=== PATIENT | female | born 1935 | race Caucasian/White ===

== ENCOUNTER 2019-12-10 10:55 | Inpatient (IN) ==
--- NOTE | 2019-12-10 11:06 | Emergency Department Note ---
Impression & Plan GI bleed, Atrial fibrillation, Anemia ED Provider Note NAME: JESSI BONILLA AGE: 84 SEX: F : 1935 ARRIVES VIA: Walk-In INFORMANT: Patient, ED PROVIDER(S): Kit Rojas MD Chief Complaint: HPI: Does present with seizure and bloody bowel movement. 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 No additional history reported at this time. None noticed with not the patient was conscious or not alert. Unsure as to whether or not this was focal or grand mal type. The patient believes that this is more just a quivering that she states sometimes this will happen in her lips if she is deficient in certain electrolytes. The patient currently denies any headache, vision changes, chest pain, abdominal pain, nausea or vomiting. Did show a photo of a bloody bowel movement that occurred yesterday. No prior history of inflammatory bowel disease but did have a colonoscopy with a possible polypectomy within the last year but no other acute issues at that time. Patient does take Eliquis for history of atrial fibrillation. Prior history of seizures or migraines. Patient denies any sensory deficits ROS: See HPI for pertinent positives and negatives. A total of 10 systems were reviewed and otherwise negative. Past medical history: See below Surgical history: See below Social history: See below Physical Exam: GENERAL: Wearing a mask. NAD, non-toxic. EYE EXAM: Normal conjunctiva. PERRL, no anisocoria and EOM's grossly intact w/o pain. OROPHARYNX: Moist mucus membranes. Grossly normal dentition. NECK: Supple, no nuchal rigidity, no adenopathy, non-tender. No signs of meningismus. LUNGS: Clear to auscultation. Normal chest wall mechanics. HEART: Irregularly irregular, no MRG. ABDOMEN: Abdomen soft, non-tender, normo-active bowel sounds, no masses, no rebound or guarding. BACK: No CVA TTP. SKIN: No rashes and no bruising. UPPER EXTREMITIES: Upper extremities are grossly normal. LOWER EXTREMITIES: Grossly normal, no edema. NEURO EXAM: A&O x3, cranial nerves II-XII grossly intact, normal speech, moves all 4 extremities on command w/o issue. Good finger to nose, no drift, no sensory deficits. Differential diagnoses: Epilepsy, infection, hypoglycemia, electrolyte abnormalities, cardiac sources, intracerebral event, trauma, toxicologic, neurologic, syncope, as well as other pathologies. Diverticulosis, AVM, coag ulopathy, colitis, inflammatory bowel disease, malignancy, Maria C-Perry tear, esophagitis, peptic ulcer disease, variceal bleed, gastritis, epistaxis, fissure, hemorrhoids, as well as other pathologies. Course: Patient was seen and evaluated the bedside. Full history physical exam was performed. EKG: Indication: Seizure work-up A. fib, rate 88, normal QRS duration, normal axis, T wave inversion in lead III, slight depressions in the lateral leads. No prior EKGs for comparison. Imaging Studies: Radiology results as stated below per my review in the radiologist's interpretation: Cardiac monitoring: An order was placed for continuous cardiac monitoring. The monitor shows a rate of 88 with irregularly irregular rhythm. MDM: Patient was seen due to concern for seizure and possible GI bleed. Blood work was obtained along with type and screen Protonix bolus and drip ordered. Of no te the patient states that she would consider CPR but would not want to be intubated or have a breathing tube. Patient is a more wild white count of 16. The patient has stated that she does have a chronic cough but this is unchanged from prior and the patient does not have any abdominal pain sore throat denies any urinary symptoms. Abdomen is soft. Hemoglobin 9.4. No priors for comparison although the patient in further discussion states that she did have a transfusion sometime within the last year but her hemoglobin was around 8 at that time. Patient has normal coags and the patient's kidney function is unremarkable albeit mild prerenal azotemia. This could be related to the bleeding versus dehydration. Patient did receive a small amount of fluid given her CHF. She did have some slight depressions on her EKG with the patient denies any chest pains or shortness of breath. The p atient is currently not symptomatic and denies any chest pain lightheadedness, dizziness, or shortness of breath currently. No prior history of alcohol or tobacco use. Patient was consented for blood in the event that she required it. Patient was subsequently admitted to the medicine service under Dr. Moise MD, [facility] medicine service. Past Med/Surg History Medical History Atrial fibrillation CHF (congestive heart failure) Social History Smoking Status: Never smoker Feels Safe at Home: Yes Allergies Allergies Allergy/AdvReac Type Severity Reaction Status Date / Time No Known Allergies Allergy Unverified 12/10/19 12:44 Home Meds Home Medications Medication Instructions Recorded Confirmed albuterol sulfate 2 puff INHALATION Q4 PRN 10/17/19 12/10/19 apixaban [Eliquis] 5 mg PO BID 10/17/19 12/10/19 citalopram 20 mg PO DAILY 10/17/19 12/10/19 fluticasone propionate [Flonase] 1 spray INTRANASAL DAILY 10/17/19 12/10/19 levothyroxine 25 mcg PO DAILY 10/17/19 12/10/19 magnesium oxide 400 mg PO DAILY 10/17/19 12/10/19 mesalamine 800 mg PO TID 10/17/19 12/10/19 methotrexate sodium 2.5 mg PO WK 10/17/19 12/10/19 metoprolol succinate 12.5 mg PO DAILY 10/17/19 12/10/19 nystatin [Nystop] 1 applic TOPICAL TID 10/17/19 12/10/19 omeprazole [Prilosec] 20 mg PO DAILY 10/17/19 12/10/19 potassium chloride [Klor-Con M20] 20 meq PO BID 10/17/19 12/10/19 rosuvastatin [Crestor] 5 mg PO DAILY 10/17/19 12/10/19 tolterodine [Detrol LA] 4 mg PO DAILY 10/17/19 12/10/19 acetaminophen 325 mg PO QID PRN 12/10/19 12/10/19 amino acids-protein hydrolys 1 ea PO DAILY 12/10/19 12/10/19 [Pro-Stat Sugar Free] bisacodyl [Dulcolax (bisacodyl)] 10 mg MI DAILY 12/10/19 12/10/19 icosapent ethyl [Vascepa] 2 g PO DAILY 12/10/19 12/10/19 magnesium hydroxide [Milk of 1,200 mg PO BID 12/10/19 12/10/19 Magnesia] prednisone 20 mg PO DAILY 12/10/19 12/10/19 promethazine-DM 5 ml PO Q6H PRN 12/10/19 12/10/19 sodium phosphates [Fleet Enema] 118 ml MI DAILY PRN 12/10/19 12/10/19 Results & Data (ED) Vital Signs Vital Signs - 24 hr 12/10/19 10:57 12/10/19 11:18 12/10/19 11:21 Temperature 36.6 C Temperature Source Oral Pulse Rate 95 H 93 H 95 H Pulse Rate from SpO2 Sensor 92 H Pulse Rhythm Regular Respiratory Rate 20 21 20 Respiratory Effort / Characteristics Non-Labored Spontaneous Respiratory Depth Normal Blood Pressure 151/62 H Blood Pressure Mean 85 Pulse Oximetry 93 96 93 Oxygen Delivery Method Room Air Room Air Sepsis Recent Fever Within 48 Hours No Sepsis New/Unexplained Change in Mental Status N/A Sepsis Action Taken by Nursing No Action Required 12/10/19 12:02 12/10/19 12:31 12/10/19 12:35 Temperature Temperature Source Pulse Rate 93 H 75 79 Pulse Rate from SpO2 Sensor 89 81 83 Pulse Rhythm Respiratory Rate 21 22 29 H Respiratory Effort / Characteristics Respiratory Depth Blood Pressure 89/50 L 74/47 L 84/46 L Blood Pressure Mean 63 51 65 Pulse Oximetry 94 92 92 Oxygen Delivery Method Sepsis Recent Fever Within 48 Hours Sepsis New/Unexplained Change in Mental Status Sepsis Action Taken by Nursing 12/10/19 13:01 12/10/19 13:31 12/10/19 14:00 Temperature Temperature Source Pulse Rate 88 84 70 Pulse Rate from SpO2 Sensor 89 87 72 Pulse Rhythm Respiratory Rate 24 22 24 Respiratory Effort / Characteristics Respiratory Depth Blood Pressure 110/47 L 90/54 L 85/41 L Blood Pressure Mean 66 59 64 Pulse Oximetry 96 95 93 Oxygen Delivery Method Sepsis Recent Fever Within 48 Hours Sepsis New/Unexplained Change in Mental Status Sepsis Action Taken by Nursing 12/10/19 14:15 Temperature Temperature Source Pulse Rate 70 Pulse Rate from SpO2 Sensor Pulse Rhythm Respiratory Rate 24 Respiratory Effort / Characteristics Respiratory Depth Blood Pressure 85/41 L Blood Pressure Mean Pulse Oximetry 93 Oxygen Delivery Method Room Air Sepsis Recent Fever Within 48 Hours Sepsis New/Unexplained Change in Mental Status Sepsis Action Taken by Prison Medications Current Medication List: was personally reviewed by me Laboratory Data Attestation: I reviewed the patient's lab results. Result diagrams: 12/10/19 11:20 12/10/19 11:20 Lab Results 12/10/19 12/10/19 12/10/19 Range/Units 11:20 11:20 11:20 WBC 16.30 H (4.8-10.8) K/uL RBC 3.12 L (4.2-5.4) M/uL Hgb 9.4 L (12.0-16.0) g/dL Hct 29.4 L (37-47) % MCV 94.2 (80-100) fL MCH 30.1 (25-34) pg MCHC 32.0 (32-36) g/dL RDW Std Deviation 62.5 H (36.4-46.3) fL RDW Coeff of Jesse 18.4 H (11.5-14.5) % Plt Count 282 (130-400) K/uL MPV 9.1 (7.4-10.4) fL Immature Gran % (Auto) 1.0 % Neut % (Auto) 74.0 % Lymph % (Auto) 17.0 % Hendricks % (Auto) 6.9 % Eos % (Auto) 1.0 % Baso % (Auto) 0.1 % Neut # (Auto) 12.06 H (1.4-6.5) K/uL Lymph # (Auto) 2.77 (1.2-3.4) K/uL Hendricks # (Auto) 1.12 H (0.11-0.59) K/uL Eos # (Auto) 0.17 (0-0.5) K/uL Baso # (Auto) 0.02 (0-0.2) K/uL Immature Gran # (Auto) 0.16 H (0.00-0.02) K/uL PT 10.9 (9.0-12.0) Seconds INR 1.0 (0.9-1.1) APTT 22.2 (21.0-31.0) Seconds PTT Ratio 0.8 Sodium (136-145) mmol/L Potassium (3.5-5.1) mmol/L Chloride (98-107) mmol/L Carbon Dioxide (21-32) mmol/L Anion Gap (3-11) BUN (7-18) mg/dl Creatinine (0.6-1.2) mg/dl Est Cr Clr Drug Dosing Est GFR ( Amer) Est GFR (Non-Af Amer) BUN/Creatinine Ratio (-20) Glucose (70-99) mg/dl Calcium (8.5-10.1) mg/dl Total Bilirubin (0.2-1) mg/dl AST (15-37) U/L ALT (12-78) U/L Alkaline Phosphatase (45-117) U/L Total Protein (6.4-8.2) gm/dl Albumin (3.4-5.0) gm/dl Globulin (2.5-4.0) gm/dl Albumin/Globulin Ratio (0.9-2) Lipase (73-393) U/L Blood Type O Positive Blood Type Recheck Antibody Screen NEGATIVE Crossmatch See Detail 12/10/19 12/10/19 Range/Units 11:20 13:30 WBC (4.8-10.8) K/uL RBC (4.2-5.4) M/uL Hgb (12.0-16.0) g/dL Hct (37-47) % MCV (80-100) fL MCH (25-34) pg MCHC (32-36) g/dL RDW Std Deviation (36.4-46.3) fL RDW Coeff of Jesse (11.5-14.5) % Plt Count (130-400) K/uL MPV (7.4-10.4) fL Immature Gran % (Auto) % Neut % (Auto) % Lymph % (Auto) % Hendricks % (Auto) % Eos % (Auto) % Baso % (Auto) % Neut # (Auto) (1.4-6.5) K/uL Lymph # (Auto) (1.2-3.4) K/uL Hendricks # (Auto) (0.11-0.59) K/uL Eos # (Auto) (0-0.5) K/uL Baso # (Auto) (0-0.2) K/uL Immature Gran # (Auto) (0.00-0.02) K/uL PT (9.0-12.0) Seconds INR (0.9-1.1) APTT (21.0-31.0) Seconds PTT Ratio Sodium 136 (136-145) mmol/L Potassium 4.3 (3.5-5.1) mmol/L Chloride 104 (98-107) mmol/L Carbon Dioxide 28 (21-32) mmol/L Anion Gap 4.0 (3-11) BUN 29 H (7-18) mg/dl Creatinine 0.87 (0.6-1.2) mg/dl Est Cr Clr Drug Dosing Not Reportable Est GFR ( Amer) 70.9 Est GFR (Non-Af Amer) 61.2 BUN/Creatinine Ratio 33.6 H (10-20) Glucose 128 H (70-99) mg/dl Calcium 8.8 (8.5-10.1) mg/dl Total Bilirubin 0.4 (0.2-1) mg/dl AST 14 L (15-37) U/L ALT 29 (12-78) U/L Alkaline Phosphatase 79 (45-117) U/L Total Protein 5.9 L (6.4-8.2) gm/dl Albumin 2.4 L (3.4-5.0) gm/dl Globulin 3.5 (2.5-4.0) gm/dl Albumin/Globulin Ratio 0.7 L (0.9-2) Lipase 57 L (73-393) U/L Blood Type Blood Type Recheck O Positive Antibody Screen Crossmatch Administered Medications Pantoprazole Sodium 40 mg/ (Dextrose) 100 mls @ 20 mls/hr IV Q5H CRISTINA Stop: 01/09/20 11:33 Last Admin: 12/10/19 12:37 Dose: 8 mg/hr, 20 mls/hr Documented by: [id number] Discontinued Medications Sodium Chloride (Nss) 250 mls @ 999 mls/hr IV .Q16M CRISTINA Stop: 12/10/19 12:00 Last Admin: 12/10/19 13:03 Dose: Not Given Documented by: [id number] Infusion: 12/10/19 12:37 Dose: 0 mls/hr Documented by: [id number] Admin: 12/10/19 12:09 Dose: 999 mls/hr Documented by: [id number] Pantoprazole Sodium (Protonix Bolus/Drip) 0 mls @ 1 mls/hr IV ONE STA Stop: 12/10/19 11:19 Last Admin: 12/10/19 13:03 Dose: Not Given Documented by: [id number] Pantoprazole Sodium 80 mg/ (Dextrose) 120 mls @ 400 mls/hr IV NOW ONE Stop: 12/10/19 11:35 Last Infusion: 12/10/19 12:37 Dose: 0 mls/hr Documented by: [id number] Admin: 12/10/19 12:11 Dose: 400 mls/hr Documented by: [id number] Sodium Chloride (Nss 1000ml) 250 mls @ 999 mls/hr IV .Q16M ONE Stop: 12/10/19 12:53 Last Infusion: 12/10/19 12:58 Dose: 0 mls/hr Documented by: [id number] Admin: 12/10/19 12:41 Dose: 999 mls/hr Documented by: [id number] Discharge Plan Visit Data Chief Complaint: Seizure Stated Complaint: SEIZURE ED Provider: Kit Rojas Discharge Problem: GI bleed, Atrial fibrillation, Anemia Discharge Instructions Interventions: ED Discharge Assessment Last Done: 12/10/19 14:15 Discharge Problem: GI bleed Qualifiers: GI bleed type/associated pathology: unspecified gastrointestinal hemorrhage type Qualified Code(s): K92.2 - Gastrointestinal hemorrhage, unspecified Atrial fibrillation Qualifiers: Atrial fibrillation type: unspecified chronic Qualified Code(s): I48.20 - Chronic atrial fibrillation, unspecified Anemia Qualifiers: Anemia type: unspecified type Qualified Code(s): D64.9 - Anemia, unspecified
[2019-12-10] MEDS ORDERED: PANTOPRAZOLE BOLUS/DRIP 1 EA IV STA (11:18)
[2019-12-10] MEDS ORDERED: PANTOprazole 80 MG in DEXTROSE 5% 100 ML IV ONE (11:18)
[2019-12-10 11:31] LABS: Basophils # (auto) 0.02 K/uL (0-0.2); Basophils % (auto) 0.1 %; Eosinophils # (auto) 0.17 K/uL (0-0.5); Hematocrit (blood only) 29.4 % (37-47); Hemoglobin 9.4 g/dL (12.0-16.0); Immature Granulocytes # (auto) 0.16 K/uL (0.00-0.02); Lymphocytes # (auto) 2.77 K/uL (1.2-3.4); Mean Corpuscular Hemoglobin 30.1 pg (25-34); Mean Corpuscular Volume 94.2 fL (80-100); Mean Platelet Volume 9.1 fL (7.4-10.4); Monocytes # (auto) 1.12 K/uL (0.11-0.59); Monocytes % (auto) 6.9 %; Neutrophils # (auto) 12.06 K/uL (1.4-6.5); Platelet Count 282 K/uL (130-400); RDW Coefficient of Variation 18.4 % (11.5-14.5); RDW Standard Deviation 62.5 fL (36.4-46.3); Red Blood Count 3.12 M/uL (4.2-5.4)
[2019-12-10 11:40] LABS: Partial Thromboplastin Ratio 0.8; Partial Thromboplastin Time 22.2 Seconds (21.0-31.0); Prothrombin Time 10.9 Seconds (9.0-12.0)
--- NOTE | 2019-12-10 11:43 | CT Scan Report ---
CT head/brain wo con CLINICAL HISTORY: Seizure COMPARISON STUDY: 10/17/2019 TECHNIQUE: Axial CT of the brain is performed from the vertex to the skull base. IV contrast was not administered for this examination. A dose lowering technique was utilized adhering to the principles of ALARA. CT DOSE: 537.48 mGy.cm FINDINGS: There is a stable 8 mm dural based right frontal calcification. There is no CT evidence of acute maribell ical infarction. There is no evidence of midline shift. There is no acute hemorrhage. No calvarial f ractures are visualized. There are patchy white matter hypodensities likely on a small vessel basis. There is no evidence of pathologic ventricular dilatation. There is no evidence of acute sinusitis IMPRESSION: No acute intracranial findings ACT 112: Negative or not required by law. Electronically signed by: Christophe Rodas M.D. 12/10/2019 11:42 AM
[2019-12-10 11:47] LABS: Alanine Aminotransferase 29 U/L (12-78); Albumin Level 2.4 gm/dl (3.4-5.0); Aspartate Aminotransferase 14 U/L (15-37); BUN Creatinine Ratio 33.6 (10-20); Blood Urea Nitrogen 29 mg/dl (7-18); Calcium 8.8 mg/dl (8.5-10.1); Carbon Dioxide 28 mmol/L (21-32); Chloride 104 mmol/L (98-107); Est GFR (African American) 70.9; Est GFR (Non-African American) 61.2; Glucose 128 mg/dl (70-99); Lipase 57 U/L (73-393); Potassium 4.3 mmol/L (3.5-5.1); Sodium 136 mmol/L (136-145)
[2019-12-10 11:49] LABS: Albumin Globulin Ratio 0.7 (0.9-2); Alkaline Phosphatase 79 U/L (45-117); Bilirubin,Total 0.4 mg/dl (0.2-1); Globulin 3.5 gm/dl (2.5-4.0); Total Protein 5.9 gm/dl (6.4-8.2)
[2019-12-10] MEDS: SODIUM CHLORIDE 0.9% 250 ML IV SCH ×2 (12:09→13:03)
[2019-12-10] MEDS: PANTOprazole 40 MG in DEXTROSE 5% 100 ML IV SCH ×3 (12:37→22:29)
[2019-12-10] MEDS ORDERED: SODIUM CHLORIDE 0.9% 1000ML 250 ML IV ONE (12:38)
[2019-12-10] MEDS ORDERED: SODIUM CHLORIDE 0.9% 250 ML IV PRN ×2 (12:43→23:09)
--- NOTE | 2019-12-10 13:36 | History & Physical Report ---
Date of Service December 10, 2019 Assessment & Plan (1) Bright red blood per rectum: (2) Anemia due to GI blood loss: (3) Atrial fibrillation: (4) CHF (congestive heart failure): (5) Rheumatoid arthritis: (6) GERD (gastroesophageal reflux disease): (7) Hypothyroid: (8) Valvular heart disease: (9) Hyperlipidemia: (10) Depression: We will hold her Eliquis, GI evaluation, monitor hemoglobin and hematocrit, gentle IV fluids, she is consented for blood, PCU, continue outpatient meds were appropriate, clear diet. Consider consulting neurology if we witnessed another seizure. Patient may have passed out last night secondary to the blood loss and had tonic jerks when she regained consciousness. CODE STATUS:DNI ROS-No Headache, No Visual Changes, No Nausea, No Vomiting, No Fever, No Chills, No Neck Pain or Stiffness, No Chest Pain, No Palpitations, No SOB, No CHENG, No Cough, No Sputum, No Wheezing, No Abdominal Pain, No Diarrhea, No Hematemesis, No Hemoptysis, No Unexpected Weight Loss, No Flank pain, No Melena, No Hematochezia, No Frequency, No Urgency, No Burning, No Hematuria, No Rashes, No Diaphoresis. Appetite is Normal, positive bright red blood per rectum, weakness Physical Exam Gen-AAO x 3, NAD, Afebrile, obese Head-NCAT, EOMI, PERRLA, Anicteric Sclera, No Posterior Pharyngeal Erythema Neck-Supple, No JVD, No Thyromegaly, No Masses, No LAD, No Bruits Lungs-Clear to Auscultation Bilaterally, No Rales, No Rhonchi, No Wheezing, No Crepitus Chest-No S4, +S1, +S2, No S3, No Murmurs, No Rubs, No Gallops, No Ectopy Abdomen-Soft, Bowel Sounds Present, Non Tender, Non Distended, No Hepatomegaly, No Splenomegaly, No Palpable Masses, No Rebound, No Rigidity, No Guarding Musculoskeletal-Full Range of Motion Bilaterally, No CVAT Extremities-No Cyanosis, No Clubbing, 3+ pitting edema Nuero-Cranial Nerves II-XII grossly intact, Motor WNL, DTRs WNL, Strength WNL, Non Focal Psych-Normal Mood History of Present Illness Past medical historyatrial fibrillation, congestive heart failure, valvular heart disease, hypothyroidism, hypertension, GERD, rheumatoid arthritis, hyperlipidemia, depression Past surgical historyappendectomy, cholecystectomy, hysterectomy, cataract Family historymother of heart disease, father of a perforated ulcer Social history-never , lives with a cousin, no tobacco drugs or alcohol history. Chief Complaint: BRBPR Primary Care Provider: Rayne Driscoll DO 84-year-old white female with a past medical history of atrial fibrillation, CHF, valvular heart disease, hypothyroidism, hypertension, GERD, rheumatoid arthritis, hyperlipidemia, and depression who comes in secondary to bright red blood per rectum last evening. According to her niece at the bedside she also had 4 minutes of a seizure last night as well. She said the bleeding occurred right after her bowel movement last night. She felt okay this morning after drinking some Gatorade. Because of that she lives with told the niece to take her to the hospital because of what happened last night. Her blood pressure was in the 90s in the emergency room and she was given fluids. She was also consented for blood and her CODE STATUS is DO NOT INTUBATE. Allergies Allergy/AdvReac Type Severity Reaction Status Date / Time No Known Allergies Allergy Unverified 12/10/19 12:44 Home Medications Home Medications Medication Instructions Recorded Confirmed Type albuterol sulfate 2 puff INHALATION Q4 PRN 10/17/19 12/10/19 History apixaban [Eliquis] 5 mg PO BID 10/17/19 12/10/19 History citalopram 20 mg PO DAILY 10/17/19 12/10/19 History fluticasone propionate [Flonase] 1 spray INTRANASAL DAILY 10/17/19 12/10/19 History levothyroxine 25 mcg PO DAILY 10/17/19 12/10/19 History magnesium oxide 400 mg PO DAILY 10/17/19 12/10/19 History mesalamine 800 mg PO TID 10/17/19 12/10/19 History methotrexate sodium 2.5 mg PO WK 10/17/19 12/10/19 History metoprolol succinate 12.5 mg PO DAILY 10/17/19 12/10/19 History nystatin [Nystop] 1 applic TOPICAL TID 10/17/19 12/10/19 History omeprazole [Prilosec] 20 mg PO DAILY 10/17/19 12/10/19 History potassium chloride [Klor-Con M20] 20 meq PO BID 10/17/19 12/10/19 History rosuvastatin [Crestor] 5 mg PO DAILY 10/17/19 12/10/19 History tolterodine [Detrol LA] 4 mg PO DAILY 10/17/19 12/10/19 History acetaminophen 325 mg PO QID PRN 12/10/19 12/10/19 History amino acids-protein hydrolys 1 ea PO DAILY 12/10/19 12/10/19 History [Pro-Stat Sugar Free] bisacodyl [Dulcolax (bisacodyl)] 10 mg HI DAILY 12/10/19 12/10/19 History icosapent ethyl [Vascepa] 2 g PO DAILY 12/10/19 12/10/19 History magnesium hydroxide [Milk of 1,200 mg PO BID 12/10/19 12/10/19 History Magnesia] prednisone 20 mg PO DAILY 12/10/19 12/10/19 History promethazine-DM 5 ml PO Q6H PRN 12/10/19 12/10/19 History sodium phosphates [Fleet Enema] 118 ml HI DAILY PRN 12/10/19 12/10/19 History Past Med/Surg History Medical History (Updated 12/10/19 @ 13:30 by Jamie Phipps DO) Atrial fibrillation CHF (congestive heart failure) Social History Smoking Status: Never smoker Feels Safe at Home: Yes Results & Data Results & Data ([facility]) Vital Signs (Past 12 Hours) Vital Signs Temp Pulse Resp BP Pulse Ox 12/10/19 13:01 88 24 110/47 L 96 12/10/19 12:35 79 29 H 84/46 L 92 12/10/19 12:31 75 22 74/47 L 92 12/10/19 12:02 93 H 21 89/50 L 94 12/10/19 11:21 95 H 20 93 12/10/19 11:18 93 H 21 151/62 H 96 12/10/19 10:57 36.6 C 95 H 20 93 Allergies No Known Allergies Allergy (Unverified 12/10/19 12:44) Height/Weight/Isolation Height 5 ft 5 in Weight 92.8 kg Chemistry 12/10/19 11:20 Sodium 136 Potassium 4.3 Chloride 104 Carbon Dioxide 28 Anion Gap 4.0 BUN 29 H Creatinine 0.87 Glucose 128 H
[2019-12-10] MEDS ORDERED: ONDANSETRON INJ 2 MG/ML 2 ML VIAL IV PRN (14:44)
[2019-12-10] MEDS ORDERED: PROMETHAZINE DM PO PRN (14:44)
[2019-12-10] MEDS ORDERED: ACETAMINOPHEN 325 MG TAB PO PRN (14:44)
[2019-12-10] MEDS ORDERED: SOD PHOSPHATE/SOD BIPHOSPHATE ENEMA 132 ML BTL PR PRN (14:44)
[2019-12-10 15:14] LABS: Hematocrit (blood only) 28.5 % (37-47); Hemoglobin 9.1 g/dL (12.0-16.0)
[2019-12-10] MEDS: NYSTATIN POWDER 15GM BTL EXT SCH ×2 (16:48→21:11)
[2019-12-10] MEDS: MESALAMINE 800 MG TABCR PO SCH ×2 (16:50→21:11)
[2019-12-10] MEDS ORDERED: MAGNESIUM HYDROXIDE SUSP 30 ML UDC PO PRN (21:00)
[2019-12-10] MEDS: POTASSIUM CHLORIDE CRTAB 20 MEQ TABCR PO SCH (21:11)
[2019-12-10 23:00] LABS: Hematocrit (blood only) 25.1 % (37-47); Hemoglobin 7.9 g/dL (12.0-16.0)
[2019-12-10] MEDS ORDERED: ACETAMINOPHEN 500 MG TAB PO STA (23:09)
[2019-12-11] MEDS: PANTOprazole 40 MG in DEXTROSE 5% 100 ML IV SCH ×4 (03:00→23:48)
[2019-12-11 03:08] LABS: Appearance Urine Turbid (Clear); Bacteria Urine Automated 1+ (Negative); Bilirubin Urine Negative (Negative); Blood Urine 3+ (Negative); Color Urine Dark Yellow; Epithelial Cell Urine Auto >30 /lpf (0-5); Glucose Urine UA Negative (Negative); Ketones Urine Trace (Negative); Leukocyte Esterase Urine 2+ (Negative); Nitrite Urine Negative (Negative); Protein Urine Trace (Negative); Specific Gravity Urine 1.023 (1.000-1.030); Urobilinogen Urine Negative (Negative)
[2019-12-11 03:20] LABS: RBC Urine Automated 0-4 /hpf (0-4)
[2019-12-11] MEDS: LEVOTHYROXINE SODIUM 25 MCG TABLET PO SCH (06:29)
[2019-12-11 06:43] LABS: Hematocrit (blood only) 26.6 % (37-47); Hemoglobin 8.6 g/dL (12.0-16.0); Mean Corpuscular Hemoglobin 29.8 pg (25-34); Mean Corpuscular Hgb Conc 32.3 g/dL (32-36); Mean Platelet Volume 9.4 fL (7.4-10.4); Platelet Count 268 K/uL (130-400); RDW Coefficient of Variation 19.5 % (11.5-14.5); RDW Standard Deviation 65.3 fL (36.4-46.3); Red Blood Count 2.89 M/uL (4.2-5.4); White Blood Count 11.48 K/uL (4.8-10.8)
[2019-12-11 06:57] LABS: Prothrombin Time 10.9 Seconds (9.0-12.0)
[2019-12-11 07:19] LABS: Albumin Globulin Ratio 0.6 (0.9-2); BUN Creatinine Ratio 30.5 (10-20); Bilirubin,Total 0.7 mg/dl (0.2-1); Calcium 8.1 mg/dl (8.5-10.1); Creatinine Clr Calc Pharmacy 51.2 ml/min; Est GFR (African American) 66.3; Est GFR (Non-African American) 57.2; Globulin 3.1 gm/dl (2.5-4.0); Potassium 5.2 mmol/L (3.5-5.1); Total Protein 5.1 gm/dl (6.4-8.2)
[2019-12-11] MEDS ORDERED: AMINO ACIDS PROTEIN HYDROLYS PO SCH (09:00)
[2019-12-11] MEDS ORDERED: bisacodyL 10 MG SUPP PR PRN (09:00)
[2019-12-11] MEDS ORDERED: PANTOprazole 40 MG TAB PO SCH (09:00)
[2019-12-11] MEDS: MESALAMINE 800 MG TABCR PO SCH ×3 (09:01→21:24)
[2019-12-11] MEDS: ROSUVASTATIN CALCIUM 5 MG TAB PO SCH (09:01)
[2019-12-11] MEDS: TOLTERODINE TARTRATE LA 4 MG CAPCR PO SCH (09:01)
[2019-12-11] MEDS: CITALOPRAM 20 MG TAB PO SCH (09:01)
[2019-12-11] MEDS: METOPROLOL SUCC 25MG EXT REL TAB PO SCH (09:02)
[2019-12-11] MEDS: predniSONE 20 MG TAB PO SCH (09:03)
[2019-12-11] MEDS: MAGNESIUM OXIDE 400 MG TAB PO SCH (09:04)
[2019-12-11] MEDS: POTASSIUM CHLORIDE CRTAB 20 MEQ TABCR PO SCH ×2 (09:04→21:24)
[2019-12-11] MEDS: FLUTICASONE PROPIONATE NA SPR 16 GM BTL SCH (09:11)
[2019-12-11] MEDS: NYSTATIN POWDER 15GM BTL EXT SCH ×3 (09:12→21:23)
--- NOTE | 2019-12-11 09:26 | Gastrointestinal Consultation ---
Date of Consultation December 11, 2019 Assessment & Plan (1) GI bleed: (2) Anemia due to GI blood loss: Continue Protonix though it can be switched to IV BID as she has no overt GI blood loss and is HD stable Add Carafate 1 g PO QID AC and HS Obtain records from Prior endoscopic workup Patient states she would like to hold off on EGD/Colonoscopy Will follow clinical course and make further recommendations as needed. History of Present Illness Reason for Consultation: GI bleed Attending Physician: Jamie Stevenson MD History of Present Illness Kate Dior is an 84 yo CF with a significant PMHx of Afib on anticoagulation presented to the ER last evening following reported seizure activity, as well as bright red blood per rectum following a Bowel movement. Upon arrival to the ER, she was noted to be anemic. A CT scan of the head was normal. She was subsequently admitted and placed on a Protonix gtt. At the time I saw the patient, she stated that she is feeling better than on arrival. She denies any abdominal pain, fevers, chills, nausea, vomiting, diarrhea, hematemesis, melena, or further Bright red blood per rectum. She states that she has had 1 BM since her arrival, but did not see blood. She states that she, "just had a colonoscopy last year in [place]." She states that she has had a stomach ulcer in the past, but cannot elaborate on the details of how this diagnosis was made. I also inquired about her taking Mesalamine, which is used in the treatment of Ulcerative colitis, however, she does not know why she takes it. She denies any further complaints at present. Allergies Allergy/AdvReac Type Severity Reaction Status Date / Time No Known Allergies Allergy Unverified 12/10/19 12:44 Home Medications Home Medications Medication Instructions Recorded Confirmed Type albuterol sulfate 2 puff INHALATION Q4 PRN 10/17/19 12/10/19 History apixaban [Eliquis] 5 mg PO BID 10/17/19 12/10/19 History citalopram 20 mg PO DAILY 10/17/19 12/10/19 History fluticasone propionate [Flonase] 1 spray INTRANASAL DAILY 10/17/19 12/10/19 History levothyroxine 25 mcg PO DAILY 10/17/19 12/10/19 History magnesium oxide 400 mg PO DAILY 10/17/19 12/10/19 History mesalamine 800 mg PO TID 10/17/19 12/10/19 History methotrexate sodium 2.5 mg PO WK 10/17/19 12/10/19 History metoprolol succinate 12.5 mg PO DAILY 10/17/19 12/10/19 History nystatin [Nystop] 1 applic TOPICAL TID 10/17/19 12/10/19 History omeprazole [Prilosec] 20 mg PO DAILY 10/17/19 12/10/19 History potassium chloride [Klor-Con M20] 20 meq PO BID 10/17/19 12/10/19 History rosuvastatin [Crestor] 5 mg PO DAILY 10/17/19 12/10/19 History tolterodine [Detrol LA] 4 mg PO DAILY 10/17/19 12/10/19 History acetaminophen 325 mg PO QID PRN 12/10/19 12/10/19 History amino acids-protein hydrolys 1 ea PO DAILY 12/10/19 12/10/19 History [Pro-Stat Sugar Free] bisacodyl [Dulcolax (bisacodyl)] 10 mg OK DAILY 12/10/19 12/10/19 History icosapent ethyl [Vascepa] 2 g PO DAILY 12/10/19 12/10/19 History magnesium hydroxide [Milk of 1,200 mg PO BID 12/10/19 12/10/19 History Magnesia] prednisone 20 mg PO DAILY 12/10/19 12/10/19 History promethazine-DM 5 ml PO Q6H PRN 12/10/19 12/10/19 History sodium phosphates [Fleet Enema] 118 ml OK DAILY PRN 12/10/19 12/10/19 History Patient History Medical History Atrial fibrillation CHF (congestive heart failure) Social History Smoking Status: Never smoker Second Hand Exposure: No; Do You Dip or Chew Tobacco: No; Tobacco Cessation Education Requested by Patient: No Hx Alcohol Use: No Hx Substance Use: No Current Living Situation: Family Current Living Situation Comment: lives with sebastian, her neice Feels Safe at Home: Yes Safety Concerns: Feels Safe At This Time Assistive Devices: Walker Review of Systems Review of Systems: All systems reviewed & are unremarkable except as noted in HPI & below Physical Exam Constitutional: + ill appearing; no acute distress Eyes: + anicteric sclerae ENMT: external ear and nose normal, oropharynx normal Neck: trachea midline Respiratory: normal respiratory effort; no respiratory distress and no labored breathing Cardiovascular: Rate/Rhythm: + irregularly irregular Gastrointestinal (Abdomen): Inspection/Auscultation: abdomen normal to inspection and normal bowel sounds; abdomen not distended Percussion/Palpation: abdomen soft; abdomen nontender, no guarding and abdomen not rigid Skin: no rashes, warm and dry Psychiatric: Orientation: alert Results & Data ([facility]) Vital Signs (Past 12 Hours) Vital Signs Temp Pulse Pulse Resp BP BP Pulse Ox 12/11/19 07:26 36.8 C 89 18 99/67 L 96 12/11/19 03:09 36.6 C 88 20 94/59 L 97 12/11/19 02:00 36.8 C 82 20 84/50 L 97 12/11/19 01:00 36.5 C 87 22 79/46 L 95 12/11/19 00:55 90/52 L 12/11/19 00:41 90 102/63 12/11/19 00:36 82/48 L 12/11/19 00:30 36.5 C 85 22 43/38 L 98 12/11/19 00:15 36.4 C L 84 20 97 12/10/19 23:54 36.6 C 78 20 91 12/10/19 23:09 36.6 C 78 16 91 PG Care Time/CCT Total # of Minutes Spent Total Time Spent with Patient: Total time spent is greater than 50% in coordination of care (as documented) at patient's floor/unit and/or counseling patient: Coding Level of Care Code 19872 Initial Inpt Care Lvl 3 Diagnoses GI bleed K92.2 GI bleed type/associated pathology: unspecified gastrointestinal hemorrhage type Anemia due to GI blood loss D50.0 (1) GI bleed GI bleed type/associated pathology: unspecified gastrointestinal hemorrhage type Qualified Code(s): K92.2 - Gastrointestinal hemorrhage, unspecified
--- NOTE | 2019-12-11 10:03 | Electrocardiogram Report ---
Test Reason : Blood Pressure : / mmHG Vent. Rate : 088 BPM Atrial Rate : 097 BPM P-R Int : 000 ms QRS Dur : 082 ms QT Int : 368 ms P-R-T Axes : 000 004 002 degrees QTc Int : 445 ms Atrial fibrillation Nonspecific ST abnormality Abnormal ECG No previous ECGs available Confirmed by Azeem Lim ([id number]) on 12/11/2019 10:03:22 AM Referred By: REFERRED SELF Confirmed By:Azeem Lim
--- NOTE | 2019-12-11 12:27 | Cardiology Consultation ---
Date of Consultation December 11, 2019 Assessment & Plan (1) GI bleed: (2) Anemia due to GI blood loss: (3) Atrial fibrillation: (4) Chronic diastolic heart failure: (5) Tricuspid regurgitation: Hold Eliquis in the setting of acute lower GI bleeding and symptomatic anemia. Patient appears compensated, mildly hypovolemic at this time. No indication for diuretic therapy. Edema well controlled on exam. Agree with cautious/gentle hydration as tolerated. Ventricular rates controlled on telemetry. Continue low-dose beta-allan as previously ordered. Patient is considered moderate, acceptable risk for endoscopic procedures if necessary. No further cardiac testing or intervention would lower her risk at this time. History of Present Illness Reason for Consultation: GI bleed, CHF, atrial fibrillation Requesting Physician: Dr. Phipps Attending Physician: Jamie Stevenson MD History of Present Illness 84-year-old female presented to the emergency department with rectal bleeding. Patient reports several bloody bowel movements. Chronically anticoagulated due to history of chronic, rate controlled atrial fibrillation. History of diastolic heart failure and severe tricuspid regurgitation with mild pulmonary hypertension. Patient reports lower extremity edema with fair control on outpatient diuretic regimen. Dyspnea on exertion noted prior to admission. Symptoms improved thus far with transfusion of packed red blood cells and diuretic therapy. Telemetry demonstrates rate controlled atrial fibrillation. No recurrent episodes of hematochezia, melena, hematemesis, or coffee-ground emesis since admission. Eliquis remains on hold. Allergies Allergy/AdvReac Type Severity Reaction Status Date / Time No Known Allergies Allergy Unverified 12/10/19 12:44 Home Medications Home Medications Medication Instructions Recorded Confirmed Type albuterol sulfate 2 puff INHALATION Q4 PRN 10/17/19 12/10/19 History apixaban [Eliquis] 5 mg PO BID 10/17/19 12/10/19 History citalopram 20 mg PO DAILY 10/17/19 12/10/19 History fluticasone propionate [Flonase] 1 spray INTRANASAL DAILY 10/17/19 12/10/19 History levothyroxine 25 mcg PO DAILY 10/17/19 12/10/19 History magnesium oxide 400 mg PO DAILY 10/17/19 12/10/19 History mesalamine 800 mg PO TID 10/17/19 12/10/19 History methotrexate sodium 2.5 mg PO WK 10/17/19 12/10/19 History metoprolol succinate 12.5 mg PO DAILY 10/17/19 12/10/19 History nystatin [Nystop] 1 applic TOPICAL TID 10/17/19 12/10/19 History omeprazole [Prilosec] 20 mg PO DAILY 10/17/19 12/10/19 History potassium chloride [Klor-Con M20] 20 meq PO BID 10/17/19 12/10/19 History rosuvastatin [Crestor] 5 mg PO DAILY 10/17/19 12/10/19 History tolterodine [Detrol LA] 4 mg PO DAILY 10/17/19 12/10/19 History acetaminophen 325 mg PO QID PRN 12/10/19 12/10/19 History amino acids-protein hydrolys 1 ea PO DAILY 12/10/19 12/10/19 History [Pro-Stat Sugar Free] bisacodyl [Dulcolax (bisacodyl)] 10 mg SC DAILY 12/10/19 12/10/19 History icosapent ethyl [Vascepa] 2 g PO DAILY 12/10/19 12/10/19 History magnesium hydroxide [Milk of 1,200 mg PO BID 12/10/19 12/10/19 History Magnesia] prednisone 20 mg PO DAILY 12/10/19 12/10/19 History promethazine-DM 5 ml PO Q6H PRN 12/10/19 12/10/19 History sodium phosphates [Fleet Enema] 118 ml SC DAILY PRN 12/10/19 12/10/19 History Patient History Medical History Atrial fibrillation CHF (congestive heart failure) Social History Smoking Status: Never smoker Second Hand Exposure: No; Do You Dip or Chew Tobacco: No; Tobacco Cessation Education Requested by Patient: No Hx Alcohol Use: No Hx Substance Use: No Current Living Situation: Family Current Living Situation Comment: lives with sebastian, her neice Feels Safe at Home: Yes Safety Concerns: Feels Safe At This Time Assistive Devices: Oxygen - Continuous Review of Systems Review of Systems: All systems reviewed & are unremarkable except as noted in HPI & below Physical Exam Constitutional: well developed, well nourished and + obese Respiratory: normal respiratory effort; no respiratory distress Auscultation: no diminished lung sounds, no crackles, no rales, no rhonchi and no wheezes Cardiovascular: Rate/Rhythm: + irregularly irregular Heart Sounds: normal S1, normal S2 and + murmur (2/6 midsystolic murmur heard best left sternal border.) Vessels: no JVD Extremities: no edema Gastrointestinal (Abdomen): Inspection/Auscultation: abdomen normal to inspection and normal bowel sounds; abdomen not distended Percussion/Palpat ion: abdomen soft; abdomen nontender, no guarding and abdomen not rigid Skin: no rashes, warm and dry Neurologic: moves all extremities; no focal motor deficits Speech / Cognition: normal speech Motor/Sensory: no tremor Psychiatric: Orientation: alert and oriented x 3 Results & Data ([facility]) Vital Signs (Past 12 Hours) Vital Signs Temp Pulse Pulse Resp BP BP Pulse Ox 12/11/19 11:55 36.8 C 96 H 20 90/56 L 96 12/11/19 07:26 36.8 C 89 18 99/67 L 96 12/11/19 03:09 36.6 C 88 20 94/59 L 97 12/11/19 02:00 36.8 C 82 20 84/50 L 97 12/11/19 01:00 36.5 C 87 22 79/46 L 95 12/11/19 00:55 90/52 L 12/11/19 00:41 90 102/63 12/11/19 00:36 82/48 L 12/11/19 00:30 36.5 C 85 22 43/38 L 98 Diagnostic Findings 2D echo report 08/31/2019: The qualitative LV ejection fraction is 55-59% (normal). The left ventricular wall motion is normal. Mild mitral regurgitation is present. Severe tricuspid regurgitation is present. Pulmonary hypertension is present. The PA systolic pressure is > 39 mmHG. Moderate pulmonary hypertension is present. (1) GI bleed GI bleed type/associated pathology: unspecified gastrointestinal hemorrhage type Qualified Code(s): K92.2 - Gastrointestinal hemorrhage, unspecified (2) Tricuspid regurgitation Cardiac valve disease etiology: nonrheumatic Qualified Code(s): I36.1 - Nonrheumatic tricuspid (valve) insufficiency (3) Atrial fibrillation Atrial fibrillation type: unspecified chronic Qualified Code(s): I48.20 - Chronic atrial fibrillation, unspecified
--- NOTE | 2019-12-11 12:40 | Hospitalist Progress Note ---
Date of Service December 11, 2019 Assessment & Plan (1) Bright red blood per rectum: associated with Seizure-Like Activity -as per history and physical on 12/11/2019: "84-year-old white female with a past medical history of atrial fibrillation, CHF, valvular heart disease, hypothyroidism, hypertension, GERD, rheumatoid arthritis, hyperlipidemia, and depression who comes in secondary to bright red blood per rectum last evening. According to her niece at the bedside she also had 4 minutes of a seizure last night as well. She said the bleeding occurred right after her bowel movement last night. She felt okay this morning after drinking some Gatorade. Because of that she lives with told the niece to take her to the hospital because of what happened last night. Her blood pressure was in the 90s in the emergency room and she was given fluids." -admission CT head negative -daytime hospitalist Dr. 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 patient's family denies that patient every had any seizures before -currently while in the hospital, patient does not exhibit any seizure like activity, may have been an isolated event associated with GI bleed, will consult neurology service (2) Anemia due to GI blood loss: -outpatient Hgb on 10/04/2019 as 11.6 -on presentation to the ED the Hgb 9.4 which dropped as low 7.9 -patient received 1 unit of PRBC, Hgb 8.6 on 12/11/2019 -patient evaluated by audio visual coordinator Dr. Grossman on 12/11/19 who advised switching IV drip Protonix to IV BID as she has no overt GI blood loss and is hemodynamically stable, add carafate, and holding off endoscopy for now as per his discussion with patient (3) GERD (gastroesophageal reflux disease): -management as above (4) Atrial fibrillation: -holding off Eliquis in the context of anemia -as per cardiology 12/11/2019: " No indication for diuretic therapy. Edema well controlled on exam. Agree with cautious/gentle hydration as tolerated. Ventricular rates controlled on telemetry. 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 appears to be at mental baseline. pleasant and cooperative and speaking in full sentences. she denies dizziness or headache or chest pain or abdominal pain. Review of Systems Review of Systems: All systems reviewed & are unremarkable except as noted in Subjective Physical Exam Constitutional: comfortable Eyes: PERRL, conjunctivae normal, anicteric sclerae EOM intact bilaterally Neck: normal visual inspection Respiratory: normal respiratory effort, lungs clear to auscultation Cardiovascular: Rate/Rhythm: + irregularly irregular Gastrointestinal (Abdomen): normal bowel sounds, soft, nontender, no hepatosplenomegaly Musculoskeletal: Head/Neck/Chest: normocephalic and head atraumatic Neurologic: PERRL, EOMI, accommodation nl, no face palsy, no dysarthria Psychiatric: Orientation: alert and cooperative Results & Data Results & Data ([facility]) Vital Signs (Past 12 Hours) Vital Signs Temp Pulse Pulse Resp BP BP Pulse Ox 12/11/19 11:55 36.8 C 96 H 20 90/56 L 96 12/11/19 07:26 36.8 C 89 18 99/67 L 96 12/11/19 03:09 36.6 C 88 20 94/59 L 97 12/11/19 02:00 36.8 C 82 20 84/50 L 97 12/11/19 01:00 36.5 C 87 22 79/46 L 95 12/11/19 00:55 90/52 L 12/11/19 00:41 90 102/63 (1) Tricuspid regurgitation Cardiac valve disease etiology: nonrheumatic Qualified Code(s): I36.1 - Nonrheumatic tricuspid (valve) insufficiency
[2019-12-11 14:14] LABS: Basophils # (auto) 0.02 K/uL (0-0.2); Basophils % (auto) 0.2 %; Eosinophils # (auto) 0.08 K/uL (0-0.5); Eosinophils % (auto) 0.7 %; Hemoglobin 8.6 g/dL (12.0-16.0); Immature Granulocytes # (auto) 0.12 K/uL (0.00-0.02); Immature Granulocytes % (auto) 1.1 %; Lymphocytes # (auto) 0.75 K/uL (1.2-3.4); Lymphocytes % (auto) 6.6 %; Mean Corpuscular Hemoglobin 29.8 pg (25-34); Mean Corpuscular Hgb Conc 31.9 g/dL (32-36); Mean Corpuscular Volume 93.4 fL (80-100); Mean Platelet Volume 8.8 fL (7.4-10.4); Monocytes # (auto) 0.23 K/uL (0.11-0.59); Neutrophils # (auto) 10.09 K/uL (1.4-6.5); Neutrophils % (auto) 89.4 %; Platelet Count 250 K/uL (130-400); RDW Coefficient of Variation 19.5 % (11.5-14.5); RDW Standard Deviation 66.2 fL (36.4-46.3); Red Blood Count 2.89 M/uL (4.2-5.4); White Blood Count 11.29 K/uL (4.8-10.8)
[2019-12-11] MEDS: SUCRALFATE 1 GM/10 ML UDC PO SCH ×3 (14:18→21:23)
[2019-12-11 14:32] LABS: BUN Creatinine Ratio 22.1 (10-20); Calcium 8.3 mg/dl (8.5-10.1); Creatinine Clr Calc Pharmacy 40.3 ml/min; Est GFR (African American) 49.6; Est GFR (Non-African American) 42.8; Potassium 4.7 mmol/L (3.5-5.1)
[2019-12-11 14:44] LABS: T4 Free Thyroxine 1.03 ng/dl (0.8-1.6); Thyroid Stimulating Hormone 0.744 uIu/ml (0.300-4.500)
[2019-12-11] MEDS ORDERED: PANTOprazole 40 MG in SYRINGE 0 ML IV SCH (21:00)
[2019-12-11 23:19] LABS: Hematocrit (blood only) 24.3 % (37-47); Hemoglobin 7.9 g/dL (12.0-16.0)
[2019-12-12] MEDS ORDERED: ACETAMINOPHEN 500 MG TAB PO STA (00:02)
[2019-12-12] MEDS ORDERED: SODIUM CHLORIDE 0.9% 250 ML IV PRN (00:02)
[2019-12-12] MEDS: PANTOprazole 40 MG in DEXTROSE 5% 100 ML IV SCH ×3 (04:11→08:24)
[2019-12-12] MEDS ORDERED: FUROSEMIDE 20 MG in SYRINGE 0 ML IV ONE ×2 (05:55→13:30)
[2019-12-12 06:51] LABS: Basophils # (auto) 0.01 K/uL (0-0.2); Basophils % (auto) 0.1 %; Eosinophils # (auto) 0.13 K/uL (0-0.5); Eosinophils % (auto) 1.2 %; Hematocrit (blood only) 30.5 % (37-47); Hemoglobin 9.9 g/dL (12.0-16.0); Immature Granulocytes # (auto) 0.11 K/uL (0.00-0.02); Lymphocytes # (auto) 1.75 K/uL (1.2-3.4); Lymphocytes % (auto) 16.3 %; Mean Corpuscular Hemoglobin 29.7 pg (25-34); Mean Corpuscular Hgb Conc 32.5 g/dL (32-36); Mean Corpuscular Volume 91.6 fL (80-100); Monocytes # (auto) 1.03 K/uL (0.11-0.59); Monocytes % (auto) 9.6 %; Neutrophils # (auto) 7.72 K/uL (1.4-6.5); Neutrophils % (auto) 71.8 %; Platelet Count 255 K/uL (130-400); RDW Coefficient of Variation 18.6 % (11.5-14.5); RDW Standard Deviation 60.6 fL (36.4-46.3); Red Blood Count 3.33 M/uL (4.2-5.4); White Blood Count 10.75 K/uL (4.8-10.8)
[2019-12-12 07:25] LABS: Albumin Level 2.3 gm/dl (3.4-5.0); BUN Creatinine Ratio 20.7 (10-20); Calcium 8.4 mg/dl (8.5-10.1); Creatinine Clr Calc Pharmacy 59.4 ml/min; Est GFR (African American) 76.2; Est GFR (Non-African American) 65.7; Potassium 4.1 mmol/L (3.5-5.1)
[2019-12-12 07:26] LABS: Albumin Globulin Ratio 0.7 (0.9-2); Bilirubin,Total 0.9 mg/dl (0.2-1); Globulin 3.3 gm/dl (2.5-4.0); Total Protein 5.6 gm/dl (6.4-8.2)
--- NOTE | 2019-12-12 08:00 | XRay Report ---
XR chest 1V portable CLINICAL HISTORY: Cough. Congestion. COMPARISON STUDY: No previous studies for comparison. FINDINGS: The patient is rotated. There is no pneumothorax or pleural effusion. Interstitial thickeni ng is noted. Moderate cardiomegaly is noted. IMPRESSION: 1. Interstitial thickening suggestive of pulmonary edema. An infectious process could appear similar although is considered less likely. Radiographic follow-up is recommended. 2. Moderate cardiomegaly. ACT 112: Negative or not required by law. Electronically signed by: Fredy Vera M.D. 12/12/2019 7:59 AM
--- NOTE | 2019-12-12 08:09 | Hospitalist Progress Note ---
Date of Service December 12, 2019 Assessment & Plan (1) Bright red blood per rectum: associated with Seizure-Like Activity -as per history and physical on 12/11/2019: "84-year-old white female with a past medical history of atrial fibrillation, CHF, valvular heart disease, hypothyroidism, hypertension, GERD, rheumatoid arthritis, hyperlipidemia, and depression who comes in secondary to bright red blood per rectum last evening. According to her niece at the bedside she also had 4 minutes of a seizure last night as well. She said the bleeding occurred right after her bowel movement last night. She felt okay this morning after drinking some Gatorade. Because of that she lives with told the niece to take her to the hospital because of what happened last night. Her blood pressure was in the 90s in the emergency room and she was given fluids." -admission CT head negative -daytime hospitalist Dr. 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 patient's family denies that patient every had any seizures before -currently while in the hospital, patient does not exhibit any seizure like activity, may have been an isolated event associated with GI bleed, consult neurology service -EEG performed on 12/12/2019 AM (2) Anemia due to GI blood loss: -outpatient Hgb on 10/04/2019 as 11.6 -on presentation to the ED the Hgb 9.4 which dropped as low 7.9 -patient received 1 unit of PRBC, Hgb 8.6 on 12/11/2019 -patient evaluated by business programmer Dr. Grossman on 12/11/19 who advised switching IV drip Protonix to IV BID as she has no overt GI blood loss and is hemodynamically stable, add carafate, -however, patient again had blood with bowel movement overnight and nocturnalist resumed IV drip Protonix and also transfused a second unit of PRBC with Lasix. As per nursing and patient there were no seizure like activities on this episode of bleed and around 6AM the EEG was being performed. 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 As per nursing and patient there were no seizure like activities on this episode of bleed and around 6AM the EEG was being performed. have updated patient's niece Hilda about the overnight events. Patient has been NPO since midnight. awaiting further GI evaluation. patient breathing comfortably with some crackles. she has had received IV Lasix. Patient denies chest pain. no abdomen pain. Patient moves all extremities and no focal motor deficits. Patient denies other complaints although it is her belief that probiotics prevent GI bleed. Review of Systems Review of Systems: All systems reviewed & are unremarkable except as noted in Subjective Physical Exam Constitutional: comfortable Eyes: PERRL, conjunctivae normal, anicteric sclerae EOM intact bilaterally ENMT: external ear and nose normal, oropharynx normal Neck: normal visual inspection Respiratory: normal respiratory effort Auscultation: + crackles Cardiovascular: Rate/Rhythm: + irregularly irregular Gastrointestinal (Abdomen): normal bowel sounds, soft, nontender, no hepatosplenomegaly Musculoskeletal: Head/Neck/Chest: normocephalic and head atraumatic Neurologic: PERRL, EOMI, accommodation nl, no face palsy, no dysarthria Psychiatric: Orientation: alert and cooperative Results & Data Results & Data ([facility]) Vital Signs (Past 12 Hours) Vital Signs Temp Pulse Pulse Resp BP BP Pulse Ox 12/12/19 07:45 36.6 C 20 112/72 97 12/12/19 03:46 36.6 C 82 22 125/71 98 12/12/19 02:56 63 20 100/47 L 99 12/12/19 01:56 36.6 C 80 19 109/69 99 12/12/19 01:35 98/56 L 12/12/19 01:26 36.5 C 72 19 78/51 L 98 12/12/19 01:11 36.6 C 84 19 91/63 L 98 12/12/19 00:53 36.7 C 87 16 103/63 97 12/11/19 23:38 37.1 C 92 H 19 89/58 L 98 (1) Tricuspid regurgitation Cardiac valve disease etiology: nonrheumatic Qualified Code(s): I36.1 - Nonrheumatic tricuspid (valve) insufficiency
[2019-12-12] MEDS: TOLTERODINE TARTRATE LA 4 MG CAPCR PO SCH (08:14)
[2019-12-12] MEDS: MESALAMINE 800 MG TABCR PO SCH ×3 (08:14→22:33)
[2019-12-12] MEDS: POTASSIUM CHLORIDE CRTAB 20 MEQ TABCR PO SCH (08:14)
[2019-12-12] MEDS: predniSONE 20 MG TAB PO SCH (08:14)
[2019-12-12] MEDS: METOPROLOL SUCC 25MG EXT REL TAB PO SCH (08:14)
[2019-12-12] MEDS: CITALOPRAM 20 MG TAB PO SCH (08:14)
[2019-12-12] MEDS: MAGNESIUM OXIDE 400 MG TAB PO SCH (08:14)
[2019-12-12] MEDS: SUCRALFATE 1 GM/10 ML UDC PO SCH (08:15)
[2019-12-12] MEDS: ROSUVASTATIN CALCIUM 5 MG TAB PO SCH (08:15)
[2019-12-12] MEDS: NYSTATIN POWDER 15GM BTL EXT SCH ×3 (08:25→22:33)
[2019-12-12] MEDS: FLUTICASONE PROPIONATE NA SPR 16 GM BTL SCH (08:25)
--- NOTE | 2019-12-12 08:43 | Gastroenterology Progress Note ---
Date of Service December 12, 2019 Assessment & Plan (1) GI bleed: 84 year old female atrial fibrillation, CHF, valvular heart disease, hypothyroidism, hypertension, GERD, rheumatoid arthritis, hyperlipidemia, and depression anticoagulated on eliquis who comes in secondary to bright red blood per rectum last evening, drop in HGB reported form outside labs 11 --> 7 without BUN elevation. No abd pain, melena, report of prior black/bloody emesis. Records were requested from prior endoscopy from OSH Will keep NPO until discussed with attending Pt currently not agreeable to endoscopic evaluation this AM Will reconsider pending review of colonoscopy Please restart her probiotic Check a KUB for stool burden Stool culture and stool for c.diff Consider a bleeding scan today Trend HGB Monitor and document for s/s of GI bleed Transfuse PRN Ok for BID PPI Thank you for allowing us to participate in the care of this patient. Please call with any acute changes, questions or concerns. Please see addendum below with additional recommendation from my supervising physician. Admission and Anticipated Discharge Date Admission Date: December 10, 2019 Supervising Physician Co-Signing Physician Notes I saw and evaluated the patient. Gastroenterology is consulted for evaluation of hematochezia with a significant drop in her hemoglobin and hematocrit. The patient does recall having a colonoscopy approximately 1 year ago at an outside hospital but does not recall the results. He denies having nausea abdominal pain fevers chills or difficulty with swallowing. Physical examination Elderly female in no obvious distress No abdominal tenderness Impression: Patient with hematochezia likely related to diverticular etiology. Perhaps this has been unfounded by her use of anticoagulation as well. Did discuss the role of colonoscopy however the patient does not want to drink a bowel prep and is adamantly against the sort of intervention at the present time. After long discussion with the patient she has agreed to proceeding with an upper endoscopy. We will make arrangements for this to be done, the patient did have liquids this morning we will therefore make arrangements to have her endoscopy done tomorrow morning Recommendations Consider discontinuation of anticoagulation Upper endoscopy to be scheduled Recommended a colonoscopy to the patient however she is not interested Please call with any questions or concerns Subjective Pt was seen and evaluated, chart reviewed. Notes a history of chronic constipation Had colonoscopy done in 2019 for history of polyps per pt at OSH, in [place] Suggests her OP probiotic was stopped. This caused worsening constipation. Admitted w/ rectal bleeding. Since admission, has had one episides of rectal bleeding last evening which was large volume. BRB. No melena. No clots Outpatient Hgb on 10/04/2019 as 11.6, on presentation to the ED the Hgb 9.4 which dropped as low 7.9, s/p 2 units of PRBC, hgb this AM 9.9. No BUN elevation Colonoscopy 2019: OSH pt is unsure of report Review of Systems Constitutional: no fever, no chills and no fatigue Respiratory: no cough and no dyspnea Cardiovascular: no chest pain Gastrointestinal: + diarrhea/loose stools and + blood in stools; no abdominal pain, no nausea and no melena Physical Exam Constitutional: well developed; no acute distress and not ill appearing Neck: trachea midline Respiratory: normal respiratory effort Cardiovascular: Rate/Rhythm: regular rate and regular rhythm Gastrointestinal (Abdomen): Percussion/Palpation: abdomen soft; abdomen nontender, no guarding and abdomen not rigid Skin: no rashes, warm and dry Results & Data ([facility]) Vital Signs (Past 12 Hours) Vital Signs Temp Pulse Pulse Resp BP BP Pulse Ox 12/12/19 07:45 36.6 C 20 112/72 97 12/12/19 03:46 36.6 C 82 22 125/71 98 12/12/19 02:56 63 20 100/47 L 99 12/12/19 01:56 36.6 C 80 19 109/69 99 12/12/19 01:35 98/56 L 12/12/19 01:26 36.5 C 72 19 78/51 L 98 12/12/19 01:11 36.6 C 84 19 91/63 L 98 12/12/19 00:53 36.7 C 87 16 103/63 97 12/11/19 23:38 37.1 C 92 H 19 89/58 L 98 Laboratory Results 12/12/19 12/12/19 12/11/19 Range/Units 06:32 06:32 23:04 WBC 10.75 (4.8-10.8) K/uL RBC 3.33 L (4.2-5.4) M/uL Hgb 9.9 L 7.9 L (12.0-16.0) g/dL Hct 30.5 L 24.3 L (37-47) % MCV 91.6 (80-100) fL MCH 29.7 (25-34) pg MCHC 32.5 (32-36) g/dL RDW Std Deviation 60.6 H (36.4-46.3) fL RDW Coeff of Jesse 18.6 H (11.5-14.5) % Plt Count 255 (130-400) K/uL MPV 9.0 (7.4-10.4) fL Immature Gran % (Auto) 1.0 % Neut % (Auto) 71.8 % Lymph % (Auto) 16.3 % Chilton % (Auto) 9.6 % Eos % (Auto) 1.2 % Baso % (Auto) 0.1 % Neut # (Auto) 7.72 H (1.4-6.5) K/uL Lymph # (Auto) 1.75 (1.2-3.4) K/uL [place]ilton # (Auto) 1.03 H (0.11-0.59) K/uL Eos # (Auto) 0.13 (0-0.5) K/uL Baso # (Auto) 0.01 (0-0.2) K/uL Immature Gran # (Auto) 0.11 H (0.00-0.02) K/uL Sodium 139 (136-145) mmol/L Potassium 4.1 (3.5-5.1) mmol/L Chloride 106 (98-107) mmol/L Carbon Dioxide 27 (21-32) mmol/L Anion Gap 6.0 (3-11) BUN 17 (7-18) mg/dl Creatinine 0.82 D (0.6-1.2) mg/dl Est Cr Clr Drug Dosing 59.4 ml/min Est GFR ( Amer) 76.2 Est GFR (Non-Af Amer) 65.7 BUN/Creatinine Ratio 20.7 H (10-20) Glucose 113 H (70-99) mg/dl POC Glucose (70-99) mg/dl Calcium 8.4 L (8.5-10.1) mg/dl Total Bilirubin 0.9 (0.2-1) mg/dl AST 17 (15-37) U/L ALT 23 (12-78) U/L Alkaline Phosphatase 82 (45-117) U/L Total Creatine Kinase (26-192) U/L Total Protein 5.6 L (6.4-8.2) gm/dl Albumin 2.3 L (3.4-5.0) gm/dl Globulin 3.3 (2.5-4.0) gm/dl Albumin/Globulin Ratio 0.7 L (0.9-2) TSH (0.300-4.500) uIu/ml Free T4 (0.8-1.6) ng/dl Prolactin ng/ml Blood Type Antibody Screen Crossmatch 12/11/19 12/11/19 12/11/19 Range/Units 20:19 14:01 14:01 WBC (4.8-10.8) K/uL RBC (4.2-5.4) M/uL Hgb (12.0-16.0) g/dL Hct (37-47) % MCV (80-100) fL MCH (25-34) pg MCHC (32-36) g/dL RDW Std Deviation (36.4-46.3) fL RDW Coeff of Jesse (11.5-14.5) % Plt Count (130-400) K/uL MPV (7.4-10.4) fL Immature Gran % (Auto) % Neut % (Auto) % Lymph % (Auto) % Chilton % (Auto) % Eos % (Auto) % Baso % (Auto) % Neut # (Auto) (1.4-6.5) K/uL Lymph # (Auto) (1.2-3.4) K/uL Chilton # (Auto) (0.11-0.59) K/uL Eos # (Auto) (0-0.5) K/uL Baso # (Auto) (0-0.2) K/uL Immature Gran # (Auto) (0.00-0.02) K/uL Sodium 135 L (136-145) mmol/L Potassium 4.7 (3.5-5.1) mmol/L Chloride 103 (98-107) mmol/L Carbon Dioxide 27 (21-32) mmol/L Anion Gap 5.0 (3-11) BUN 26 H (7-18) mg/dl Creatinine 1.17 (0.6-1.2) mg/dl Est Cr Clr Drug Dosing 40.3 ml/min Est GFR ( Amer) 49.6 Est GFR (Non-Af Amer) 42.8 BUN/Creatinine Ratio 22.1 H (10-20) Glucose 257 H (70-99) mg/dl POC Glucose 191 H (70-99) mg/dl Calcium 8.3 L (8.5-10.1) mg/dl Total Bilirubin (0.2-1) mg/dl AST (15-37) U/L ALT (12-78) U/L Alkaline Phosphatase (45-117) U/L Total Creatine Kinase 21 L (26-192) U/L Total Protein (6.4-8.2) gm/dl Albumin (3.4-5.0) gm/dl Globulin (2.5-4.0) gm/dl Albumin/Globulin Ratio (0.9-2) TSH 0.744 (0.300-4.500) uIu/ml Free T4 1.03 (0.8-1.6) ng/dl Prolactin 19.14 ng/ml Blood Type Antibody Screen Crossmatch 12/11/19 12/10/19 Range/Units 14:01 11:20 WBC 11.29 H (4.8-10.8) K/uL RBC 2.89 L (4.2-5.4) M/uL Hgb 8.6 L (12.0-16.0) g/dL Hct 27.0 L (37-47) % MCV 93.4 (80-100) fL MCH 29.8 (25-34) pg MCHC 31.9 L (32-36) g/dL RDW Std Deviation 66.2 H (36.4-46.3) fL RDW Coeff of Jesse 19.5 H (11.5-14.5) % Plt Count 250 (130-400) K/uL MPV 8.8 (7.4-10.4) fL Immature Gran % (Auto) 1.1 % Neut % (Auto) 89.4 % Lymph % (Auto) 6.6 % Chilton % (Auto) 2.0 % Eos % (Auto) 0.7 % Baso % (Auto) 0.2 % Neut # (Auto) 10.09 H (1.4-6.5) K/uL Lymph # (Auto) 0.75 L (1.2-3.4) K/uL [place] # (Auto) 0.23 (0.11-0.59) K/uL Eos # (Auto) 0.08 (0-0.5) K/uL Baso # (Auto) 0.02 (0-0.2) K/uL Immature Gran # (Auto) 0.12 H (0.00-0.02) K/uL Sodium (136-145) mmol/L Potassium (3.5-5.1) mmol/L Chloride (98-107) mmol/L Carbon Dioxide (21-32) mmol/L Anion Gap (3-11) BUN (7-18) mg/dl Creatinine (0.6-1.2) mg/dl Est Cr Clr Drug Dosing ml/min Est GFR ( Amer) Est GFR (Non-Af Amer) BUN/Creatinine Ratio (10-20) Glucose (70-99) mg/dl POC Glucose (70-99) mg/dl Calcium (8.5-10.1) mg/dl Total Bilirubin (0.2-1) mg/dl AST (15-37) U/L ALT (12-78) U/L Alkaline Phosphatase (45-117) U/L Total Creatine Kinase (26-192) U/L Total Protein (6.4-8.2) gm/dl Albumin (3.4-5.0) gm/dl Globulin (2.5-4.0) gm/dl Albumin/Globulin Ratio (0.9-2) TSH (0.300-4.500) uIu/ml Free T4 (0.8-1.6) ng/dl Prolactin ng/ml Blood Type O Positive Antibody Screen NEGATIVE Crossmatch See Detail (1) GI bleed GI bleed type/associated pathology: unspecified gastrointestinal hemorrhage type Qualified Code(s): K92.2 - Gastrointestinal hemorrhage, unspecified
--- NOTE | 2019-12-12 09:51 | Cardiology Progress Note ---
Date of Service December 12, 2019 Assessment & Plan (1) GI bleed: (2) Anemia due to GI blood loss: (3) Atrial fibrillation: (4) Chronic diastolic heart failure: (5) Tricuspid regurgitation: Patient received 1 unit of packed red blood cells overnight. Mild volume overload this a.m. Agree with dose of IV Lasix. Respiratory status remains stable without recurrent edema. Hold Eliquis in the setting of acute lower GI bleeding and symptomatic anemia. Discussed indication for colonoscopy, however, patient declines at this time. Ventricular rates controlled on telemetry. Continue low-dose beta-allan as previously ordered. Admission and Anticipated Discharge Date Admission Date: December 10, 2019 Subjective Patient seen and examined at the bedside. Requesting Gatorade. Currently refusing colonoscopy. She is also requesting an order for probiotics. Denies chest pain or palpitations. Received 1 unit of packed red blood cells overnight. No chest discomfort or unusual shortness of breath. No recurrent lower extremity edema. Review of Systems Review of Systems: All systems reviewed & are unremarkable except as noted in HPI & below Physical Exam Constitutional: well developed, well nourished and + obese Respiratory: normal respiratory effort; no respiratory distress Auscultation: + crackles (Bases bilaterally); no diminished lung sounds, no rales, no rhonchi and no wheezes Cardiovascular: Rate/Rhythm: + irregularly irregular Heart Sounds: normal S1, normal S2 and + murmur (2/6 midsystolic murmur heard best left sternal border.) Vessels: no JVD Extremities: no edema Gastrointestinal (Abdomen): Inspection/Auscultation: abdomen normal to inspection and normal bowel sounds; abdomen not distended Perc ussion/Palpation: abdomen soft; abdomen nontender, no guarding and abdomen not rigid Skin: no rashes, warm and dry Neurologic: moves all extremities; no focal motor deficits Speech / Cognition: normal speech Motor/Sensory: no tremor Psychiatric: Orientation: alert and oriented x 3 Results & Data ([facility]) Vital Signs (Past 12 Hours) Vital Signs Temp Pulse Pulse Resp BP BP Pulse Ox 12/12/19 07:45 36.6 C 20 112/72 97 12/12/19 03:46 36.6 C 82 22 125/71 98 12/12/19 02:56 63 20 100/47 L 99 12/12/19 01:56 36.6 C 80 19 109/69 99 12/12/19 01:35 98/56 L 12/12/19 01:26 36.5 C 72 19 78/51 L 98 12/12/19 01:11 36.6 C 84 19 91/63 L 98 12/12/19 00:53 36.7 C 87 16 103/63 97 12/11/19 23:38 37.1 C 92 H 19 89/58 L 98 (1) GI bleed GI bleed type/associated pathology: unspecified gastrointestinal hemorrhage type Qualified Code(s): K92.2 - Gastrointestinal hemorrhage, unspecified (2) Tricuspid regurgitation Cardiac valve disease etiology: nonrheumatic Qualified Code(s): I36.1 - Nonrheumatic tricuspid (valve) insufficiency (3) Atrial fibrillation Atrial fibrillation type: unspecified chronic Qualified Code(s): I48.20 - Chronic atrial fibrillation, unspecified
--- NOTE | 2019-12-12 10:54 | XRay Report ---
KUB CLINICAL HISTORY: hx constipation now w/ blood diarrhea COMPARISON STUDY: None. FINDINGS: Incidental note is made of cholecystectomy clips. The bowel gas pattern is normal. Although sensitivity is diminished on this supine exam, there is no evidence for free air. Minimal stool is n oted. IMPRESSION: No evidence for a bowel obstruction. ACT 112: Negative or not required by law. Electronically signed by: Fredy Vera M.D. 12/12/2019 10:52 AM
--- NOTE | 2019-12-12 11:02 | Electroencephalogram ---
EEG Procedure Note Date of Service December 12, 2019 Start / End Times Start Time: 0 840 End Time: 0900 Referring Physician Jamie Stevenson MD History Possible seizure versus hypotensive event Home Medication List Home Medications Medication Instructions Recorded Confirmed Type albuterol sulfate 2 puff INHALATION Q4 PRN 10/17/19 12/10/19 History apixaban [Eliquis] 5 mg PO BID 10/17/19 12/10/19 History citalopram 20 mg PO DAILY 10/17/19 12/10/19 History fluticasone propionate [Flonase] 1 spray INTRANASAL DAILY 10/17/19 12/10/19 History levothyroxine 25 mcg PO DAILY 10/17/19 12/10/19 History magnesium oxide 400 mg PO DAILY 10/17/19 12/10/19 History mesalamine 800 mg PO TID 10/17/19 12/10/19 History methotrexate sodium 2.5 mg PO WK 10/17/19 12/10/19 History metoprolol succinate 12.5 mg PO DAILY 10/17/19 12/10/19 History nystatin [Nystop] 1 applic TOPICAL TID 10/17/19 12/10/19 History omeprazole [Prilosec] 20 mg PO DAILY 10/17/19 12/10/19 History potassium chloride [Klor-Con M20] 20 meq PO BID 10/17/19 12/10/19 History rosuvastatin [Crestor] 5 mg PO DAILY 10/17/19 12/10/19 History tolterodine [Detrol LA] 4 mg PO DAILY 10/17/19 12/10/19 History acetaminophen 325 mg PO QID PRN 12/10/19 12/10/19 History amino acids-protein hydrolys 1 ea PO DAILY 12/10/19 12/10/19 History [Pro-Stat Sugar Free] bisacodyl [Dulcolax (bisacodyl)] 10 mg FL DAILY 12/10/19 12/10/19 History icosapent ethyl [Vascepa] 2 g PO DAILY 12/10/19 12/10/19 History magnesium hydroxide [Milk of 1,200 mg PO BID 12/10/19 12/10/19 History Magnesia] prednisone 20 mg PO DAILY 12/10/19 12/10/19 History promethazine-DM 5 ml PO Q6H PRN 12/10/19 12/10/19 History sodium phosphates [Fleet Enema] 118 ml FL DAILY PRN 12/10/19 12/10/19 History Inpatient Medication List Citalopram Hydrobromide (Citalopram 20 Mg Tab) 20 mg PO DAILY CRISTINA Stop: 01/10/20 08:59 Last Admin: 12/12/19 08:14 Dose: 20 mg Documented by: [id number] Admin: 12/11/19 09:01 Dose: 20 mg Documented by: [id number] Fluticasone Propionate (Fluticasone Propionate Na Spr 16 Gm Btl) 1 sprays NA DAILY CRISTINA Stop: 01/10/20 08:59 Last Admin: 12/12/19 08:25 Dose: 1 sprays Documented by: [id number] Admin: 12/11/19 09:11 Dose: 1 sprays Documented by: [id number] Pantoprazole Sodium 40 mg/ (Dextrose) 100 mls @ 20 mls/hr IV Q5H CRISTINA Stop: 01/10/20 22:59 Last Admin: 12/12/19 08:24 Dose: 8 mg/hr, 20 mls/hr Documented by: [id number] Infusion: 12/12/19 08:24 Dose: 8 mg/hr, 20 mls/hr Documented by: [id number] Admin: 12/12/19 04:11 Dose: 8 mg/hr, 20 mls/hr Documented by: [id number] Infusion: 12/12/19 04:11 Dose: 8 mg/hr, 20 mls/hr Documented by: [id number] Admin: 12/11/19 23:48 Dose: 8 mg/hr, 20 mls/hr Documented by: [id number] Levothyroxine Sodium (Levothyroxine Sodium 25 Mcg Tablet) 25 mcg PO DAILYBB CRISTINA Stop: 01/10/20 06:29 Last Admin: 12/11/19 06:29 Dose: 25 mcg Documented by: [id number] Magnesium Oxide (Magnesium Oxide 400 Mg Tab) 400 mg PO DAILY CRISTINA Stop: 01/10/20 08:59 Last Admin: 12/12/19 08:14 Dose: 400 mg Documented by: [id number] Admin: 12/11/19 09:04 Dose: 400 mg Documented by: [id number] Mesalamine (Mesalamine 800 Mg Tabcr) 800 mg PO TID CRISTINA Stop: 01/09/20 14:43 Last Admin: 12/12/19 08:14 Dose: 800 mg Documented by: [id number] Admin: 12/11/19 21:24 Dose: 800 mg Documented by: [id number] Admin: 12/11/19 17:23 Dose: 800 mg Documented by: [id number] Admin: 12/11/19 09:01 Dose: 800 mg Documented by: [id number] Admin: 12/10/19 21:11 Dose: 800 mg Documented by: [id number] Admin: 12/10/19 16:50 Dose: 800 mg Documented by: [id number] Metoprolol Succinate (Metoprolol Succ 25mg Ext Rel Tab) 12.5 mg PO DAILY CRISTINA Stop: 01/10/20 08:59 Last Admin: 12/12/19 08:14 Dose: 12.5 mg Documented by: [id number] Admin: 12/11/19 09:02 Dose: Not Given Documented by: [id number] Nystatin (Nystatin Powder 15gm Btl) 1 appln EXT TID CRISTINA Stop: 01/09/20 14:43 Last Admin: 12/12/19 08:25 Dose: 1 appln Documented by: [id number] Admin: 12/11/19 21:23 Dose: 1 appln Documented by: [id number] Admin: 12/11/19 17:23 Dose: 1 appln Documented by: [id number] Admin: 12/11/19 09:12 Dose: 1 appln Documented by: [id number] Admin: 12/10/19 21:11 Dose: 1 appln Documented by: [id number] Admin: 12/10/19 16:48 Dose: 1 appln Documented by: [id number] Potassium Chloride (Potassium Chloride 20 Meq Tabcr) 20 meq PO BID CRISTINA Stop: 01/09/20 20:59 Last Admin: 12/12/19 08:14 Dose: 20 meq Documented by: [id number] Admin: 12/11/19 21:24 Dose: 20 meq Documented by: [id number] Admin: 12/11/19 09:04 Dose: 20 meq Documented by: [id number] Admin: 12/10/19 21:11 Dose: 20 meq Documented by: [id number] Prednisone (Prednisone 20 Mg Tab) 20 mg PO DAILY CRISTINA Stop: 01/10/20 08:59 Last Admin: 12/12/19 08:14 Dose: 20 mg Documented by: [id number] Admin: 12/11/19 09:03 Dose: 20 mg Documented by: [id number] Rosuvastatin Calcium (Rosuvastatin Calcium 5 Mg Tab) 5 mg PO DAILY CRISTINA Stop: 01/10/20 08:59 Last Admin: 12/12/19 08:15 Dose: 5 mg Documented by: [id number] Admin: 12/11/19 09:01 Dose: 5 mg Documented by: [id number] Sucralfate (Sucralfate 1 Gm/10 Ml Udc) 1 gm PO ACHS CRISTINA Stop: 01/10/20 11:29 Last Admin: 12/12/19 08:15 Dose: Not Given Documented by: [id number] Admin: 12/11/19 21:23 Dose: 1 gm Documented by: [id number] Admin: 12/11/19 17:25 Dose: 1 gm Documented by: [id number] Admin: 12/11/19 14:18 Dose: 1 gm Documented by: [id number] Tolterodine Tartrate (Tolterodine Tartrate La 4 Mg Capcr) 4 mg PO DAILY CRISTINA Stop: 01/10/20 08:59 Last Admin: 12/12/19 08:14 Dose: 4 mg Documented by: [id number] Admin: 12/11/19 09:01 Dose: 4 mg Documented by: [id number] Discontinued Medications Acetaminophen (Acetaminophen 500 Mg Tab) 500 mg PO NOW STA Stop: 12/10/19 23:10 Last Admin: 12/10/19 23:23 Dose: 500 mg Documented by: [id number] Acetaminophen (Acetaminophen 500 Mg Tab) 500 mg PO NOW STA Stop: 12/12/19 00:03 Last Admin: 12/12/19 00:50 Dose: 500 mg Documented by: [id number] Sodium Chloride (Nss) 250 mls @ 999 mls/hr IV .Q16M CRISTINA Stop: 12/10/19 12:00 Last Admin: 12/10/19 13:03 Dose: Not Given Documented by: [id number] Infusion: 12/10/19 12:37 Dose: 0 mls/hr Documented by: [id number] Admin: 12/10/19 12:09 Dose: 999 mls/hr Documented by: [id number] Pantoprazole Sodium (Protonix Bolus/Drip) 0 mls @ 1 mls/hr IV ONE STA Stop: 12/10/19 11:19 Last Admin: 12/10/19 13:03 Dose: Not Given Documented by: [id number] Pantoprazole Sodium 40 mg/ (Dextrose) 100 mls @ 20 mls/hr IV Q5H CRISTINA Stop: 01/09/20 11:33 Last Admin: 12/12/19 06:55 Dose: Not Given Documented by: [id number] Infusion: 12/11/19 21:17 Dose: 0 mg/hr, 0 mls/hr Documented by: [id number] Admin: 12/11/19 14:17 Dose: 8 mg/hr, 20 mls/hr Documented by: [id number] Infusion: 12/11/19 14:15 Dose: 0 mg/hr, 0 mls/hr Documented by: [id number] Admin: 12/11/19 09:00 Dose: 8 mg/hr, 20 mls/hr Documented by: [id number] Infusion: 12/11/19 08:00 Dose: 8 mg/hr, 20 mls/hr Documented by: [id number] Admin: 12/11/19 03:00 Dose: 8 mg/hr, 20 mls/hr Documented by: [id number] Infusion: 12/11/19 03:00 Dose: 8 mg/hr, 20 mls/hr Documented by: [id number] Admin: 12/10/19 22:29 Dose: 8 mg/hr, 20 mls/hr Documented by: [id number] Infusion: 12/10/19 21:51 Dose: 8 mg/hr, 20 mls/hr Documented by: [id number] Admin: 12/10/19 16:51 Dose: 8 mg/hr, 20 mls/hr Documented by: [id number] Infusion: 12/10/19 16:51 Dose: 8 mg/hr, 20 mls/hr Documented by: [id number] Admin: 12/10/19 12:37 Dose: 8 mg/hr, 20 mls/hr Documented by: [id number] Pantoprazole Sodium 80 mg/ (Dextrose) 120 mls @ 400 mls/hr IV NOW ONE Stop: 12/10/19 11:35 Last Infusion: 12/10/19 12:37 Dose: 0 mls/hr Documented by: [id number] Admin: 12/10/19 12:11 Dose: 400 mls/hr Documented by: [id number] Sodium Chloride (Nss 1000ml) 250 mls @ 999 mls/hr IV .Q16M ONE Stop: 12/10/19 12:53 Last Infusion: 12/10/19 12:58 Dose: 0 mls/hr Documented by: [id number] Admin: 12/10/19 12:41 Dose: 999 mls/hr Documented by: [id number] Pantoprazole Sodium 40 mg/ (Syringe) 10 mls @ 5 mls/min IV BID CRISTINA Stop: 01/10/20 20:59 Last Admin: 12/11/19 21:24 Dose: 5 mls/min Documented by: [id number] Furosemide 20 mg/ Syringe 2 mls @ 4 mls/min IV ONE ONE Stop: 12/12/19 05:56 Last Admin: 12/12/19 06:08 Dose: 4 mls/min Documented by: [id number] Pantoprazole Sodium (Pantoprazole 40 Mg Tab) 40 mg PO DAILY CRISTINA Stop: 01/10/20 08:59 Last Admin: 12/11/19 09:04 Dose: 40 mg Documented by: [id number] Description This is a 21 electrode EEG with a single channel dedicated to limited EKG. The electrodes were placed in accordance with the International 10-20 system. This EEG is recorded at the bedside and is a technical quality but unfortunately there are quite a number of head movement and body movement artifacts occurring primarily during the initial part of the recording but also recurring during it at a lesser frequency. None of this however interferes with interpretation of the study between the movement events. Full extension was performed. Drowsiness and light sleep are not recorded Entities conditions resume this for background alpha rhythm at about 10 to 11 Hz and up to 20 V in active amplitude which is symmetrical in maximum and posterior head regions. Polymorphic mid frequency modest amplitude theta activity seen over the central regions in symmetrical fashion. Beta activity seen bifrontally. At no time is there evidence for clear potentially epileptic activity in the form polyspike spike wave bursts no focal sharp waves or focal spikes Photic simulation provokes a very minor driving response in posterior head regions Drowsiness is not clearly seen Interpretation Normal EEG during wakefulness Clinical Correlation This is a normal EEG without evidence for focal generalized encephalopathy and without any evidence for potentially epileptogenic activity
[2019-12-12] MEDS: SACCHAROMYCES BOULARDII 250 MG CAP PO SCH (12:13)
[2019-12-12] MEDS ORDERED: LAVAGE SOLUTION 4000ML PO SCH (15:30)
--- NOTE | 2019-12-12 16:13 | Communication Note ---
Date of Service: December 12, 2019 Kate is 84 years old suffers from tricuspid regurgitation chronic diastolic heart failure, GI bleeding, atrial fibrillation, anemia, depression, dysl ipidemia, hypothyroidism, gastroesophageal reflux, rheumatoid arthritis, chronic anemia due to GI blood loss, congestive heart failure and her home medications include Tylenol albuterol amino acids Eliquis bisacodyl Celexa fluticasone vasa Septra, levothyroxine, magnesium oxide, mesalamine methotrexate metoprolol nystatin omeprazole KCl prednisone promethazine as needed Crestor and Detrol She presented to the hospital with seizure-like activity witnessed by a nurse account management assistant who was her caregiver. Patient apparently had some bright rectal bleeding and was taken to the toilet was sitting there up having a bowel movement and then apparently became pale perhaps diaphoretic and lost consciousness with some frothing at her mouth and perhaps some jerking movements all lasting about 4 minutes and then clearing without any significant residual issues other than the fact that she had no recall of the event She was brought to the hospital because of the GI bleeding and the seizure-like activity is scheduled to have a colonoscopy tomorrow, her vital signs have stabilized she was hypotensive on presentation to the emergency room, imaging studies of the brain have shown only some age-appropriate atrophy and leukoencephalopathy and an EEG is normal. She has had no further events Family history and social history are all listed in emergency room notes and in the admission history and physical Review of systems reveals no recent fever sweats chills no particular headaches or neurologic complaints other than the seizure-like event no problems with cognition or memory, and no new cardiovascular pulmonary gastrointestinal genitourinary musculoskeletal dermatologic or hematologic issues other than the presumptive recent increase in her GI bleeding Exam was done in a superficial fashion. Blood pressure was 96/87 pulse was 85 respiration was 16 she was afebrile O2 saturation 95% she is bright alert cooperative oriented 3 spheres there is no gross cranial nerve defects tremor tics choreiform activity drift or pronation sign has good strength with sitting comfortably in her chair. I did not get her up to walk or do any further neurologic examinations I believe this was convulsive syncope due to hypotension perhaps related to GI blood loss perhaps related to increased vagal tone from another cause and would not recommend anticonvulsant therapy and would not recommend any follow-up with neurology at this time unless these events occur without any clear history for hypotension anemia etc. Neurology will be signing off the case at this point and a minimal consultation charge will be rendered Bobby Mckenna MD
[2019-12-12] MEDS ORDERED: ACETAMINOPHEN 325 MG TAB PO PRN (17:00)
[2019-12-12] MEDS: PANTOprazole 40 MG in SYRINGE 0 ML IV SCH (22:33)
[2019-12-12] MEDS ORDERED: SACCHAROMYCES BOULARDII 250 MG CAP PO STA (23:35)
[2019-12-13 00:57] LABS: Hematocrit (blood only) 28.9 % (37-47); Hemoglobin 9.5 g/dL (12.0-16.0)
[2019-12-13 07:38] LABS: Basophils # (auto) 0.02 K/uL (0-0.2); Basophils % (auto) 0.2 %; Eosinophils # (auto) 0.11 K/uL (0-0.5); Eosinophils % (auto) 1.4 %; Hematocrit (blood only) 26.9 % (37-47); Hemoglobin 8.7 g/dL (12.0-16.0); Immature Granulocytes # (auto) 0.03 K/uL (0.00-0.02); Immature Granulocytes % (auto) 0.4 %; Lymphocytes # (auto) 1.54 K/uL (1.2-3.4); Lymphocytes % (auto) 19.2 %; Mean Corpuscular Hemoglobin 29.6 pg (25-34); Mean Corpuscular Hgb Conc 32.3 g/dL (32-36); Mean Corpuscular Volume 91.5 fL (80-100); Mean Platelet Volume 9.3 fL (7.4-10.4); Monocytes # (auto) 1.11 K/uL (0.11-0.59); Monocytes % (auto) 13.8 %; Neutrophils # (auto) 5.23 K/uL (1.4-6.5); Platelet Count 273 K/uL (130-400); RDW Coefficient of Variation 18.7 % (11.5-14.5); RDW Standard Deviation 60.4 fL (36.4-46.3); Red Blood Count 2.94 M/uL (4.2-5.4); White Blood Count 8.04 K/uL (4.8-10.8)
[2019-12-13 08:09] LABS: Albumin Level 2.1 gm/dl (3.4-5.0); BUN Creatinine Ratio 18.1 (10-20); Calcium 8.1 mg/dl (8.5-10.1); Creatinine Clr Calc Pharmacy 58.9 ml/min; Est GFR (African American) 76.2; Est GFR (Non-African American) 65.7; Magnesium 1.7 mg/dl (1.8-2.4); Potassium 2.8 mmol/L (3.5-5.1)
[2019-12-13] MEDS ORDERED: LIDOCAINE HCL 2% 2 ML VIAL/AMP(20MG/ML) INFIL ONE (08:14)
[2019-12-13] MEDS ORDERED: PROPOFOL IV EMULSION 10 MG/ML 20 ML VIAL IV ONE (08:14)
[2019-12-13 08:16] LABS: Albumin Globulin Ratio 0.6 (0.9-2); Bilirubin,Total 0.5 mg/dl (0.2-1); Globulin 3.2 gm/dl (2.5-4.0); Phosphorus 3.1 mg/dl (2.5-4.9); Total Protein 5.3 gm/dl (6.4-8.2)
--- NOTE | 2019-12-13 08:22 | History & Physical Bridge Note ---
Date of Service December 13, 2019 History & Physical Bridge Note I have examined the patient, reviewed the History & Physical and in the interval since the performance of the History & Physical I have noted the following changes of clinical significance: no changes noted. The patient has consented for upper endoscopy and colonoscopy today due to her history of anemia and hematochezia. We have discussed the risks of the procedures to include bleeding, infection, perforation, pain and need for follow-up studies
[2019-12-13] MEDS ORDERED: SODIUM CHLORIDE 0.9% INJ 10 ML VIAL ONE (08:34)
[2019-12-13] MEDS ORDERED: KETAMINE HCL INJ 50 MG/ML 10 ML VIAL ONE (08:34)
--- NOTE | 2019-12-13 09:00 | Anesthesiology Consultation ---
Date of Service December 13, 2019 Assessment & Plan (1) Encounter for pre-operative examination: Chart Review Chart Review: Acceptable Risk for Surgery (pt cleared for surgery when potassium improved) and Patient NOT seen in Pre Admission Testing Consults Requested none ASA ASA4 Proposed Anesthesia Anesthesia Type: MAC Risk / Benefits Reviewed With: PT / POA / Parent / Guardian, Accepts Plan and Informed Consent Obtained Additional Notes Ordering STAT recheck on potassium now. If value still below 3 patient will require IV potassium prior to getting anesthesia with a goal potassium of 3.1 or greater prior to proceeding. History Surgery Operation Date: 12/13/19 08:30 Proposed Procedures p Colonoscopy EGD Dr Ben Contreras Height/Weight Height: 5 ft 5 in Weight: 97.2 kg Allergies Allergy/AdvReac Type Severity Reaction Status Date / Time No Known Allergies Allergy Unverified 12/10/19 12:44 Medications Home Medications Medication Instructions Recorded Confirmed Last Taken albuterol sulfate 2 puff INHALATION Q4 PRN 10/17/19 12/10/19 Unknown apixaban [Eliquis] 5 mg PO BID 10/17/19 12/10/19 Unknown citalopram 20 mg PO DAILY 10/17/19 12/10/19 Unknown fluticasone propionate [Flonase] 1 spray INTRANASAL DAILY 10/17/19 12/10/19 Unknown levothyroxine 25 mcg PO DAILY 10/17/19 12/10/19 Unknown magnesium oxide 400 mg PO DAILY 10/17/19 12/10/19 Unknown mesalamine 800 mg PO TID 10/17/19 12/10/19 Unknown methotrexate sodium 2.5 mg PO WK 10/17/19 12/10/19 Unknown metoprolol succinate 12.5 mg PO DAILY 10/17/19 12/10/19 Unknown nystatin [Nystop] 1 applic TOPICAL TID 10/17/19 12/10/19 Unknown omeprazole [Prilosec] 20 mg PO DAILY 10/17/19 12/10/19 Unknown potassium chloride [Klor-Con M20] 20 meq PO BID 10/17/19 12/10/19 Unknown rosuvastatin [Crestor] 5 mg PO DAILY 10/17/19 12/10/19 Unknown tolterodine [Detrol LA] 4 mg PO DAILY 10/17/19 12/10/19 Unknown acetaminophen 325 mg PO QID PRN 12/10/19 12/10/19 Unknown amino acids-protein hydrolys 1 ea PO DAILY 12/10/19 12/10/19 Unknown [Pro-Stat Sugar Free] bisacodyl [Dulcolax (bisacodyl)] 10 mg W[place] DAILY 12/10/19 12/10/19 Unknown icosapent ethyl [Vascepa] 2 g PO DAILY 12/10/19 12/10/19 Unknown magnesium hydroxide [Milk of 1,200 mg PO BID 12/10/19 12/10/19 Unknown Magnesia] prednisone 20 mg PO DAILY 12/10/19 12/10/19 Unknown promethazine-DM 5 ml PO Q6H PRN 12/10/19 12/10/19 Unknown sodium phosphates [Fleet Enema] 118 ml W[place] DAILY PRN 12/10/19 12/10/19 Unknown Active Medications Generic Name Dose Route Start Last Admin Trade Name Freq PRN Reason Stop Dose Admin Citalopram Hydrobromide 20 mg 12/11/19 09:00 12/12/19 08:14 Citalopram 20 Mg Tab PO 01/10/20 08:59 20 mg DAILY CRISTINA Administration Fluticasone Propionate 1 sprays 12/11/19 09:00 12/12/19 08:25 Fluticasone Propionate Na Spr 16 Gm Btl NA 01/10/20 08:59 1 sprays DAILY CRISTINA Administration Pantoprazole Sodium 40 mg/ 10 mls @ 5 mls/min 12/12/19 21:00 12/12/19 22:33 Syringe IV 01/11/20 20:59 5 mls/min BID CRISTINA Administration Levothyroxine Sodium 25 mcg 12/11/19 06:30 12/11/19 06:29 Levothyroxine Sodium 25 Mcg Tablet PO 01/10/20 06:29 25 mcg DAILYBB CRISTINA Administration Magnesium Oxide 400 mg 12/11/19 09:00 12/12/19 08:14 Magnesium Oxide 400 Mg Tab PO 01/10/20 08:59 400 mg DAILY CRISTINA Administration Mesalamine 800 mg 12/10/19 14:44 12/12/19 22:33 Mesalamine 800 Mg Tabcr PO 01/09/20 14:43 800 mg TID CRISTINA Administration Metoprolol Succinate 12.5 mg 12/11/19 09:00 12/12/19 08:14 Metoprolol Succ 25mg Ext Rel Tab PO 01/10/20 08:59 12.5 mg DAILY CRISTINA Administration Nystatin 1 appln 12/10/19 14:44 12/12/19 22:33 Nystatin Powder 15gm Btl EXT 01/09/20 14:43 1 appln TID CRISTINA Administration Prednisone 20 mg 12/11/19 09:00 12/12/19 08:14 Prednisone 20 Mg Tab PO 01/10/20 08:59 20 mg DAILY CRISTINA Administration Rosuvastatin Calcium 5 mg 12/11/19 09:00 12/12/19 08:15 Rosuvastatin Calcium 5 Mg Tab PO 01/10/20 08:59 5 mg DAILY CRISTINA Administration Saccharomyces Boulardii 250 mg 12/12/19 09:00 12/12/19 12:13 Saccharomyces Boulardii 250 Mg Cap PO 01/11/20 08:59 250 mg DAILY CRISTINA Administration Sucralfate 1 gm 12/11/19 11:30 12/12/19 08:15 Sucralfate 1 Gm/10 Ml Udc PO 01/10/20 11:29 Not Given ACHS CRISTINA Tolterodine Tartrate 4 mg 12/11/19 09:00 12/12/19 08:14 Tolterodine Tartrate La 4 Mg Capcr PO 01/10/20 08:59 4 mg DAILY CRISTINA Administration NPO Date Last Intake of Fluids: 12/12/19 Time Last Intake of Fluids: 23:59 Last Intake of Fluids Comment: chewing gum when arrived in preop Date Last Intake of Solids: 12/12/19 Time Last Intake of Solids: 23:59 Past Medical History Medical History Atrial fibrillation CHF (congestive heart failure) Exercise / Class Metabolic Activity III < 4 Walking/Shop/Light housework Past Surgical History Surgical History History of colonoscopy Past Anesthesia History No Hx of Anesthesia Complications History of PONV No Hx of PONV Social History Smoking Status: Never smoker Do You Dip or Chew Tobacco: No Hx Alcohol Use: No Hx Substance Use: No Review of Systems Positive for SOB - denies CP Physical Exam Vital Signs Last Vital Signs Temp 36.8 C 12/13/19 08:23 Pulse 94 H 12/13/19 08:23 Resp 18 12/13/19 08:23 BP 130/62 12/13/19 08:23 Pulse Ox 85 L 12/13/19 08:23 Constitutional + obese ENMT Mouth: + edentulous; no TMJ abnormality and oral opening not small Thyromental Distance: > or= 3.5 Finger Breadths Mallampati Class: III Neck normal visual inspection; neck extension not limited Respiratory normal respiratory effort Auscultation: + crackles Requiring 2 lpm of oxygen Cardiovascular Rate/Rhythm: regular rate; + abnormal rhythm Heart Sounds: no murmur Neurologic moves all extremities Psychiatric Orientation: alert and oriented x 3 Testing Laboratory Results 12/13/19 06:56 12/13/19 06:56 PT 10.9 Seconds (9.0-12.0) 12/11/19 05:59 INR 1.0 (0.9-1.1) 12/11/19 05:59 APTT 22.2 Seconds (21.0-31.0) 12/10/19 11:20 Urine Color Dark Yellow 12/11/19 02:45 Urine Appearance Turbid (Clear) A 12/11/19 02:45 Urine pH 5.0 (4.5-7.5) 12/11/19 02:45 Ur Specific Alliance 1.023 (1.000-1.030) 12/11/19 02:45 Urine Protein Trace (Negative) H 12/11/19 02:45 Urine Glucose (UA) Negative (Negative) 12/11/19 02:45 Urine Ketones Trace (Negative) H 12/11/19 02:45 Urine Nitrite Negative (Negative) 12/11/19 02:45 Ur Leukocyte Esterase 2+ (Negative) H 12/11/19 02:45 Urine WBC (Auto) 1-5 /hpf (0-5) 12/11/19 02:45 Urine RBC (Auto) 0-4 /hpf (0-4) 12/11/19 02:45 U Hyaline Cast (Auto) 1-5 /lpf (0-5) 12/11/19 02:45 U Epithel Cells (Auto) >30 /lpf (0-5) H 12/11/19 02:45 Urine Bacteria (Auto) 1+ (Negative) H 12/11/19 02:45 Blood Type O Positive 12/10/19 11:20 Antibody Screen NEGATIVE 12/10/19 11:20 12/11/19 02:45 Urine Culture - Preliminary Urine,Clean Catch Escherichia coli ESBL
[2019-12-13 09:48] LABS: BUN Creatinine Ratio 18.1 (10-20); Calcium 8.2 mg/dl (8.5-10.1); Creatinine Clr Calc Pharmacy 54.9 ml/min; Est GFR (African American) 69.9; Est GFR (Non-African American) 60.3; Magnesium 1.8 mg/dl (1.8-2.4); Potassium 2.9 mmol/L (3.5-5.1)
[2019-12-13] MEDS: ERTAPENEM SODIUM 1,000 MG in SODIUM CHLORIDE 0.9% 50 ML IV SCH (10:21)
[2019-12-13] MEDS: POTASSIUM CHLORIDE 20 MEQ/15 ML UDC PO SCH ×3 (10:30→21:25)
[2019-12-13] MEDS: PANTOprazole 40 MG in SYRINGE 0 ML IV SCH ×2 (10:30→22:22)
[2019-12-13] MEDS: MAGNESIUM SULFATE / D5W 1 GM/100 ML BAG IV SCH ×2 (10:53→12:28)
[2019-12-13] MEDS: NYSTATIN POWDER 15GM BTL EXT SCH ×3 (10:54→21:12)
[2019-12-13] MEDS: FLUTICASONE PROPIONATE NA SPR 16 GM BTL SCH (10:57)
[2019-12-13] MEDS: MAGNESIUM OXIDE 400 MG TAB PO SCH (10:58)
[2019-12-13] MEDS: ROSUVASTATIN CALCIUM 5 MG TAB PO SCH (10:58)
[2019-12-13] MEDS: METOPROLOL SUCC 25MG EXT REL TAB PO SCH (11:00)
[2019-12-13] MEDS: CITALOPRAM 20 MG TAB PO SCH (11:00)
[2019-12-13] MEDS: MESALAMINE 800 MG TABCR PO SCH ×3 (11:00→21:13)
[2019-12-13] MEDS: TOLTERODINE TARTRATE LA 4 MG CAPCR PO SCH (11:01)
[2019-12-13] MEDS: predniSONE 20 MG TAB PO SCH (11:03)
[2019-12-13] MEDS: SACCHAROMYCES BOULARDII 250 MG CAP PO SCH (12:30)
--- NOTE | 2019-12-13 12:52 | Cardiology Progress Note ---
Date of Service December 13, 2019 Assessment & Plan (1) GI bleed: (2) Anemia due to GI blood loss: (3) Atrial fibrillation: (4) Chronic diastolic heart failure: (5) Hypokalemia: (6) Tricuspid regurgitation: Supplement potassium as indicated. Hold diuretic therapy today. N.p.o. after midnight for EGD colonoscopy 12/14/2019. Hold Eliquis in the setting of acute lower GI bleeding and symptomatic anemia. Ventricular rates controlled on telemetry. Continue low-dose beta-allan as p reviously ordered. Admission and Anticipated Discharge Date Admission Date: December 10, 2019 Subjective Patient seen and examined at the bedside. Moved to an isolation room due to evidence of ESBL bacteria in urine. No dysuria, fever, chills, frequency, or hematuria reported. Colonoscopy canceled this a.m. due to hypokalemia and newly diagnosed urinary tract infection. Patient denies chest pain or palpitations. Blood counts remain relatively stable. She has not required additional transfusion since 12/11/2019. Offers no concerns/complaints from a cardiovascular perspective. Review of Systems Review of Systems: All systems reviewed & are unremarkable except as noted in HPI & below Physical Exam Constitutional: well developed, well nourished and + obese Respiratory: normal respiratory effort; no respiratory distress Auscultation: no diminished lung sounds, no crackles, no rales, no rhonchi and no wheezes Cardiovascular: Rate/Rhythm: + irregularly irregular Heart Sounds: normal S1, normal S2 and + murmur (2/6 midsystolic murmur heard best left sternal border.) Vessels: no JVD Extremities: no edema Gastrointestinal (Abdomen): Inspection/Auscultation: abdomen normal to inspection and normal bowel sounds; abdomen not distended Percussion/Palpation: abdomen soft; abdomen nontender, no guarding and abdomen not rigid Skin: no rashes, warm and dry Neurologic: moves all extremities; no focal motor deficits Speech / Cognition: normal speech Motor/Sensory: no tremor Psychiatric: Orientation: alert and oriented x 3 Results & Data ([facility]) Vital Signs (Past 12 Hours) Vital Signs Temp Pulse Resp BP Pulse Ox 12/13/19 11:31 36.6 C 75 18 106/56 L 92 12/13/19 08:23 36.8 C 94 H 18 130/62 85 L 12/13/19 07:04 36.8 C 95 H 20 103/66 96 12/13/19 03:31 36.7 C 86 19 112/64 97 (1) GI bleed GI bleed type/associated pathology: unspecified gastrointestinal hemorrhage type Qualified Code(s): K92.2 - Gastrointestinal hemorrhage, unspecified (2) Tricuspid regurgitation Cardiac valve disease etiology: nonrheumatic Qualified Code(s): I36.1 - Nonrheumatic tricuspid (valve) insufficiency (3) Atrial fibrillation Atrial fibrillation type: unspecified chronic Qualified Code(s): I48.20 - Chronic atrial fibrillation, unspecified
--- NOTE | 2019-12-13 15:47 | Hospitalist Progress Note ---
Date of Service December 13, 2019 Assessment & Plan (1) Hematochezia: GI consulted and is planning endoscopy. Thought possibly secondary to a diverticular bleed. She received two transfusions of blood overnight and is doing better today with some persistent oozing. She is taking a colon prep as she has agreed to the colonoscopy now. 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 Per ID physician, no treatment is necessary as she is likely a carrier. Cont contact precautions. (3) Convulsive syncope: Per Neurology, she did not likely have a witnessed seizure pre-admission as thought. Instead she likely had an episode of convulsive syncope 2/2 low blood pressure . This was not a seizure and antiepileptic drugs were not reocmmended. (4) Anemia due to GI blood loss: transfuse as needed. (5) Acute diastolic CHF (congestive heart failure): possibly related to iatrogenic fluid overload with intravenous fluids or blood products. Improving with diuretics. Cardiology following and assisting with diuretic administration. (6) Hypothyroid: cont levothyroxine per home regimen. (7) Rheumatoid arthritis: -hold home dose weekly methtrexate at this time (8) Depression: -on citalopram per home regimen. (9) Chronic atrial fibrillation: -holding off Eliquis in the context of anemia. Cont BB. (10) DVT prophylaxis: apixaban and other chemoprophylaxis held in setting of anemia. Conditional Code Dispo-uncertain at this time--pending scope results tomorrow. Bing Izaguirre DO [facility] Hospitalist Admission and Anticipated Discharge Date Admission Date: December 10, 2019 Subjective Patient presented with acute hematochezia and anemia secondary to GI blood loss. She received 2 units of blood overnight and hemoglobin stabilized. She was post to undergo a colonoscopy this morning but this was canceled secondary to abnormal lab work this morning. She will continue clear liquids and reprep overnight. She is otherwise feeling well denying abdominal pain or other issues. The exception is some stuffiness in her nose and she is requesting Mucinex. Review of Systems Review of Systems: All systems reviewed & are unremarkable except as noted in Subjective Physical Exam Physical Exam: CONSTITUTIONAL: obese, vitals as above, generally well- appearing, alopecia EYES: normal conjunctivae, no scleral icterus ENT: external ear and nose normal, MMM RESPIRATORY: coarse rhonchi throughout all lung low. No rales or wheezes, normal respiratory effort CARDIOVASCULAR: regular rate and rhythm, S1 and 2 heard without murmurs, gallops or rubs, no JVD, no peripheral edema GASTROINTESTINAL: normal bowel sounds, soft, nontender, nondistended, protuberant. MUSCULOSKELETAL: moves all extremities equally. SKIN: warm and dry NEUROLOGIC: no gross focal deficits. PSYCHIATRIC: alert and cooperative and answering all questions appropriately. Results & Data Results & Data ([facility]) Vital Signs (Past 12 Hours) Vital Signs Temp Pulse Resp BP Pulse Ox 12/13/19 11:31 36.6 C 75 18 106/56 L 92 12/13/19 08:23 36.8 C 94 H 18 130/62 85 L 12/13/19 07:04 36.8 C 95 H 20 103/66 96 Laboratory Results Short CBC 12/13/19 12/13/19 Range/Units 00:39 06:56 WBC 8.04 (4.8-10.8) K/uL Hgb 9.5 L 8.7 L (12.0-16.0) g/dL Hct 28.9 L 26.9 L (37-47) % Plt Count 273 (130-400) K/uL BMP 12/13/19 12/13/19 12/13/19 06:56 08:58 08:58 Sodium 141 140 Potassium 2.8 L D 2.9 L 2.9 L Chloride 102 102 Carbon Dioxide 33 H 33 H BUN 15 16 Creatinine 0.82 0.88 Glucose 99 115 H Calcium 8.1 L 8.2 L Liver Function 12/13/19 Range/Units 06:56 Total Bilirubin 0.5 (0.2-1) mg/dl AST 14 L (15-37) U/L ALT 21 (12-78) U/L Alkaline Phosphatase 69 (45-117) U/L Albumin 2.1 L (3.4-5.0) gm/dl Medications Administered Current Inpatient Medications Acetaminophen (Acetaminophen 325 Mg Tab) 325 mg PO Q6H PRN PRN Reason: Pain Stop: 01/09/20 16:59 Albuterol (Albuterol Hfa 8 Gm Inhaler) 2 puffs INH Q4 PRN PRN Reason: Cough Stop: 01/09/20 14:43 Bisacodyl (Bisacodyl 10 Mg Supp) 10 mg NV DAILY PRN PRN Reason: Constipation Stop: 01/10/20 08:59 Citalopram Hydrobromide (Citalopram 20 Mg Tab) 20 mg PO DAILY CRISTINA Stop: 01/10/20 08:59 Last Admin: 12/13/19 11:00 Dose: 20 mg Documented by: Fluticasone Propionate (Fluticasone Propionate Na Spr 16 Gm Btl) 1 sprays NA DAILY CRISTINA Stop: 01/10/20 08:59 Last Admin: 12/13/19 10:57 Dose: 1 sprays Documented by: Guaifenesin (Guaifenesin 600 Mg Tabcr) 600 mg PO Q12 CRISTINA Stop: 01/12/20 20:59 Last Admin: 12/13/19 21:12 Dose: 600 mg Documented by: Pantoprazole Sodium 40 mg/ (Syringe) 10 mls @ 5 mls/min IV BID CRISTINA Stop: 01/11/20 20:59 Last Admin: 12/13/19 10:30 Dose: 5 mls/min Documented by: Ertapenem 1,000 mg/ Sodium (Chloride) 60 mls @ 100 mls/hr IV DAILY@0900 CRISTINA Stop: 12/23/19 09:29 Last Infusion: 12/13/19 10:57 Dose: Infused Documented by: Levothyroxine Sodium (Levothyroxine Sodium 25 Mcg Tablet) 25 mcg PO DAILYBB CRISTINA Stop: 01/10/20 06:29 Last Admin: 12/11/19 06:29 Dose: 25 mcg Documented by: Magnesium Oxide (Magnesium Oxide 400 Mg Tab) 400 mg PO DAILY CRISTINA Stop: 01/10/20 08:59 Last Admin: 12/13/19 10:58 Dose: 400 mg Documented by: Mesalamine (Mesalamine 800 Mg Tabcr) 800 mg PO TID CRISTINA Stop: 01/09/20 14:43 Last Admin: 12/13/19 21:13 Dose: 800 mg Documented by: Metoprolol Succinate (Metoprolol Succ 25mg Ext Rel Tab) 12.5 mg PO DAILY CRISTINA Stop: 01/10/20 08:59 Last Admin: 12/13/19 11:00 Dose: 12.5 mg Documented by: Nystatin (Nystatin Powder 15gm Btl) 1 appln EXT TID CRISTINA Stop: 01/09/20 14:43 Last Admin: 12/13/19 21:12 Dose: 1 appln Documented by: Ondansetron HCl (Ondansetron Inj 2 Mg/Ml 2 Ml Vial) 4 mg IV Q6H PRN PRN Reason: Nausea Stop: 01/09/20 14:43 Potassium Chloride (Potassium Chloride 20 Meq/15 Ml Udc) 40 meq PO Q6H CRISTINA Stop: 12/13/19 22:31 Last Admin: 12/13/19 21:25 Dose: 40 meq Documented by: Prednisone (Prednisone 20 Mg Tab) 20 mg PO DAILY CRISTINA Stop: 01/10/20 08:59 Last Admin: 12/13/19 11:03 Dose: 20 mg Documented by: Rosuvastatin Calcium (Rosuvastatin Calcium 5 Mg Tab) 5 mg PO DAILY CRISTINA Stop: 01/10/20 08:59 Last Admin: 12/13/19 10:58 Dose: 5 mg Documented by: Saccharomyces Boulardii (Saccharomyces Boulardii 250 Mg Cap) 250 mg PO DAILY CRISTINA Stop: 01/11/20 08:59 Last Admin: 12/13/19 12:30 Dose: 250 mg Documented by: Sodium Biphosphate/Sodium Phosphate (Sod Phosphate/Sod Biphosphate Enema 132 Ml Btl) 118 ml NV DAILY PRN PRN Reason: Constipation Stop: 01/09/20 14:43 Sucralfate (Sucralfate 1 Gm/10 Ml Udc) 1 gm PO ACHS CRISTINA Stop: 01/10/20 11:29 Last Admin: 12/12/19 08:15 Dose: Not Given Documented by: Tolterodine Tartrate (Tolterodine Tartrate La 4 Mg Capcr) 4 mg PO DAILY CRISTINA Stop: 01/10/20 08:59 Last Admin: 12/13/19 11:01 Dose: 4 mg Documented by:
[2019-12-13] MEDS ORDERED: LAVAGE SOLUTION 4000ML PO SCH (20:00)
[2019-12-13] MEDS: guaiFENesin 600 MG TABCR PO SCH (21:12)
[2019-12-14 04:37] LABS: Hematocrit (blood only) 27.1 % (37-47); Hemoglobin 8.7 g/dL (12.0-16.0); Mean Corpuscular Hemoglobin 29.9 pg (25-34); Mean Corpuscular Hgb Conc 32.1 g/dL (32-36); Mean Corpuscular Volume 93.1 fL (80-100); Mean Platelet Volume 8.8 fL (7.4-10.4); Platelet Count 265 K/uL (130-400); RDW Coefficient of Variation 18.8 % (11.5-14.5); RDW Standard Deviation 62.4 fL (36.4-46.3); Red Blood Count 2.91 M/uL (4.2-5.4); White Blood Count 6.27 K/uL (4.8-10.8)
[2019-12-14 05:16] LABS: BUN Creatinine Ratio 19.8 (10-20); Calcium 8.3 mg/dl (8.5-10.1); Creatinine Clr Calc Pharmacy 63.2 ml/min; Est GFR (African American) 84.8; Est GFR (Non-African American) 73.2; Magnesium 2.2 mg/dl (1.8-2.4)
[2019-12-14] MEDS: PANTOprazole 40 MG in SYRINGE 0 ML IV SCH ×2 (08:42→20:40)
[2019-12-14] MEDS: ERTAPENEM SODIUM 1,000 MG in SODIUM CHLORIDE 0.9% 50 ML IV SCH (08:49)
[2019-12-14] MEDS: NYSTATIN POWDER 15GM BTL EXT SCH ×3 (08:49→20:41)
[2019-12-14] MEDS: METOPROLOL SUCC 25MG EXT REL TAB PO SCH (08:49)
[2019-12-14] MEDS: MAGNESIUM OXIDE 400 MG TAB PO SCH (08:50)
[2019-12-14] MEDS: SACCHAROMYCES BOULARDII 250 MG CAP PO SCH (08:50)
[2019-12-14] MEDS: ROSUVASTATIN CALCIUM 5 MG TAB PO SCH (08:50)
[2019-12-14] MEDS: FLUTICASONE PROPIONATE NA SPR 16 GM BTL SCH (08:50)
[2019-12-14] MEDS: guaiFENesin 600 MG TABCR PO SCH ×2 (08:50→20:40)
[2019-12-14] MEDS: TOLTERODINE TARTRATE LA 4 MG CAPCR PO SCH (08:50)
[2019-12-14] MEDS: MESALAMINE 800 MG TABCR PO SCH ×3 (08:50→20:41)
[2019-12-14] MEDS: predniSONE 20 MG TAB PO SCH (08:50)
[2019-12-14] MEDS: CITALOPRAM 20 MG TAB PO SCH (08:50)
--- NOTE | 2019-12-14 09:23 | Communication Note ---
Date of Service: December 14, 2019 It appears that the patient was given a diet this morning. Given this would recommend that she receive an additional liters of Colyte this evening and we will try and perform her upper endoscopy and colonoscopy tomorrow due to the potential potential risk of aspiration
--- NOTE | 2019-12-14 11:17 | Gastroenterology Progress Note ---
Date of Service December 14, 2019 Assessment & Plan (1) Rectal bleed: Rectal bleeding on anticoagulation (held), likely diverticular. Plan: 1. Will rearrange EGD/Colonoscopy for tomorrow due to pt having had a full liquid breakfast today. 2. Will give 1/2 bowel prep this evening. 3. Pt really likes Gatoraid, so will give that prep. 4. Please continue to monitor stool outputs. ? bloody 5. NPO after midnight. Present on Admission?: Yes Admission and Anticipated Discharge Date Admission Date: December 10, 2019 Supervising Physician Co-Signing Physician Notes I saw and evaluated the patient. We were planning to do upper endoscopy and colonoscopy today however she did get a liquid tray this morning which she consumed. As result I would recommend that her procedure be scheduled for tomorrow to ensure that she does not have problems with aspiration Recommendations Please give an additional 2 L of GoLYTELY this afternoon N.p.o. at midnight Please call with any questions or concerns Upper endoscopy and colonoscopy planned for tomorrow Subjective Ms. Kate Dior is an 84 yr old female who was admitted on 12/09 with rectal bleeding. Hb 9.4 on arrival , + 2 units of RBCs -> 8.7 today. Most recent BMs thin brown liquid w/o blood. Plan was for colonoscopy today, but pt took a full liquid breakfast tray, thus will delay until tomorrow. Review of Systems Review of Systems: ROS: Gen: Denies weakness, fevers, weight loss Eyes: No eye redness, or pain, no recent vision changes Resp: Mild cough, brings up liquid brown mucous at times. No SOB Cardio: No palpitations/irregular beats, no chest pain GI: + recent rectal bleeding but none today. No abdominal pain, no nausea/vomiting : Denies pain on urination Skin: No jaundice, itching or new rashes Physical Exam Constitutional: WD/WN, vitals as above Eyes: PERRL, conjunctivae normal, anicteric sclerae ENMT: external ear and nose normal, oropharynx normal Neck: trachea midline, no thyromegaly Respiratory: normal respiratory effort Auscultation: + wheezes (scattered, mild); no crackles and no rales Cardiovascular: Rate/Rhythm: regular rate and regular rhythm Extremities: + edema (trace bilat lower leg edema) Gastrointestinal (Abdomen): normal bowel sounds, soft, nontender, no hepatosplenomegaly obses Musculoskeletal: no cyanosis or clubbing, extremities motor strength 5/5 Skin: no rashes, warm and dry Neurologic: PERRL, EOMI, accommodation nl, no face palsy, no dysarthria Psychiatric: A+Ox3, euthymic affect Insight: + limited insight Lymphatic: no cervical or axillary lymphadenopathy Results & Data ([facility]) Vital Signs (Past 12 Hours) Vital Signs Temp Pulse Pulse Resp BP BP Pulse Ox 12/14/19 07:47 36.7 C 84 19 107/68 95 12/14/19 07:00 72 12/14/19 04:00 36.4 C L 82 20 101/66 98 12/14/19 00:00 36.7 C 71 20 135/79 99 Laboratory Results WBC 6, Hb 8.7, Hct 27.1, Platlets 265, Na 140, K 4.0, BUN 15, Cr 0.75, Platelets 101. Diagnostic Findings CXR 12/10/19: 1. Interstitial thickening suggestive of pulmonary edema. An infectious process could appear similar although is considered less likely. Radiographic follow-up is recommended. 2. Moderate cardiomegaly.
--- NOTE | 2019-12-14 12:05 | Cardiology Progress Note ---
Date of Service December 14, 2019 Assessment & Plan (1) GI bleed: Assessment as per GI with anticipated endoscopy tomorrow. Current status suggest mild volume overload We will give single dose of IV furosemide today Continue all current therapies while holding anticoagulants Heart rate controlled no other significant arrhythmias (2) Anemia due to GI blood loss: (3) Atrial fibrillation: (4) Chronic diastolic heart failure: (5) Hypokalemia: (6) Tricuspid regurgitation: Admission and Anticipated Discharge Date Admission Date: December 10, 2019 Subjective Patient was seen and examined, chart, medications, telemetry reviewed. Patient remains in atrial fibrillation as expected. Notes no overt bleeding possible small amount initially this morning No chest pains no dizziness no lightheadedness. Clearing some secretions with cough Physical Exam Constitutional: WD/WN, vitals as above no acute distress Eyes: PERRL, conjunctivae normal, anicteric sclerae ENMT: external ear and nose normal, oropharynx normal Neck: trachea midline, no thyromegaly Respiratory: Bibasilar crackles present Cardiovascular: Rate/Rhythm: + irregularly irregular Heart Sounds: normal S1 and normal S2 Extremities: + edema (1+ pedal) Gastrointestinal (Abdomen): normal bowel sounds, soft, nontender, no hepatosplenomegaly Musculoskeletal: no cyanosis or clubbing, extremities motor strength 5/5 Results & Data ([facility]) Vital Signs (Past 12 Hours) Vital Signs Temp Pulse Pulse Resp BP BP Pulse Ox 12/14/19 11:56 36.4 C L 79 18 118/82 91 12/14/19 07:47 36.7 C 84 19 107/68 95 12/14/19 07:00 72 12/14/19 04:00 36.4 C L 82 20 101/66 98 Laboratory Results Laboratory Results - last 24 hr 12/14/19 12/14/19 04:15 04:15 WBC 6.27 RBC 2.91 L Hgb 8.7 L Hct 27.1 L MCV 93.1 MCH 29.9 MCHC 32.1 RDW Std Deviation 62.4 H RDW Coeff of Jesse 18.8 H Plt Count 265 MPV 8.8 Sodium 140 Potassium 4.0 D Chloride 106 Carbon Dioxide 31 Anion Gap 3.0 BUN 15 Creatinine 0.75 Est Cr Clr Drug Dosing 63.2 Est GFR ( Amer) 84.8 Est GFR (Non-Af Amer) 73.2 BUN/Creatinine Ratio 19.8 Glucose 101 H Calcium 8.3 L Magnesium 2.2 (1) GI bleed GI bleed type/associated pathology: unspecified gastrointestinal hemorrhage type Qualified Code(s): K92.2 - Gastrointestinal hemorrhage, unspecified (2) Atrial fibrillation Atrial fibrillation type: unspecified chronic Qualified Code(s): I48.20 - Chronic atrial fibrillation, unspecified (3) Tricuspid regurgitation Cardiac valve disease etiology: nonrheumatic Qualified Code(s): I36.1 - Nonrheumatic tricuspid (valve) insufficiency
[2019-12-14] MEDS ORDERED: FUROSEMIDE 20 MG in SYRINGE 0 ML IV ONE (12:20)
--- NOTE | 2019-12-14 17:26 | Hospitalist Progress Note ---
Date of Service December 14, 2019 Assessment & Plan (1) Hematochezia: GI consulted and is planning endoscopy. Thought possibly secondary to a diverticular bleed. She received two transfusions of blood this admission and H/H is stable today. She has no further blood per rectum reported at this time. Contines with clear liquids and colon prep for CSP now planned for tomorrow. 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 Per ID physician, no treatment is necessary as she is likely a carrier. Cont contact precautions. She continues to deny symptoms of UTI at this time and is not clinically ill-appearing. (3) Convulsive syncope: Per Neurology, she did not likely have a witnessed seizure pre-admission as thought. Instead she likely had an episode of convulsive syncope 2/2 low blood pressure. This was not a seizure and antiepileptic drugs were not recommended. (4) Anemia due to GI blood loss: transfuse as needed. (5) Chronic atrial fibrillation: -holding off Eliquis in the context of anemia. Cont BB. (6) Acute diastolic CHF (congestive heart failure): possibly related to iatrogenic fluid overload with intravenous fluids or blood products. Improving with diuretics. Cardiology following and assisting with diuretic administration, which was again given today. She reports continued improvement and is improved on exam today. (7) Hypothyroid: cont levothyroxine per home regimen. (8) Rheumatoid arthritis: -hold home dose weekly methotrexate at this time (9) Depression: cont citalopram per home regimen. (10) DVT prophylaxis: apixaban and other chemoprophylaxis held in setting of anemia. SCDs Conditional Code Dispo-uncertain at this time--pending scope results tomorrow. Bing Izaguirre DO [facility] Hospitalist Admission and Anticipated Discharge Date Admission Date: December 10, 2019 Subjective feels well today denies any blood per rectum CSP scrubbed until tomorrow bc pt ate breakfast denies pain Review of Systems Review of Systems: All systems reviewed & are unremarkable except as noted in Subjective Physical Exam Physical Exam: CONSTITUTIONAL: obese, vitals as above, generally well- appearing, alopecia EYES: normal conjunctivae, no scleral icterus ENT: external ear and nose normal, MMM RESPIRATORY: rhonchi in right lung base, improved from yesterday. No rales or wheezes, normal respiratory effort CARDIOVASCULAR: regular rate and rhythm, S1 and 2 heard without murmurs, gallops or rubs, no JVD, trace peripheral edema BLE GASTROINTESTINAL: normal bowel sounds, soft, nontender, nondistended, protuberant. MUSCULOSKELETAL: moves all extremities equally. SKIN: warm and dry NEUROLOGIC: no gross focal deficits. PSYCHIATRIC: alert and cooperative and answering all questions appropriately. Results & Data Results & Data ([facility]) Vital Signs (Past 12 Hours) Vital Signs Temp Pulse Pulse Resp BP BP Pulse Ox 12/14/19 16:30 36.8 C 74 16 93/55 L 97 12/14/19 15:31 76 12/14/19 11:56 36.4 C L 79 18 118/82 91 12/14/19 07:47 36.7 C 84 19 107/68 95 12/14/19 07:00 72 Laboratory Results Short CBC 12/14/19 Range/Units 04:15 WBC 6.27 (4.8-10.8) K/uL Hgb 8.7 L (12.0-16.0) g/dL Hct 27.1 L (37-47) % Plt Count 265 (130-400) K/uL BMP 12/14/19 04:15 Sodium 140 Potassium 4.0 D Chloride 106 Carbon Dioxide 31 BUN 15 Creatinine 0.75 Glucose 101 H Calcium 8.3 L Medications Administered Current Inpatient Medications Acetaminophen (Acetaminophen 325 Mg Tab) 325 mg PO Q6H PRN PRN Reason: Pain Stop: 01/09/20 16:59 Albuterol (Albuterol Hfa 8 Gm Inhaler) 2 puffs INH Q4 PRN PRN Reason: Cough Stop: 01/09/20 14:43 Bisacodyl (Bisacodyl 10 Mg Supp) 10 mg [place] DAILY PRN PRN Reason: Constipation Stop: 01/10/20 08:59 Citalopram Hydrobromide (Citalopram 20 Mg Tab) 20 mg PO DAILY [facility] Stop: 01/10/20 08:59 Last Admin: 12/14/19 08:50 Dose: 20 mg Documented by: Fluticasone Propionate (Fluticasone Propionate Na Spr 16 Gm Btl) 1 sprays NA DAILY [facility] Stop: 01/10/20 08:59 Last Admin: 12/14/19 08:50 Dose: 1 sprays Documented by: Guaifenesin (Guaifenesin 600 Mg Tabcr) 600 mg PO Q12 [facility] Stop: 01/12/20 20:59 Last Admin: 12/14/19 08:50 Dose: 600 mg Documented by: Pantoprazole Sodium 40 mg/ (Syringe) 10 mls @ 5 mls/min IV BID [facility] Stop: 01/11/20 20:59 Last Admin: 12/14/19 08:42 Dose: 5 mls/min Documented by: Ertapenem 1,000 mg/ Sodium (Chloride) 60 mls @ 100 mls/hr IV DAILY@0900 [facility] Stop: 12/23/19 09:29 Last Infusion: 12/14/19 09:35 Dose: Infused Documented by: Levothyroxine Sodium (Levothyroxine Sodium 25 Mcg Tablet) 25 mcg PO DAILYBB [facility] Stop: 01/10/20 06:29 Last Admin: 12/11/19 06:29 Dose: 25 mcg Documented by: Magnesium Oxide (Magnesium Oxide 400 Mg Tab) 400 mg PO DAILY [facility] Stop: 01/10/20 08:59 Last Admin: 12/14/19 08:50 Dose: 400 mg Documented by: Mesalamine (Mesalamine 800 Mg Tabcr) 800 mg PO TID [facility] Stop: 01/09/20 14:43 Last Admin: 12/14/19 13:28 Dose: 800 mg Documented by: Metoprolol Succinate (Metoprolol Succ 25mg Ext Rel Tab) 12.5 mg PO DAILY [facility] Stop: 01/10/20 08:59 Last Admin: 12/14/19 08:49 Dose: 12.5 mg Documented by: Nystatin (Nystatin Powder 15gm Btl) 1 appln EXT TID [facility] Stop: 01/09/20 14:43 Last Admin: 12/14/19 13:28 Dose: 1 appln Documented by: Ondansetron HCl (Ondansetron Inj 2 Mg/Ml 2 Ml Vial) 4 mg IV Q6H PRN PRN Reason: Nausea Stop: 01/09/20 14:43 Polyethylene Glycol (Polyethylene (Miralax) 17 Gm Pack) 68 gm PO ONCE ONE Stop: 12/14/19 18:21 Prednisone (Prednisone 20 Mg Tab) 20 mg PO DAILY [facility] Stop: 01/10/20 08:59 Last Admin: 12/14/19 08:50 Dose: 20 mg Documented by: Rosuvastatin Calcium (Rosuvastatin Calcium 5 Mg Tab) 5 mg PO DAILY [facility] Stop: 01/10/20 08:59 Last Admin: 12/14/19 08:50 Dose: 5 mg Documented by: Saccharomyces Boulardii (Saccharomyces Boulardii 250 Mg Cap) 250 mg PO DAILY [facility] Stop: 01/11/20 08:59 Last Admin: 12/14/19 08:50 Dose: 250 mg Documented by: Sodium Biphosphate/Sodium Phosphate (Sod Phosphate/Sod Biphosphate Enema 132 Ml Btl) 118 ml [place] DAILY PRN PRN Reason: Constipation Stop: 01/09/20 14:43 Sucralfate (Sucralfate 1 Gm/10 Ml Udc) 1 gm PO ACHS [facility] Stop: 01/10/20 11:29 Last Admin: 12/12/19 08:15 Dose: Not Given Documented by: Tolterodine Tartrate (Tolterodine Tartrate La 4 Mg Capcr) 4 mg PO DAILY [facility] Stop: 01/10/20 08:59 Last Admin: 12/14/19 08:50 Dose: 4 mg Documented by:
[2019-12-14] MEDS ORDERED: POLYETHYLENE (MIRALAX) 17 GM PACK PO ONE (18:20)
[2019-12-15] MEDS ORDERED: SODIUM CHLORIDE 0.65% NA SOLN 45 ML (OCEAN) ONE (03:25)
[2019-12-15] MEDS: PANTOprazole 40 MG in SYRINGE 0 ML IV SCH ×2 (08:38→21:43)
[2019-12-15] MEDS: TOLTERODINE TARTRATE LA 4 MG CAPCR PO SCH (08:39)
[2019-12-15] MEDS: SACCHAROMYCES BOULARDII 250 MG CAP PO SCH (08:39)
[2019-12-15] MEDS: MAGNESIUM OXIDE 400 MG TAB PO SCH (08:39)
[2019-12-15] MEDS: MESALAMINE 800 MG TABCR PO SCH ×3 (08:39→20:04)
[2019-12-15] MEDS: guaiFENesin 600 MG TABCR PO SCH ×2 (08:39→20:03)
[2019-12-15] MEDS: predniSONE 20 MG TAB PO SCH (08:40)
[2019-12-15] MEDS: CITALOPRAM 20 MG TAB PO SCH (08:40)
[2019-12-15] MEDS: ROSUVASTATIN CALCIUM 5 MG TAB PO SCH (08:40)
[2019-12-15] MEDS: NYSTATIN POWDER 15GM BTL EXT SCH ×3 (08:40→20:06)
[2019-12-15] MEDS: FLUTICASONE PROPIONATE NA SPR 16 GM BTL SCH (08:48)
[2019-12-15] MEDS: METOPROLOL SUCC 25MG EXT REL TAB PO SCH (08:48)
--- NOTE | 2019-12-15 10:37 | Anesthesiology Consultation ---
Date of Service December 15, 2019 Assessment & Plan (1) ESBL E. coli carrier: (2) Acute diastolic CHF (congestive heart failure): (3) Hematochezia: (4) Chronic atrial fibrillation: (5) Hypokalemia: (6) Tricuspid regurgitation: (7) Chronic diastolic heart failure: (8) Anemia: (9) Depression: (10) Hyperlipidemia: (11) Hypothyroid: (12) GERD (gastroesophageal reflux disease): (13) Rheumatoid arthritis: Chart Review Chart Review: Acceptable Risk for Surgery Consults Requested none ASA ASA4 Proposed Anesthesia Anesthesia Type: MAC Risk / Benefits Reviewed With: PT / POA / Parent / Guardian, Accepts Plan and Informed Consent Obtained History Surgery Operation Date: 12/13/19 08:30 Proposed Procedures p Colonoscopy EGD Dr Ben Contreras, DO Operation Date: 12/14/19 10:00 Proposed Procedures p Colonoscopy EGD Dr Ben Contreras, DO Operation Date: 12/15/19 16:00 Proposed Procedures p Colonoscopy EGD Dr Ben Contreras, DO Height/Weight Height: 5 ft 4 in Weight: 95.2 kg Allergies Allergy/AdvReac Type Severity Reaction Status Date / Time No Known Allergies Allergy Unverified 12/10/19 12:44 Medications Home Medications Medication Instructions Recorded Confirmed Last Taken albuterol sulfate 2 puff INHALATION Q4 PRN 10/17/19 12/10/19 Unknown apixaban [Eliquis] 5 mg PO BID 10/17/19 12/10/19 Unknown citalopram 20 mg PO DAILY 10/17/19 12/10/19 Unknown fluticasone propionate [Flonase] 1 spray INTRANASAL DAILY 10/17/19 12/10/19 Unknown levothyroxine 25 mcg PO DAILY 10/17/19 12/10/19 Unknown magnesium oxide 400 mg PO DAILY 10/17/19 12/10/19 Unknown mesalamine 800 mg PO TID 10/17/19 12/10/19 Unknown methotrexate sodium 2.5 mg PO WK 10/17/19 12/10/19 Unknown metoprolol succinate 12.5 mg PO DAILY 10/17/19 12/10/19 Unknown nystatin [Nystop] 1 applic TOPICAL TID 10/17/19 12/10/19 Unknown omeprazole [Prilosec] 20 mg PO DAILY 10/17/19 12/10/19 Unknown potassium chloride [Klor-Con M20] 20 meq PO BID 10/17/19 12/10/19 Unknown rosuvastatin [Crestor] 5 mg PO DAILY 10/17/19 12/10/19 Unknown tolterodine [Detrol LA] 4 mg PO DAILY 10/17/19 12/10/19 Unknown acetaminophen 325 mg PO QID PRN 12/10/19 12/10/19 Unknown amino acids-protein hydrolys 1 ea PO DAILY 12/10/19 12/10/19 Unknown [Pro-Stat Sugar Free] bisacodyl [Dulcolax (bisacodyl)] 10 mg [place] DAILY 12/10/19 12/10/19 Unknown icosapent ethyl [Vascepa] 2 g PO DAILY 12/10/19 12/10/19 Unknown magnesium hydroxide [Milk of 1,200 mg PO BID 12/10/19 12/10/19 Unknown Magnesia] prednisone 20 mg PO DAILY 12/10/19 12/10/19 Unknown promethazine-DM 5 ml PO Q6H PRN 12/10/19 12/10/19 Unknown sodium phosphates [Fleet Enema] 118 ml [place] DAILY PRN 12/10/19 12/10/19 Unknown Active Medications Generic Name Dose Route Start Last Admin Trade Name Freq PRN Reason Stop Dose Admin Citalopram Hydrobromide 20 mg 12/11/19 09:00 12/15/19 08:40 Citalopram 20 Mg Tab PO 01/10/20 08:59 20 mg DAILY [facility] Administration Fluticasone Propionate 1 sprays 12/11/19 09:00 12/15/19 08:48 Fluticasone Propionate Na Spr 16 Gm Btl NA 01/10/20 08:59 1 sprays DAILY [facility] Administration Guaifenesin 600 mg 12/13/19 21:00 12/15/19 08:39 Guaifenesin 600 Mg Tabcr PO 01/12/20 20:59 600 mg Q12 [facility] Administration Pantoprazole Sodium 40 mg/ 10 mls @ 5 mls/min 12/12/19 21:00 12/15/19 08:38 Syringe IV 01/11/20 20:59 5 mls/min BID [facility] Administration Levothyroxine Sodium 25 mcg 12/11/19 06:30 12/11/19 06:29 Levothyroxine Sodium 25 Mcg Tablet PO 01/10/20 06:29 25 mcg DAILYBB [facility] Administration Magnesium Oxide 400 mg 12/11/19 09:00 12/15/19 08:39 Magnesium Oxide 400 Mg Tab PO 01/10/20 08:59 400 mg DAILY [facility] Administration Mesalamine 800 mg 12/10/19 14:44 12/15/19 08:39 Mesalamine 800 Mg Tabcr PO 01/09/20 14:43 800 mg TID [facility] Administration Metoprolol Succinate 12.5 mg 12/11/19 09:00 12/15/19 08:48 Metoprolol Succ 25mg Ext Rel Tab PO 01/10/20 08:59 12.5 mg DAILY [facility] Administration Nystatin 1 appln 12/10/19 14:44 12/15/19 08:40 Nystatin Powder 15gm Btl EXT 01/09/20 14:43 1 appln TID [facility] Administration Prednisone 20 mg 12/11/19 09:00 12/15/19 08:40 Prednisone 20 Mg Tab PO 01/10/20 08:59 20 mg DAILY [facility] Administration Rosuvastatin Calcium 5 mg 12/11/19 09:00 12/15/19 08:40 Rosuvastatin Calcium 5 Mg Tab PO 01/10/20 08:59 5 mg DAILY [facility] Administration Saccharomyces Boulardii 250 mg 12/12/19 09:00 12/15/19 08:39 Saccharomyces Boulardii 250 Mg Cap PO 01/11/20 08:59 250 mg DAILY [facility] Administration Sucralfate 1 gm 12/11/19 11:30 12/12/19 08:15 Sucralfate 1 Gm/10 Ml Udc PO 01/10/20 11:29 Not Given ACHS [facility] Tolterodine Tartrate 4 mg 12/11/19 09:00 12/15/19 08:39 Tolterodine Tartrate La 4 Mg Capcr PO 01/10/20 08:59 4 mg DAILY [facility] Administration NPO Date Last Intake of Fluids: 12/15/19 Time Last Intake of Fluids: 00:00 Last Intake of Fluids Comment: chewing gum when arrived in preop Date Last Intake of Solids: 12/13/19 Time Last Intake of Solids: 23:59 Past Medical History Medical History Atrial fibrillation CHF (congestive heart failure) additional PMH added to A/P Exercise / Class Metabolic Activity III < 4 Walking/Shop/Light housework Past Surgical History Surgical History History of colonoscopy Past Anesthesia History No Hx of Anesthesia Complications and No Family Hx of Anesthesia Complications History of PONV No Hx of PONV and No Hx of Motion Sickness Social History Smoking Status: Never smoker Do You Dip or Chew Tobacco: No Hx Alcohol Use: No Hx Substance Use: No Physical Exam Vital Signs Last Vital Signs Temp 36.6 C 12/15/19 07:55 Pulse 75 12/15/19 10:49 Resp 16 12/15/19 10:49 BP 117/83 12/15/19 10:49 Pulse Ox 100 12/15/19 10:49 ENMT Mouth: + edentulous; no TMJ abnormality Thyromental Distance: > or= 3.5 Finger Breadths Mallampati Class: II Neck normal visual inspection and trachea midline; neck extension not limited Respiratory normal respiratory effort Auscultation: + diminished lung sounds Cardiovascular Rate/Rhythm: regular rate and regular rhythm Heart Sounds: no murmur Musculoskeletal Spine: normal cervical ROM Extremities: full ROM of extremities Neurologic moves all extremities Psychiatric Orientation: alert and oriented x 3 Testing Laboratory Results 12/14/19 04:15 12/14/19 04:15 PT 10.9 Seconds (9.0-12.0) 12/11/19 05:59 INR 1.0 (0.9-1.1) 12/11/19 05:59 APTT 22.2 Seconds (21.0-31.0) 12/10/19 11:20 Urine Color Dark Yellow 12/11/19 02:45 Urine Appearance Turbid (Clear) A 12/11/19 02:45 Urine pH 5.0 (4.5-7.5) 12/11/19 02:45 Ur Specific [place] 1.023 (1.000-1.030) 12/11/19 02:45 Urine Protein Trace (Negative) H 12/11/19 02:45 Urine Glucose (UA) Negative (Negative) 12/11/19 02:45 Urine Ketones Trace (Negative) H 12/11/19 02:45 Urine Nitrite Negative (Negative) 12/11/19 02:45 Ur Leukocyte Esterase 2+ (Negative) H 12/11/19 02:45 Urine WBC (Auto) 1-5 /hpf (0-5) 12/11/19 02:45 Urine RBC (Auto) 0-4 /hpf (0-4) 12/11/19 02:45 U Hyaline Cast (Auto) 1-5 /lpf (0-5) 12/11/19 02:45 U Epithel Cells (Auto) >30 /lpf (0-5) H 12/11/19 02:45 Urine Bacteria (Auto) 1+ (Negative) H 12/11/19 02:45 Blood Type O Positive 12/10/19 11:20 Antibody Screen NEGATIVE 12/10/19 11:20 12/11/19 02:45 Urine Culture - Final Urine,Clean Catch Escherichia coli ESBL (1) Anemia Anemia type: unspecified type Qualified Code(s): D64.9 - Anemia, unspecified (2) Tricuspid regurgitation Cardiac valve disease etiology: nonrheumatic Qualified Code(s): I36.1 - Nonrheumatic tricuspid (valve) insufficiency
--- NOTE | 2019-12-15 10:45 | Gastroenterology Progress Note ---
Date of Service December 15, 2019 Assessment & Plan (1) Rectal bleed: EGD and colonoscopy today. Further recommendations to follow. Present on Admission?: Yes Admission and Anticipated Discharge Date Admission Date: December 10, 2019 Supervising Physician Co-Signing Physician Notes I saw and evaluated the patient. We are planning for upper endoscopy and colonoscopy due to her complaint of hematochezia and anemia. We have discussed the risks and benefits of the procedures to include bleeding, infection, perforation, aspiration and need for follow-up studies. Subjective Ms. Landy Dior is an 84 yr old female admitted with painless rectal bleeding, likley diverticular. Hb 9.4 on arrival ->7.9 lowest level on 12/09 and 12/10, then received 2 units of RBCs. Hb this morning 8.7. Took additional prep last night. Hemodynamically stable. Denies any CP or SOB on O2 2L by NC 97% sat. Review of Systems Review of Systems: ROS: Gen: Denies weakness, fevers, weight loss Eyes: No eye redness, or pain, no recent vision changes Resp: Mild cough, brings up liquid brown mucous at times. No SOB Cardio: No palpitations/irregular beats, no chest pain GI: + recent rectal bleeding but none today. No abdominal pain, no nausea/vomiting : Denies pain on urination Skin: No jaundice, itching or new rashes Gastrointestinal: + diarrhea/loose stools and + blood in stools; no abdominal pain, no nausea and no melena Physical Exam Constitutional: WD/WN, vitals as above Eyes: PERRL, conjunctivae normal, anicteric sclerae ENMT: external ear and nose normal, oropharynx normal Neck: trachea midline, no thyromegaly Respiratory: normal respiratory effort Auscultation: + wheezes (scattered, mild); no crackles and no rales Cardiovascular: Rate/Rhythm: regular rate and regular rhythm Extremities: + edema (trace bilat lower leg edema) Gastrointestinal (Abdomen): normal bowel sounds, soft, nontender, no hepatosplenomegaly Musculoskeletal: no cyanosis or clubbing, extremities motor strength 5/5 Skin: no rashes, warm and dry Neurologic: PERRL, EOMI, accommodation nl, no face palsy, no dysarthria Psychiatric: A+Ox3, euthymic affect Insight: + limited insight Lymphatic: no cervical or axillary lymphadenopathy Results & Data ([facility]) Vital Signs (Past 12 Hours) Vital Signs Temp Pulse Pulse Resp BP BP Pulse Ox 12/15/19 07:55 36.6 C 73 69 16 97/48 L 108/81 97 12/15/19 04:00 36.7 C 79 18 118/82 98 12/14/19 23:36 36.7 C 82 18 131/70 98
[2019-12-15] MEDS ORDERED: LIDOCAINE HCL 2% 2 ML VIAL/AMP(20MG/ML) INFIL ONE (12:03)
[2019-12-15] MEDS ORDERED: PROPOFOL IV EMULSION 10 MG/ML 20 ML VIAL IV ONE (12:03)
[2019-12-15] MEDS ORDERED: ePHEDrine sulfate 50 MG/ML SYR ONE (12:04)
[2019-12-15] MEDS ORDERED: PHENYLEPHRINE 100MCG/ML 5ML SYR ONE (12:04)
--- NOTE | 2019-12-15 12:11 | GI REPORT ---
Patient Name: Kate Dior Procedure Date: 12/15/2019 11:24 AM Date of : 1935 Admit Type: Inpatient Age: 84 Gender: Female Attending MD: Tony Contreras DO Procedure: Upper GI endoscopy Providers: Tony Contreras DO Referring MD: Bing Izaguirre Do, Carey Kimber Keiter Indications: Iron deficiency anemia secondary to chronic blood loss Medicines: Monitored Anesthesia Care Complications: No immediate complications. Estimated blood loss: Minimal. Estimated Blood Loss: Estimated blood loss was minimal. Procedure: Pre-Anesthesia Assessment: - Prior to the procedure, a History and Physical was performed, and patient medications, allergies and sensitivities were reviewed. The patient's tolerance of previous anesthesia was reviewed. - The risks and benefits of the procedure and the sedation options and risks were discussed with the patient. All questions were answered and informed consent was obtained. - Patient identification and proposed procedure were verified prior to the procedure by the physician, the nurse and the neonatal critical care nurse. The procedure was verified in the procedure room. - Pre-procedure physical examination revealed no contraindications to sedation. - ASA Grade Assessment: IV - A patient with severe systemic disease that is a constant threat to life. - After reviewing the risks and benefits, the patient was deemed in satisfactory condition to undergo the procedure. - The anesthesia plan was to use monitored anesthesia care (MAC). - Immediately prior to administration of medications, the patient was re-assessed for adequacy to receive sedatives. - Immediately prior to administration of medications, the patient was re-assessed for adequacy to receive sedatives. - The heart rate, respiratory rate, oxygen saturations, blood pressure, adequacy of pulmonary ventilation, and response to care were monitored throughout the procedure. - The physical status of the patient was re-assessed after the procedure. After obtaining informed consent, the endoscope was passed under direct vision. Throughout the procedure, the patient's blood pressure, pulse, and oxygen saturations were monitored continuously. The Endoscope was introduced through the mouth, and advanced to the third part of duodenum. The upper GI endoscopy was accomplished without difficulty. The patient tolerated the procedure well. Findings: The examined esophagus was normal. The Z-line was regular and was found 37 cm from the incisors. The entire examined stomach was normal. The examined duodenum was normal. Impression: - Normal esophagus. - Z-line regular, 37 cm from the incisors. - Normal stomach. - Normal examined duodenum. - No specimens collected. Recommendation: - Perform a colonoscopy today. Tony Contreras D.O. Tony Contreras, 12/15/2019 12:11:09 PM This report has been signed electronically. Note Initiated On: 12/15/2019 11:24 AM Number of Addenda: 0 I attest to the content of the Intraoperative Record and orders documented therein, exceptions below {[id number]}
--- NOTE | 2019-12-15 12:11 | Anesthesiology Progress Note ---
Date of Service December 15, 2019 Anesthesia Post Procedure Vital Signs Vital Signs: Temp Pulse Pulse Resp BP BP Pulse Ox 12/15/19 10:49 36.6 C 75 16 117/83 100 12/15/19 07:55 36.6 C 73 69 16 97/48 L 108/81 97 12/15/19 04:00 36.7 C 79 18 118/82 98 12/14/19 23:36 36.7 C 82 18 131/70 98 12/14/19 20:04 36.7 C 76 16 101/69 99 12/14/19 16:30 36.8 C 74 16 93/55 L 97 12/14/19 15:31 76 Transfer of Care Handoff Completed per policy Notes Mental Status: alert / awake / arousable Patient Amnestic to Procedure: Yes Nausea / Vomiting: adequately controlled Pain: adequately controlled Airway Patency, RR, SpO2: stable & adequate BP & HR: stable & adequate Hydration State: stable & adequate Anesthetic Complications: no major complications apparent and Pt Satisfied with anesthetic care
--- NOTE | 2019-12-15 12:32 | GI REPORT ---
Patient Name: Kate Dior Procedure Date: 12/15/2019 11:24 AM Date of : 1935 Admit Type: Inpatient Age: 84 Gender: Female Attending MD: Tony Contreras DO Procedure: Colonoscopy Providers: Tony Contreras DO Referring MD: Bing Izaguirre Do, Carey Kimber Keiter Indications: Hematochezia Medicines: Monitored Anesthesia Care Complications: No immediate complications. Estimated blood loss: Minimal. Estimated Blood Loss: Estimated blood loss was minimal. Procedure: Pre-Anesthesia Assessment: - Prior to the procedure, a History and Physical was performed, and patient medications, allergies and sensitivities were reviewed. The patient's tolerance of previous anesthesia was reviewed. - The risks and benefits of the procedure and the sedation options and risks were discussed with the patient. All questions were answered and informed consent was obtained. - Patient identification and proposed procedure were verified prior to the procedure by the physician, the nurse and the manufacturing engineering intern. The procedure was verified in the procedure room. - Pre-procedure physical examination revealed no contraindications to sedation. - ASA Grade Assessment: IV - A patient with severe systemic disease that is a constant threat to life. - After reviewing the risks and benefits, the patient was deemed in satisfactory condition to undergo the procedure. - The anesthesia plan was to use monitored anesthesia care (MAC). - Immediately prior to administration of medications, the patient was re-assessed for adequacy to receive sedatives. - The heart rate, respiratory rate, oxygen saturations, blood pressure, adequacy of pulmonary ventilation, and response to care were monitored throughout the procedure. - The physical status of the patient was re-assessed after the procedure. After I obtained informed consent, the scope was passed under direct vision. Throughout the procedure, the patient's blood pressure, pulse, and oxygen saturations were monitored continuously. The Colonoscope was introduced through the anus and advanced to the terminal ileum. The colonoscopy was performed without difficulty. The patient tolerated the procedure well. The quality of the bowel preparation was good. Findings: The perianal and digital rectal examinations were normal. Pertinent negatives include normal sphincter tone. The terminal ileum appeared normal. A frond-like/villous non-obstructing large sessile mass was found in the cecum. The mass was non-circumferential but did involve 70% of the cecum and seemed to be 5 cm in diameter. Oozing was present. Biopsies were taken with a cold forceps for histology. Estimated blood loss was minimal. The pathology specimen was placed into Bottle A. A 5 mm polyp was found in the transverse colon. The polyp was sessile. The polyp was removed with a cold snare. Resection was complete, but the polyp tissue was not retrieved. Estimated blood loss was minimal. A 5 mm polyp was found in the rectum. The polyp was sessile. The polyp was removed with a cold snare. Resection and retrieval were complete. The pathology specimen was placed into Bottle B. Internal hemorrhoids were found during retroflexion. The hemorrhoids were moderate. Impression: - The examined portion of the ileum was normal. - Rule out malignancy, tumor in the cecum. Biopsied. - One 5 mm polyp in the transverse colon, removed with a cold snare. Complete resection. Polyp tissue not retrieved. - One 5 mm polyp in the rectum, removed with a cold snare. Resected and retrieved. - Internal hemorrhoids. Recommendation: - [facility]. - Advance diet as tolerated today. - Await pathology results. - CT of abdomen and Pelvis - CEA to be ordered Tony Contreras D.O. Tony Contreras, 12/15/2019 12:18:47 PM Note Initiated On: 12/15/2019 11:24 AM Number of Addenda: 0 I attest to the content of the Intraoperative Record and orders documented therein, exceptions below {[id number]}
--- NOTE | 2019-12-15 14:23 | Cardiology Progress Note ---
Date of Service December 15, 2019 Assessment & Plan (1) GI bleed: (2) Anemia due to GI blood loss: (3) Atrial fibrillation: (4) Chronic diastolic heart failure: (5) Hypokalemia: (6) Tricuspid regurgitation: Patient appears mildly volume overloaded today. Recommend 20 mg IV Lasix then transition to oral Lasix 20 mg once daily. Repeat BMP in a.m. EGD scheduled today. Hold Eliquis in the setting of acute lower GI bleeding and symptomatic anemia. Ventricular rates controlled on telemetry since admission. Continue low-dose beta-allan as previously ordered. Telemetry may be discontinued. Admission and Anticipated Discharge Date Admission Date: December 10, 2019 Subjective Patient seen and examined the bedside. EGD scheduled today. Denies chest pain or shortness of breath. Lower extremity edema more pronounced. No orthopnea or paroxysmal nocturnal dyspnea. Patient is a poor historian. Denies signs/symptoms of recurrent GI blood loss today. Review of Systems Review of Systems: All systems reviewed & are unremarkable except as noted in HPI & below Physical Exam Constitutional: well developed, well nourished and + obese Respiratory: normal respiratory effort; no respiratory distress Auscultation: + crackles (Bilateral bases); no diminished lung sounds, no rales, no rhonchi and no wheezes Cardiovascular: Rate/Rhythm: + irregularly irregular Heart Sounds: normal S1, normal S2 and + murmur (2/6 midsystolic murmur heard best left sternal border.) Vessels: no JVD Extremities: + edema (1+ bilateral pedal and ankle edema) Gastrointestinal (Abdomen): Inspection/Auscultation: abdomen normal to inspection and normal bowel sounds; abdomen not distended Percussion/Palpation: abdomen soft; abdomen nontender, no guarding and abdomen not rigid Skin: no rashes, warm and dry Neurologic: moves all extremities; no focal motor deficits Speech / Cognition: normal speech Motor/Sensory: no tremor Psychiatric: Orientation: alert and oriented x 3 Results & Data ([facility]) Vital Signs (Past 12 Hours) Vital Signs Temp Pulse Pulse Resp BP BP Pulse Ox 12/15/19 12:37 90 18 113/86 96 12/15/19 12:15 92 H 18 105/65 98 12/15/19 12:07 85 18 87/52 L 100 12/15/19 10:49 36.6 C 75 16 117/83 100 12/15/19 07:55 36.6 C 73 69 16 97/48 L 108/81 97 12/15/19 04:00 36.7 C 79 18 118/82 98 (1) GI bleed GI bleed type/associated pathology: unspecified gastrointestinal hemorrhage type Qualified Code(s): K92.2 - Gastrointestinal hemorrhage, unspecified (2) Tricuspid regurgitation Cardiac valve disease etiology: nonrheumatic Qualified Code(s): I36.1 - Nonrheumatic tricuspid (valve) insufficiency (3) Atrial fibrillation Atrial fibrillation type: unspecified chronic Qualified Code(s): I48.20 - Chronic atrial fibrillation, unspecified
[2019-12-15] MEDS ORDERED: FUROSEMIDE 20 MG in SYRINGE 0 ML IV ONE (14:30)
[2019-12-15] MEDS ORDERED: POTASSIUM CHLORIDE CRTAB 20 MEQ TABCR PO ONE (14:30)
--- NOTE | 2019-12-15 17:46 | Hospitalist Progress Note ---
Date of Service December 15, 2019 Assessment & Plan (1) Hematochezia: EGD normal today. CSP with evidence of two sessile polyps. CEA ordered with CTa/p imaging. Path pending. Diet ordered. 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 Per ID physician, no treatment is necessary as she is likely a carrier. Cont contact precautions. She continues to deny symptoms of UTI at this time and is not clinically ill-appearing. (3) Convulsive syncope: Per Neurology, she did not likely have a witnessed seizure pre-admission as thought. Instead she likely had an episode of convulsive syncope 2/2 low bl ood pressure. This was not a seizure and antiepileptic drugs were not recommended. (4) Anemia due to GI blood loss: transfuse as needed. She has had no further bleeding-H/H stable. (5) Chronic atrial fibrillation: -holding off Eliquis in the immediate post op state. Will discuss with GI prior to restarting. Cont BB. (6) Acute diastolic CHF (congestive heart failure): Discussed the case with Cardiology. Gave additional IV lasix today and will plan transition to 20mg PO daily lasix moving forward. Appears compensated at this time. (7) Hypothyroid: cont levothyroxine per home regimen. (8) Rheumatoid arthritis: -hold home dose weekly methotrexate at this time (9) Depression: cont citalopram per home regimen. (10) DVT prophylaxis: apixaban and other chemoprophylaxis held in setting of anemia and now in post-procedure setting. SCDs Conditional Code Dispo-uncertain at this time-further workup with bloodwork and imaging after colonoscopy findings. Will await these results. Move patient to the floor. Bing Izaguirre DO [facility] Hospitalist Admission and Anticipated Discharge Date Admission Date: December 10, 2019 Subjective Recovering well in the room today Reports some mucous in her nose still present and wants to keep the mucinex for now Feels that her gatorade and probiotics helped her Pt denies shortness of breath and feels her breathing is better Has 2-3+pitting edema on bilat lower extremities which has been present in the past. Review of Systems Review of Systems: All systems reviewed & are unremarkable except as noted in Subjective Physical Exam Physical Exam: CONSTITUTIONAL: obese, vitals as above, generally well- appearing, alopecia EYES: normal conjunctivae, no scleral icterus ENT: external ear and nose normal, MMM RESPIRATORY: rhonchi in right lung base, again improved from yesterday. No rales or wheezes, normal respiratory effort CARDIOVASCULAR: regular rate and rhythm, S1 and 2 heard without murmurs, gallops or rubs, no JVD, trace peripheral edema BLE GASTROINTESTINAL: normal bowel sounds, soft, nontender, nondistended, protuberant. MUSCULOSKELETAL: moves all extremities equally. SKIN: warm and dry NEUROLOGIC: no gross focal deficits. PSYCHIATRIC: alert and cooperative and answering all questions appropriately. Results & Data Results & Data ([facility]) Vital Signs (Past 12 Hours) Vital Signs Temp Pulse Pulse Resp BP BP Pulse Ox 12/15/19 16:48 36.4 C L 92 H 19 110/65 92 12/15/19 15:17 36.6 C 91 H 16 122/75 91 12/15/19 12:37 90 18 113/86 96 12/15/19 12:15 92 H 18 105/65 98 12/15/19 12:07 85 18 87/52 L 100 12/15/19 10:49 36.6 C 75 16 117/83 100 12/15/19 07:55 36.6 C 73 69 16 97/48 L 108/81 97 Medications Administered Current Inpatient Medications Acetaminophen (Acetaminophen 325 Mg Tab) 325 mg PO Q6H PRN PRN Reason: Pain Stop: 01/09/20 16:59 Albuterol (Albuterol Hfa 8 Gm Inhaler) 2 puffs INH Q4 PRN PRN Reason: Cough Stop: 01/09/20 14:43 Bisacodyl (Bisacodyl 10 Mg Supp) 10 mg NV DAILY PRN PRN Reason: Constipation Stop: 01/10/20 08:59 Citalopram Hydrobromide (Citalopram 20 Mg Tab) 20 mg PO DAILY [facility] Stop: 01/10/20 08:59 Last Admin: 12/15/19 08:40 Dose: 20 mg Documented by: Fluticasone Propionate (Fluticasone Propionate Na Spr 16 Gm Btl) 1 sprays NA DAILY [facility] Stop: 01/10/20 08:59 Last Admin: 12/15/19 08:48 Dose: 1 sprays Documented by: Furosemide (Furosemide 20 Mg Tab) 20 mg PO QAM [facility] Stop: 01/15/20 08:59 Guaifenesin (Guaifenesin 600 Mg Tabcr) 600 mg PO Q12 [facility] Stop: 01/12/20 20:59 Last Admin: 12/15/19 08:39 Dose: 600 mg Documented by: Pantoprazole Sodium 40 mg/ (Syringe) 10 mls @ 5 mls/min IV BID [facility] Stop: 01/11/20 20:59 Last Admin: 12/15/19 08:38 Dose: 5 mls/min Documented by: Levothyroxine Sodium (Levothyroxine Sodium 25 Mcg Tablet) 25 mcg PO DAILYBB [facility] Stop: 01/10/20 06:29 Last Admin: 12/11/19 06:29 Dose: 25 mcg Documented by: Magnesium Oxide (Magnesium Oxide 400 Mg Tab) 400 mg PO DAILY [facility] Stop: 01/10/20 08:59 Last Admin: 12/15/19 08:39 Dose: 400 mg Documented by: Mesalamine (Mesalamine 800 Mg Tabcr) 800 mg PO TID [facility] Stop: 01/09/20 14:43 Last Admin: 12/15/19 14:25 Dose: 800 mg Documented by: Metoprolol Succinate (Metoprolol Succ 25mg Ext Rel Tab) 12.5 mg PO DAILY [facility] Stop: 01/10/20 08:59 Last Admin: 12/15/19 08:48 Dose: 12.5 mg Documented by: Nystatin (Nystatin Powder 15gm Btl) 1 appln EXT TID [facility] Stop: 01/09/20 14:43 Last Admin: 12/15/19 14:25 Dose: 1 appln Documented by: Ondansetron HCl (Ondansetron Inj 2 Mg/Ml 2 Ml Vial) 4 mg IV Q6H PRN PRN Reason: Nausea Stop: 01/09/20 14:43 Prednisone (Prednisone 20 Mg Tab) 20 mg PO DAILY [facility] Stop: 01/10/20 08:59 Last Admin: 12/15/19 08:40 Dose: 20 mg Documented by: Rosuvastatin Calcium (Rosuvastatin Calcium 5 Mg Tab) 5 mg PO DAILY [facility] Stop: 01/10/20 08:59 Last Admin: 12/15/19 08:40 Dose: 5 mg Documented by: Saccharomyces Boulardii (Saccharomyces Boulardii 250 Mg Cap) 250 mg PO DAILY [facility] Stop: 01/11/20 08:59 Last Admin: 12/15/19 08:39 Dose: 250 mg Documented by: Sodium Biphosphate/Sodium Phosphate (Sod Phosphate/Sod Biphosphate Enema 132 Ml Btl) 118 ml NV DAILY PRN PRN Reason: Constipation Stop: 01/09/20 14:43 Sucralfate (Sucralfate 1 Gm/10 Ml Udc) 1 gm PO ACHS [facility] Stop: 01/10/20 11:29 Last Admin: 12/12/19 08:15 Dose: Not Given Documented by: Tolterodine Tartrate (Tolterodine Tartrate La 4 Mg Capcr) 4 mg PO DAILY [facility] Stop: 01/10/20 08:59 Last Admin: 12/15/19 08:39 Dose: 4 mg Documented by:
[2019-12-15] MEDS ORDERED: COUGH DROP (SUGAR FREE) LOZ 24 LOZ/1 BOX BUCCAL PRN (23:56)
[2019-12-16] MEDS: LEVOTHYROXINE SODIUM 25 MCG TABLET PO SCH (05:51)
[2019-12-16 07:08] LABS: Hematocrit (blood only) 27.4 % (37-47); Hemoglobin 8.4 g/dL (12.0-16.0); Mean Corpuscular Hemoglobin 29.1 pg (25-34); Mean Corpuscular Hgb Conc 30.7 g/dL (32-36); Mean Corpuscular Volume 94.8 fL (80-100); Mean Platelet Volume 8.8 fL (7.4-10.4); Platelet Count 334 K/uL (130-400); RDW Coefficient of Variation 18.1 % (11.5-14.5); RDW Standard Deviation 61.6 fL (36.4-46.3); Red Blood Count 2.89 M/uL (4.2-5.4); White Blood Count 8.01 K/uL (4.8-10.8)
[2019-12-16 07:46] LABS: Calcium 8.1 mg/dl (8.5-10.1); Creatinine Clr Calc Pharmacy 50.3 ml/min; Est GFR (African American) 65.4; Est GFR (Non-African American) 56.4; Potassium 3.3 mmol/L (3.5-5.1)
[2019-12-16] MEDS: PANTOprazole 40 MG in SYRINGE 0 ML IV SCH (08:11)
[2019-12-16] MEDS: FLUTICASONE PROPIONATE NA SPR 16 GM BTL SCH (08:12)
[2019-12-16] MEDS: FUROSEMIDE 20 MG TAB PO SCH (08:13)
[2019-12-16] MEDS: predniSONE 20 MG TAB PO SCH (08:13)
[2019-12-16] MEDS: METOPROLOL SUCC 25MG EXT REL TAB PO SCH (08:14)
[2019-12-16] MEDS: MESALAMINE 800 MG TABCR PO SCH ×3 (08:14→20:59)
[2019-12-16] MEDS: CITALOPRAM 20 MG TAB PO SCH (08:15)
[2019-12-16] MEDS: SACCHAROMYCES BOULARDII 250 MG CAP PO SCH (08:16)
[2019-12-16] MEDS: ROSUVASTATIN CALCIUM 5 MG TAB PO SCH (08:16)
[2019-12-16] MEDS: NYSTATIN POWDER 15GM BTL EXT SCH ×3 (08:16→20:59)
[2019-12-16] MEDS: TOLTERODINE TARTRATE LA 4 MG CAPCR PO SCH (08:16)
[2019-12-16] MEDS: guaiFENesin 600 MG TABCR PO SCH ×2 (08:17→20:59)
[2019-12-16] MEDS: MAGNESIUM OXIDE 400 MG TAB PO SCH (08:17)
[2019-12-16] MEDS: POTASSIUM CHLORIDE CRTAB 20 MEQ TABCR PO SCH ×3 (10:16→18:35)
[2019-12-16] MEDS ORDERED: IOVERSOL 100ml IV ONE (10:50)
--- NOTE | 2019-12-16 10:56 | Cardiology Progress Note ---
Date of Service December 16, 2019 Assessment & Plan (1) GI bleed: (2) Anemia due to GI blood loss: (3) Atrial fibrillation: (4) Chronic diastolic heart failure: (5) Hypokalemia: (6) Tricuspid regurgitation: Risks currently outweigh benefits of anticoagulation. Eliquis will remain on hold due to lower GI bleeding in the setting of sessile colon polyps. Further recommendations regarding restarting of anticoagulation pending GI assessment and pathology results. Continue Lasix 20 mg daily. Ventricular rates controlled on telemetry since admission. Continue low-dose beta-allan as previously ordered. Cardiology will sign off for the weekend. Please call with questions. Admission and Anticipated Discharge Date Admission Date: December 10, 2019 Subjective Patient seen and examined at the bedside. Edema improved with diuretic therapy. No chest pain or palpitations. Denies signs/symptoms of GI blood loss. Colonoscopy demonstrates 2 sessile polyps. Pathology pending. Anticoagulation remains on hold. Telemetry discontinued. Review of Systems Review of Systems: All systems reviewed & are unremarkable except as noted in HPI & below Physical Exam Constitutional: well developed, well nourished and + obese Respiratory: normal respiratory effort; no respiratory distress Auscultation: + crackles (Bilateral bases); no diminished lung sounds, no rales, no rhonchi and no wheezes Cardiovascular: Rate/Rhythm: + irregularly irregular Heart Sounds: normal S 1, normal S2 and + murmur (2/6 midsystolic murmur heard best left sternal border.) Vessels: no JVD Extremities: + edema (1+ bilateral pedal and ankle edema) Gastrointestinal (Abdomen): Inspection/Auscultation: abdomen normal to inspection and normal bowel sounds; abdomen not distended Percussion/Palpation: abdomen soft; abdomen nontender, no guarding and abdomen not rigid Skin: no rashes, warm and dry Neurologic: moves all extremities; no focal motor deficits Speech / Cognition: normal speech Motor/Sensory: no tremor Psychiatric: Orientation: alert and oriented x 3 Results & Data ([facility]) Vital Signs (Past 12 Hours) Vital Signs Temp Pulse Resp BP Pulse Ox 12/16/19 07:28 36.9 C 94 H 16 111/52 L 97 12/15/19 23:11 36.7 C 83 19 112/65 90 (1) GI bleed GI bleed type/associated pathology: unspecified gastrointestinal hemorrhage type Qualified Code(s): K92.2 - Gastrointestinal hemorrhage, unspecified (2) Atrial fibrillation Atrial fibrillation type: unspecified chronic Qualified Code(s): I48.20 - Chronic atrial fibrillation, unspecified (3) Tricuspid regurgitation Cardiac valve disease etiology: nonrheumatic Qualified Code(s): I36.1 - Nonrheumatic tricuspid (valve) insufficiency
--- NOTE | 2019-12-16 11:47 | CT Scan Report ---
CT OF THE ABDOMEN AND PELVIS WITH CONTRAST CLINICAL HISTORY: Colon lesion. Evaluate for metastatic disease. COMPARISON STUDY: [facility] December 12, 2019. TECHNIQUE: Following IV administration of 94 mL of Optiray-320, axial images of the abdomen and pelvi s were obtained from the lung bases to the proximal femurs. Images were reviewed in the axial, sagitt al, and coronal planes. IV contrast was administered without complication. Automated exposure contro l was utilized for the study. A dose lowering technique was utilized adhering to the principles of A LOURDES. Oral contrast was administered. CT DOSE: 1181.53 mGycm FINDINGS: Heart is moderately enlarged. Groundglass opacities and subpleural reticulation within the lower lungs are noted. No pneumatosis, free air or portal venous gas is present. Multiple calcified p eritoneal bodies are noted. These are likely benign. There is no ascites. No hepatic lesions are pres ent. The spleen, adrenal glands and pancreas are unremarkable. There are bilateral parapelvic cysts. There is no hydronephrosis. There is moderate bilateral renal cortical thinning. There is no evidence for a bowel obstruction. The known cecal mass is not well depicted by CT. The appendix is not visual ized. There is no evidence for a bowel obstruction. No enlarged abdominal or pelvic lymph nodes are n oted. No suspicious osseous lesions are present. There is no ascites. IMPRESSION: 1. No evidence of metastatic disease within the abdomen or pelvis. 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 No bowel obstruction. 2. Numerous calcified peritoneal bodies. Although nonspecific, these are likely benign. No ascites. 3. Ground glass opacities within the lower lungs with subpleural reticulation. The findings favor int erstitial lung disease. ACT 112: Negative or not required by law. Electronically signed by: Fredy Vera M.D. 12/16/2019 11:45 AM
--- NOTE | 2019-12-16 12:33 | Gastroenterology Progress Note ---
Date of Service December 16, 2019 Assessment & Plan (1) Rectal bleed: Surgical consult placed. Will review path results when available. Further recommendations to follow review of path results. Admission and Anticipated Discharge Date Admission Date: December 10, 2019 Supervising Physician Co-Signing Physician Notes I saw and evaluated the patient. We reviewed the results of her colonoscopy yesterday in addition to the CT findings from today which did not show evidence of metastatic disease. They are awaiting recommendations from general surgery, I suspect they will offer the patient a right colon resection or perhaps referral to a tertiary center for colorectal support specialist please call with any questions or concerns, GI to sign off Subjective Admitted for rectal bleeding. Colonoscopy yesterday with lesion. Path pending. CT completed today - no mets, lesion not well visualized. Pt feels well, able to walk with some assistance. Denies abd pain. Review of Systems Review of Systems: ROS: Gen: Denies weakness, fevers, weight loss Eyes: No eye redness, or pain, no recent vision changes Resp: Mild cough, brings up liquid brown mucous at times. No SOB Cardio: No palpitations/irregular beats, no chest pain GI: + recent rectal bleeding but none today. No abdominal pain, no nausea/vomiting : Denies pain on urination Skin: No jaundice, itching or new rashes Gastrointestinal: + diarrhea/loose stools and + blood in stools; no abdominal pain, no nausea and no melena Physical Exam Constitutional: WD/WN, vitals as above Eyes: PERRL, conjunctivae normal, anicteric sclerae ENMT: external ear and nose normal, oropharynx normal Neck: trachea midline, no thyromegaly Respiratory: normal respiratory effort Auscultation: + crackles (few at each base) and + rales; no wheezes Cardiovascular: Rate/Rhythm: regular rate and regular rhythm Extremities: + edema (minimal, bilat lower legs) Gastrointestinal (Abdomen): normal bowel sounds, soft, nontender, no hepatosplenomegaly Musculoskeletal: no cyanosis or clubbing, extremities motor strength 5/5 Skin: no rashes, warm and dry Neurologic: PERRL, EOMI, accommodation nl, no face palsy, no dysarthria Psychiatric: A+Ox3, euthymic affect Lymphatic: no cervical or axillary lymphadenopathy Results & Data ([facility]) Vital Signs (Past 12 Hours) Vital Signs Temp Pulse Resp BP Pulse Ox 10/23/20 07:28 36.9 C 94 H 16 111/52 L 97 Laboratory Results WBC 2.8, Hb 8.4, Hct 27, Platelets 334, INR 1.0, Na 140, K 3.3, BUN 18, Cr 0.9, glucose 108. Diagnostic Findings CT abd/pelvis with IV and oral contrast 12/16/19 (today): 1. No evidence of metastatic disease within the abdomen or pelvis. Known cecal mass not well-visualized by CT. No bowel obstruction. 2. Numerous calcified peritoneal bodies. Although nonspecific, these are likely benign. No ascites. 3. Ground glass opacities within the lower lungs with subpleural reticulation. The findings favor interstitial lung disease. Colonoscopy 12/15/19: one 5cm, non obstucting frond like sessile mass in the cecum, two 5mm polyps.
--- NOTE | 2019-12-16 15:09 | Surgery Consultation ---
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 fib on eliqus who presented to the ED with bright red blood per rectum. She was noted to be anemic and admitted. A colonoscopy shows cecal mass and a subsequent CT scan shows no sign of mets but demonstrates the mass. Pathology pending. She denies any abdominal pain, fevers, chills, nausea, vomiting, diarrhea, hematemesis, melena, or further Bright red blood per rectum. She takes Mesalamine and has no current complaints. Allergies Allergy/AdvReac Type Severity Reaction Status Date / Time No Known Allergies Allergy Unverified 12/10/19 12:44 Home Medications Home Medications Medication Instructions Recorded Confirmed Type albuterol sulfate 2 puff INHALATION Q4 PRN 10/17/19 12/10/19 History apixaban [Eliquis] 5 mg PO BID 10/17/19 12/10/19 History citalopram 20 mg PO DAILY 10/17/19 12/10/19 History fluticasone propionate [Flonase] 1 spray INTRANASAL DAILY 10/17/19 12/10/19 History levothyroxine 25 mcg PO DAILY 10/17/19 12/10/19 History magnesium oxide 400 mg PO DAILY 10/17/19 12/10/19 History mesalamine 800 mg PO TID 10/17/19 12/10/19 History methotrexate sodium 2.5 mg PO WK 10/17/19 12/10/19 History metoprolol succinate 12.5 mg PO DAILY 10/17/19 12/10/19 History nystatin [Nystop] 1 applic TOPICAL TID 10/17/19 12/10/19 History omeprazole [Prilosec] 20 mg PO DAILY 10/17/19 12/10/19 History potassium chloride [Klor-Con M20] 20 meq PO BID 10/17/19 12/10/19 History rosuvastatin [Crestor] 5 mg PO DAILY 10/17/19 12/10/19 History tolterodine [Detrol LA] 4 mg PO DAILY 10/17/19 12/10/19 History acetaminophen 325 mg PO QID PRN 12/10/19 12/10/19 History amino acids-protein hydrolys 1 ea PO DAILY 12/10/19 12/10/19 History [Pro-Stat Sugar Free] bisacodyl [Dulcolax (bisacodyl)] 10 mg MA DAILY 12/10/19 12/10/19 History icosapent ethyl [Vascepa] 2 g PO DAILY 12/10/19 12/10/19 History magnesium hydroxide [Milk of 1,200 mg PO BID 12/10/19 12/10/19 History Magnesia] prednisone 20 mg PO DAILY 12/10/19 12/10/19 History promethazine-DM 5 ml PO Q6H PRN 12/10/19 12/10/19 History sodium phosphates [Fleet Enema] 118 ml MA DAILY PRN 12/10/19 12/10/19 History Patient History Medical History (Updated 12/16/19 @ 15:10 by Naresh Farris MD) Atrial fibrillation CHF (congestive heart failure) Mass of cecum Surgical History History of colonoscopy Social History Smoking Status: Never smoker Second Hand Exposure: No; Do You Dip or Chew Tobacco: No; Tobacco Cessation Education Requested by Patient: No Hx Alcohol Use: No Hx Substance Use: No Communication Ability: Effective Current Living Situation: Family Current Living Situation Comment: lives with sebastian, her neice Feels Safe at Home: Yes Safety Concerns: Feels Safe At This Time Assistive Devices: Oxygen - Continuous and Walker Review of Systems Constitutional: no fever and no chills Ear, Nose, Mouth, Throat: + nasal congestion Respiratory: no cough and no dyspnea Cardiovascular: no chest pain Gastrointestinal: + blood in stools; no abdominal pain, no nausea, no vomiting and no coffee ground emesis Genitourinary: no dysuria Musculoskeletal: no back pain Integumentary: no problem reported Neurologic: no localized weakness Psychiatric: no behavioral changes Endocrine: + fatigue; no polydipsia and no polyphagia Hematologic / Lymphatic: + easy bleeding, + easy bruising and + coagulopathy Physical Exam Constitutional: well developed and well nourished; no acute distress Eyes: PERRL ENMT: external ear and nose normal, oropharynx normal Neck: trachea midline Respiratory: no respiratory distress Auscultation: + diminished lung sounds Cardiovascular: Rate/Rhythm: + abnormal rhythm Gastrointestinal (Abdomen): Inspection/Auscultation: abdomen normal to inspection and normal bowel sounds; abdomen not distended Percussion/Palpation: abdomen nontender, no guarding and abdomen not rigid healed low midline incision Musculoskeletal: Head/Neck/Chest: + head abnormal to inspection and normocephalic Skin: no rashes, warm and dry Psychiatric: Orientation: alert and oriented x 3 Results & Data ([facility]) Vital Signs (Past 12 Hours) Vital Signs Temp Pulse Resp BP Pulse Ox 12/16/19 14:52 37.0 C 93 H 16 112/63 96 12/16/19 07:28 36.9 C 94 H 16 111/[address] OF THE ABDOMEN AND PELVIS WITH CONTRAST CLINICAL HISTORY: Colon lesion. Evaluate for metastatic disease. COMPARISON STUDY: [facility] December 12, 2019. TECHNIQUE: Following IV administration of 94 mL of Optiray-320, axial images of the abdomen and pelvis were obtained from the lung bases to the proximal femurs. Images were reviewed in the axial, sagittal, and coronal planes. IV contrast was administered without complication. Automated exposure control was utilized for the study. A dose lowering technique was utilized adhering to the principles of ALARA. Oral contrast was administered. CT DOSE: 1181.53 mGycm FINDINGS: Heart is moderately enlarged. Groundglass opacities and subpleural reticulation within the lower lungs are noted. No pneumatosis, free air or portal venous gas is present. Multiple calcified peritoneal bodies are noted. These are likely benign. There is no ascites. No hepatic lesions are present. The spleen, adrenal glands and pancreas are unremarkable. There are bilateral parapelvic cysts. There is no hydronephrosis. There is moderate bilateral renal cortical thinning. There is no evidence for a bowel obstruction. The known cecal mass is not well depicted by CT. The appendix is not visualized. There is no evidence for a bowel obstruction. No enlarged abdominal or pelvic lymph nodes are noted. No suspicious osseous lesions are present. There is no ascites. IMPRESSION: 1. No evidence of metastatic disease within the abdomen or pelvis. Known cecal mass not well-visualized by CT. No bowel obstruction. 2. Numerous calcified peritoneal bodies. Although nonspecific, these are likely benign. No ascites. 3. Ground glass opacities within the lower lungs with subpleural reticulation. The findings favor interstitial lung disease.
--- NOTE | 2019-12-16 16:05 | Discharge Summary ---
Date of Service December 16, 2019 Admission HPI Per Admitting Provider 84-year-old white female with a past medical history of atrial fibrillation, CHF, valvular heart disease, hypothyroidism, hypertension, GERD, rheumatoid arthritis, hyperlipidemia, and depression who comes in secondary to bright red blood per rectum last evening. According to her niece at the bedside she also had 4 minutes of a seizure last night as well. She said the bleeding occurred right after her bowel movement last night. She felt okay this morning after drinking some Gatorade. Because of that she lives with told the niece to take her to the hospital because of what happened last night. Her blood pressure was in the 90s in the emergency room and she was given fluids. She was also consented for blood and her CODE STATUS is DO NOT INTUBATE. Admission Exam Per Admitting Provider Physical Exam Gen-AAO x 3, NAD, Afebrile, obese Head-NCAT, EOMI, PERRLA, Anicteric Sclera, No Posterior Pharyngeal Erythema Neck-Supple, No JVD, No Thyromegaly, No Masses, No LAD, No Bruits Lungs-Clear to Auscultation Bilaterally, No Rales, No Rhonchi, No Wheezing, No Crepitus Chest-No S4, +S1, +S2, No S3, No Murmurs, No Rubs, No Gallops, No Ectopy Abdomen-Soft, Bowel Sounds Present, Non Tender, Non Distended, No Hepatomegaly, No Splenomegaly, No Palpable Masses, No Rebound, No Rigidity, No Guarding Musculoskeletal-Full Range of Motion Bilaterally, No CVAT Extremities-No Cyanosis, No Clubbing, 3+ pitting edema Nuero-Cranial Nerves II-XII grossly intact, Motor WNL, DTRs WNL, Strength WNL, Non Focal Psych-Normal Mood Principal Diagnosis Hematochezia 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 No rales or wheezes, no increased work of breathing. CARDIOVASCULAR: regular rate and rhythm, S1 and 2 heard without murmurs, gallops or rubs, no JVD, 2+ peripheral edema BLE GASTROINTESTINAL: normal bowel sounds, soft, nontender, nondistended, protuberant. MUSCULOSKELETAL: moves all extremities equally. SKIN: warm and dry NEUROLOGIC: no gross focal deficits. PSYCHIATRIC: alert and cooperative and answering all questions appropriately. Discharge Data Allergies Allergy/AdvReac Type Severity Reaction Status Date / Time No Known Allergies Allergy Unverified 12/10/19 12:44 Consultations 12/10/19 12:43 ED Decision to Admit Stat 12/10/19 14:44 Consult Cardiology Routine Consult Gastroenterology Routine 12/11/19 13:20 Consult Case Management - Discharge Planning Routine 12/11/19 13:23 Consult Neurology Routine 12/13/19 09:06 Consult Infectious Diseases Routine 12/16/19 09:19 Consult General Surgery Routine Procedures Performed Operation Date: 12/13/19 08:30 <No data on this case meets the specified criteria> Operation Date: 12/14/19 10:00 <No data on this case meets the specified criteria> Operation Date: 12/15/19 16:00 Actual Procedures p Esophagogastroduodenoscopy - Tony Contreras DO s Colonoscopy Polypectomy - Tony Contreras DO Ordered Studies 12/10/19 11:18 CT head/brain wo con Stat 12/16/19 08:25 CT abd pelvis oral and IV con Urgent Hospital Course (1) Mass of cecum: (2) Hematochezia: (3) Anemia due to GI blood loss: (4) ESBL E. coli carrier: (5) Convulsive syncope: (6) Chronic atrial fibrillation: (7) Current use of residential anticoagulation: (8) Acute diastolic CHF (congestive heart failure): (9) Rheumatoid arthritis: (10) Interstitial lung disease: (11) Chronic steroid use: The patient is an 84-year-old female who presented with hematochezia. She was admitted to the hospitalist service and Eliquis was held with gentle hydration pursued. She received approximately two units of packed red blood cells and gastroenterology was consulted. She initially declined EGD and colonoscopy, however, this was performed on 12/14. Upper endoscopy revealed a normal esophagus, normal stomach and normal examined duodenum with no specimens collected. Colonoscopy performed revealed tumor in the cecum that was biopsied, one 5 mm polyp in the transverse colon removed with a cold snare and complete resection obtained. This polyp tissue was not retrieved for pathology. There was another 5 mm polyp in the rectum that was removed with a cold snare resected and retrieved and sent to pathology. Internal hemorrhoids were noted. A CEA wa s ordered and elevated to 6.7. Staging imaging was ordered to include a CT of the abdomen pelvis revealing no evidence of metastatic disease and a known cecal mass not well visualized by CT with no bowel obstruction. Numerous calcified peritoneal bodies were seen although nonspecific were thought to be benign. No ascites was present. Ground glass opacities were seen within the lower lungs with subpleural reticulation favoring interstitial lung disease, which was not present in her current medical record. (The patient has recently switched providers from Dr. De Leon in [place] within the year and it appears not all diagnoses have populated in her current chart. There is also mesalamine for "colitis" with no specific diagnosis, and ? understanding of why she is on this high a dose of prednisone manager intermediate. The patient reportedly doesn't see a hide worker or bilingual speech therapist regularly.) Prior to arrival to the hospital she was also seen to have questionable seizure activity and neurology was consulted. Ultimately this was thought to be consistent with convulsive syncope consistent with rectal bleeding at that time. No further work-up or treatment for seizure was pursued after a head CT was negative for acute intracranial abnormality. She was set for discharge on 12/15, however, when her oxygen was removed she was significantly hypoxic at rest (87%) and required further diuresis. She was given additional IV Lasix over the weekend and her volume overload improved. At time of discharge physical exam revealed persistent crackles at the bases which was likely consistent with interstitial lung disease, and she did have 2-3+ pitting edema bilaterally which was chronic per patient. She and her family were advised to followup with pulmonology, rheumatology and her PCP closely to work to get her down off this prednisone safely. Her niece, Jagruti, verbalized understanding with intent to comply. We discussed negative effects of residential steroids including hypercortisolism leading to Cushings syndrome, obesity, aggression (demonstrated this hospitalization), diabetes and osteoporosis to name only a few. HbA1C was checked and elevated to 6.8 and Jagruti noted that the patient had recently been started on Metformin as outpatient which was not reflected on her admission medication list (later added). Pathology from the cecal mass was pending at time of discharge and will need to be followed closely as outpatient. At time of discharge he was mentating and ambulating at baseline and tolerating p.o. She underwent a two-step respiratory test and will need 3 L of oxygen with exertion, which was prescribed. She was hemodynamically stable and afebrile. Close primary care follow-up was recommended. 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 Anemia due to GI blood loss Chronic atrial fibrillation Acute diastolic CHF (congestive heart failure) Interstitial lung disease DMII Condition on Discharge: Good Activity: Resume your previous activity Non-emergency contact: Primary Care Provider Call non-emergency contact if: you have any medication questions and your symptoms worsen Follow-up/Referrals: Rayne Driscoll DO [Primary Care Provider] - (Date & Time 12/22/2019 11:20 AM Provider Rayne Driscoll DO Department [facility] ) Diet: Low Sodium (2gm) Addtl Attending Provider Instructions: Please take all medications as instructed on discharge list below. Please note a change in your Lasix dosing to 40mg twice daily. You were also started on spironolactone which will help your body hold onto potassium. Therefore, you will eventually not need as much potassium supplementation in the next 1-2 weeks, and you may be able to come off of this completely. You will need bloodwork in 1-2 weeks ordered by your PCP to guide this further. Please note that your anticoagulation has been held for now pending follow-up with General Surgery (Dr. Camilo Clay with [facility]) next week. Please follow-up with your primary care physician (PCP) within one week of hospital discharge. It will be important to address the need for the chronic prednisone as it is already causing many side effects from taking it long-term. You are now found to have diabetes, for example. This will need to be addressed in follow-up. From investigations into your history here, it appears you have interstitial lung disease, ulcerative colitis and rheumatoid arthritis. It would be prudent to touch base with specialists in these low who can work to guide your treatments and get you off the prednisone. I would exercise extreme caution in weaning yourself off of this as you can go into adrenal failure which may be life-threatening. Weaninf long-term steroids should be done under the watchful eye of a physician. You will need repeat nonfasting bloodwork in one week to check your kidney function and electrolytes given the changes to your medications. This may be ordered by your PCP office in one week. Your pathology results are still pending. You should receive a call from the gastroenterology office this week when the result comes through. If you don't hear from someone please contact them to find out. It was a pleasure taking care of you! Please call if you have any questions or problems. You can reach a [facility] hospitalist on duty at [facility] 24 hours a day by calling [phone]. Take care of yourself. Bing Izaguirre, DO [facility] Hospitalist Pending Studies at Discharge: Yes Studies:: GI biopsy with pathology pending at time of discharge. Stand-Alone Forms: My [facility] Medications and DC Order Prescriptions: New spironolactone 25 mg tablet 25 mg PO DAILY Qty: 30 RF: 0 furosemide 40 mg tablet 40 mg PO BID Qty: 60 RF: 0 Continued tolterodine [Detrol LA] 4 mg Capsule,Extended Release 24hr 4 mg PO DAILY RF: 0 levothyroxine 25 mcg Tablet 25 mcg PO DAILY RF: 0 citalopram 20 mg Tablet 20 mg PO DAILY RF: 0 potassium chloride [Klor-Con M20] 20 mEq Tablet,Er Particles/Crystals 20 meq PO BID RF: 0 omeprazole 20 mg Capsule,Delayed Release(Dr/Ec) 20 mg PO DAILY RF: 0 metoprolol succinate 25 mg Tablet Extended Release 24 Hr 12.5 mg PO DAILY RF: 0 nystatin [Nystop] 100,000 unit/gram Powder 1 applic TOPICAL TID RF: 0 albuterol sulfate 90 mcg/actuation Hfa Aerosol Inhaler 2 puff INHALATION Q4 PRN (Reason: Cough) RF: 0 fluticasone propionate 50 mcg/actuation [place],Suspension 1 spray INTRANASAL DAILY RF: 0 rosuvastatin [Crestor] 5 mg Tablet 5 mg PO DAILY RF: 0 mesalamine 800 mg Tablet,Delayed Release (Dr/Ec) 800 mg PO TID RF: 0 magnesium oxide 400 mg magnesium Tablet 400 mg PO DAILY RF: 0 promethazine-DM 6.25-15 mg/5 mL Syrup 5 ml PO Q6H PRN (Reason: Cough) RF: 0 acetaminophen 325 mg Tablet 325 mg PO QID PRN (Reason: Pain) RF: 0 prednisone 20 mg Tablet 20 mg PO DAILY RF: 0 bisacodyl [Dulcolax (bisacodyl)] 10 mg Suppository 10 mg AK DAILY RF: 0 Fleet Enema 19-7 gram/118 mL Enema 118 ml AK DAILY PRN (Reason: Constipation) RF: 0 magnesium hydroxide 800 mg/5 mL Suspension 1,200 mg PO BID RF: 0 Vascepa 1 gram Capsule 2 g PO DAILY RF: 0 Pro-Stat Sugar Free 15 gram- 100 kcal/30 mL Liquid In Packet 1 ea PO DAILY RF: 0 metformin 500 mg tablet extended release 24 hr 500 mg PO DAILY RF: 0 Discontinued methotrexate sodium 2.5 mg Tablet 2.5 mg PO WK RF: 0 Eliquis 5 mg Tablet 5 mg PO BID RF: 0 Discharge Orders: Discharge Order (Routine); Ordered 12/19/19 Ordered By: Bing Shen/Other Patient Handouts: Managing Type 2 Diabetes, Diabetes: Meal Planning, A1C Admission Data Admit Date/Time: 12/10/19 13:45 Attending Provider: Bing Izaguirre Admit Provider: Jamie Phipps Primary Care Provider: Rayne Driscoll Other Providers: Jamie Phipps ; Rasheed Edwards ; Roe Andrade ; Dario Jones ; Ovi Sanchez ; Naresh Walls ; Camilo Bui ; Samia Syed ; Lauren Pryor ; Hiren Moore ; Jin Dior ; Eda Cantu ; Yusuf Silver ; Nena David ; Semaj Small ; Tony Contreras ; Neli Ashton ; Tom Gonzalez ; Konstantin Yan ; Hodan Luu ; Mayela Lewis ; Miranda Stern ; Yara Christian ; Andrey Corral ; Bobby Mckenna ; Dillon Kyle ; Kelli Amato ; Pascual Garrido I. ; Wilmer Rain II ; Montse Juarez ; Camilo Parikh ; Camilo Clay Other Interventions: Discharge Summary Assessment (RN) Last Done: 12/19/19 17:54
--- NOTE | 2019-12-16 17:19 | XRay Report ---
XR chest 1V portable HISTORY: ?hypoxia COMPARISON: Chest 12/12/2019. FINDINGS: Interval progression of the diffuse interstitial thickening. The heart remains enlarged. Tr stefany left pleural effusion persists. No pneumothorax. IMPRESSION: Progressive diffuse interstitial thickening. This likely represents pulmonary edema on the background of chronic interstitial change. The heart remains enlarged. ACT 112: Negative or not required by law. Electronically signed by: Dar Park M.D. 12/16/2019 5:18 PM
--- NOTE | 2019-12-16 17:49 | Hospitalist Progress Note ---
Date of Service December 16, 2019 Assessment & Plan (1) Acute diastolic CHF (congestive heart failure): Doesn't appear compensated and has hypoxia today. Restarted LAsix 40mg IV BID with potassium supplementation. Pt refuses Tran or Purwick. Strict I/Os as able. Low salt diet. Daily standing weights. Fluid restriction. She is notably on higher dose prednisone consistently for her RA, and this may able be contributing to swelling and fluid retention. Cont to wean off oxygen as tole rated. (2) Hematochezia: EGD normal. CSP with evidence of two sessile polyps. CEA elevated. CT a/p without metastatic disease. Pathology pending. Consider outpatient surgery next week pending path result. 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 Per ID physician, no treatment is necessary as she is likely a carrier. Cont contact precautions. She continues to deny symptoms of UTI at this time and is not clinically ill-appearing. (4) Convulsive syncope: Per Neurology, she did not likely have a witnessed seizure pre-admission as thought. Instead she likely had an episode of convulsive syncope 2/2 low blood pressure. This was not a seizure and antiepileptic drugs were not recommended. (5) Anemia due to GI blood loss: transfuse as needed. She has had no further bleeding-H/H stable. (6) Chronic atrial fibrillation: -holding off Eliquis in the immediate post op state. Keep holding for at least a week post biopsy or until discussion with surgery as outpatient. Cont BB. (7) Hypothyroid: cont levothyroxine per home regimen. (8) Rheumatoid arthritis: -hold home dose weekly methotrexate at this time. Cont daily prednisone. (9) Depression: cont citalopram per home regimen. (10) DVT prophylaxis: SCDs Conditional Code Dispo-cont hospitalization for now. Bing Izaguirre DO [facility] Hospitalist Admission and Anticipated Discharge Date Admission Date: December 10, 2019 Subjective cecal mass seen by surgery and plan for surgery next week pending path tolerating PO holding Eliquis Pt noted to be on oxygen still and desaturated to 87% at rest when this was removed. SOB with exertion today with OT. Questionable ambulation status Rhonchi on lungs on exam-->persistent 2+ edema bilaterally CXR reveals worsening interstitial edema. Review of Systems Review of Systems: All systems reviewed & are unremarkable except as noted in Subjective Physical Exam Physical Exam: CONSTITUTIONAL: obese, vitals as above, generally well- appearing, alopecia EYES: normal conjunctivae, no scleral icterus ENT: external ear and nose normal, MMM RESPIRATORY: rhonchi in right lung base. No rales or wheezes, normal respiratory effort CARDIOVASCULAR: regular rate and rhythm, S1 and 2 heard without murmurs, gallops or rubs, no JVD, trace peripheral edema BLE GASTROINTESTINAL: normal bowel sounds, soft, nontender, nondistended, protuberant. MUSCULOSKELETAL: moves all extremities equally. SKIN: warm and dry NEUROLOGIC: no gross focal deficits. PSYCHIATRIC: alert and cooperative and answering all questions appropriately. Results & Data Results & Data ([facility]) Vital Signs (Past 12 Hours) Vital Signs Temp Pulse Resp BP Pulse Ox 12/16/19 14:52 37.0 C 93 H 16 112/63 96 12/16/19 07:28 36.9 C 94 H 16 111/52 L 97 Laboratory Results Short CBC 12/16/19 Range/Units 06:42 WBC 8.01 (4.8-10.8) K/uL Hgb 8.4 L (12.0-16.0) g/dL Hct 27.4 L (37-47) % Plt Count 334 (130-400) K/uL BMP 12/16/19 06:42 Sodium 140 Potassium 3.3 L Chloride 103 Carbon Dioxide 35 H BUN 18 Creatinine 0.93 Glucose 108 H Calcium 8.1 L Medications Administered Current Inpatient Medications Acetaminophen (Acetaminophen 325 Mg Tab) 325 mg PO Q6H PRN PRN Reason: Pain Stop: 01/09/20 16:59 Albuterol (Albuterol Hfa 8 Gm Inhaler) 2 puffs INH Q4 PRN PRN Reason: Cough Stop: 01/09/20 14:43 Bisacodyl (Bisacodyl 10 Mg Supp) 10 mg AK DAILY PRN PRN Reason: Constipation Stop: 01/10/20 08:59 Citalopram Hydrobromide (Citalopram 20 Mg Tab) 20 mg PO DAILY [facility] Stop: 01/10/20 08:59 Last Admin: 12/16/19 08:15 Dose: 20 mg Documented by: Fluticasone Propionate (Fluticasone Propionate Na Spr 16 Gm Btl) 1 sprays NA DAILY [facility] Stop: 01/10/20 08:59 Last Admin: 12/16/19 08:12 Dose: 1 sprays Documented by: Furosemide (Furosemide 20 Mg Tab) 20 mg PO QAM [facility] Stop: 01/15/20 08:59 Last Admin: 12/16/19 08:13 Dose: 20 mg Documented by: Furosemide (Furosemide 40 Mg Tab) 40 mg PO BID17 [facility] Stop: 01/15/20 17:59 Guaifenesin (Guaifenesin 600 Mg Tabcr) 600 mg PO Q12 [facility] Stop: 01/12/20 20:59 Last Admin: 12/16/19 08:17 Dose: 600 mg Documented by: Levothyroxine Sodium (Levothyroxine Sodium 25 Mcg Tablet) 25 mcg PO DAILYBB [facility] Stop: 01/10/20 06:29 Last Admin: 12/16/19 05:51 Dose: 25 mcg Documented by: Magnesium Oxide (Magnesium Oxide 400 Mg Tab) 400 mg PO DAILY [facility] Stop: 01/10/20 08:59 Last Admin: 12/16/19 08:17 Dose: 400 mg Documented by: Menthol (Cough Drop (Sugar Free) Franklin 24 Franklin/1 Box) 1 franklin BUCCAL PRN PRN PRN Reason: Cough Stop: 01/14/20 23:55 Last Admin: 12/16/19 05:37 Dose: 1 franklin Documented by: Mesalamine (Mesalamine 800 Mg Tabcr) 800 mg PO TID [facility] Stop: 01/09/20 14:43 Last Admin: 12/16/19 14:00 Dose: 800 mg Documented by: Metoprolol Succinate (Metoprolol Succ 25mg Ext Rel Tab) 12.5 mg PO DAILY [facility] Stop: 01/10/20 08:59 Last Admin: 12/16/19 08:14 Dose: 12.5 mg Documented by: Nystatin (Nystatin Powder 15gm Btl) 1 appln EXT TID [facility] Stop: 01/09/20 14:43 Last Admin: 12/16/19 14:00 Dose: Not Given Documented by: Ondansetron HCl (Ondansetron Inj 2 Mg/Ml 2 Ml Vial) 4 mg IV Q6H PRN PRN Reason: Nausea Stop: 01/09/20 14:43 Pantoprazole Sodium (Pantoprazole 40 Mg Tab) 40 mg PO QAM [facility] Stop: 01/16/20 08:59 Potassium Chloride (Potassium Chloride 20 Meq Tabcr) 20 meq PO BID17 [facility] Stop: 01/15/20 17:59 Prednisone (Prednisone 20 Mg Tab) 20 mg PO DAILY [facility] Stop: 01/10/20 08:59 Last Admin: 12/16/19 08:13 Dose: 20 mg Documented by: Rosuvastatin Calcium (Rosuvastatin Calcium 5 Mg Tab) 5 mg PO DAILY [facility] Stop: 01/10/20 08:59 Last Admin: 12/16/19 08:16 Dose: 5 mg Documented by: Saccharomyces Boulardii (Saccharomyces Boulardii 250 Mg Cap) 250 mg PO DAILY [facility] Stop: 01/11/20 08:59 Last Admin: 12/16/19 08:16 Dose: 250 mg Documented by: Sodium Biphosphate/Sodium Phosphate (Sod Phosphate/Sod Biphosphate Enema 132 Ml Btl) 118 ml AK DAILY PRN PRN Reason: Constipation Stop: 01/09/20 14:43 Sucralfate (Sucralfate 1 Gm/10 Ml Udc) 1 gm PO ACHS [facility] Stop: 01/10/20 11:29 Last Admin: 12/12/19 08:15 Dose: Not Given Documented by: Tolterodine Tartrate (Tolterodine Tartrate La 4 Mg Capcr) 4 mg PO DAILY [facility] Stop: 01/10/20 08:59 Last Admin: 12/16/19 08:16 Dose: 4 mg Documented by:
[2019-12-16] MEDS: FUROSEMIDE 40 MG TAB PO SCH (18:34)
[2019-12-17] MEDS: LEVOTHYROXINE SODIUM 25 MCG TABLET PO SCH (06:00)
[2019-12-17 06:53] LABS: BUN Creatinine Ratio 21.4 (10-20); Creatinine Clr Calc Pharmacy 58.4 ml/min; Est GFR (African American) 78.5; Est GFR (Non-African American) 67.7; Magnesium 1.7 mg/dl (1.8-2.4); Potassium 3.2 mmol/L (3.5-5.1)
--- NOTE | 2019-12-17 06:53 | Surgery Progress Note ---
Date of Service December 17, 2019 Assessment & Plan (1) Mass of cecum: will be seen as outpatient await pathology will sign off Admission and Anticipated Discharge Date Admission Date: December 10, 2019 Subjective feels well no complaints will be seen as outpatient await pathology Review of Systems Constitutional: no fever and no chills Respiratory: no cough and no dyspnea Cardiovascular: no chest pain Gastrointestinal: + change in bowel habits; no abdominal pain, no nausea and no vomiting Genitourinary: no dysuria Musculoskeletal: no back pain Integumentary: no problem reported Physical Exam Constitutional: well developed and well nourished Neck: trachea midline Respiratory: normal respiratory effort, lungs clear to auscultation Cardiovascular: RRR, no murmur, no edema Gastrointestinal (Abdomen): normal bowel sounds, soft, nontender, no hepatosplenomegaly Musculoskeletal: Head/Neck/Chest: normocephalic and head atraumatic Skin: no rashes, warm and dry Results & Data ([facility]) Vital Signs (Past 12 Hours) Vital Signs Temp Pulse Resp BP Pulse Ox 12/16/19 23:24 37 C 81 20 127/87 97
[2019-12-17] MEDS: predniSONE 20 MG TAB PO SCH (08:06)
[2019-12-17] MEDS: NYSTATIN POWDER 15GM BTL EXT SCH ×3 (08:06→20:11)
[2019-12-17] MEDS: PANTOprazole 40 MG TAB PO SCH (08:06)
[2019-12-17] MEDS: METOPROLOL SUCC 25MG EXT REL TAB PO SCH (08:06)
[2019-12-17] MEDS: FLUTICASONE PROPIONATE NA SPR 16 GM BTL SCH (08:06)
[2019-12-17] MEDS: POTASSIUM CHLORIDE CRTAB 20 MEQ TABCR PO SCH ×2 (08:07→17:07)
[2019-12-17] MEDS: SACCHAROMYCES BOULARDII 250 MG CAP PO SCH (08:07)
[2019-12-17] MEDS: MESALAMINE 800 MG TABCR PO SCH ×3 (08:07→20:11)
[2019-12-17] MEDS: MAGNESIUM OXIDE 400 MG TAB PO SCH (08:07)
[2019-12-17] MEDS: TOLTERODINE TARTRATE LA 4 MG CAPCR PO SCH (08:07)
[2019-12-17] MEDS: FUROSEMIDE 20 MG TAB PO SCH (08:07)
[2019-12-17] MEDS: FUROSEMIDE 40 MG TAB PO SCH (08:07)
[2019-12-17] MEDS: ROSUVASTATIN CALCIUM 5 MG TAB PO SCH (08:07)
[2019-12-17] MEDS: guaiFENesin 600 MG TABCR PO SCH ×2 (08:07→20:11)
[2019-12-17] MEDS: CITALOPRAM 20 MG TAB PO SCH (08:07)
--- NOTE | 2019-12-17 11:55 | Hospitalist Progress Note ---
Date of Service December 17, 2019 Assessment & Plan (1) Acute diastolic CHF (congestive heart failure): Improved with more aggressive diuresis. Cont daily standing weight, Strict I/Os as able--Pt refuses Tran or Purwick. Low salt diet. Fluid restriction. She is notably on higher dose prednisone consistently for her RA, and this may able be contributing to swelling and fluid retention. Cont to wean off oxygen as tolerated. (2) Hematochezia: EGD normal. CSP with evidence of two sessile polyps/cecal mass. CEA elevated. CT a/p without metastatic disease. Pathology pending. Consider outpatient surgery next week pending path result. General surgery aware. 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 Per ID physician, no treatment is necessary as she is likely a carrier. Cont contact precautions. She continues to deny symptoms of UTI at this time and is not clinically ill-appearing. (4) Convulsive syncope: Per Neurology, she did not likely have a witnessed seizure pre-admission as thought. Instead she likely had an episode of convulsive syncope 2/2 low blood pressure. This was not a seizure and antiepileptic drugs were not recommended. (5) Anemia due to GI blood loss: transfuse as needed. She has had no further bleeding-H/H stable. (6) Chronic atrial fibrillation: -holding off Eliquis in the immediate post op state. Keep holding for at least a week post biopsy or until discussion with surgery as outpatient. Cont BB. (7) Hypothyroid: cont levothyroxine per home regimen. (8) Rheumatoid arthritis: -hold home dose weekly methotrexate at this time. Cont daily prednisone. This patient received most of her care iwth nori De Leon in [place] and doesn't see a regular [employer] Ban[employer]. She is on a very high dose of prednisone. I discussed this with her POA-Ms. Giang, and instructed her to seek this out and try to wean off the prednisone under the care of a [employer]. Negative side effects explained include but are not limited to Cushings syndrome from hypercortisolism, osteoporosis, weight gain, problems with swelling, obesity, aggressiveness, etc. She is also at risk for life-threatening adrenal insufficiency if this is accidentally removed from her regimen. This was explained to her POA who verbalized understanding and will continue to look into this issue after discharge. 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 Recent csp and EGD did not show increased activity in this respect, so prednisone is likely related to the joint disease. (9) Depression: cont citalopram per home regimen. (10) DVT prophylaxis: SCDs-no chemoprophylaxis given in setting of recent biopsy and bleeding. Conditional Code Dispo-cont hospitalization for now. PT cleared for home when able. Possible DC tomorrow if patient can come off oxygen with ambulation and do well. Bing Izaguirre DO [facility] Hospitalist Admission and Anticipated Discharge Date Admission Date: December 10, 2019 Subjective denies SOB denies CP denies BPR feels Monica pushes "bad water" out of her body states she stopped her own body from bleeding with Gatorade became angry and physically aggressive when she found out she was to stay in the hospital discussed the care plan with her niece, Hilda by phone who understands and agrees. Pt states it is all about money on why we are keeping her. She feels oxygen is elective, even though I showed her how her saturation falls without it yesterdayl Review of Systems Review of Systems: All systems reviewed & are unremarkable except as noted in Subjective Physical Exam Physical Exam: CONSTITUTIONAL: obese, vitals as above, generally well- appearing, alopecia EYES: normal conjunctivae, no scleral icterus ENT: external ear and nose normal, MMM RESPIRATORY: coarse rhonchi throughout all lung low that are generally improved overall. No rales or wheezes, normal respiratory effort CARDIOVASCULAR: regular rate and rhythm, S1 and 2 heard without murmurs, gallops or rubs, no JVD, 2+ peripheral edema BLE GASTROINTESTINAL: normal bowel sounds, soft, nontender, nondistended, protuberant. MUSCULOSKELETAL: moves all extremities equally. SKIN: warm and dry NEUROLOGIC: no gross focal deficits. PSYCHIATRIC: alert and cooperative and answering all questions appropriately. Results & Data Results & Data ([facility]) Vital Signs (Past 12 Hours) Vital Signs Temp Pulse Resp BP Pulse Ox 12/17/19 07:54 36.5 C 71 20 134/79 98 Laboratory Results [facility] 12/17/19 05:39 Sodium 139 Potassium 3.2 L Chloride 103 Carbon Dioxide 32 BUN 17 Creatinine 0.80 Glucose 104 H Calcium 8.0 L Medications Administered Current Inpatient Medications Acetaminophen (Acetaminophen 325 Mg Tab) 325 mg PO Q6H PRN PRN Reason: Pain Stop: 01/09/20 16:59 Albuterol (Albuterol Hfa 8 Gm Inhaler) 2 puffs INH Q4 PRN PRN Reason: Cough Stop: 01/09/20 14:43 Bisacodyl (Bisacodyl 10 Mg Supp) 10 mg MS DAILY PRN PRN Reason: Constipation Stop: 01/10/20 08:59 Citalopram Hydrobromide (Citalopram 20 Mg Tab) 20 mg PO DAILY [facility] Stop: 01/10/20 08:59 Last Admin: 12/17/19 08:07 Dose: 20 mg Documented by: Fluticasone Propionate (Fluticasone Propionate Na Spr 16 Gm Btl) 1 sprays NA DAILY [facility] Stop: 01/10/20 08:59 Last Admin: 12/17/19 08:06 Dose: 1 sprays Documented by: Guaifenesin (Guaifenesin 600 Mg Tabcr) 600 mg PO Q12 [facility] Stop: 01/12/20 20:59 Last Admin: 12/17/19 08:07 Dose: 600 mg Documented by: Furosemide 40 mg/ Syringe 4 mls @ 4 mls/min IV BID17 [facility] Stop: 01/16/20 16:59 Magnesium Sulfate/Dextrose (Magnesium Sulfate / D5w) 1 gm in 100 mls @ 50 mls/hr IV Q2H [facility] Stop: 12/17/19 13:49 Levothyroxine Sodium (Levothyroxine Sodium 25 Mcg Tablet) 25 mcg PO DAILYBB [facility] Stop: 01/10/20 06:29 Last Admin: 12/17/19 06:00 Dose: 25 mcg Documented by: Magnesium Oxide (Magnesium Oxide 400 Mg Tab) 400 mg PO DAILY [facility] Stop: 01/10/20 08:59 Last Admin: 12/17/19 08:07 Dose: 400 mg Documented by: Menthol (Cough Drop (Sugar Free) Franklin 24 Franklin/1 Box) 1 franklin BUCCAL PRN PRN PRN Reason: Cough Stop: 01/14/20 23:55 Last Admin: 12/16/19 05:37 Dose: 1 franklin Documented by: Mesalamine (Mesalamine 800 Mg Tabcr) 800 mg PO TID [facility] Stop: 01/09/20 14:43 Last Admin: 12/17/19 08:07 Dose: 800 mg Documented by: Metoprolol Succinate (Metoprolol Succ 25mg Ext Rel Tab) 12.5 mg PO DAILY [facility] Stop: 01/10/20 08:59 Last Admin: 12/17/19 08:06 Dose: 12.5 mg Documented by: Nystatin (Nystatin Powder 15gm Btl) 1 appln EXT TID [facility] Stop: 01/09/20 14:43 Last Admin: 12/17/19 08:06 Dose: 1 appln Documented by: Ondansetron HCl (Ondansetron Inj 2 Mg/Ml 2 Ml Vial) 4 mg IV Q6H PRN PRN Reason: Nausea Stop: 01/09/20 14:43 Pantoprazole Sodium (Pantoprazole 40 Mg Tab) 40 mg PO QAM [facility] Stop: 01/16/20 08:59 Last Admin: 12/17/19 08:06 Dose: 40 mg Documented by: Potassium Chloride (Potassium Chloride 20 Meq Tabcr) 40 meq PO BID17 [facility] Stop: 01/16/20 16:59 Prednisone (Prednisone 20 Mg Tab) 20 mg PO DAILY [facility] Stop: 01/10/20 08:59 Last Admin: 12/17/19 08:06 Dose: 20 mg Documented by: Rosuvastatin Calcium (Rosuvastatin Calcium 5 Mg Tab) 5 mg PO DAILY [facility] Stop: 01/10/20 08:59 Last Admin: 12/17/19 08:07 Dose: 5 mg Documented by: Saccharomyces Boulardii (Saccharomyces Boulardii 250 Mg Cap) 250 mg PO DAILY [facility] Stop: 01/11/20 08:59 Last Admin: 12/17/19 08:07 Dose: 250 mg Documented by: Sodium Biphosphate/Sodium Phosphate (Sod Phosphate/Sod Biphosphate Enema 132 Ml Btl) 118 ml MS DAILY PRN PRN Reason: Constipation Stop: 01/09/20 14:43 Tolterodine Tartrate (Tolterodine Tartrate La 4 Mg Capcr) 4 mg PO DAILY [facility] Stop: 01/10/20 08:59 Last Admin: 12/17/19 08:07 Dose: 4 mg Documented by:
[2019-12-17] MEDS: MAGNESIUM SULFATE / D5W 1 GM/100 ML BAG IV SCH ×2 (12:37→14:47)
[2019-12-17] MEDS: FUROSEMIDE 40 MG in SYRINGE 0 ML IV SCH (17:07)
[2019-12-17] MEDS: ALBUTEROL HFA 8 GM INHALER INH PRN ×2 (17:47→22:09)
[2019-12-18] MEDS: LEVOTHYROXINE SODIUM 25 MCG TABLET PO SCH (05:48)
[2019-12-18 06:41] LABS: BUN Creatinine Ratio 27.1 (10-20); Calcium 8.4 mg/dl (8.5-10.1); Creatinine Clr Calc Pharmacy 51.1 ml/min; Est GFR (African American) 67.1; Est GFR (Non-African American) 57.9
[2019-12-18 07:49] LABS: Potassium 2.8 mmol/L (3.5-5.1)
[2019-12-18 07:50] LABS: Magnesium 1.9 mg/dl (1.8-2.4)
[2019-12-18] MEDS: NYSTATIN POWDER 15GM BTL EXT SCH ×3 (08:12→21:07)
[2019-12-18] MEDS: METOPROLOL SUCC 25MG EXT REL TAB PO SCH (08:13)
[2019-12-18] MEDS: FLUTICASONE PROPIONATE NA SPR 16 GM BTL SCH (08:13)
[2019-12-18] MEDS: MESALAMINE 800 MG TABCR PO SCH ×3 (08:13→21:07)
[2019-12-18] MEDS: predniSONE 20 MG TAB PO SCH (08:13)
[2019-12-18] MEDS: MAGNESIUM OXIDE 400 MG TAB PO SCH (08:13)
[2019-12-18] MEDS: FUROSEMIDE 40 MG in SYRINGE 0 ML IV SCH ×2 (08:13→18:04)
[2019-12-18] MEDS: PANTOprazole 40 MG TAB PO SCH (08:14)
[2019-12-18] MEDS: CITALOPRAM 20 MG TAB PO SCH (08:14)
[2019-12-18] MEDS: guaiFENesin 600 MG TABCR PO SCH ×2 (08:14→21:07)
[2019-12-18] MEDS: TOLTERODINE TARTRATE LA 4 MG CAPCR PO SCH (08:14)
[2019-12-18] MEDS: SACCHAROMYCES BOULARDII 250 MG CAP PO SCH (08:14)
[2019-12-18] MEDS: ROSUVASTATIN CALCIUM 5 MG TAB PO SCH (08:14)
[2019-12-18] MEDS: POTASSIUM CHLORIDE CRTAB 20 MEQ TABCR PO SCH ×2 (08:14→17:38)
[2019-12-18] MEDS ORDERED: POTASSIUM CHLORIDE CRTAB 20 MEQ TABCR PO SCH (08:30)
[2019-12-18] MEDS: POTASSIUM CHLORIDE / WTR 10 MEQ/100 ML PLCT IV SCH ×4 (08:52→12:03)
--- NOTE | 2019-12-18 09:12 | XRay Report ---
XR chest 1V portable CLINICAL HISTORY: heart failure, hypoxia COMPARISON STUDY: Chest radiograph December 16, 2019. FINDINGS: Moderate cardiomegaly is noted. There is no pneumothorax or pleural effusion. Interstitial thickening is similar to prior exam. No consolidation is identified. IMPRESSION: No significant change in interstitial thickening. This favors mild pulmonary edema super imposed upon interstitial lung disease. ACT 112: Negative or not required by law. Electronically signed by: Fredy Vera M.D. 12/18/2019 9:10 AM
[2019-12-18] MEDS ORDERED: POTASSIUM CHLORIDE CRTAB 20 MEQ TABCR PO ONE (12:00)
[2019-12-18 14:42] LABS: BUN Creatinine Ratio 25.1 (10-20); Calcium 8.3 mg/dl (8.5-10.1); Creatinine Clr Calc Pharmacy 45.2 ml/min; Est GFR (African American) 57.8; Est GFR (Non-African American) 49.9; Potassium 3.8 mmol/L (3.5-5.1)
[2019-12-18 14:56] LABS: Beta-Hydroxybutyrate 1.72 mg/dl (0.2-2.81)
--- NOTE | 2019-12-18 16:17 | Hospitalist Progress Note ---
Date of Service December 18, 2019 Assessment & Plan (1) Acute diastolic CHF (congestive heart failure): Improved with more aggressive diuresis. Cont daily standing weight, Strict I/Os as able--Pt refuses Tran or [place]. Low salt diet. Fluid restriction. She is notably on higher dose prednisone consistently for her RA, and this may able be contributing to swelling and fluid retention. Cont to wean off oxygen as tolerated. (2) Hematochezia: no further issues off Eliquis. EGD normal. CSP with evidence of two sessile polyps/cecal mass. CEA elevated. CT a/p without metastatic disease. Pathology pending. Consider outpatient surgery next week pending path result. General surgery aware. 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 Per ID physician, no treatment is necessary as she is likely a carrier. Cont contact precautions. She continues to deny symptoms of UTI at this time and is not clinically ill-appearing. (4) Convulsive syncope: Per Neurology, she did not likely have a witnessed seizure pre-admission as thought. Instead she likely had an episode of convulsive syncope 2/2 low blood pressure. This was not a seizure and antiepileptic drugs were not recommended. (5) Anemia due to GI blood loss: transfuse as needed. She has had no further bleeding-H/H stable. (6) Chronic atrial fibrillation: -holding off Eliquis in the immediate post op state. Keep holding for at least a week post biopsy or until discussion with surgery as outpatient. Cont BB. (7) Hypothyroid: cont levothyroxine per home regimen. (8) Rheumatoid arthritis: -hold home dose weekly methotrexate at this time. Cont daily prednisone. This patient received most of her care iwth nori De Leon in [place] and doesn't see a regular Sc[facility]man. She is on a very high dose of prednisone. I discussed this with her POA-Ms. Giang, and instructed her to seek this out and try to wean off the prednisone under the care of a [facility]. Negative side effects explained include but are not limited to Cushings syndrome from hypercortisolism, osteoporosis, weight gain, problems with swelling, obesity, aggressiveness, etc. She is also at risk for life-threatening adrenal in sufficiency if this is accidentally removed from her regimen. This was explained to her POA who verbalized understanding and will continue to look into this issue after discharge. She also has a h/o "colitis" assumed to be ulcerative colitis as she is on the mesalamine. Recent csp and EGD did not show increased activity in this respect, so prednisone is likely related to the joint disease. (9) Depression: cont citalopram per home regimen. (10) DVT prophylaxis: SCDs-no chemoprophylaxis given in setting of recent biopsy and bleeding. Conditional Code Dispo-cont hospitalization for now. PT cleared for home when able. Possible DC tomorrow if patient can come off oxygen with ambulation and do well. Bing Izaguirre DO [facility] Hospitalist Admission and Anticipated Discharge Date Admission Date: December 10, 2019 Subjective denies chest pain or shortness of breath, however, she is unable to ambulate very far without needing oxygen tolerating PO becoming very upset about not being able to go home. spoke with niece who is POA at bedside today about the entire clinical picture Review of Systems Review of Systems: All systems reviewed & are unremarkable except as noted in Subjective Physical Exam Physical Exam: CONSTITUTIONAL: obese, vitals as above, generally well- appearing, alopecia EYES: normal conjunctivae, no scleral icterus ENT: external ear and nose normal, MMM RESPIRATORY: coarse rhonchi now heard mostly at the bases bilaterally. No rales or wheezes, no increased work of breathing. CARDIOVASCULAR: regular rate and rhythm, S1 and 2 heard without murmurs, gallops or rubs, no JVD, 3+ peripheral edema BLE GASTROINTESTINAL: normal bowel sounds, soft, nontender, nondistended, protuberant. MUSCULOSKELETAL: moves all extremities equally. SKIN: warm and dry NEUROLOGIC: no gross focal deficits. PSYCHIATRIC: alert and cooperative and answering all questions appropriately. Results & Data Results & Data ([facility]) Vital Signs (Past 12 Hours) Vital Signs Temp Pulse Resp BP Pulse Ox 12/18/19 15:23 36.9 C 88 20 113/42 L 96 12/18/19 08:06 36.9 C 92 H 20 95/56 L 91 Laboratory Results BMP 12/18/19 12/18/19 12/18/19 05:31 13:57 Unknown Sodium 139 138 Potassium 3.8 D 2.8 L Chloride 103 100 Carbon Dioxide 31 28 BUN 25 H 26 H Creatinine 0.91 1.03 Glucose 147 H 306 H* Calcium 8.4 L 8.3 L Diagnostic Findings XR chest 1V portable CLINICAL HISTORY: heart failure, hypoxia COMPARISON STUDY: Chest radiograph December 16, 2019. FINDINGS: Moderate cardiomegaly is noted. There is no pneumothorax or pleural effusion. Interstitial thickening is similar to prior exam. No consolidation is identified. IMPRESSION: No significant change in interstitial thickening. This favors mild pulmonary edema superimposed upon interstitial lung disease. Medications Administered Current Inpatient Medications Acetaminophen (Acetaminophen 325 Mg Tab) 325 mg PO Q6H PRN PRN Reason: Pain Stop: 01/09/20 16:59 Albuterol (Albuterol Hfa 8 Gm Inhaler) 2 puffs INH Q4 PRN PRN Reason: Cough Stop: 01/09/20 14:43 Last Admin: 12/17/19 22:09 Dose: 2 puffs Documented by: Bisacodyl (Bisacodyl 10 Mg Supp) 10 mg [place] DAILY PRN PRN Reason: Constipation Stop: 01/10/20 08:59 Citalopram Hydrobromide (Citalopram 20 Mg Tab) 20 mg PO DAILY CRISTINA Stop: 01/10/20 08:59 Last Admin: 12/18/19 08:14 Dose: 20 mg Documented by: Fluticasone Propionate (Fluticasone Propionate Na Spr 16 Gm Btl) 1 sprays NA DAILY CRISTINA Stop: 01/10/20 08:59 Last Admin: 12/18/19 08:13 Dose: 1 sprays Documented by: Guaifenesin (Guaifenesin 600 Mg Tabcr) 600 mg PO Q12 CRISTINA Stop: 01/12/20 20:59 Last Admin: 12/18/19 08:14 Dose: 600 mg Documented by: Furosemide 40 mg/ Syringe 4 mls @ 4 mls/min IV BID17 CRISTINA Stop: 01/16/20 16:59 Last Admin: 12/18/19 08:13 Dose: 4 mls/min Documented by: Levothyroxine Sodium (Levothyroxine Sodium 25 Mcg Tablet) 25 mcg PO DAILYBB CRISTINA Stop: 01/10/20 06:29 Last Admin: 12/18/19 05:48 Dose: 25 mcg Documented by: Magnesium Oxide (Magnesium Oxide 400 Mg Tab) 400 mg PO DAILY CRISTINA Stop: 01/10/20 08:59 Last Admin: 12/18/19 08:13 Dose: 400 mg Documented by: Menthol (Cough Drop (Sugar Free) Franklin 24 Franklin/1 Box) 1 franklin BUCCAL PRN PRN PRN Reason: Cough Stop: 01/14/20 23:55 Last Admin: 12/16/19 05:37 Dose: 1 franklin Documented by: Mesalamine (Mesalamine 800 Mg Tabcr) 800 mg PO TID [facility] Stop: 01/09/20 14:43 Last Admin: 12/18/19 13:01 Dose: 800 mg Documented by: Metoprolol Succinate (Metoprolol Succ 25mg Ext Rel Tab) 12.5 mg PO DAILY [facility] Stop: 01/10/20 08:59 Last Admin: 12/18/19 08:13 Dose: 12.5 mg Documented by: Nystatin (Nystatin Powder 15gm Btl) 1 appln EXT TID [facility] Stop: 01/09/20 14:43 Last Admin: 12/18/19 13:02 Dose: 1 appln Documented by: Ondansetron HCl (Ondansetron Inj 2 Mg/Ml 2 Ml Vial) 4 mg IV Q6H PRN PRN Reason: Nausea Stop: 01/09/20 14:43 Pantoprazole Sodium (Pantoprazole 40 Mg Tab) 40 mg PO QAM [facility] Stop: 01/16/20 08:59 Last Admin: 12/18/19 08:14 Dose: 40 mg Documented by: Potassium Chloride (Potassium Chloride 20 Meq Tabcr) 40 meq PO BID17 [facility] Stop: 01/16/20 16:59 Last Admin: 12/18/19 08:14 Dose: 40 meq Documented by: Prednisone (Prednisone 20 Mg Tab) 20 mg PO DAILY [facility] Stop: 01/10/20 08:59 Last Admin: 12/18/19 08:13 Dose: 20 mg Documented by: Rosuvastatin Calcium (Rosuvastatin Calcium 5 Mg Tab) 5 mg PO DAILY [facility] Stop: 01/10/20 08:59 Last Admin: 12/18/19 08:14 Dose: 5 mg Documented by: Saccharomyces Boulardii (Saccharomyces Boulardii 250 Mg Cap) 250 mg PO DAILY [facility] Stop: 01/11/20 08:59 Last Admin: 12/18/19 08:14 Dose: 250 mg Documented by: Sodium Biphosphate/Sodium Phosphate (Sod Phosphate/Sod Biphosphate Enema 132 Ml Btl) 118 ml [place] DAILY PRN PRN Reason: Constipation Stop: 01/09/20 14:43 Tolterodine Tartrate (Tolterodine Tartrate La 4 Mg Capcr) 4 mg PO DAILY [facility] Stop: 01/10/20 08:59 Last Admin: 12/18/19 08:14 Dose: 4 mg Documented by:
[2019-12-18] MEDS ORDERED: GLUCOSE 40% GEL 15 GM TUBE PO PRN (16:21)
[2019-12-18] MEDS ORDERED: DEXTROSE 50% 50 ML SYRINGE IV PRN (16:21)
[2019-12-18] MEDS ORDERED: GLUCOSE 10 TABS/TUBE PO PRN (16:21)
[2019-12-18] MEDS ORDERED: CARBOHYDRATES FOR HYPOGLYCEMIA PO PRN (16:21)
[2019-12-18] MEDS ORDERED: GLUCAGON FOR INJ 1 MG VIAL SQ PRN (16:21)
[2019-12-18] MEDS: INSULIN ASPART 100 UNITS/ML 3 ML PEN SC SCH ×2 (17:37→20:50)
[2019-12-19] MEDS: LEVOTHYROXINE SODIUM 25 MCG TABLET PO SCH (06:06)
[2019-12-19 06:34] LABS: Estimated Average Glucose 148 mg/dl; Hemoglobin A1C 6.8 % (4.5-5.6)
[2019-12-19 06:49] LABS: BUN Creatinine Ratio 30.9 (10-20); Calcium 8.2 mg/dl (8.5-10.1); Creatinine Clr Calc Pharmacy 65.2 ml/min; Est GFR (African American) 90.7; Est GFR (Non-African American) 78.2; Magnesium 1.8 mg/dl (1.8-2.4); Potassium 3.4 mmol/L (3.5-5.1)
[2019-12-19] MEDS: INSULIN ASPART 100 UNITS/ML 3 ML PEN SC SCH ×3 (08:43→17:27)
[2019-12-19] MEDS: CITALOPRAM 20 MG TAB PO SCH (08:44)
[2019-12-19] MEDS: SACCHAROMYCES BOULARDII 250 MG CAP PO SCH (08:44)
[2019-12-19] MEDS: TOLTERODINE TARTRATE LA 4 MG CAPCR PO SCH (08:44)
[2019-12-19] MEDS: ROSUVASTATIN CALCIUM 5 MG TAB PO SCH (08:44)
[2019-12-19] MEDS: FUROSEMIDE 40 MG in SYRINGE 0 ML IV SCH ×2 (08:44→16:47)
[2019-12-19] MEDS: POTASSIUM CHLORIDE CRTAB 20 MEQ TABCR PO SCH ×2 (08:44→16:47)
[2019-12-19] MEDS: MAGNESIUM OXIDE 400 MG TAB PO SCH (08:44)
[2019-12-19] MEDS: FLUTICASONE PROPIONATE NA SPR 16 GM BTL SCH (08:44)
[2019-12-19] MEDS: MESALAMINE 800 MG TABCR PO SCH ×2 (08:44→13:16)
[2019-12-19] MEDS: guaiFENesin 600 MG TABCR PO SCH (08:45)
[2019-12-19] MEDS: METOPROLOL SUCC 25MG EXT REL TAB PO SCH (08:45)
[2019-12-19] MEDS: NYSTATIN POWDER 15GM BTL EXT SCH ×2 (08:45→13:16)
[2019-12-19] MEDS: predniSONE 20 MG TAB PO SCH (08:45)
[2019-12-19] MEDS: PANTOprazole 40 MG TAB PO SCH (08:45)
[2019-12-19] MEDS ORDERED: SPIRONOLACTONE 25 MG TAB PO ONE (12:29)
--- NOTE | 2019-12-19 12:50 | Cardiology Progress Note ---
Date of Service December 19, 2019 Assessment & Plan (1) Chronic diastolic heart failure: Patient is a very complex 84-year-old female admitted with GI blood loss and discovered cecal lesion. Possible anticipated surgery depending on pathology Patient required transfusion has had mild decompensated chronic diastolic heart failure. Patient as below carries a history of interstitial lung disease by prior CAT and current study this scan. Currently on fairly high-dose prednisone at 20 mg/day as well as methotrexate for both pulmonary and arthritic issues per records Patient reports having previously been on home oxygen LV systolic function preserved by echocardiogram August 2019 with evidence of moderate pulmonary hypertension Recommendations: Continue furosemide ordered at 40 mg twice per day (patient not usually taking full dosing at home). Sodium restriction and full CHF instruc tions with daily weight Add spironolactone 25 mg p.o. daily Home O2 if patient qualifies Will need close follow-up of renal function and electrolytes (2) Interstitial lung disease: (3) GI bleed: Continue to hold anticoagulants Patient anticipating possible bowel resection. No absolute contraindications to surgery from cardiology standpoint but at elevated risk given multiple underlying morbidities including chronic diastolic heart failure, interstitial lung disease with hypoxia, chronic steroid usage. (4) Anemia due to GI blood loss: (5) Atrial fibrillation: (6) Hypokalemia: (7) Tricuspid regurgitation: Risks currently outweigh benefits of anticoagulation. Eliquis will remain on hold due to lower GI bleeding in the setting of sessile colon polyps. Further recommendations regarding restarting of anticoagulation pending GI assessment and pathology results. (8) Rheumatoid arthritis: Admission and Anticipated Discharge Date Admission Date: December 10, 2019 Subjective Patient seen and examined, chart, medications, telemetry reviewed. Myriad of mild complaints, nasal congestion mild sputum production. No chest pains no tachypalpitations no dizziness. Mild peripheral edema still present. IV potassium created severe irritation of the arm Physical Exam Constitutional: WD/WN, vitals as above no acute distress Eyes: PERRL, conjunctivae normal, anicteric sclerae ENMT: external ear and nose normal, oropharynx normal Neck: trachea midline, no thyromegaly Respiratory: Fine crackles basilar Cardiovascular: Rate/Rhythm: + irregularly irregular Heart Sounds: normal S1 and normal S2 Extremities: + edema (12+ pedal and lower extremity) Gastrointestinal (Abdomen): normal bowel sounds, soft, nontender, no hepatosplenomegaly Musculoskeletal: no cyanosis or clubbing, extremities motor strength 5/5 Results & Data ([facility]) Vital Signs (Past 12 Hours) Vital Signs Temp Pulse Resp BP Pulse Ox 12/19/19 07:12 37.0 C 83 20 121/77 96 Laboratory Results Laboratory Results - last 24 hr 12/18/19 12/18/19 12/18/19 13:57 17:21 20:37 Sodium 138 Potassium 3.8 D Chloride 100 Carbon Dioxide 28 Anion Gap 10.0 BUN 26 H Creatinine 1.03 Est Cr Clr Drug Dosing 45.2 Est GFR ( Amer) 57.8 Est GFR (Non-Af Amer) 49.9 BUN/Creatinine Ratio 25.1 H Glucose 306 H* POC Glucose 254 H 128 H Estimat Average Glucose Hemoglobin A1c Calcium 8.3 L Magnesium Beta-Hydroxybutyric Acd 1.72 12/19/19 12/19/19 12/19/19 05:31 05:31 07:34 Sodium 141 Potassium 3.4 L Chloride 104 Carbon Dioxide 31 Anion Gap 6.0 BUN 22 H Creatinine 0.71 D Est Cr Clr Drug Dosing 65.2 Est GFR ( Amer) 90.7 Est GFR (Non-Af Amer) 78.2 BUN/Creatinine Ratio 30.9 H Glucose 103 H POC Glucose 109 H Estimat Average Glucose 148 Hemoglobin A1c 6.8 H Calcium 8.2 L Magnesium 1.8 Beta-Hydroxybutyric Acd 12/19/19 11:24 Sodium Potassium Chloride Carbon Dioxide Anion Gap BUN Creatinine Est Cr Clr Drug Dosing Est GFR ( Amer) Est GFR (Non-Af Amer) BUN/Creatinine Ratio Glucose POC Glucose 211 H Estimat Average Glucose Hemoglobin A1c Calcium Magnesium Beta-Hydroxybutyric Acd Diagnostic Findings Echocardiogram 08/31/2019 [facility] The qualitative LV ejection fraction is 55-59% (normal). The left ventricular wall motion is normal. Mild mitral regurgitation is present. Severe tricuspid regurgitation is present. Pulmonary hypertension is present. The PA systolic pressure is > 39 mmHG. Moderate pulmonary hypertension is present. (1) GI bleed GI bleed type/associated pathology: unspecified gastrointestinal hemorrhage type Qualified Code(s): K92.2 - Gastrointestinal hemorrhage, unspecified (2) Atrial fibrillation Atrial fibrillation type: unspecified chronic Qualified Code(s): I48.20 - Chronic atrial fibrillation, unspecified (3) Tricuspid regurgitation Cardiac valve disease etiology: nonrheumatic Qualified Code(s): I36.1 - Nonrheumatic tricuspid (valve) insufficiency
--- NOTE | 2019-12-20 10:33 | Communication Note ---
Date of Service: December 20, 2019 nurse informed me, Dr. Jamie Stevenson, on 12/20/2019 that patient's urine returned finalized as ESBL E.coli notes reviewed that patient's discharging physician Dr. Izaguirre and Infectious Disease doctor were aware as per Infectious Doctor notes of Dr. Amato which were forwarded to my work messages: "This is an 84 y/o female w/ hx of severe TR w/ chronic diastolic HF, A fib, pulm HTN, hypothyroidism, GERD, RA, chronic anemia, and depression. Patient presented w/ seizure-like activity witnessed by clinical nursing director. She was noted to have diaphoresis while sitting on toilet and lost consciousness w/ frothing in her mouth and jerky movements lasting about 4 minutes. Patient did not have any significant residual issues other than the fact that she had no recall of the event. She was also noted to have bright red blood per rectum. Patient was admitted for evaluation for r/o GIB and seizure-like activity. Stool occult blood was positive. No fever or leukocytosis. ID was called for presence of ESBL E coli in urine w/ questionable UA result. Patient had UTIs in the past w/ last episode more than a year ago: dysuria and itching were her symptom w/ last UTI. She denies dysuria/itching, urinary frequency/urgency/hesitancy prior to this admission. She has urinary frequency/urgency(?) after admission after receiving Lasix. +Loose BM on bowel prep. She has sob requiring O2 supplement. Patient denies persistent coughing, f/c, n/v, abd pain, or cp. ABX Ertapenem (12/12) BP 130/62, P 94, R 18, T 36.8C, O2 Sat 85% on RA WBC 16.3K ->-> 8.04K H 8.7 Plt 273K K 2.9 Cr 0.88 (CrCl 54.9) UA (12/10): LE 2+, WBC 1-5, bact 1+, epithelial cells >30 U c/s (12/10): ESBL E coli (S to amik, cefoxitin, ertap, gent, lópez, nitro, tobra, pip/tazo) CXR (12/11): 1. Interstitial thickening suggestive of pulmonary edema. An infectious process could appear similar although is considered less likely. Radiographic follow-up is recommended. 2. Moderate cardiomegaly. KUB (12/11): No evidence for a bowel obstruction. R/o UTI vs colonization w/ ESBL E coli GIB R/o seizure Hx of severe TR w/ chronic diastolic HF, A fib, pulm HTN, chronic anemia - Patient has no symptoms of UTI - UA result is questionable and low quality (epithelial cells >30) - E coli in urine may represents colonization - I am not sure why UA and urine culture were done in the first place. I recommend against giving abx for this patient who does not have any symptoms of UTI. Unnecessary use of abx leads to abx resistance." Dr. Izaguirre's notes reviewed and that patient was known likely to be ESBL carrier and there was no need to treat an asymptomatic colonization
--- NOTE | 2019-12-20 11:52 | Communication Note ---
Date of Service: December 20, 2019 nurse informed me, Dr. Jamie Mayfield, on 12/20/2019 that patient's urine returned finalized as ESBL E.coli notes reviewed that patient's discharging physician Dr. Izaguirre and Infectious Disease doctor were aware as per Infectious Doctor notes which were forwarded to my work messages: "This is an 84 y/o female w/ hx of severe TR w/ chronic diastolic HF, A fib, pulm HTN, hypothyroidism, GERD, RA, chronic anemia, and depression. Patient presented w/ seizure-like activity witnessed by practical nursing instructor. She was noted to have diaphoresis while sitting on toilet and lost consciousness w/ frothing in her mouth and jerky movements lasting about 4 minutes. Patient did not have any significant residual issues other than the fact that she had no recall of the event. She was also noted to have bright red blood per rectum. Patient was admitted for evaluation for r/o GIB and seizure-like activity. Stool occult blood was positive. No fever or leukocytosis. ID was called for presence of ESBL E coli in urine w/ questionable UA result. Patient had UTIs in the past w/ last episode more than a year ago: dysuria and itching were her symptom w/ last UTI. She denies dysuria/itching, urinary frequency/urgency/hesitancy prior to this admission. She has urinary frequency/urgency(?) after admission after receiving Lasix. +Loose BM on bowel prep. She has sob requiring O2 supplement. Patient denies persistent coughing, f/c, n/v, abd pain, or cp. ABX Ertapenem (12/12) BP 130/62, P 94, R 18, T 36.8C, O2 Sat 85% on RA WBC 16.3K ->-> 8.04K H 8.7 Plt 273K K 2.9 Cr 0.88 (CrCl 54.9) UA (12/10): LE 2+, WBC 1-5, bact 1+, epithelial cells >30 U c/s (12/10): ESBL E coli (S to amik, cefoxitin, ertap, gent, lópez, nitro, tobra, pip/tazo) CXR (12/11): 1. Interstitial thickening suggestive of pulmonary edema. An infectious process could appear similar although is considered less likely. Radiographic follow-up is recommended. 2. Moderate cardiomegaly. KUB (12/11): No evidence for a bowel obstruction. R/o UTI vs colonization w/ ESBL E coli GIB R/o seizure Hx of severe TR w/ chronic diastolic HF, A fib, pulm HTN, chronic anemia - Patient has no symptoms of UTI - UA result is questionable and low quality (epithelial cells >30) - E coli in urine may represents colonization - I am not sure why UA and urine culture were done in the first place. I recommend against giving abx for this patient who does not have any symptoms of UTI. Unnecessary use of abx leads to abx resistance." Dr. Izaguirre's notes reviewed and that patient was known likely to be ESBL carrier and there was no need to treat an asymptomatic colonization THIS ADDENDUM WAS TAKEN FROM THE END OF MY PROGRESS NOTE AND PLACED HERE IN A MORE APPROPRIATE SUPPLEMENTAL COMMS NOTE-12/20/2019 WAS [address] THIS COMMUNICATION TOOK PLACE. DR. MAYFIELD WAS NOT THE SUPERVISING PHYSICIAN ON MY 12/17 PROGRESS NOTE. CITLALI IZAGUIRRE, DO
== END 2019-12-19 19:21 | disposition home or self-care (01) | DRG 377 ==
LOC: ED 10:55 → SUATTDRO 13:45 → 2S 13:45 → 2W 12-15 16:49

== ENCOUNTER 2020-05-12 13:00 | Inpatient (IN) ==
--- NOTE | 2020-05-12 13:19 | Emergency Department Note ---
Impression & Plan Pneumonia due to 2019 novel coronavirus, Acute hyponatremia, Hypoxia ED Provider Note NAME: JESSI BONILLA AGE: 84 SEX: F : 1935 ARRIVES VIA: Ambulance INFORMANT: Patient, prehospital personnel ED PROVIDER(S): Tom Don DO CHIEF COMPLAINT: Shortness of breath HPI: The patient is an 84-year-old female who presented to the emergency department for an evaluation of difficulty breathing. The patient's been having symptoms worsening over the course of the last few days. She states the symptoms began significantly worse over the last 2 to 3 days. The patient was exposed to another person who developed COVID-19 last week. She is not been tested or treated for COVID-19. The patient states that she has been having worsening symptoms and schedule an appointment with her primary care physician. When she went to see her primary care physician she was noted to have very significant respiratory distress as well as hypoxia. The patient was sent via ambulance. The patient did not have a history of COPD but does have a history of atrial fibrillation and CHF. She denies any lower extremity swelling worse than usual or chest pain. She denies having any orthopnea. She states that she has had a cough which is productive for both yellow and brown sputum. She is unsure if she has a fever. ROS: See above HPI for pertinent positives & negatives. A total of 10 systems reviewed and were otherwise negative. PAST MEDICAL HISTORY: See Below PAST SURGICAL HISTORY: See Below FAMILY HISTORY: See Below SOCIAL HISTORY: See Below HOME MEDICATIONS: See Below ALLERGIES: See Below VITALS: See Below PHYSICAL EXAMINATION: GENERAL: The patient is awake and alert. She is somewhat anxious appearing. EYES: The conjunctivae are clear. The pupils are round and reactive. EARS, NOSE, MOUTH AND THROAT: The nose is without any evidence of any deformity. Mucous membranes are moist. Tongue is midline. NECK: The neck is nontender and supple. RESPIRATORY: Diminished breath sounds are noted throughout right greater than left. Scattered rales were noted throughout right greater than left. There was mild conversational dyspnea. CARDIOVASCULAR: Irregular rhythm was noted auscultation. There was no definite murmur. GASTROINTESTINAL: The abdomen is soft. Abdomen is nontender. MUSCULOSKELETAL/EXTREMITIES: There is no evidence of gross deformity full range of motion is noted in the hips and shoulders. SKIN: Skin was cool and dry. Trace pedal edema was noted bilaterally. NEUROLOGIC: Patient is awake alert and oriented x three. MEDICAL DECISION MAKING: The patient is an 84-year-old female who presented to the emergency department for an evaluation of difficulty breathing. The patient has a history of CHF. She was sent directly from her primary care physician's office to the emergency department because of the degree of hypoxia. The patient was placed on supplemental oxygen. She was also treated with Decadron in the emergency depar tment. I discussed the patient's laboratory and radiographic studies with her. I also discussed her case with the on-call [facility] hospitalist group. They have agreed to evaluate the patient in the emergency department for further management and disposition. Triage Nursing notes reviewed. Prior medical records reviewed Vital Signs: reviewed and remarkable for hypoxia Differential diagnosis: Reactive airway disease, pneumonia, pneumothorax, COPD, CHF, infections, cardiac ischemia, pulmonary embolism, musculoskeletal, gastrointestinal, as well as other pathologies. ER treatment provided: See below Diagnostics interpreted by me: ECG: EKG was obtained in the emergency department. My interpretation is atrial fibrillation at 83 bpm. There were no PVCs. Diffuse ST segment depressions were noted. Inferior T wave versions were also noted. This was compared to a tracing from December 092019. No significant change was noted. Cardiac Monitoring: An order was placed for continuous cardiac monitoring. The monitor shows a rate of 92 bpm with atrial fibrillation rhythm. Laboratory studies: As stated above and show below. Imaging studies: See below Consultation(s): 1500: I discussed this case with Sophie who is on-call for the [place] [facility]ist group. They will evaluate the patient in the emergency department. Past Med/Surg History Medical History Atrial fibrillation CHF (congestive heart failure) Mass of cecum Surgical History History of colonoscopy Social History Smoking Status: Never smoker Second Hand Exposure: No; Hx Alcohol Use: No Hx Substance Use: No Communication Ability: Effective Current Living Situation: Family Current Living Situation Comment: lives with sebastian, her neice Feels Safe at Home: Yes Assistive Devices: Oxygen - Continuous Allergies Allergies Allergy/AdvReac Type Severity Reaction Status Date / Time No Known Allergies Allergy Unverified 05/12/20 15:06 Home Meds Home Medications Medication Instructions Recorded Confirmed albuterol sulfate 2 puff INHALATION Q4 PRN 10/17/19 05/12/20 citalopram 20 mg PO DAILY 10/17/19 05/12/20 fluticasone propionate 1 spray INTRANASAL DAILY 10/17/19 05/12/20 levothyroxine 25 mcg PO DAILY 10/17/19 05/12/20 magnesium oxide 400 mg PO DAILY 10/17/19 05/12/20 mesalamine 800 mg PO TID 10/17/19 05/12/20 metoprolol succinate 12.5 mg PO DAILY 10/17/19 05/12/20 nystatin [Nystop] 1 applic TOPICAL TID 10/17/19 05/12/20 omeprazole 20 mg PO DAILY 10/17/19 05/12/20 potassium chloride [Klor-Con M20] 20 meq PO BID 10/17/19 05/12/20 rosuvastatin [Crestor] 5 mg PO DAILY 10/17/19 05/12/20 tolterodine [Detrol LA] 4 mg PO DAILY 10/17/19 05/12/20 Pro-Stat Sugar Free 1 ea PO DAILY 12/10/19 05/12/20 acetaminophen 325 mg PO QID PRN 12/10/19 05/12/20 prednisone 5 mg PO DAILY 12/10/19 05/12/20 metformin 500 mg PO DAILY 12/22/19 05/12/20 apixaban [Eliquis] 5 mg PO BID 05/12/20 05/12/20 betamethasone dipropionate 1 applic TOPICAL BID 05/12/20 05/12/20 cetirizine [Zyrtec] 10 mg PO DAILY 05/12/20 05/12/20 cholecalciferol (vitamin D3) 25 mcg PO DAILY 05/12/20 05/12/20 [Vitamin D3] coenzyme Q10 [CoQ-10] 100 mg PO DAILY 05/12/20 05/12/20 cranberry 12,600 mg PO BID 05/12/20 05/12/20 methotrexate sodium 2.5 mg PO WK 05/12/20 05/12/20 torsemide 20 mg PO DAILY 05/12/20 05/12/20 turmeric root extract 500 mg PO DAILY 05/12/20 05/12/20 Previous Rx's Medication Instructions Recorded spironolactone 25 mg PO DAILY #30 tab 12/19/19 Results & Data (ED) Vital Signs Vital Signs - 24 hr 05/12/20 13:12 05/12/20 13:17 05/12/20 13:18 Temperature 37.1 C Temperature Source Oral Pulse Rate 81 76 79 Pulse Rate from SpO2 Sensor 84 78 Respiratory Rate 21 24 Blood Pressure 131/74 131/74 Blood Pressure Mean 93 93 Blood Pressure Position Sitting Pulse Oximetry 92 98 97 Oxygen Delivery Method Nasal Cannula Oxygen Flow Rate 2 Sepsis Recent Fever Within 48 Hours No Sepsis New/Unexplained Change in Mental Status No Sepsis Action Taken by Nursing No Action Required 05/12/20 13:20 05/12/20 13:30 05/12/20 13:31 Temperature Temperature Source Pulse Rate 79 87 76 Pulse Rate from SpO2 Sensor 75 86 75 Respiratory Rate 23 21 24 Blood Pressure 124/99 Blood Pressure Mean 107 Blood Pressure Position Pulse Oximetry 98 94 98 Oxygen Delivery Method Oxygen Flow Rate Sepsis Recent Fever Within 48 Hours Sepsis New/Unexplained Change in Mental Status Sepsis Action Taken by Nursing 05/12/20 13:40 05/12/20 13:50 05/12/20 14:00 Temperature Temperature Source Pulse Rate 80 84 73 Pulse Rate from SpO2 Sensor 78 83 75 Respiratory Rate 22 Blood Pressure 103/78 Blood Pressure Mean 86 Blood Pressure Position Pulse Oximetry 97 98 97 Oxygen Delivery Method Oxygen Flow Rate Sepsis Recent Fever Within 48 Hours Sepsis New/Unexplained Change in Mental Status Sepsis Action Taken by Nursing 05/12/20 14:01 05/12/20 14:10 05/12/20 14:20 Temperature Temperature Source Pulse Rate 75 71 77 Pulse Rate from SpO2 Sensor 75 71 84 Respiratory Rate 20 Blood Pressure Blood Pressure Mean Blood Pressure Position Pulse Oximetry 97 99 97 Oxygen Delivery Method Oxygen Flow Rate Sepsis Recent Fever Within 48 Hours Sepsis New/Unexplained Change in Mental Status Sepsis Action Taken by Nursing 05/12/20 14:30 05/12/20 14:31 05/12/20 14:40 Temperature Temperature Source Pulse Rate 78 69 72 Pulse Rate from SpO2 Sensor 80 78 77 Respiratory Rate 24 Blood Pressure 132/56 L Blood Pressure Mean 81 Blood Pressure Position Pulse Oximetry 97 96 97 Oxygen Delivery Method Oxygen Flow Rate Sepsis Recent Fever Within 48 Hours Sepsis New/Unexplained Change in Mental Status Sepsis Action Taken by Nursing 05/12/20 14:50 05/12/20 15:00 05/12/20 15:10 Temperature Temperature Source Pulse Rate 72 83 90 Pulse Rate from SpO2 Sensor 79 80 Respiratory Rate 22 21 25 H Blood Pressure 127/65 Blood Pressure Mean 85 Blood Pressure Position Pulse Oximetry 96 95 Oxygen Delivery Method Oxygen Flow Rate Sepsis Recent Fever Within 48 Hours Sepsis New/Unexplained Change in Mental Status Sepsis Action Taken by [facility] Medications Current Medication List: was personally reviewed by me Laboratory Data Attestation: I reviewed the patient's lab results. Result diagrams: 05/12/20 12:45 05/12/20 12:45 Lab Results 05/12/20 05/12/20 05/12/20 Range/Units 12:45 12:45 12:45 WBC 6.93 (4.8-10.8) K/uL RBC 4.01 L (4.2-5.4) M/uL Hgb 10.1 L (12.0-16.0) g/dL Hct 31.7 L (37-47) % MCV 79.1 L (80-100) fL MCH 25.2 (25-34) pg MCHC 31.9 L (32-36) g/dL RDW Std Deviation 54.2 H (36.4-46.3) fL RDW Coeff of Jesse 18.7 H (11.5-14.5) % Plt Count 339 (130-400) K/uL MPV 9.4 (7.4-10.4) fL Immature Gran % (Auto) 0.3 % Neut % (Auto) 65.7 % Lymph % (Auto) 20.6 % [place] % (Auto) 13.0 % Eos % (Auto) 0.3 % Baso % (Auto) 0.1 % Neut # (Auto) 4.55 (1.4-6.5) K/uL Lymph # (Auto) 1.43 (1.2-3.4) K/uL [place] # (Auto) 0.90 H (0.11-0.59) K/uL Eos # (Auto) 0.02 (0-0.5) K/uL Baso # (Auto) 0.01 (0-0.2) K/uL Immature Gran # (Auto) 0.02 (0.00-0.02) K/uL ESR (0-21) mm/hr PT (9.0-12.0) Seconds INR (0.9-1.1) APTT (21.0-31.0) Seconds PTT Ratio VBG pH (7.36-7.41) VBG pCO2 (38-50) mmHg VBG pO2 mmHg VBG HCO3 mmol/L VBG O2 Saturation % VBG Base Excess mEq/L Barometric Pressure mm/Hg Sodium 130 L (136-145) mmol/L Potassium 3.8 (3.5-5.1) mmol/L Chloride 93 L (98-107) mmol/L Carbon Dioxide 30 (21-32) mmol/L Anion Gap 7.0 (3-11) BUN 19 H (7-18) mg/dl Creatinine 1.12 (0.6-1.2) mg/dl Est Cr Clr Drug Dosing 41.5 ml/min Est GFR ( Amer) 52.2 Est GFR (Non-Af Amer) 45.1 BUN/Creatinine Ratio 17.1 (10-20) Glucose 102 H (70-99) mg/dl Lactate (0.4-2.0) mmol/L Calcium 8.8 (8.5-10.1) mg/dl Magnesium 2.0 (1.8-2.4) mg/dl Total Bilirubin 0.6 (0.2-1) mg/dl AST 25 (15-37) U/L ALT 21 (12-78) U/L Alkaline Phosphatase 136 H (45-117) U/L Troponin I 0.043 (0-0.045) ng/ml C-Reactive Protein (0-0.29) mg/dl NT-Pro-B Natriuret Pep 1225 (0-1800) pg/ml Total Protein 8.4 H (6.4-8.2) gm/dl Albumin 2.7 L (3.4-5.0) gm/dl Globulin 5.7 H (2.5-4.0) gm/dl Albumin/Globulin Ratio 0.5 L (0.9-2) Procalcitonin < 0.05 (0-0.5) ng/ml COVID-19 Eval Order SARS-CoV-2 (PCR) (Negative) Influenza Type A (PCR) (Neg) Influenza Type B (PCR) (Neg) RSV (RT-PCR) (Neg) 05/12/20 05/12/20 05/12/20 Range/Units 12:45 12:45 12:45 WBC (4.8-10.8) K/uL RBC (4.2-5.4) M/uL Hgb (12.0-16.0) g/dL Hct (37-47) % MCV (80-100) fL MCH (25-34) pg MCHC (32-36) g/dL RDW Std Deviation (36.4-46.3) fL RDW Coeff of Jesse (11.5-14.5) % Plt Count (130-400) K/uL MPV (7.4-10.4) fL Immature Gran % (Auto) % Neut % (Auto) % Lymph % (Auto) % [place] % (Auto) % Eos % (Auto) % Baso % (Auto) % Neut # (Auto) (1.4-6.5) K/uL Lymph # (Auto) (1.2-3.4) K/uL [place] # (Auto) (0.11-0.59) K/uL Eos # (Auto) (0-0.5) K/uL Baso # (Auto) (0-0.2) K/uL Immature Gran # (Auto) (0.00-0.02) K/uL ESR > 90 H (0-21) mm/hr PT 11.1 (9.0-12.0) Seconds INR 1.1 (0.9-1.1) APTT 30.6 (21.0-31.0) Seconds PTT Ratio 1.2 VBG pH (7.36-7.41) VBG pCO2 (38-50) mmHg VBG pO2 mmHg VBG HCO3 mmol/L VBG O2 Saturation % VBG Base Excess mEq/L Barometric Pressure mm/Hg Sodium (136-145) mmol/L Potassium (3.5-5.1) mmol/L Chloride (98-107) mmol/L Carbon Dioxide (21-32) mmol/L Anion Gap (3-11) BUN (7-18) mg/dl Creatinine (0.6-1.2) mg/dl Est Cr Clr Drug Dosing ml/min Est GFR ( Amer) Est GFR (Non-Af Amer) BUN/Creatinine Ratio (10-20) Glucose (70-99) mg/dl Lactate (0.4-2.0) mmol/L Calcium (8.5-10.1) mg/dl Magnesium (1.8-2.4) mg/dl Total Bilirubin (0.2-1) mg/dl AST (15-37) U/L ALT (12-78) U/L Alkaline Phosphatase (45-117) U/L Troponin I (0-0.045) ng/ml C-Reactive Protein 13.70 H (0-0.29) mg/dl NT-Pro-B Natriuret Pep (0-1800) pg/ml Total Protein (6.4-8.2) gm/dl Albumin (3.4-5.0) gm/dl Globulin (2.5-4.0) gm/dl Albumin/Globulin Ratio (0.9-2) Procalcitonin (0-0.5) ng/ml COVID-19 Eval Order SARS-CoV-2 (PCR) (Negative) Influenza Type A (PCR) (Neg) Influenza Type B (PCR) (Neg) RSV (RT-PCR) (Neg) 05/12/20 05/12/20 05/12/20 Range/Units 13:25 13:25 13:25 WBC (4.8-10.8) K/uL RBC (4.2-5.4) M/uL Hgb (12.0-16.0) g/dL Hct (37-47) % MCV (80-100) fL MCH (25-34) pg MCHC (32-36) g/dL RDW Std Deviation (36.4-46.3) fL RDW Coeff of Jesse (11.5-14.5) % Plt Count (130-400) K/uL MPV (7.4-10.4) fL Immature Gran % (Auto) % Neut % (Auto) % Lymph % (Auto) % [place] % (Auto) % Eos % (Auto) % Baso % (Auto) % Neut # (Auto) (1.4-6.5) K/uL Lymph # (Auto) (1.2-3.4) K/uL [place] # (Auto) (0.11-0.59) K/uL Eos # (Auto) (0-0.5) K/uL Baso # (Auto) (0-0.2) K/uL Immature Gran # (Auto) (0.00-0.02) K/uL ESR (0-21) mm/hr PT (9.0-12.0) Seconds INR (0.9-1.1) APTT (21.0-31.0) Seconds PTT Ratio VBG pH (7.36-7.41) VBG pCO2 (38-50) mmHg VBG pO2 mmHg VBG HCO3 mmol/L VBG O2 Saturation % VBG Base Excess mEq/L Barometric Pressure mm/Hg Sodium (136-145) mmol/L Potassium (3.5-5.1) mmol/L Chloride (98-107) mmol/L Carbon Dioxide (21-32) mmol/L Anion Gap (3-11) BUN (7-18) mg/dl Creatinine (0.6-1.2) mg/dl Est Cr Clr Drug Dosing ml/min Est GFR ( Amer) Est GFR (Non-Af Amer) BUN/Creatinine Ratio (10-20) Glucose (70-99) mg/dl Lactate 1.5 (0.4-2.0) mmol/L Calcium (8.5-10.1) mg/dl Magnesium (1.8-2.4) mg/dl Total Bilirubin (0.2-1) mg/dl AST (15-37) U/L ALT (12-78) U/L Alkaline Phosphatase (45-117) U/L Troponin I (0-0.045) ng/ml C-Reactive Protein (0-0.29) mg/dl NT-Pro-B Natriuret Pep (0-1800) pg/ml Total Protein (6.4-8.2) gm/dl Albumin (3.4-5.0) gm/dl Globulin (2.5-4.0) gm/dl Albumin/Globulin Ratio (0.9-2) Procalcitonin (0-0.5) ng/ml COVID-19 Eval Order [facility]Rsv at [facility] SARS-CoV-2 (PCR) POSITIVE A* (Negative) Influenza Type A (PCR) Negative (Neg) Influenza Type B (PCR) Negative (Neg) RSV (RT-PCR) Negative (Neg) 05/12/20 Range/Units 14:21 WBC (4.8-10.8) K/uL RBC (4.2-5.4) M/uL Hgb (12.0-16.0) g/dL Hct (37-47) % MCV (80-100) fL MCH (25-34) pg MCHC (32-36) g/dL RDW Std Deviation (36.4-46.3) fL RDW Coeff of Jesse (11.5-14.5) % Plt Count (130-400) K/uL MPV (7.4-10.4) fL Immature Gran % (Auto) % Neut % (Auto) % Lymph % (Auto) % [place] % (Auto) % Eos % (Auto) % Baso % (Auto) % Neut # (Auto) (1.4-6.5) K/uL Lymph # (Auto) (1.2-3.4) K/uL [place] # (Auto) (0.11-0.59) K/uL Eos # (Auto) (0-0.5) K/uL Baso # (Auto) (0-0.2) K/uL Immature Gran # (Auto) (0.00-0.02) K/uL ESR (0-21) mm/hr PT (9.0-12.0) Seconds INR (0.9-1.1) APTT (21.0-31.0) Seconds PTT Ratio VBG pH 7.44 H (7.36-7.41) VBG pCO2 48 (38-50) mmHg VBG pO2 22 mmHg VBG HCO3 32 mmol/L VBG O2 Saturation < 60.0 % VBG Base Excess 6.7 mEq/L Barometric Pressure 745.1 mm/Hg Sodium (136-145) mmol/L Potassium (3.5-5.1) mmol/L Chloride (98-107) mmol/L Carbon Dioxide (21-32) mmol/L Anion Gap (3-11) BUN (7-18) mg/dl Creatinine (0.6-1.2) mg/dl Est Cr Clr Drug Dosing ml/min Est GFR ( Amer) Est GFR (Non-Af Amer) BUN/Creatinine Ratio (10-20) Glucose (70-99) mg/dl Lactate (0.4-2.0) mmol/L Calcium (8.5-10.1) mg/dl Magnesium (1.8-2.4) mg/dl Total Bilirubin (0.2-1) mg/dl AST (15-37) U/L ALT (12-78) U/L Alkaline Phosphatase (45-117) U/L Troponin I (0-0.045) ng/ml C-Reactive Protein (0-0.29) mg/dl NT-Pro-B Natriuret Pep (0-1800) pg/ml Total Protein (6.4-8.2) gm/dl Albumin (3.4-5.0) gm/dl Globulin (2.5-4.0) gm/dl Albumin/Globulin Ratio (0.9-2) Procalcitonin (0-0.5) ng/ml COVID-19 Eval Order SARS-CoV-2 (PCR) (Negative) Influenza Type A (PCR) (Neg) Influenza Type B (PCR) (Neg) RSV (RT-PCR) (Neg) Administered Medications Discontinued Medications Dexamethasone Sodium Phosphate (DexamethasonePf 10 Mg/Ml Vial) 10 mg IV NOW ONE Stop: 05/12/20 14:47 Last Admin: 05/12/20 15:02 Dose: 10 mg Documented by: [id number] Imaging Data Radiologist's Impression: Patient: JESSI BONILLA Admit Date: 05/12/20 MR#: [id number] Address1: [address] [place] [address] Acct ID:[id number] Address2: Date: 1935 [facility] Zip: [place] [address] Age: 84 Location: ED Sex: F Room/Bed: Att Phy: Diagnosis: SOB Leann Phy: Rayne Driscoll DO Service Date: 05/12/20 [facility] Phy: Interpreting Phy: Dar Park MD Admit Phy: Ordering Phy: Tom Don DO cc: ~ XR chest 1V portable HISTORY: SEPSIS COMPARISON: Chest 12/18/2019. FINDINGS: No pneumothorax. The cardiac silhouette remains enlarged. There is diffuse interstitial thickening which has progressed. There are also hazy bilateral airspace opacities. Suspect a trace left pleural effusion. IMPRESSION: Interval progression of the diffuse interstitial thickening and hazy bilateral airspace opacities. This could represent a viral pneumonia or pulmonary edema. ACT 112: Negative or not required by law. Electronically signed by: Dar Park M.D. 05/12/2020 2:19 PM Dictated: 05/12/20 141 Transcribed: 05/12/20 141 Discharge Plan Visit Data Chief Complaint: Shortness of Breath/Dyspnea ED Provider: Tom Don Discharge Problem: Pneumonia due to 2019 novel coronavirus, Acute hyponatremia, Hypoxia Patient Disposition: Being Evaluated by Hospitalist Condition: Good Forms Stand Alone Forms: My [facility] Prescriptions Prescriptions: No Action tolterodine [Detrol LA] 4 mg Capsule,Extended Release 24hr 4 mg PO DAILY RF: 0 levothyroxine 25 mcg Tablet 25 mcg PO DAILY RF: 0 citalopram 20 mg Tablet 20 mg PO DAILY RF: 0 potassium chloride [Klor-Con M20] 20 mEq Tablet,Er Particles/Crystals 20 meq PO BID RF: 0 omeprazole 20 mg Capsule,Delayed Release(Dr/Ec) 20 mg PO DAILY RF: 0 metoprolol succinate 25 mg Tablet Extended Release 24 Hr 12.5 mg PO DAILY RF: 0 nystatin [Nystop] 100,000 unit/gram Powder 1 applic TOPICAL TID RF: 0 albuterol sulfate 90 mcg/actuation Hfa Aerosol Inhaler 2 puff INHALATION Q4 PRN (Reason: Cough) RF: 0 fluticasone propionate 50 mcg/actuation [place],Suspension 1 spray INTRANASAL DAILY RF: 0 rosuvastatin [Crestor] 5 mg Tablet 5 mg PO DAILY RF: 0 mesalamine 800 mg Tablet,Delayed Release (Dr/Ec) 800 mg PO TID RF: 0 magnesium oxide 400 mg magnesium Tablet 400 mg PO DAILY RF: 0 acetaminophen 325 mg Tablet 325 mg PO QID PRN (Reason: Pain) RF: 0 prednisone 20 mg Tablet 5 mg PO DAILY RF: 0 Pro-Stat Sugar Free 15 gram- 100 kcal/30 mL Liquid In Packet 1 ea PO DAILY RF: 0 spironolactone 25 mg tablet 25 mg PO DAILY Qty: 30 RF: 0 metformin 500 mg tablet extended release 24 hr 500 mg PO DAILY RF: 0 torsemide 20 mg Tablet 20 mg PO DAILY RF: 0 methotrexate sodium 2.5 mg Tablet 2.5 mg PO WK RF: 0 Eliquis 5 mg Tablet 5 mg PO BID RF: 0 cetirizine [Zyrtec] 10 mg Tablet 10 mg PO DAILY RF: 0 betamethasone dipropionate 0.05 % Lotion 1 applic TOPICAL BID RF: 0 cranberry 1,000 mg Capsule 12,600 mg PO BID RF: 0 coenzyme Q10 [CoQ-10] 100 mg Capsule 100 mg PO DAILY RF: 0 cholecalciferol (vitamin D3) [Vitamin D3] 25 mcg (1,000 unit) Tablet,Chewable 25 mcg PO DAILY RF: 0 turmeric root extract 500 mg Capsule 500 mg PO DAILY RF: 0 Referrals Referrals: Rayne Driscoll DO [Primary Care Provider] -
[2020-05-12 13:43] LABS: Basophils # (auto) 0.01 K/uL (0-0.2); Basophils % (auto) 0.1 %; Eosinophils # (auto) 0.02 K/uL (0-0.5); Eosinophils % (auto) 0.3 %; Hematocrit (blood only) 31.7 % (37-47); Hemoglobin 10.1 g/dL (12.0-16.0); Immature Granulocytes # (auto) 0.02 K/uL (0.00-0.02); Immature Granulocytes % (auto) 0.3 %; Lymphocytes # (auto) 1.43 K/uL (1.2-3.4); Lymphocytes % (auto) 20.6 %; Mean Corpuscular Hemoglobin 25.2 pg (25-34); Mean Corpuscular Hgb Conc 31.9 g/dL (32-36); Mean Corpuscular Volume 79.1 fL (80-100); Mean Platelet Volume 9.4 fL (7.4-10.4); Neutrophils # (auto) 4.55 K/uL (1.4-6.5); Neutrophils % (auto) 65.7 %; Platelet Count 339 K/uL (130-400); RDW Coefficient of Variation 18.7 % (11.5-14.5); RDW Standard Deviation 54.2 fL (36.4-46.3); Red Blood Count 4.01 M/uL (4.2-5.4); White Blood Count 6.93 K/uL (4.8-10.8)
[2020-05-12 13:50] LABS: Albumin Level 2.7 gm/dl (3.4-5.0); BUN Creatinine Ratio 17.1 (10-20); Calcium 8.8 mg/dl (8.5-10.1); Creatinine Clr Calc Pharmacy 41.5 ml/min; Est GFR (African American) 52.2; Est GFR (Non-African American) 45.1; Potassium 3.8 mmol/L (3.5-5.1)
[2020-05-12 13:54] LABS: INR 1.1 (0.9-1.1); Partial Thromboplastin Ratio 1.2; Partial Thromboplastin Time 30.6 Seconds (21.0-31.0); Prothrombin Time 11.1 Seconds (9.0-12.0)
[2020-05-12 13:55] LABS: Albumin Globulin Ratio 0.5 (0.9-2); Bilirubin,Total 0.6 mg/dl (0.2-1); Globulin 5.7 gm/dl (2.5-4.0); Total Protein 8.4 gm/dl (6.4-8.2); Troponin I 0.043 ng/ml (0-0.045)
--- NOTE | 2020-05-12 14:21 | XRay Report ---
XR chest 1V portable HISTORY: SEPSIS COMPARISON: Chest 12/18/2019. FINDINGS: No pneumothorax. The cardiac silhouette remains enlarged. There is diffuse interstitial thi ckening which has progressed. There are also hazy bilateral airspace opacities. Suspect a trace left pleural effusion. IMPRESSION: Interval progression of the diffuse interstitial thickening and hazy bilateral airspace opacities. Th is could represent a viral pneumonia or pulmonary edema. ACT 112: Negative or not required by law. Electronically signed by: Dar Park M.D. 05/12/2020 2:19 PM
[2020-05-12 14:25] LABS: Influenza A virus by PCR Negative (Neg); Influenza B virus by PCR Negative (Neg); RSV by PCR Negative (Neg)
[2020-05-12 14:34] LABS: Base Excess VBG 6.7 mEq/L; HCO3 VBG 32 mmol/L; PCO2 VBG 48 mmHg (38-50); PO2 VBG 22 mmHg; pH VBG 7.44 (7.36-7.41)
[2020-05-12 14:42] LABS: SARS CoV2 RNA(COVID-19) InHosp POSITIVE (Negative)
[2020-05-12] MEDS ORDERED: dexAMETHasone**PF** 10 MG/ML VIAL IV ONE (14:46)
[2020-05-12 14:47] LABS: Oxygen Saturation VBG < 60.0 %
--- NOTE | 2020-05-12 15:56 | History & Physical Report ---
Date of Service May 12, 2020 Assessment & Plan (1) Pneumonia due to 2019 novel coronavirus: Patient started on remdesivir (for up to 5 days), and Decadron 6 mg (for up to 10 days) -Concern for superimposed bacterial infection, started on ceftriaxone and doxycycline -Obtain sputum culture -Obtain procalcitonin -Supplemental oxygen -Continue Eliquis for anticoagulation -Guaifenesin, DuoNeb's, incentive spirometry, flutter valve (2) Fluid overload: -Patient presents with rhonchi and crackles diffusely on physical exam -Concern for fluid overload, will give 40 IV Lasix -After that continue with her home regimen of torsemide and spironolactone -Closely monitor fluid status (3) Interstitial lung disease: -Reportedly is supposed to be on 2 L of supplemental oxygen during the day, and night however patient only uses it at night -Continue supplemental oxygen as needed -At home on prednisone 5 mg daily, now on Decadron for COVID-19 infection (4) Atrial fibrillation: -Continue home medications, including home Eliquis and metoprolol succinate (5) Anemia: - chronic, baseline Hgb: 9-10 - Hgb on admission 10.1 - Continue iron supplements - monitor H&H (6) Ulcerative colitis: -cont. home Mesalamine (7) CKD (chronic kidney disease), stage III: - baseline Cr: 1-1.2 -Creatinine on admission 1.12 -Continue to monitor, and try to avoid nephrotoxic agents (8) Diabetes mellitus, type II: -Will obtain A1c -hold home Metformin -Sliding scale insulin while inpatient (9) Hypothyroid: -Continue Synthroid -Check TSH (10) Chronic steroid use: - at home on prednisone 5 mg daily (for RA?), hold for now as patient is now on Decadron for COVID-19 infection DVT ppx : on Eliquis Code: Conditional, patient does not wish for intubation/mechanical ventilation History of Present Illness Chief Complaint: Shortness of breath Primary Care Provider: Rayne Driscoll, DO Patient is 84-year-old female with PMH atrial fibrillation on Eliquis, diastolic CHF, tricuspid regurgitation, ulcerative colitis, hypothyroidism, interstitial lung disease on 2 L oxygen at bedtime, DM II, CKD III (baseline Cr: 1-1.2), chronic anemia (baseline Hgb: 9-10), GERD, cecal mass s/p resection presented to ER for shortness of breath. History obtained from patient, patient's niece and outpatient records. Today patient was at PCP for increased shortness of breath and had noted oxygen sats of 84% on room air and was noted to be tachypneic and was transferred to ER via EMS. Patient's niece reports patient with chronic cough of clear sputum. She reports patient has been stating has had green productive cough however she has been looking at sputum production and it has been clear. Past 2 days she has noticed patient been more lethargic than baseline. She reports patient wears 2 L oxygen at bedtime and was previously encouraged to wear during daytime however patient refused. Patient's niece has not noticed other symptoms. Patient reports dry throat and shortness of breath. She also reports cough. Denies known fever or chills, nausea, vomiting, diarrhea, chest pain, lower extremity pain or edema. Patient has caregiver several hours of the day who tested positive for Covid. Patient's niece reports that caregiver has not been in house for approximately 12 days. No other known Covid exposures. Patient lives with niece however yesterday was transferred to [facility]. Patient received first COVID-19 vaccine on 04/21/2020. Pt on prednisone 5mg daily. Pt was initially on higher dose prednisone for suspected RA, however now following with rheumatology and has been tapered to 5mg daily and was to follow up for further discussion of possible discontinuation, however missed follow up appointment. Denies N/V/D/C, SANTO, dizziness, syncope, CP, palpitations, choking, otalgia, rhinorrhea, abdominal pain, extremity weakness, extremity edema or erythema, urinary symptoms. HPI, home med rec (confirmed with pt's niece) and chart review completed by Cirilo Herman PA-C. PE and Assessment and Plan per Dr Blum. Allergies Allergy/AdvReac Type Severity Reaction Status Date / Time No Known Allergies Allergy Unverified 05/12/20 15:06 Home Medications Medication Instructions Recorded Confirmed Type albuterol sulfate 2 puff INHALATION Q4 PRN 10/17/19 05/12/20 History citalopram 20 mg PO DAILY 10/17/19 05/12/20 History fluticasone propionate 1 spray INTRANASAL DAILY 10/17/19 05/12/20 History levothyroxine 25 mcg PO DAILY 10/17/19 05/12/20 History magnesium oxide 400 mg PO DAILY 10/17/19 05/12/20 History mesalamine 800 mg PO TID 10/17/19 05/12/20 History metoprolol succinate 12.5 mg PO DAILY 10/17/19 05/12/20 History nystatin [Nystop] 1 applic TOPICAL TID 10/17/19 05/12/20 History omeprazole 20 mg PO DAILY 10/17/19 05/12/20 History potassium chloride [Klor-Con M20] 20 meq PO BID 10/17/19 05/12/20 History rosuvastatin [Crestor] 5 mg PO DAILY 10/17/19 05/12/20 History tolterodine [Detrol LA] 4 mg PO PM 10/17/19 05/12/20 History Pro-Stat Sugar Free 1 ea PO DAILY 12/10/19 05/12/20 History acetaminophen 325 mg PO QID PRN 12/10/19 05/12/20 History spironolactone 25 mg PO DAILY #30 tab 12/19/19 05/12/20 Rx metformin 500 mg PO DAILY 12/22/19 05/12/20 History apixaban [Eliquis] 5 mg PO BID 05/12/20 05/12/20 History betamethasone dipropionate 1 applic TOPICAL BID 05/12/20 05/12/20 History cetirizine [Zyrtec] 10 mg PO DAILY 05/12/20 05/12/20 History cholecalciferol (vitamin D3) 25 mcg PO DAILY 05/12/20 05/12/20 History [Vitamin D3] coenzyme Q10 [CoQ-10] 100 mg PO DAILY 05/12/20 05/12/20 History cranberry 12,600 mg PO BID 05/12/20 05/12/20 History ferrous sulfate 325 mg PO DAILY 05/12/20 05/12/20 History prednisone 5 mg PO DAILY 05/12/20 05/12/20 History torsemide 20 mg PO BID 05/12/20 05/12/20 History turmeric root extract 500 mg PO DAILY 05/12/20 05/12/20 History Past Med/Surg History Medical History Anemia Atrial fibrillation CHF (congestive heart failure) CKD (chronic kidney disease), stage III Depression Diabetes mellitus, type II GERD (gastroesophageal reflux disease) Hyperlipidemia Hypothyroid Interstitial lung disease Mass of cecum Tricuspid regurgitation Ulcerative colitis Surgical History H/O colectomy 03/14/2020: [place]ar[place] Samia [place] [facility] [place] of [place] surgery History of colonoscopy Family History Other Cancer Diabetes Heart disease Social History Smoking Status: Never smoker Second Hand Exposure: No; Hx Alcohol Use: No Hx Substance Use: No Preferred Language: Turkish Communication Ability: Effective Caramel Candy Maker Required: No Beliefs That Will Affect Care: None Current Living Situation: Family Current Living Situation Comment: lives with her garret cortesice Feels Safe at Home: Yes Safety Concerns: Feels Safe At This Time Assistive Devices: Glasses and Oxygen - Continuous Review of Systems Review of Systems: All systems reviewed & are unremarkable except as noted in HPI & below Physical Exam Constitutional: WD/WN, vitals as above Eyes: PERRL, conjunctivae normal, anicteric sclerae ENMT: external ear and nose normal, oropharynx normal Neck: trachea midline, no thyromegaly Respiratory: no labored breathing Auscultation: + crackles and + rhonchi; no wheezes Cardiovascular: Rate/Rhythm: + irregularly irregular Chest (Breasts): Chest: normal inspection of chest Gastrointestinal (Abdomen): normal bowel sounds, soft, nontender, no hepatosplenomegaly Percussion/Palpation: abdomen soft; abdomen nontender, no guarding and abdomen not rigid Musculoskeletal: no cyanosis or clubbing, extremities motor strength 5/5 Head/Neck/Chest: normocephalic and head atraumatic Skin: no rashes, warm and dry Neurologic: PERRL, EOMI, accommodation nl, no face palsy, no dysarthria Psychiatric: A+Ox3, euthymic affect Genitourinary: no CVA tenderness Lymphatic: no lymphedema Results & Data Results & Data ([facility]) Vital Signs (Past 12 Hours) Vital Signs Temp Pulse Resp BP Pulse Ox 05/12/20 15:10 90 25 H 05/12/20 15:00 83 21 127/65 95 05/12/20 14:50 72 22 96 05/12/20 14:40 72 24 97 05/12/20 14:31 69 132/56 L 96 05/12/20 14:30 78 97 05/12/20 14:20 77 20 97 05/12/20 14:10 71 99 05/12/20 14:01 75 97 05/12/20 14:00 73 22 103/78 97 05/12/20 13:50 84 98 05/12/20 13:40 80 97 05/12/20 13:31 76 24 124/99 98 05/12/20 13:30 87 21 94 05/12/20 13:20 79 23 98 05/12/20 13:18 37.1 C 79 24 131/74 97 05/12/20 13:17 76 21 98 05/12/20 13:12 81 131/74 92 Laboratory Results Short CBC 05/12/20 Range/Units 12:45 WBC 6.93 (4.8-10.8) K/uL Hgb 10.1 L (12.0-16.0) g/dL Hct 31.7 L (37-47) % Plt Count 339 (130-400) K/uL BMP 05/12/20 12:45 Sodium 130 L Potassium 3.8 Chloride 93 L Carbon Dioxide 30 BUN 19 H Creatinine 1.12 Glucose 102 H Calcium 8.8 Cardiac Enzymes 05/12/20 Range/Units 12:45 Troponin I 0.043 (0-0.045) ng/ml Liver Function 05/12/20 Range/Units 12:45 Total Bilirubin 0.6 (0.2-1) mg/dl AST 25 (15-37) U/L ALT 21 (12-78) U/L Alkaline Phosphatase 136 H (45-117) U/L Albumin 2.7 L (3.4-5.0) gm/dl Diagnostic Findings CXR: IMPRESSION: Interval progression of the diffuse interstitial thickening and hazy bilateral airspace opacities. This could represent a viral pneumonia or pulmonary edema. Code Status & VTE Plan VTE Prophylaxis Plan VTE Prophylaxis will be ordered: Yes (1) Anemia Anemia type: unspecified type Qualified Code(s): D64.9 - Anemia, unspecified
[2020-05-12] MEDS ORDERED: POTASSIUM CHLORIDE CRTAB 20 MEQ TABCR PO STA (16:15)
[2020-05-12] MEDS ORDERED: FUROSEMIDE 40 MG/4 ML VIAL IV STA (16:15)
[2020-05-12] MEDS ORDERED: DEXTROSE 50% 50 ML SYRINGE IV PRN (17:48)
[2020-05-12] MEDS ORDERED: metHOTREXate sodium 2.5 MG TAB PO SCH (17:48)
[2020-05-12] MEDS ORDERED: GLUCAGON FOR INJ 1 MG VIAL SQ PRN (17:48)
[2020-05-12] MEDS ORDERED: CARBOHYDRATES FOR HYPOGLYCEMIA PO PRN (17:48)
[2020-05-12] MEDS ORDERED: ALBUTEROL HFA 8 GM INHALER INH PRN ×2 (17:48)
[2020-05-12] MEDS ORDERED: ACETAMINOPHEN 325 MG TAB PO PRN ×2 (17:48)
[2020-05-12] MEDS ORDERED: GLUCOSE 10 TABS/TUBE PO PRN (17:48)
[2020-05-12] MEDS ORDERED: GLUCOSE 40% GEL 15 GM TUBE PO PRN (17:48)
[2020-05-12] MEDS ORDERED: REMDESIVIR 200 MG in SODIUM CHLORIDE 0.9% 210 ML IV ONE (18:30)
[2020-05-12] MEDS: INSULIN ASPART 100 UNITS/ML 3 ML PEN SC SCH ×2 (19:28→22:36)
[2020-05-12 19:39] LABS: Appearance Urine Clear (Clear); Bacteria Urine Automated Negative (Negative); Bilirubin Urine Negative (Negative); Blood Urine Trace (Negative); Cast Urine Automated 0 /lpf (0-5); Color Urine Yellow; Epithelial Cell Urine Auto 0-5 /lpf (0-5); Glucose Urine UA Negative (Negative); Ketones Urine Negative (Negative); Leukocyte Esterase Urine Negative (Negative); Nitrite Urine Negative (Negative); Protein Urine Negative (Negative); RBC Urine Automated 0-4 /hpf (0-4); Specific Gravity Urine 1.007 (1.000-1.030); Urobilinogen Urine Negative (Negative); WBC Urine Automated 0 /hpf (0-5); pH Urine 7.5 (4.5-7.5)
[2020-05-12] MEDS: ALBUT/IPRATROP 3MG/0.5MG NEB 3 ML VIAL NEB SCH (20:25)
[2020-05-12] MEDS ORDERED: BETAMETHASONE DIPROPIONATE 0.05% TOP SCH (21:00)
[2020-05-12] MEDS ORDERED: CRANBERRY 1000 MG PO SCH (21:00)
[2020-05-12] MEDS: DOXYCYCLINE HYCLATE 100 MG in DEXTROSE 5% 100 ML IV SCH (21:42)
[2020-05-12] MEDS: cefTRIAXone SODIUM 2,000 MG in DEXTROSE 5% 50 ML IV SCH (21:42)
[2020-05-12] MEDS: SODIUM CHLORIDE 0.9% 10ML FLUSH IV SCH (21:45)
[2020-05-12] MEDS: TORSEMIDE 20 MG TAB PO SCH (21:55)
[2020-05-12] MEDS: APIXABAN 5 MG TABLET PO SCH (21:55)
[2020-05-12] MEDS: TOLTERODINE TARTRATE LA 4 MG CAPCR PO SCH (21:55)
[2020-05-12] MEDS: MESALAMINE 800 MG TABCR PO SCH (21:56)
[2020-05-12] MEDS: POTASSIUM CHLORIDE CRTAB 20 MEQ TABCR PO SCH (21:56)
[2020-05-12] MEDS: NYSTATIN POWDER 15GM BTL EXT SCH (21:57)
[2020-05-12] MEDS: guaiFENesin 600 MG TABCR PO SCH (21:57)
[2020-05-13] MEDS ORDERED: SODIUM CHLORIDE 0.9% 1000ML 500 ML IV ONE (04:04)
[2020-05-13] MEDS: LEVOTHYROXINE SODIUM 25 MCG TABLET PO SCH (05:54)
[2020-05-13] MEDS: DOXYCYCLINE HYCLATE 100 MG in DEXTROSE 5% 100 ML IV SCH ×2 (06:17→17:36)
[2020-05-13 06:54] LABS: Hematocrit (blood only) 29.9 % (37-47); Hemoglobin 9.3 g/dL (12.0-16.0); Mean Corpuscular Hemoglobin 24.7 pg (25-34); Mean Corpuscular Hgb Conc 31.1 g/dL (32-36); Mean Corpuscular Volume 79.5 fL (80-100); Mean Platelet Volume 8.5 fL (7.4-10.4); Platelet Count 283 K/uL (130-400); RDW Coefficient of Variation 18.4 % (11.5-14.5); RDW Standard Deviation 53.3 fL (36.4-46.3); Red Blood Count 3.76 M/uL (4.2-5.4)
[2020-05-13] MEDS: ALBUT/IPRATROP 3MG/0.5MG NEB 3 ML VIAL NEB SCH ×4 (07:28→20:09)
[2020-05-13 07:31] LABS: Albumin Level 2.5 gm/dl (3.4-5.0); Calcium 8.2 mg/dl (8.5-10.1); Creatinine Clr Calc Pharmacy 49.4 ml/min; Est GFR (African American) 64.6; Est GFR (Non-African American) 55.7; Potassium 4.1 mmol/L (3.5-5.1)
[2020-05-13 07:42] LABS: Albumin Globulin Ratio 0.5 (0.9-2); Bilirubin,Total 0.4 mg/dl (0.2-1); Globulin 5.4 gm/dl (2.5-4.0); Thyroid Stimulating Hormone 0.254 uIu/ml (0.300-4.500); Total Protein 7.9 gm/dl (6.4-8.2)
[2020-05-13] MEDS: FLUTICASONE PROPIONATE NA SPR 16 GM BTL NAE SCH (08:34)
[2020-05-13] MEDS: TORSEMIDE 20 MG TAB PO SCH ×2 (08:34→16:34)
[2020-05-13] MEDS: ROSUVASTATIN CALCIUM 5 MG TAB PO SCH (08:34)
[2020-05-13] MEDS: APIXABAN 5 MG TABLET PO SCH ×2 (08:35→21:19)
[2020-05-13] MEDS: CHOLECALCIFEROL 1,000 UNITS 25 MCG TAB PO SCH (08:35)
[2020-05-13] MEDS: MAGNESIUM OXIDE 400 MG TAB PO SCH (08:35)
[2020-05-13] MEDS: SPIRONOLACTONE 25 MG TAB PO SCH (08:35)
[2020-05-13] MEDS: CITALOPRAM 20 MG TAB PO SCH (08:35)
[2020-05-13] MEDS: FERROUS SULFATE 325 MG TAB PO SCH (08:35)
[2020-05-13] MEDS: METOPROLOL SUCC 25MG EXT REL TAB PO SCH (08:36)
[2020-05-13] MEDS: CETIRIZINE HCL 10 MG TABLET PO SCH (08:36)
[2020-05-13] MEDS: PANTOprazole 40 MG TAB PO SCH (08:36)
[2020-05-13] MEDS: MESALAMINE 800 MG TABCR PO SCH ×3 (08:36→21:18)
[2020-05-13] MEDS: POTASSIUM CHLORIDE CRTAB 20 MEQ TABCR PO SCH ×2 (08:36→21:19)
[2020-05-13] MEDS: guaiFENesin 600 MG TABCR PO SCH ×2 (08:36→21:18)
[2020-05-13] MEDS: NYSTATIN POWDER 15GM BTL EXT SCH ×3 (08:37→21:19)
[2020-05-13] MEDS: dexAMETHasone 6 MG in SYRINGE 0 ML IV SCH (08:37)
[2020-05-13] MEDS: INSULIN ASPART 100 UNITS/ML 3 ML PEN SC SCH ×4 (08:51→21:24)
[2020-05-13] MEDS ORDERED: NON-FORMULARY MEDICATION (Coenzyme Q10 [Coq-10] 100 mg Capsule) PO SCH (09:00)
--- NOTE | 2020-05-13 10:08 | Electrocardiogram Report ---
Test Reason : Blood Pressure : / mmHG Vent. Rate : 083 BPM Atrial Rate : 069 BPM P-R Int : 000 ms QRS Dur : 104 ms QT Int : 402 ms P-R-T Axes : 000 016 000 degrees QTc Int : 472 ms Atrial fibrillation Non-specific intra-ventricular conduction delay Nonspecific ST and T wave abnormality Abnormal ECG When compared with ECG of 10-DEC-2019 11:12, No significant change was found Confirmed by John Salmeron ([id number]) on 05/13/2020 10:08:33 AM Referred By: Confirmed By:John Salmeron
[2020-05-13] MEDS: ALBUMIN 25% 12.5 GM/50 ML VIAL IV SCH ×5 (11:57→14:45)
--- NOTE | 2020-05-13 12:17 | XRay Report ---
XR chest 1V portable CLINICAL HISTORY: Follow-up of pneumonia COMPARISON STUDY: 05/12/2020 FINDINGS: The heart is enlarged. There are bilateral interstitial pulmonary opacities likely represen ting a multifocal pneumonia, given the history. There are no large pleural effusions. There is no pne umothorax. IMPRESSION: Persistent bilateral interstitial opacities, likely representing a multifocal pneumonia a lthough pulmonary edema could potentially appear similar ACT 112: Negative or not required by law. Electronically signed by: Christophe Rodas M.D. 05/13/2020 12:16 PM
[2020-05-13] MEDS ORDERED: bisacodyL 10 MG SUPP PR STA (12:27)
[2020-05-13] MEDS ORDERED: bisacodyL 10 MG SUPP PR ONE (12:32)
--- NOTE | 2020-05-13 17:10 | Hospitalist Progress Note ---
Date of Service May 13, 2020 Assessment & Plan (1) Pneumonia due to 2019 novel coronavirus: CXR on admission - Interval progression of the diffuse interstitial thickening and hazy bilateral airspace opacities. This could represent a viral pneumonia or pulmonary edema. CRP 13.7, ESR >90 Lactate 1.5 WBC 6.9K on admission, now down to 2.7K - initial procal negative Received dexamethasone 10 mg IV in the ED Patient started on remdesivir (for up to 5 days), and Decadron 6 mg (for up to 10 days) -Concern for superimposed bacterial infection, started on ceftriaxone and doxycycline -Obtain sputum culture -Blood culture pending - repeat procalcitonin -Supplemental oxygen -Continue Eliquis for anticoagulation -Guaifenesin, DuoNeb's, incentive spirometry, flutter valve (2) Fluid overload: -Patient presented with rhonchi and crackles diffusely on physical exam -Concern for fluid overload, gave 40 IV Lasix on admission - now continue home regimen of torsemide and spironolactone -Closely monitor fluid status (3) Interstitial lung disease: -Reportedly is supposed to be on 2 L of supplemental oxygen during the day, and night however patient only uses it at night -Continue supplemental oxygen as needed -At home on prednisone 5 mg daily, now on Decadron for COVID-19 infection (4) Atrial fibrillation: -Continue home medications, including home Eliquis and metoprolol succinate (5) Anemia: - chronic, baseline Hgb: 9-10 - Hgb on admission 10.1 - Continue iron supplements - monitor H&H (6) Ulcerative colitis: -cont. home Mesalamine (7) CKD (chronic kidney disease), stage III: - baseline Cr: 1-1.2 -Creatinine on admission 1.12 -Continue to monitor, and try to avoid nephrotoxic agents (8) Diabetes mellitus, type II: -Will obtain A1c -hold home Metformin -Sliding scale insulin while inpatient (9) Hypothyroid: -Continue Synthroid -Check TSH (10) Chronic steroid use: - at home on prednisone 5 mg daily (for RA?), hold for now as patient is now on Decadron for COVID-19 infection DVT ppx : on Eliquis Code: Conditional, patient does not wish for intubation/mechanical ventilation Admission and Anticipated Discharge Date Admission Date: May 12, 2020 Subjective Patient seen in follow-up of COVID-19 pneumonia Currently she is sitting up in bed, in no acute distress, reports feeling better Says that her cough is better now and she is breathing better No chest pain Feels that she is constipated, however reports having bowel movement yesterday Continues to use supplemental oxygen Review of Systems Review of Systems: All systems reviewed & are unremarkable except as noted in HPI & below Constitutional: no fever and no chills Respiratory: no cough and no dyspnea Cardiovascular: no chest pain and no palpitations Gastrointestinal: no abdominal pain, no nausea and no vomiting Physical Exam Constitutional: WD/WN, vitals as above Eyes: PERRL, conjunctivae normal, anicteric sclerae ENMT: external ear and nose normal, oropharynx normal Neck: trachea midline, no thyromegaly Respiratory: no labored breathing Auscultation: + rhonchi; no crackles and no wheezes Cardiovascular: RRR, no murmur, no edema Rate/Rhythm: + irregularly irregular Chest (Breasts): Chest: normal inspection of chest Gastrointestinal (Abdomen): normal bowel sounds, soft, nontender, no hepatosplenomegaly Percussion/Palpation: abdomen soft; abdomen nontender, no guarding and abdomen not rigid Musculoskeletal: no cyanosis or clubbing, extremities motor strength 5/5 Head/Neck/Chest: normocephalic and head atraumatic Skin: no rashes, warm and dry Neurologic: PERRL, EOMI, accommodation nl, no face palsy, no dysarthria Psychiatric: A+Ox3, euthymic affect Genitourinary: no CVA tenderness Lymphatic: no lymphedema Results & Data Results & [facility] ([facility]) Vital Signs (Past 12 Hours) Vital Signs Temp Pulse Pulse Resp BP BP Pulse Ox 05/13/20 16:48 36.5 C 90 20 96/54 L 94 05/13/20 15:55 81 20 96 05/13/20 15:18 36.7 C 75 20 86/57 L 98/62 L 97 05/13/20 14:50 36.7 C 76 20 99/69 L 103/68 96 05/13/20 14:11 36.6 C 101 H 20 91/89 L 100/60 95 05/13/20 12:45 36.6 C 89 20 89/62 L 90/64 L 94 05/13/20 11:58 36.5 C 75 20 81/51 L 100/58 L 94 05/13/20 10:57 74 16 98 05/13/20 07:41 36.7 C 85 20 94/60 L 105/62 98 05/13/20 07:33 82 20 98 05/13/20 07:08 71 05/13/20 06:00 123/60 Laboratory Results 05/13/20 05/13/20 05/13/20 Range/Units 16:55 11:23 07:38 WBC (4.8-10.8) K/uL RBC (4.2-5.4) M/uL Hgb (12.0-16.0) g/dL Hct (37-47) % MCV (80-100) fL MCH (25-34) pg MCHC (32-36) g/dL RDW Std Deviation (36.4-46.3) fL RDW Coeff of Jesse (11.5-14.5) % Plt Count (130-400) K/uL MPV (7.4-10.4) fL Sodium (136-145) mmol/L Potassium (3.5-5.1) mmol/L Chloride (98-107) mmol/L Carbon Dioxide (21-32) mmol/L Anion Gap (3-11) BUN (7-18) mg/dl Creatinine (0.6-1.2) mg/dl Est Cr Clr Drug Dosing ml/min Est GFR ( Amer) Est GFR (Non-Af Amer) BUN/Creatinine Ratio (10-20) Glucose (70-99) mg/dl POC Glucose 181 H 253 H 160 H (70-99) mg/dl Estimat Average Glucose Hemoglobin A1c Calcium (8.5-10.1) mg/dl Total Bilirubin (0.2-1) mg/dl AST (15-37) U/L ALT (12-78) U/L Alkaline Phosphatase (45-117) U/L Total Protein (6.4-8.2) gm/dl Albumin (3.4-5.0) gm/dl Globulin (2.5-4.0) gm/dl Albumin/Globulin Ratio (0.9-2) TSH (0.300-4.500) uIu/ml Urine Color Urine Appearance (Clear) Urine pH (4.5-7.5) Ur Specific Hudson (1.000-1.030) Urine Protein (Negative) Urine Glucose (UA) (Negative) Urine Ketones (Negative) Urine Blood (Negative) Urine Nitrite (Negative) Urine Bilirubin (Negative) Urine Urobilinogen (Negative) Ur Leukocyte Esterase (Negative) Urine WBC (Auto) (0-5) /hpf Urine RBC (Auto) (0-4) /hpf U Hyaline Cast (Auto) (0-5) /lpf U Epithel Cells (Auto) (0-5) /lpf Urine Bacteria (Auto) (Negative) 05/13/20 05/13/20 05/13/20 Range/Units 06:39 06:39 06:39 WBC 2.70 L (4.8-10.8) K/uL RBC 3.76 L (4.2-5.4) M/uL Hgb 9.3 L (12.0-16.0) g/dL Hct 29.9 L (37-47) % MCV 79.5 L (80-100) fL MCH 24.7 L (25-34) pg MCHC 31.1 L (32-36) g/dL RDW Std Deviation 53.3 H (36.4-46.3) fL RDW Coeff of Jesse 18.4 H (11.5-14.5) % Plt Count 283 (130-400) K/uL MPV 8.5 (7.4-10.4) fL Sodium 135 L (136-145) mmol/L Potassium 4.1 (3.5-5.1) mmol/L Chloride 100 (98-107) mmol/L Carbon Dioxide 30 (21-32) mmol/L Anion Gap 5.0 (3-11) BUN 24 H (7-18) mg/dl Creatinine 0.94 (0.6-1.2) mg/dl Est Cr Clr Drug Dosing 49.4 ml/min Est GFR ( Amer) 64.6 Est GFR (Non-Af Amer) 55.7 BUN/Creatinine Ratio 25.0 H (10-20) Glucose 146 H (70-99) mg/dl POC Glucose (70-99) mg/dl Estimat Average Glucose Pending Hemoglobin A1c Pending Calcium 8.2 L (8.5-10.1) mg/dl Total Bilirubin 0.4 (0.2-1) mg/dl AST 21 (15-37) U/L ALT 19 (12-78) U/L Alkaline Phosphatase 123 H (45-117) U/L Total Protein 7.9 (6.4-8.2) gm/dl Albumin 2.5 L (3.4-5.0) gm/dl Globulin 5.4 H (2.5-4.0) gm/dl Albumin/Globulin Ratio 0.5 L (0.9-2) TSH 0.254 L (0.300-4.500) uIu/ml Urine Color Urine Appearance (Clear) Urine pH (4.5-7.5) Ur Specific Hudson (1.000-1.030) Urine Protein (Negative) Urine Glucose (UA) (Negative) Urine Ketones (Negative) Urine Blood (Negative) Urine Nitrite (Negative) Urine Bilirubin (Negative) Urine Urobilinogen (Negative) Ur Leukocyte Esterase (Negative) Urine WBC (Auto) (0-5) /hpf Urine RBC (Auto) (0-4) /hpf U Hyaline Cast (Auto) (0-5) /lpf U Epithel Cells (Auto) (0-5) /lpf Urine Bacteria (Auto) (Negative) 05/12/20 05/12/20 Range/Units Unknown 18:24 WBC (4.8-10.8) K/uL RBC (4.2-5.4) M/uL Hgb (12.0-16.0) g/dL Hct (37-47) % MCV (80-100) fL MCH (25-34) pg MCHC (32-36) g/dL RDW Std Deviation (36.4-46.3) fL RDW Coeff of Jesse (11.5-14.5) % Plt Count (130-400) K/uL MPV (7.4-10.4) fL Sodium (136-145) mmol/L Potassium (3.5-5.1) mmol/L Chloride (98-107) mmol/L Carbon Dioxide (21-32) mmol/L Anion Gap (3-11) BUN (7-18) mg/dl Creatinine (0.6-1.2) mg/dl Est Cr Clr Drug Dosing ml/min Est GFR ( Amer) Est GFR (Non-Af Amer) BUN/Creatinine Ratio (10-20) Glucose (70-99) mg/dl POC Glucose 156 H (70-99) mg/dl Estimat Average Glucose Hemoglobin A1c Calcium (8.5-10.1) mg/dl Total Bilirubin (0.2-1) mg/dl AST (15-37) U/L ALT (12-78) U/L Alkaline Phosphatase (45-117) U/L Total Protein (6.4-8.2) gm/dl Albumin (3.4-5.0) gm/dl Globulin (2.5-4.0) gm/dl Albumin/Globulin Ratio (0.9-2) TSH (0.300-4.500) uIu/ml Urine Color Yellow Urine Appearance Clear (Clear) Urine pH 7.5 (4.5-7.5) Ur Specific Hudson 1.007 (1.000-1.030) Urine Protein Negative (Negative) Urine Glucose (UA) Negative (Negative) Urine Ketones Negative (Negative) Urine Blood Trace H (Negative) Urine Nitrite Negative (Negative) Urine Bilirubin Negative (Negative) Urine Urobilinogen Negative (Negative) Ur Leukocyte Esterase Negative (Negative) Urine WBC (Auto) 0 (0-5) /hpf Urine RBC (Auto) 0-4 (0-4) /hpf U Hyaline Cast (Auto) 0 (0-5) /lpf U Epithel Cells (Auto) 0-5 (0-5) /lpf Urine Bacteria (Auto) Negative (Negative) Medications Administered Current Inpatient Medications Acetaminophen (Acetaminophen 325 Mg Tab) 650 mg PO Q4H PRN PRN Reason: Pain or Fever Stop: 06/11/20 17:47 Albuterol (Albuterol Hfa 8 Gm Inhaler) 2 puffs INH Q4 PRN PRN Reason: Cough Stop: 06/11/20 17:47 Albuterol (Albut/Ipratrop 3mg/0.5mg Neb 3 Ml Vial) 3 ml NEB QIDR CRISTINA Stop: 06/11/20 18:59 Last Admin: 05/13/20 15:55 Dose: 3 ml Documented by: Apixaban (Apixaban 5 Mg Tablet) 5 mg PO BID [facility] Stop: 06/11/20 20:59 Last Admin: 05/13/20 08:35 Dose: 5 mg Documented by: Cetirizine HCl (Cetirizine Hcl 10 Mg Tablet) 10 mg PO DAILY [facility] Stop: 06/12/20 08:59 Last Admin: 05/13/20 08:36 Dose: 10 mg Documented by: Citalopram Hydrobromide (Citalopram 20 Mg Tab) 20 mg PO DAILY C[facility]STINA Stop: 06/12/20 08:59 Last Admin: 05/13/20 08:35 Dose: 20 mg Documented by: Dextrose (Dextrose 50% 50 Ml Syringe) 25 - 50 ml IV UD PRN; Protocol PRN Reason: Hypoglycemia Protocol Stop: 06/11/20 17:47 Ferrous Sulfate (Ferrous Sulfate 325 Mg Tab) 325 mg PO DAILY CRISTINA Stop: 06/12/20 08:59 Last Admin: 05/13/20 08:35 Dose: 325 mg Documented by: Fluticasone Propionate (Fluticasone Propionate Na Spr 16 Gm Btl) 1 sprays RAKESH DAILY C[facility]STINA Stop: 06/12/20 08:59 Last Admin: 05/13/20 08:34 Dose: 1 sprays Documented by: Glucagon (Glucagon For Inj 1 Mg Vial) 1 mg SQ UD PRN; Protocol PRN Reason: Hypoglycemia Protocol Stop: 06/11/20 17:47 Glucose (Glucose 10 Tabs/Tube) 4 - 8 tabs PO UD PRN; Protocol PRN Reason: Hypoglycemia Protocol Stop: 06/11/20 17:47 Glucose (Glucose 40% Gel 15 Gm Tube) 15 - 30 gm PO UD PRN; Protocol PRN Reason: Hypoglycemia Protocol Stop: 06/11/20 17:47 Guaifenesin (Guaifenesin 600 Mg Tabcr) 600 mg PO Q12 C[facility]STINA Stop: 06/11/20 20:59 Last Admin: 05/13/20 08:36 Dose: 600 mg Documented by: Remdesivir 100 mg/ Sodium (Chloride) 250 mls @ 250 mls/hr IV Q24H CRISTINA; Protocol Stop: 05/16/20 20:59 Dexamethasone 6 mg/ Syringe 1.5 mls @ 1 mls/min IV DAILY [facility] Stop: 05/23/20 08:59 Last Admin: 05/13/20 08:37 Dose: 1 mls/min Documented by: Ceftriaxone Sodium 2,000 mg/ (Dextrose) 70 mls @ 140 mls/hr IV DAILY@1800 CRISTINA; Protocol Stop: 05/19/20 17:59 Last Infusion: 05/12/20 22:33 Dose: Infused Documented by: Doxycycline Hyclate 100 mg/ (Dextrose) 110 mls @ 50 mls/hr IV Q12H [facility]STINA Stop: 05/19/20 18:29 Last Infusion: 05/13/20 08:29 Dose: Infused Documented by: Insulin Aspart (Insulin Aspart 100 Units/Ml 3 Ml Pen) 0 units SC ACHS CRISTINA Stop: 06/11/20 17:47 Last Admin: 05/13/20 17:00 Dose: Not Given Documented by: Levothyroxine Sodium (Levothyroxine Sodium 25 Mcg Tablet) 25 mcg PO DAILYBB CRISTINA Stop: 06/12/20 06:29 Last Admin: 05/13/20 05:54 Dose: 25 mcg Documented by: Magnesium Oxide (Magnesium Oxide 400 Mg Tab) 400 mg PO DAILY [facility] Stop: 06/12/20 08:59 Last Admin: 05/13/20 08:35 Dose: 400 mg Documented by: Mesalamine (Mesalamine 800 Mg Tabcr) 800 mg PO TID [facility]STINA Stop: 06/11/20 20:59 Last Admin: 05/13/20 14:05 Dose: 800 mg Documented by: Metoprolol Succinate (Metoprolol Succ 25mg Ext Rel Tab) 12.5 mg PO DAILY [facility] Stop: 06/12/20 08:59 Last Admin: 05/13/20 08:36 Dose: 12.5 mg Documented by: Miscellaneous (Carbohydrates For Hypoglycemia ) 15 - 30 gm PO UD PRN PRN Reason: Hypoglycemia Protocol Stop: 06/11/20 17:47 Nystatin (Nystatin Powder 15gm Btl) 1 appln EXT TID [facility]STINA Stop: 06/11/20 20:59 Last Admin: 05/13/20 14:05 Dose: 1 appln Documented by: Pantoprazole Sodium (Pantoprazole 40 Mg Tab) 40 mg PO DAILY [facility] Stop: 06/12/20 08:59 Last Admin: 05/13/20 08:36 Dose: 40 mg Documented by: Potassium Chloride (Potassium Chloride Crtab 20 Meq Tabcr) 20 meq PO BID [facility] Stop: 06/11/20 20:59 Last Admin: 05/13/20 08:36 Dose: 20 meq Documented by: Rosuvastatin Calcium (Rosuvastatin Calcium 5 Mg Tab) 5 mg PO DAILY [facility] Stop: 06/12/20 08:59 Last Admin: 05/13/20 08:34 Dose: 5 mg Documented by: Sodium Chloride (Sodium Chloride 0.9% 10ml Flush) 30 ml IV Q24H CRISTINA Stop: 05/16/20 20:31 Last Admin: 05/12/20 21:45 Dose: 30 ml Documented by: Spironolactone (Spironolactone 25 Mg Tab) 25 mg PO DAILY [facility] Stop: 06/12/20 08:59 Last Admin: 05/13/20 08:35 Dose: 25 mg Documented by: Tolterodine Tartrate (Tolterodine Tartrate La 4 Mg Capcr) 4 mg PO PM [facility]STINA Stop: 06/11/20 20:59 Last Admin: 05/12/20 21:55 Dose: 4 mg Documented by: Torsemide (Torsemide 20 Mg Tab) 20 mg PO [id number] C[facility]STINA Stop: 06/11/20 18:29 Last Admin: 05/13/20 16:34 Dose: 20 mg Documented by: Vitamin D (Cholecalciferol 1,000 Units 25 Mcg Tab) 1,000 units PO DAILY C[facility]STINA Stop: 06/12/20 08:59 Last Admin: 05/13/20 08:35 Dose: 1,000 units Documented by: (1) Anemia Anemia type: unspecified type Qualified Code(s): D64.9 - Anemia, unspecified
[2020-05-13] MEDS: cefTRIAXone SODIUM 2,000 MG in DEXTROSE 5% 50 ML IV SCH (17:35)
[2020-05-13] MEDS ORDERED: diphenhydrAMINE Capsule 25 MG CAP PO ONE (17:54)
[2020-05-13] MEDS: REMDESIVIR 100 MG in SODIUM CHLORIDE 0.9% 230 ML IV SCH (19:55)
[2020-05-13] MEDS: SODIUM CHLORIDE 0.9% 10ML FLUSH IV SCH (21:12)
[2020-05-13] MEDS: TOLTERODINE TARTRATE LA 4 MG CAPCR PO SCH (21:19)
[2020-05-13] MEDS ORDERED: SODIUM CHLORIDE 0.9% 500 ML IV SCH (21:30)
[2020-05-14] MEDS: DOXYCYCLINE HYCLATE 100 MG in DEXTROSE 5% 100 ML IV SCH (06:14)
[2020-05-14] MEDS: LEVOTHYROXINE SODIUM 25 MCG TABLET PO SCH (06:21)
[2020-05-14 07:14] LABS: Estimated Average Glucose 157 mg/dl; Hemoglobin A1C 7.1 % (4.5-5.6)
[2020-05-14 07:34] LABS: Hematocrit (blood only) 32.3 % (37-47); Hemoglobin 10.1 g/dL (12.0-16.0); Mean Corpuscular Hgb Conc 31.3 g/dL (32-36); Mean Platelet Volume 8.7 fL (7.4-10.4); Platelet Count 323 K/uL (130-400); RDW Coefficient of Variation 18.5 % (11.5-14.5); Red Blood Count 4.04 M/uL (4.2-5.4); White Blood Count 10.05 K/uL (4.8-10.8)
[2020-05-14] MEDS: ALBUT/IPRATROP 3MG/0.5MG NEB 3 ML VIAL NEB SCH ×3 (07:45→15:09)
[2020-05-14 08:04] LABS: Albumin Level 2.9 gm/dl (3.4-5.0); BUN Creatinine Ratio 23.2 (10-20); Creatinine Clr Calc Pharmacy 40.3 ml/min; Est GFR (African American) 50.6; Est GFR (Non-African American) 43.7; Magnesium 1.9 mg/dl (1.8-2.4); Potassium 3.7 mmol/L (3.5-5.1)
[2020-05-14 08:07] LABS: Albumin Globulin Ratio 0.5 (0.9-2); Bilirubin,Total 0.4 mg/dl (0.2-1); Globulin 5.3 gm/dl (2.5-4.0); Phosphorus 3.6 mg/dl (2.5-4.9); Total Protein 8.2 gm/dl (6.4-8.2)
[2020-05-14] MEDS: ALBUMIN 25% 12.5 GM/50 ML VIAL IV SCH ×2 (08:36→09:05)
[2020-05-14] MEDS: dexAMETHasone 6 MG in SYRINGE 0 ML IV SCH (08:41)
[2020-05-14] MEDS: CETIRIZINE HCL 10 MG TABLET PO SCH (08:41)
[2020-05-14] MEDS: MESALAMINE 800 MG TABCR PO SCH ×3 (08:41→21:06)
[2020-05-14] MEDS: MAGNESIUM OXIDE 400 MG TAB PO SCH (08:42)
[2020-05-14] MEDS: PANTOprazole 40 MG TAB PO SCH (08:42)
[2020-05-14] MEDS: ROSUVASTATIN CALCIUM 5 MG TAB PO SCH (08:42)
[2020-05-14] MEDS: SPIRONOLACTONE 25 MG TAB PO SCH (08:42)
[2020-05-14] MEDS: CITALOPRAM 20 MG TAB PO SCH (08:43)
[2020-05-14] MEDS: guaiFENesin 600 MG TABCR PO SCH ×2 (08:43→21:06)
[2020-05-14] MEDS: APIXABAN 5 MG TABLET PO SCH ×2 (08:43→21:06)
[2020-05-14] MEDS: FERROUS SULFATE 325 MG TAB PO SCH (08:44)
[2020-05-14] MEDS: METOPROLOL SUCC 25MG EXT REL TAB PO SCH (08:44)
[2020-05-14] MEDS: CHOLECALCIFEROL 1,000 UNITS 25 MCG TAB PO SCH (08:44)
[2020-05-14] MEDS: FLUTICASONE PROPIONATE NA SPR 16 GM BTL NAE SCH (08:45)
[2020-05-14] MEDS: INSULIN ASPART 100 UNITS/ML 3 ML PEN SC SCH ×4 (08:45→22:26)
[2020-05-14] MEDS: NYSTATIN POWDER 15GM BTL EXT SCH ×3 (08:46→21:10)
[2020-05-14] MEDS: POTASSIUM CHLORIDE CRTAB 20 MEQ TABCR PO SCH ×2 (09:29→21:06)
[2020-05-14] MEDS: TORSEMIDE 20 MG TAB PO SCH (09:29)
--- NOTE | 2020-05-14 10:42 | Hospitalist Progress Note ---
Date of Service May 14, 2020 Assessment & Plan (1) Pneumonia due to 2019 novel coronavirus: CXR on admission - Interval progression of the diffuse interstitial thickening and hazy bilateral airspace opacities. This could represent a viral pneumonia or pulmonary edema. CRP 13.7, ESR >90 Lactate 1.5 WBC 6.9K on admission - initial procal negative Received dexamethasone 10 mg IV in the ED Patient started on remdesivir (for up to 5 days), and Decadron 6 mg (for up to 10 days) -Concern for superimposed bacterial infection, started on ceftriaxone and doxycycline -Obtain sputum culture -Blood culture pending - repeat procalcitonin -Supplemental oxygen -Continue Eliquis for anticoagulation -Guaifenesin, DuoNeb's, incentive spirometry, flutter valve (2) Fluid overload: -Patient presented with rhonchi and crackles diffusely on physical exam -Concern for fluid overload, gave 40 IV Lasix on admission - now continue home regimen of torsemide and spironolactone -Closely monitor fluid status Chronic diastolic CHF -Continue home medications including her torsemide and spironolactone -Received IV Lasix on admission due to concern for possible fluid overload/ mild acute on chronic CHF -Now euvolemic - cont. to closely monitor (3) Interstitial lung disease: -Reportedly is supposed to be on 2 L of supplemental oxygen during the day, and night however patient only uses it at night -Continue supplemental oxygen as needed -At home on prednisone 5 mg daily, now on Decadron for COVID-19 infection (4) Atrial fibrillation: -Continue home medications, including home Eliquis and metoprolol succinate (5) Anemia: - chronic, baseline Hgb: 9-10 - Hgb on admission 10.1 - Continue iron supplements - monitor H&H (6) Ulcerative colitis: -cont. home Mesalamine (7) CKD (chronic kidney disease), stage III: - baseline Cr: 1-1.2 -Creatinine on admission 1.12 -Continue to monitor, and try to avoid nephrotoxic agents (8) Diabetes mellitus, type II: -Will obtain A1c -hold home Metformin -Sliding scale insulin while inpatient (9) Hypothyroid: -Continue Synthroid -Check TSH (10) Chronic steroid use: - at home on prednisone 5 mg daily (for RA?), hold for now as patient is now on Decadron for COVID-19 infection DVT ppx : on Eliquis Code: Conditional, patient does not wish for intubation/mechanical ventilation Admission and Anticipated Discharge Date Admission Date: May 12, 2020 Subjective Patient seen in follow-up of COVID-19 pneumonia Currently she is sitting up in bed, in no acute distress, reports feeling better Says that her cough is better now and she is breathing better No chest pain Continues to use supplemental oxygen Review of Systems Review of Systems: All systems reviewed & are unremarkable except as noted in HPI & below Constitutional: no fever and no chills Respiratory: + cough (improved) and + dyspnea (improved) Cardiovascular: no chest pain and no palpitations Gastrointestinal: no abdominal pain, no nausea and no vomiting Physical Exam Constitutional: WD/WN, vitals as above Eyes: PERRL, conjunctivae normal, anicteric sclerae ENMT: external ear and nose normal, oropharynx normal Neck: trachea midline, no thyromegaly Respiratory: no labored breathing Auscultation: + rhonchi; no crackles and no wheezes Cardiovascular: RRR, no murmur, no edema Rate/Rhythm: + irregularly irregular Chest (Breasts): Chest: normal inspection of chest Gastrointestinal (Abdomen): normal bowel sounds, soft, nontender, no hepatosplenomegaly Percussion/Palpation: abdomen soft; abdomen nontender, no guarding and abdomen not rigid Musculoskeletal: no cyanosis or clubbing, extremities motor strength 5/5 Head/Neck/Chest: normocephalic and head atraumatic Skin: no rashes, warm and dry Neurologic: PERRL, EOMI, accommodation nl, no face palsy, no dysarthria Psychiatric: A+Ox3, euthymic affect Genitourinary: no CVA tenderness Lymphatic: no lymphedema Results & Data Results & Data ([facility]) Vital Signs (Past 12 Hours) Vital Signs Temp Pulse Pulse Resp BP Pulse Ox 05/14/20 07:59 36.8 C 76 20 97/72 L 96 05/14/20 07:45 79 20 96 05/14/20 02:49 36.9 C 73 18 93/50 L 96 05/14/20 00:10 73 Laboratory Results 05/14/20 05/14/20 05/14/20 Range/Units 07:45 07:15 07:15 WBC 10.05 (4.8-10.8) K/uL RBC 4.04 L (4.2-5.4) M/uL Hgb 10.1 L (12.0-16.0) g/dL Hct 32.3 L (37-47) % MCV 80.0 (80-100) fL MCH 25.0 (25-34) pg MCHC 31.3 L (32-36) g/dL RDW Std Deviation 54.0 H (36.4-46.3) fL RDW Coeff of Jesse 18.5 H (11.5-14.5) % Plt Count 323 (130-400) K/uL MPV 8.7 (7.4-10.4) fL Sodium 135 L (136-145) mmol/L Potassium 3.7 (3.5-5.1) mmol/L Chloride 99 (98-107) mmol/L Carbon Dioxide 31 (21-32) mmol/L Anion Gap 5.0 (3-11) BUN 27 H (7-18) mg/dl Creatinine 1.15 (0.6-1.2) mg/dl Est Cr Clr Drug Dosing 40.3 ml/min Est GFR ( Amer) 50.6 Est GFR (Non-Af Amer) 43.7 BUN/Creatinine Ratio 23.2 H (10-20) Glucose 148 H (70-99) mg/dl POC Glucose 172 H (70-99) mg/dl Estimat Average Glucose mg/dl Hemoglobin A1c (4.5-5.6) % Calcium 9.0 (8.5-10.1) mg/dl Phosphorus 3.6 (2.5-4.9) mg/dl Magnesium 1.9 (1.8-2.4) mg/dl Total Bilirubin 0.4 (0.2-1) mg/dl AST 20 (15-37) U/L ALT 21 (12-78) U/L Alkaline Phosphatase 120 H (45-117) U/L Total Protein 8.2 (6.4-8.2) gm/dl Albumin 2.9 L (3.4-5.0) gm/dl Globulin 5.3 H (2.5-4.0) gm/dl Albumin/Globulin Ratio 0.5 L (0.9-2) 05/13/20 05/13/20 05/13/20 Range/Units 20:27 16:55 11:23 WBC (4.8-10.8) K/uL RBC (4.2-5.4) M/uL Hgb (12.0-16.0) g/dL Hct (37-47) % MCV (80-100) fL MCH (25-34) pg MCHC (32-36) g/dL RDW Std Deviation (36.4-46.3) fL RDW Coeff of Jesse (11.5-14.5) % Plt Count (130-400) K/uL MPV (7.4-10.4) fL Sodium (136-145) mmol/L Potassium (3.5-5.1) mmol/L Chloride (98-107) mmol/L Carbon Dioxide (21-32) mmol/L Anion Gap (3-11) BUN (7-18) mg/dl Creatinine (0.6-1.2) mg/dl Est Cr Clr Drug Dosing ml/min Est GFR ( Amer) Est GFR (Non-Af Amer) BUN/Creatinine Ratio (10-20) Glucose (70-99) mg/dl POC Glucose 210 H 181 H 253 H (70-99) mg/dl Estimat Average Glucose mg/dl Hemoglobin A1c (4.5-5.6) % Calcium (8.5-10.1) mg/dl Phosphorus (2.5-4.9) mg/dl Magnesium (1.8-2.4) mg/dl Total Bilirubin (0.2-1) mg/dl AST (15-37) U/L ALT (12-78) U/L Alkaline Phosphatase (45-117) U/L Total Protein (6.4-8.2) gm/dl Albumin (3.4-5.0) gm/dl Globulin (2.5-4.0) gm/dl Albumin/Globulin Ratio (0.9-2) 05/13/20 Range/Units 06:39 WBC (4.8-10.8) K/uL RBC (4.2-5.4) M/uL Hgb (12.0-16.0) g/dL Hct (37-47) % MCV (80-100) fL MCH (25-34) pg MCHC (32-36) g/dL RDW Std Deviation (36.4-46.3) fL RDW Coeff of Jesse (11.5-14.5) % Plt Count (130-400) K/uL MPV (7.4-10.4) fL Sodium (136-145) mmol/L Potassium (3.5-5.1) mmol/L Chloride (98-107) mmol/L Carbon Dioxide (21-32) mmol/L Anion Gap (3-11) BUN (7-18) mg/dl Creatinine (0.6-1.2) mg/dl Est Cr Clr Drug Dosing ml/min Est GFR ( Amer) Est GFR (Non-Af Amer) BUN/Creatinine Ratio (10-20) Glucose (70-99) mg/dl POC Glucose (70-99) mg/dl Estimat Average Glucose 157 mg/dl Hemoglobin A1c 7.1 H (4.5-5.6) % Calcium (8.5-10.1) mg/dl Phosphorus (2.5-4.9) mg/dl Magnesium (1.8-2.4) mg/dl Total Bilirubin (0.2-1) mg/dl AST (15-37) U/L ALT (12-78) U/L Alkaline Phosphatase (45-117) U/L Total Protein (6.4-8.2) gm/dl Albumin (3.4-5.0) gm/dl Globulin (2.5-4.0) gm/dl Albumin/Globulin Ratio (0.9-2) Medications Administered Current Inpatient Medications Acetaminophen (Acetaminophen 325 Mg Tab) 650 mg PO Q4H PRN PRN Reason: Pain or Fever Stop: 06/11/20 17:47 Albuterol (Albuterol Hfa 8 Gm Inhaler) 2 puffs INH Q4 PRN PRN Reason: Cough Stop: 06/11/20 17:47 Albuterol (Albut/Ipratrop 3mg/0.5mg Neb 3 Ml Vial) 3 ml NEB QIDR [facility] Stop: 06/11/20 18:59 Last Admin: 05/14/20 07:45 Dose: 3 ml Documented by: Apixaban (Apixaban 5 Mg Tablet) 5 mg PO BID [facility] Stop: 06/11/20 20:59 Last Admin: 05/14/20 08:43 Dose: 5 mg Documented by: Cetirizine HCl (Cetirizine Hcl 10 Mg Tablet) 10 mg PO DAILY [facility] Stop: 06/12/20 08:59 Last Admin: 05/14/20 08:41 Dose: 10 mg Documented by: Citalopram Hydrobromide (Citalopram 20 Mg Tab) 20 mg PO DAILY [facility] Stop: 06/12/20 08:59 Last Admin: 05/14/20 08:43 Dose: 20 mg Documented by: Dextrose (Dextrose 50% 50 Ml Syringe) 25 - 50 ml IV UD PRN; Protocol PRN Reason: Hypoglycemia Protocol Stop: 06/11/20 17:47 Doxycycline Hyclate (Doxycycline Hyclate 100 Mg Cap) 100 mg PO BID [facility] Stop: 05/19/20 20:59 Ferrous Sulfate (Ferrous Sulfate 325 Mg Tab) 325 mg PO DAILY [facility] Stop: 06/12/20 08:59 Last Admin: 05/14/20 08:44 Dose: 325 mg Documented by: Fluticasone Propionate (Fluticasone Propionate Na Spr 16 Gm Btl) 1 sprays RAKESH DAILY [facility] Stop: 06/12/20 08:59 Last Admin: 05/14/20 08:45 Dose: 1 sprays Documented by: Glucagon (Glucagon For Inj 1 Mg Vial) 1 mg SQ UD PRN; Protocol PRN Reason: Hypoglycemia Protocol Stop: 06/11/20 17:47 Glucose (Glucose 10 Tabs/Tube) 4 - 8 tabs PO UD PRN; Protocol PRN Reason: Hypoglycemia Protocol Stop: 06/11/20 17:47 Glucose (Glucose 40% Gel 15 Gm Tube) 15 - 30 gm PO UD PRN; Protocol PRN Reason: Hypoglycemia Protocol Stop: 06/11/20 17:47 Guaifenesin (Guaifenesin 600 Mg Tabcr) 600 mg PO Q12 [facility] Stop: 06/11/20 20:59 Last Admin: 05/14/20 08:43 Dose: 600 mg Documented by: Remdesivir 100 mg/ Sodium (Chloride) 250 mls @ 250 mls/hr IV Q24H [facility]; Protocol Stop: 05/16/20 20:59 Last Infusion: 05/13/20 21:10 Dose: Infused Documented by: Dexamethasone 6 mg/ Syringe 1.5 mls @ 1 mls/min IV DAILY [facility] Stop: 05/23/20 08:59 Last Admin: 05/14/20 08:41 Dose: 1 mls/min Documented by: Ceftriaxone Sodium 2,000 mg/ (Dextrose) 70 mls @ 140 mls/hr IV DAILY@1800 [facility]; Protocol Stop: 05/19/20 17:59 Last Infusion: 05/13/20 18:05 Dose: Infused Documented by: Insulin Aspart (Insulin Aspart 100 Units/Ml 3 Ml Pen) 0 units SC ACHS [facility] Stop: 06/11/20 17:47 Last Admin: 05/14/20 08:45 Dose: Not Given Documented by: Levothyroxine Sodium (Levothyroxine Sodium 25 Mcg Tablet) 25 mcg PO DAILYBB [facility] Stop: 06/12/20 06:29 Last Admin: 05/14/20 06:21 Dose: 25 mcg Documented by: Magnesium Oxide (Magnesium Oxide 400 Mg Tab) 400 mg PO DAILY [facility] Stop: 06/12/20 08:59 Last Admin: 05/14/20 08:42 Dose: 400 mg Documented by: Mesalamine (Mesalamine 800 Mg Tabcr) 800 mg PO TID [facility] Stop: 06/11/20 20:59 Last Admin: 05/14/20 08:41 Dose: 800 mg Documented by: Metoprolol Succinate (Metoprolol Succ 25mg Ext Rel Tab) 12.5 mg PO DAILY [facility] Stop: 06/12/20 08:59 Last Admin: 05/14/20 08:44 Dose: 12.5 mg Documented by: Miscellaneous (Carbohydrates For Hypoglycemia ) 15 - 30 gm PO UD PRN PRN Reason: Hypoglycemia Protocol Stop: 06/11/20 17:47 Nystatin (Nystatin Powder 15gm Btl) 1 appln EXT TID [facility] Stop: 06/11/20 20:59 Last Admin: 05/14/20 08:46 Dose: 1 appln Documented by: Pantoprazole Sodium (Pantoprazole 40 Mg Tab) 40 mg PO DAILY [facility] Stop: 06/12/20 08:59 Last Admin: 05/14/20 08:42 Dose: 40 mg Documented by: Potassium Chloride (Potassium Chloride Crtab 20 Meq Tabcr) 20 meq PO BID [facility] Stop: 06/11/20 20:59 Last Admin: 05/14/20 09:29 Dose: 20 meq Documented by: Rosuvastatin Calcium (Rosuvastatin Calcium 5 Mg Tab) 5 mg PO DAILY [facility] Stop: 06/12/20 08:59 Last Admin: 05/14/20 08:42 Dose: 5 mg Documented by: Sodium Chloride (Sodium Chloride 0.9% 10ml Flush) 30 ml IV Q24H [facility] Stop: 05/16/20 20:31 Last Admin: 05/13/20 21:12 Dose: 30 ml Documented by: Spironolactone (Spironolactone 25 Mg Tab) 25 mg PO DAILY [facility] Stop: 06/12/20 08:59 Last Admin: 05/14/20 08:42 Dose: 25 mg Documented by: Tolterodine Tartrate (Tolterodine Tartrate La 4 Mg Capcr) 4 mg PO PM [facility] Stop: 06/11/20 20:59 Last Admin: 05/13/20 21:19 Dose: 4 mg Documented by: Torsemide (Torsemide 20 Mg Tab) 20 mg PO BID17 [facility] Stop: 06/11/20 18:29 Last Admin: 05/14/20 09:29 Dose: 20 mg Documented by: Vitamin D (Cholecalciferol 1,000 Units 25 Mcg Tab) 1,000 units PO DAILY [facility] Stop: 06/12/20 08:59 Last Admin: 05/14/20 08:44 Dose: 1,000 units Documented by: (1) Anemia Anemia type: unspecified type Qualified Code(s): D64.9 - Anemia, unspecified
[2020-05-14] MEDS ORDERED: SODIUM CHLORIDE 0.9% 1000ML 250 ML IV ONE (15:52)
[2020-05-14] MEDS ORDERED: ALBUMIN 25% 12.5 GM/50 ML VIAL IV SCH (16:00)
[2020-05-14] MEDS: cefTRIAXone SODIUM 2,000 MG in DEXTROSE 5% 50 ML IV SCH (17:18)
[2020-05-14] MEDS ORDERED: ALBUT/IPRATROP 3MG/0.5MG NEB 3 ML VIAL NEB PRN (17:33)
[2020-05-14] MEDS: REMDESIVIR 100 MG in SODIUM CHLORIDE 0.9% 230 ML IV SCH (21:02)
[2020-05-14] MEDS: TOLTERODINE TARTRATE LA 4 MG CAPCR PO SCH (21:06)
[2020-05-14] MEDS: DOXYCYCLINE HYCLATE 100 MG CAP PO SCH (21:06)
[2020-05-14] MEDS: SODIUM CHLORIDE 0.9% 10ML FLUSH IV SCH (22:32)
[2020-05-15] MEDS ORDERED: guaiFENesin SUGAR FREE 200 MG/10 ML UDC PO PRN (02:51)
[2020-05-15] MEDS: LEVOTHYROXINE SODIUM 25 MCG TABLET PO SCH (05:07)
[2020-05-15 06:16] LABS: Hematocrit (blood only) 31.8 % (37-47); Hemoglobin 9.8 g/dL (12.0-16.0); Mean Corpuscular Hemoglobin 24.6 pg (25-34); Mean Corpuscular Hgb Conc 30.8 g/dL (32-36); Mean Corpuscular Volume 79.9 fL (80-100); Mean Platelet Volume 8.6 fL (7.4-10.4); Platelet Count 324 K/uL (130-400); RDW Coefficient of Variation 18.6 % (11.5-14.5); RDW Standard Deviation 54.3 fL (36.4-46.3); Red Blood Count 3.98 M/uL (4.2-5.4); White Blood Count 9.32 K/uL (4.8-10.8)
[2020-05-15 06:41] LABS: Albumin Level 3.1 gm/dl (3.4-5.0); BUN Creatinine Ratio 33.1 (10-20); Calcium 8.8 mg/dl (8.5-10.1); Est GFR (African American) 54.6; Est GFR (Non-African American) 47.1; Magnesium 1.9 mg/dl (1.8-2.4); Potassium 3.5 mmol/L (3.5-5.1)
[2020-05-15 06:44] LABS: Albumin Globulin Ratio 0.6 (0.9-2); Bilirubin,Total 0.4 mg/dl (0.2-1); Globulin 5.1 gm/dl (2.5-4.0); Phosphorus 3.5 mg/dl (2.5-4.9); Total Protein 8.2 gm/dl (6.4-8.2)
[2020-05-15] MEDS: DOXYCYCLINE HYCLATE 100 MG CAP PO SCH ×2 (08:09→21:08)
[2020-05-15] MEDS: dexAMETHasone 6 MG in SYRINGE 0 ML IV SCH (08:09)
[2020-05-15] MEDS: CITALOPRAM 20 MG TAB PO SCH (08:09)
[2020-05-15] MEDS: POTASSIUM CHLORIDE CRTAB 20 MEQ TABCR PO SCH ×2 (08:10→21:08)
[2020-05-15] MEDS: BENZONATATE 100 MG CAPSULE PO SCH ×3 (08:10→21:07)
[2020-05-15] MEDS: guaiFENesin 600 MG TABCR PO SCH ×2 (08:10→21:07)
[2020-05-15] MEDS: APIXABAN 5 MG TABLET PO SCH ×2 (08:10→21:08)
[2020-05-15] MEDS: ROSUVASTATIN CALCIUM 5 MG TAB PO SCH (08:11)
[2020-05-15] MEDS: MAGNESIUM OXIDE 400 MG TAB PO SCH (08:11)
[2020-05-15] MEDS: MESALAMINE 800 MG TABCR PO SCH ×3 (08:11→21:07)
[2020-05-15] MEDS: CHOLECALCIFEROL 1,000 UNITS 25 MCG TAB PO SCH (08:11)
[2020-05-15] MEDS: SPIRONOLACTONE 25 MG TAB PO SCH (08:12)
[2020-05-15] MEDS: PANTOprazole 40 MG TAB PO SCH (08:12)
[2020-05-15] MEDS: CETIRIZINE HCL 10 MG TABLET PO SCH (08:12)
[2020-05-15] MEDS: FERROUS SULFATE 325 MG TAB PO SCH (08:13)
[2020-05-15] MEDS: METOPROLOL SUCC 25MG EXT REL TAB PO SCH (08:13)
[2020-05-15] MEDS: INSULIN ASPART 100 UNITS/ML 3 ML PEN SC SCH ×4 (08:14→21:45)
[2020-05-15] MEDS: NYSTATIN POWDER 15GM BTL EXT SCH ×3 (08:14→21:10)
[2020-05-15] MEDS: FLUTICASONE PROPIONATE NA SPR 16 GM BTL NAE SCH (08:14)
--- NOTE | 2020-05-15 08:53 | Hospitalist Progress Note ---
Date of Service May 15, 2020 Assessment & Plan (1) Pneumonia due to 2019 novel coronavirus: CXR on admission - Interval progression of the diffuse interstitial thickening and hazy bilateral airspace opacities. This could represent a viral pneumonia or pulmonary edema. CRP 13.7, ESR >90 Lactate 1.5 WBC 6.9K on admission - initial procal negative Received dexamethasone 10 mg IV in the ED Patient started on remdesivir (for up to 5 days), and Decadron 6 mg (for up to 10 days) -Concern for superimposed bacterial infection, started on ceftriaxone and doxycycline -Sputum culture -pending -Blood culture - pending - repeat procalcitonin -Supplemental oxygen -Continue Eliquis for anticoagulation -Guaifenesin, DuoNeb's, incentive spirometry, flutter valve (2) Fluid overload: -Patient presented with rhonchi and crackles diffusely on physical exam -Concern for fluid overload, gave 40 IV Lasix on admission - now continue home regimen of torsemide and spironolactone -Closely monitor fluid status Chronic diastolic CHF -Continue home medications including her torsemide and spironolactone -Received IV Lasix on admission due to concern for possible fluid overload/ mild acute on chronic CHF -Now euvolemic - cont. to closely monitor (3) Interstitial lung disease: -Reportedly is supposed to be on 2 L of supplemental oxygen during the day, and night however patient only uses it at night -Continue supplemental oxygen as needed -At home on prednisone 5 mg daily, now on Decadron for COVID-19 infection (4) Atrial fibrillation: -Continue home medications, including home Eliquis and metoprolol succinate (5) Anemia: - chronic, baseline Hgb: 9-10 - Hgb on admission 10.1 - Continue iron supplements - monitor H&H (6) Ulcerative colitis: -cont. home Mesalamine (7) CKD (chronic kidney disease), stage III: - baseline Cr: 1-1.2 -Creatinine on admission 1.12 -Continue to monitor, and try to avoid nephrotoxic agents (8) Diabetes mellitus, type II: -Will obtain A1c -hold home Metformin -Sliding scale insulin while inpatient (9) Hypothyroid: -Continue Synthroid -Check TSH (10) Chronic steroid use: - at home on prednisone 5 mg daily (for RA?), hold for now as patient is now on Decadron for COVID-19 infection DVT ppx : on Eliquis Code: Conditional, patient does not wish for intubation/mechanical ventilation Pt's niece Jagruti updated over the phone. Admission and Anticipated Discharge Date Admission Date: May 12, 2020 Subjective Patient seen in follow-up of COVID-19 pneumonia Currently she is sitting up in chair, in no acute distress, reports feeling better Says that her cough is better now and she is breathing better No chest pain Currently on RA Review of Systems Review of Systems: All systems reviewed & are unremarkable except as noted in HPI & below Constitutional: no fever and no chills Respiratory: + cough (improved) and + dyspnea (improved) Cardiovascular: no chest pain and no palpitations Gastrointestinal: no abdominal pain, no nausea and no vomiting Physical Exam Constitutional: WD/WN, vitals as above Eyes: PERRL, conjunctivae normal, anicteric sclerae ENMT: external ear and nose normal, oropharynx normal Neck: trachea midline, no thyromegaly Respiratory: no labored breathing Auscultation: + rhonchi; no crackles and no wheezes Cardiovascular: RRR, no murmur, no edema Rate/Rhythm: + irregularly irregular Chest (Breasts): Chest: normal inspection of chest Gastrointestinal (Abdomen): normal bowel sounds, soft, nontender, no hepatosplenomegaly Percussion/Palpation: abdomen soft; abdomen nontender, no guarding and abdomen not rigid Musculoskeletal: no cyanosis or clubbing, extremities motor strength 5/5 Head/Neck/Chest: normocephalic and head atraumatic Skin: no rashes, warm and dry Neurologic: PERRL, EOMI, accommodation nl, no face palsy, no dysarthria Psychiatric: A+Ox3, euthymic affect Genitourinary: no CVA tenderness Lymphatic: no lymphedema Results & Data Results & Data ([facility]) Vital Signs (Past 12 Hours) Vital Signs Temp Pulse Pulse Resp BP Pulse Ox 05/15/20 07:13 36.7 C 71 20 124/74 95 05/15/20 05:07 36.8 C 73 20 112/75 95 05/15/20 01:17 76 05/14/20 23:51 37.0 C 86 21 102/72 95 05/14/20 21:01 37.0 C 79 20 105/75 91 Laboratory Results 05/15/20 05/15/20 05/15/20 Range/Units 07:54 05:42 05:42 WBC 9.32 (4.8-10.8) K/uL RBC 3.98 L (4.2-5.4) M/uL Hgb 9.8 L (12.0-16.0) g/dL Hct 31.8 L (37-47) % MCV 79.9 L (80-100) fL MCH 24.6 L (25-34) pg MCHC 30.8 L (32-36) g/dL RDW Std Deviation 54.3 H (36.4-46.3) fL RDW Coeff of Jesse 18.6 H (11.5-14.5) % Plt Count 324 (130-400) K/uL MPV 8.6 (7.4-10.4) fL Sodium 138 (136-145) mmol/L Potassium 3.5 (3.5-5.1) mmol/L Chloride 101 (98-107) mmol/L Carbon Dioxide 29 (21-32) mmol/L Anion Gap 8.0 (3-11) BUN 36 H (7-18) mg/dl Creatinine 1.08 (0.6-1.2) mg/dl Est Cr Clr Drug Dosing 43.0 ml/min Est GFR ( Amer) 54.6 Est GFR (Non-Af Amer) 47.1 BUN/Creatinine Ratio 33.1 H (10-20) Glucose 132 H (70-99) mg/dl POC Glucose 127 H (70-99) mg/dl Calcium 8.8 (8.5-10.1) mg/dl Phosphorus 3.5 (2.5-4.9) mg/dl Magnesium 1.9 (1.8-2.4) mg/dl Total Bilirubin 0.4 (0.2-1) mg/dl AST 22 (15-37) U/L ALT 26 (12-78) U/L Alkaline Phosphatase 116 (45-117) U/L Total Protein 8.2 (6.4-8.2) gm/dl Albumin 3.1 L (3.4-5.0) gm/dl Globulin 5.1 H (2.5-4.0) gm/dl Albumin/Globulin Ratio 0.6 L (0.9-2) 03/22/21 03/22/21 03/22/21 Range/Units 20:56 16:21 11:53 WBC (4.8-10.8) K/uL RBC (4.2-5.4) M/uL Hgb (12.0-16.0) g/dL Hct (37-47) % MCV (80-100) fL MCH (25-34) pg MCHC (32-36) g/dL RDW Std Deviation (36.4-46.3) fL RDW Coeff of Jesse (11.5-14.5) % Plt Count (130-400) K/uL MPV (7.4-10.4) fL Sodium (136-145) mmol/L Potassium (3.5-5.1) mmol/L Chloride (98-107) mmol/L Carbon Dioxide (21-32) mmol/L Anion Gap (3-11) BUN (7-18) mg/dl Creatinine (0.6-1.2) mg/dl Est Cr Clr Drug Dosing ml/min Est GFR ( Amer) Est GFR (Non-Af Amer) BUN/Creatinine Ratio (10-20) Glucose (70-99) mg/dl POC Glucose 180 H 214 H 237 H (70-99) mg/dl Calcium (8.5-10.1) mg/dl Phosphorus (2.5-4.9) mg/dl Magnesium (1.8-2.4) mg/dl Total Bilirubin (0.2-1) mg/dl AST (15-37) U/L ALT (12-78) U/L Alkaline Phosphatase (45-117) U/L Total Protein (6.4-8.2) gm/dl Albumin (3.4-5.0) gm/dl Globulin (2.5-4.0) gm/dl Albumin/Globulin Ratio (0.9-2) Medications Administered Current Inpatient Medications Acetaminophen (Acetaminophen 325 Mg Tab) 650 mg PO Q4H PRN PRN Reason: Pain or Fever Stop: 06/11/20 17:47 Albuterol (Albuterol Hfa 8 Gm Inhaler) 2 puffs INH Q4 PRN PRN Reason: Cough Stop: 06/11/20 17:47 Albuterol (Albut/Ipratrop 3mg/0.5mg Neb 3 Ml Vial) 3 ml NEB Q4H PRN PRN Reason: Shortness Of Breath Or Wheezin Stop: 06/13/20 17:32 Apixaban (Apixaban 5 Mg Tablet) 5 mg PO BID [facility] Stop: 06/11/20 20:59 Last Admin: 05/15/20 08:10 Dose: 5 mg Documented by: Benzonatate (Benzonatate 100 Mg Capsule) 100 mg PO TID [facility] Stop: 06/14/20 08:59 Last Admin: 05/15/20 08:10 Dose: 100 mg Documented by: Cetirizine HCl (Cetirizine Hcl 10 Mg Tablet) 10 mg PO DAILY [facility] Stop: 06/12/20 08:59 Last Admin: 05/15/20 08:12 Dose: 10 mg Documented by: Citalopram Hydrobromide (Citalopram 20 Mg Tab) 20 mg PO DAILY [facility] Stop: 06/12/20 08:59 Last Admin: 05/15/20 08:09 Dose: 20 mg Documented by: Dextrose (Dextrose 50% 50 Ml Syringe) 25 - 50 ml IV UD PRN; Protocol PRN Reason: Hypoglycemia Protocol Stop: 06/11/20 17:47 Doxycycline Hyclate (Doxycycline Hyclate 100 Mg Cap) 100 mg PO BID [facility] Stop: 05/19/20 20:59 Last Admin: 05/15/20 08:09 Dose: 100 mg Documented by: Ferrous Sulfate (Ferrous Sulfate 325 Mg Tab) 325 mg PO DAILY [facility] Stop: 06/12/20 08:59 Last Admin: 05/15/20 08:13 Dose: 325 mg Documented by: Fluticasone Propionate (Fluticasone Propionate Na Spr 16 Gm Btl) 1 sprays RAKESH DAILY [facility] Stop: 06/12/20 08:59 Last Admin: 05/15/20 08:14 Dose: 1 sprays Documented by: Glucagon (Glucagon For Inj 1 Mg Vial) 1 mg SQ UD PRN; Protocol PRN Reason: Hypoglycemia Protocol Stop: 06/11/20 17:47 Glucose (Glucose 10 Tabs/Tube) 4 - 8 tabs PO UD PRN; Protocol PRN Reason: Hypoglycemia Protocol Stop: 06/11/20 17:47 Glucose (Glucose 40% Gel 15 Gm Tube) 15 - 30 gm PO UD PRN; Protocol PRN Reason: Hypoglycemia Protocol Stop: 06/11/20 17:47 Guaifenesin (Guaifenesin 600 Mg Tabcr) 600 mg PO Q12 [facility] Stop: 06/11/20 20:59 Last Admin: 05/15/20 08:10 Dose: 600 mg Documented by: Guaifenesin (Guaifenesin Sugar Free 200 Mg/10 Ml Udc) 200 mg PO Q6H PRN PRN Reason: Cough Stop: 06/14/20 02:50 Remdesivir 100 mg/ Sodium (Chloride) 250 mls @ 250 mls/hr IV Q24H [facility]; Protocol Stop: 05/16/20 20:59 Last Infusion: 05/14/20 22:35 Dose: Infused Documented by: Dexamethasone 6 mg/ Syringe 1.5 mls @ 1 mls/min IV DAILY [facility] Stop: 05/23/20 08:59 Last Admin: 05/15/20 08:09 Dose: 1 mls/min Documented by: Ceftriaxone Sodium 2,000 mg/ (Dextrose) 70 mls @ 140 mls/hr IV DAILY@1800 [facility]; Protocol Stop: 05/19/20 17:59 Last Infusion: 05/14/20 18:00 Dose: Infused Documented by: Insulin Aspart (Insulin Aspart 100 Units/Ml 3 Ml Pen) 0 units SC ACHS [facility] Stop: 06/11/20 17:47 Last Admin: 05/15/20 08:14 Dose: Not Given Documented by: Levothyroxine Sodium (Levothyroxine Sodium 25 Mcg Tablet) 25 mcg PO DAILYBB [facility] Stop: 06/12/20 06:29 Last Admin: 05/15/20 05:07 Dose: 25 mcg Documented by: Magnesium Oxide (Magnesium Oxide 400 Mg Tab) 400 mg PO DAILY [facility] Stop: 06/12/20 08:59 Last Admin: 05/15/20 08:11 Dose: 400 mg Documented by: Mesalamine (Mesalamine 800 Mg Tabcr) 800 mg PO TID [facility] Stop: 06/11/20 20:59 Last Admin: 05/15/20 08:11 Dose: 800 mg Documented by: Metoprolol Succinate (Metoprolol Succ 25mg Ext Rel Tab) 12.5 mg PO DAILY [facility] Stop: 06/12/20 08:59 Last Admin: 05/15/20 08:13 Dose: 12.5 mg Documented by: Miscellaneous (Carbohydrates For Hypoglycemia ) 15 - 30 gm PO UD PRN PRN Reason: Hypoglycemia Protocol Stop: 06/11/20 17:47 Nystatin (Nystatin Powder 15gm Btl) 1 appln EXT TID [facility] Stop: 06/11/20 20:59 Last Admin: 05/15/20 08:14 Dose: 1 appln Documented by: Pantoprazole Sodium (Pantoprazole 40 Mg Tab) 40 mg PO DAILY [facility] Stop: 06/12/20 08:59 Last Admin: 05/15/20 08:12 Dose: 40 mg Documented by: Potassium Chloride (Potassium Chloride Crtab 20 Meq Tabcr) 20 meq PO BID [facility] Stop: 06/11/20 20:59 Last Admin: 05/15/20 08:10 Dose: 20 meq Documented by: Potassium Chloride (Potassium Chloride Crtab 20 Meq Tabcr) 40 meq PO NOW STA Stop: 05/15/20 08:50 Rosuvastatin Calcium (Rosuvastatin Calcium 5 Mg Tab) 5 mg PO DAILY [facility] Stop: 06/12/20 08:59 Last Admin: 05/15/20 08:11 Dose: 5 mg Documented by: Sodium Chloride (Sodium Chloride 0.9% 10ml Flush) 30 ml IV Q24H [facility] Stop: 05/16/20 20:31 Last Admin: 05/14/20 22:32 Dose: 30 ml Documented by: Spironolactone (Spironolactone 25 Mg Tab) 25 mg PO DAILY [facility] Stop: 06/12/20 08:59 Last Admin: 05/15/20 08:12 Dose: 25 mg Documented by: Tolterodine Tartrate (Tolterodine Tartrate La 4 Mg Capcr) 4 mg PO PM [facility] Stop: 06/11/20 20:59 Last Admin: 05/14/20 21:06 Dose: 4 mg Documented by: Torsemide (Torsemide 20 Mg Tab) 20 mg PO BID17 [facility] Stop: 06/11/20 18:29 Last Admin: 05/14/20 09:29 Dose: 20 mg Documented by: Vitamin D (Cholecalciferol 1,000 Units 25 Mcg Tab) 1,000 units PO DAILY [facility] Stop: 06/12/20 08:59 Last Admin: 05/15/20 08:11 Dose: 1,000 units Documented by: (1) Anemia Anemia type: unspecified type Qualified Code(s): D64.9 - Anemia, unspecified
[2020-05-15] MEDS ORDERED: POTASSIUM CHLORIDE CRTAB 20 MEQ TABCR PO ONE (09:30)
[2020-05-15] MEDS: TORSEMIDE 20 MG TAB PO SCH (09:37)
--- NOTE | 2020-05-15 14:43 | XRay Report ---
XR chest 1V portable CLINICAL HISTORY: follow up COMPARISON STUDY: Chest radiograph May 13, 2020. FINDINGS: Lung volumes are at the lower limits of normal. There is no pneumothorax or pleural effusio n. Cardiomegaly is unchanged. Interstitial thickening and bilateral opacities have slightly improved since May 13, 2020. IMPRESSION: Slight improvement in interstitial thickening and bilateral opacities which favor an inf ectious process or less likely pulmonary edema superimposed upon interstitial lung disease. ACT 112: Negative or not required by law. Electronically signed by: Fredy Vera M.D. 05/15/2020 2:41 PM
[2020-05-15] MEDS: cefTRIAXone SODIUM 2,000 MG in DEXTROSE 5% 50 ML IV SCH (17:41)
[2020-05-15] MEDS: REMDESIVIR 100 MG in SODIUM CHLORIDE 0.9% 230 ML IV SCH (21:07)
[2020-05-15] MEDS: TOLTERODINE TARTRATE LA 4 MG CAPCR PO SCH (21:07)
[2020-05-15] MEDS: SODIUM CHLORIDE 0.9% 10ML FLUSH IV SCH (22:24)
[2020-05-16 06:41] LABS: Hematocrit (blood only) 33.7 % (37-47); Hemoglobin 10.9 g/dL (12.0-16.0); Mean Corpuscular Hemoglobin 25.4 pg (25-34); Mean Corpuscular Hgb Conc 32.3 g/dL (32-36); Mean Corpuscular Volume 78.6 fL (80-100); Mean Platelet Volume 8.9 fL (7.4-10.4); Platelet Count 375 K/uL (130-400); RDW Coefficient of Variation 18.5 % (11.5-14.5); RDW Standard Deviation 53.5 fL (36.4-46.3); Red Blood Count 4.29 M/uL (4.2-5.4); White Blood Count 9.84 K/uL (4.8-10.8)
[2020-05-16] MEDS: LEVOTHYROXINE SODIUM 25 MCG TABLET PO SCH (06:42)
[2020-05-16 07:09] LABS: Albumin Level 3.2 gm/dl (3.4-5.0); BUN Creatinine Ratio 46.8 (10-20); C Reactive Protein 2.81 mg/dl (0-0.29); Calcium 9.4 mg/dl (8.5-10.1); Creatinine Clr Calc Pharmacy 42.1 ml/min; Est GFR (African American) 53.4; Est GFR (Non-African American) 46.1; Potassium 3.6 mmol/L (3.5-5.1)
[2020-05-16 07:12] LABS: Albumin Globulin Ratio 0.6 (0.9-2); Bilirubin,Total 0.3 mg/dl (0.2-1); Globulin 5.2 gm/dl (2.5-4.0); Total Protein 8.4 gm/dl (6.4-8.2)
[2020-05-16] MEDS: METOPROLOL SUCC 25MG EXT REL TAB PO SCH (08:52)
[2020-05-16] MEDS: CITALOPRAM 20 MG TAB PO SCH (08:52)
[2020-05-16] MEDS: APIXABAN 5 MG TABLET PO SCH ×2 (08:52→20:50)
[2020-05-16] MEDS: MAGNESIUM OXIDE 400 MG TAB PO SCH (08:52)
[2020-05-16] MEDS: NYSTATIN POWDER 15GM BTL EXT SCH ×3 (08:52→20:51)
[2020-05-16] MEDS: dexAMETHasone 6 MG in SYRINGE 0 ML IV SCH (08:52)
[2020-05-16] MEDS: CETIRIZINE HCL 10 MG TABLET PO SCH (08:52)
[2020-05-16] MEDS: SPIRONOLACTONE 25 MG TAB PO SCH (08:52)
[2020-05-16] MEDS: ROSUVASTATIN CALCIUM 5 MG TAB PO SCH (08:52)
[2020-05-16] MEDS: DOXYCYCLINE HYCLATE 100 MG CAP PO SCH ×2 (08:52→20:50)
[2020-05-16] MEDS: MESALAMINE 800 MG TABCR PO SCH ×3 (08:52→20:50)
[2020-05-16] MEDS: guaiFENesin 600 MG TABCR PO SCH ×2 (08:52→20:50)
[2020-05-16] MEDS: CHOLECALCIFEROL 1,000 UNITS 25 MCG TAB PO SCH (08:52)
[2020-05-16] MEDS: POTASSIUM CHLORIDE CRTAB 20 MEQ TABCR PO SCH ×2 (08:52→20:50)
[2020-05-16] MEDS: FERROUS SULFATE 325 MG TAB PO SCH (08:52)
[2020-05-16] MEDS: FLUTICASONE PROPIONATE NA SPR 16 GM BTL NAE SCH (08:53)
[2020-05-16] MEDS: INSULIN ASPART 100 UNITS/ML 3 ML PEN SC SCH ×4 (09:52→21:00)
[2020-05-16] MEDS: BENZONATATE 100 MG CAPSULE PO SCH ×3 (11:58→20:50)
[2020-05-16] MEDS: PANTOprazole 40 MG TAB PO SCH (11:58)
--- NOTE | 2020-05-16 15:51 | Hospitalist Progress Note ---
Date of Service May 16, 2020 Assessment & Plan (1) Pneumonia due to 2019 novel coronavirus: Acute on chronic respiratory failure with hypoxia COVID 19 Pneumonia Chronic oxygen dependency--on 2 L of supplemental oxygen at bedtime at baseline CXR:Interval progression of the diffuse interstitial thickening and hazy bilateral airspace opacities. This could represent a viral pneumonia or pulmonary edema. Sputum culture: staph Blood cultures negative to date CRP:13.7>2.81 Lactate 1.5 Normal procalcitonin Continue IV remdesivir, dexamethasone as per protocol Continue empiric ceftriaxone and doxycycline Continue supplemental oxygen On Eliquis for anticoagulation Continue Pulmonary Hygiene (2) Fluid overload: Acute on Chronic diastolic CHF-POA Received IV Lasix Continue home diuretics Monitor I's and O's, daily weight Monitor volume status, renal function, electrolytes (3) Interstitial lung disease: H/O ILD On 2 L of supplemental oxygen at bedtime Continue supplemental oxygen On chronic Prednisone-5 mg daily (4) Atrial fibrillation: -Continue Eliquis, metoprolol succinate (5) Anemia: chronic Baseline Hgb: 9-10 Continue iron supplements monitor (6) Ulcerative colitis: continue Mesalamine (7) CKD (chronic kidney disease), stage III: Baseline Cr: 1-1.2 Avoid nephrotoxic agents Monitor renal function (8) Diabetes mellitus, type II: HbA1c 7.1 Hold p.o. Metformin Continue insulin therapy while hospitalized (9) Hypothyroid: Continue Synthroid (10) Chronic steroid use: DVT Px: Eliquis Code Status Conditional: Does not wish for intubation/mechanical ventilation Disposition SNF as able Admission and Anticipated Discharge Date Admission Date: May 12, 2020 Subjective Patient is seen and examined at bedside States feeling better today " I cannot get all mucous" Less cough today Denies shortness of breath, nausea, vomiting, abdominal pain, chest pain, diarrhea Eager to get discharged Updated patient's family over the phone Review of Systems Review of Systems: All systems reviewed & are unremarkable except as noted in HPI & below Physical Exam Physical Exam: Physical Exam: Vitals signs as noted above General Appearance:Moderately built and nourished, no apparent distress Head: normocephalic, Atraumatic Eyes: normal inspection, EOMI Neck: supple, Trachea midline Respiratory/Chest: Decreased breath sounds, B/L basal crackles Cardiovascular: Irregularly Irregular, No murmur Abdomen/GI:Soft, Non tender, Bowel sounds present Extremities/Musculoskelatal:normal inspection, no edema Neurologic/Psych:AAOX3, grossly no focal neurological deficits Skin: normal color, warm Results & Data Results & Data ([facility]) Vital Signs (Past 12 Hours) Vital Signs Temp Pulse Pulse Resp BP Pulse Ox 05/16/20 11:26 67 20 95/62 L 96 05/16/20 08:01 36.5 C 67 20 132/90 97 05/16/20 07:38 63 Laboratory Results Short CBC 05/16/20 Range/Units 06:27 WBC 9.84 (4.8-10.8) K/uL Hgb 10.9 L (12.0-16.0) g/dL Hct 33.7 L (37-47) % Plt Count 375 (130-400) K/uL BMP 05/16/20 06:27 Sodium 136 Potassium 3.6 Chloride 100 Carbon Dioxide 31 BUN 52 H Creatinine 1.10 Glucose 139 H Calcium 9.4 Liver Function 05/16/20 Range/Units 06:27 Total Bilirubin 0.3 (0.2-1) mg/dl AST 24 (15-37) U/L ALT 37 (12-78) U/L Alkaline Phosphatase 124 H (45-117) U/L Albumin 3.2 L (3.4-5.0) gm/dl (1) Anemia Anemia type: unspecified type Qualified Code(s): D64.9 - Anemia, unspecified
[2020-05-16] MEDS: TORSEMIDE 20 MG TAB PO SCH (17:20)
[2020-05-16] MEDS: cefTRIAXone SODIUM 2,000 MG in DEXTROSE 5% 50 ML IV SCH (17:20)
[2020-05-16] MEDS: TOLTERODINE TARTRATE LA 4 MG CAPCR PO SCH (20:50)
[2020-05-16] MEDS: REMDESIVIR 100 MG in SODIUM CHLORIDE 0.9% 230 ML IV SCH (20:51)
[2020-05-16] MEDS: SODIUM CHLORIDE 0.9% 10ML FLUSH IV SCH (22:05)
[2020-05-17] MEDS: LEVOTHYROXINE SODIUM 25 MCG TABLET PO SCH (06:00)
[2020-05-17] MEDS: DOXYCYCLINE HYCLATE 100 MG CAP PO SCH ×2 (08:25→19:37)
[2020-05-17] MEDS: TORSEMIDE 20 MG TAB PO SCH ×2 (08:25→17:42)
[2020-05-17] MEDS: MAGNESIUM OXIDE 400 MG TAB PO SCH (08:25)
[2020-05-17] MEDS: MESALAMINE 800 MG TABCR PO SCH ×3 (08:25→19:36)
[2020-05-17] MEDS: BENZONATATE 100 MG CAPSULE PO SCH ×3 (08:25→19:38)
[2020-05-17] MEDS: CETIRIZINE HCL 10 MG TABLET PO SCH (08:25)
[2020-05-17] MEDS: guaiFENesin 600 MG TABCR PO SCH ×2 (08:25→19:37)
[2020-05-17] MEDS: FLUTICASONE PROPIONATE NA SPR 16 GM BTL NAE SCH (08:25)
[2020-05-17] MEDS: CITALOPRAM 20 MG TAB PO SCH (08:25)
[2020-05-17] MEDS: FERROUS SULFATE 325 MG TAB PO SCH (08:25)
[2020-05-17] MEDS: METOPROLOL SUCC 25MG EXT REL TAB PO SCH (08:26)
[2020-05-17] MEDS: APIXABAN 5 MG TABLET PO SCH ×2 (08:26→19:36)
[2020-05-17] MEDS: PANTOprazole 40 MG TAB PO SCH (08:26)
[2020-05-17] MEDS: CHOLECALCIFEROL 1,000 UNITS 25 MCG TAB PO SCH (08:26)
[2020-05-17] MEDS: SPIRONOLACTONE 25 MG TAB PO SCH (08:26)
[2020-05-17] MEDS: ROSUVASTATIN CALCIUM 5 MG TAB PO SCH (08:26)
[2020-05-17] MEDS: POTASSIUM CHLORIDE CRTAB 20 MEQ TABCR PO SCH ×2 (08:26→19:38)
[2020-05-17] MEDS: dexAMETHasone 6 MG in SYRINGE 0 ML IV SCH (08:27)
[2020-05-17] MEDS: NYSTATIN POWDER 15GM BTL EXT SCH ×3 (08:27→19:38)
[2020-05-17] MEDS: INSULIN ASPART 100 UNITS/ML 3 ML PEN SC SCH ×4 (08:40→20:44)
[2020-05-17 09:53] LABS: Albumin Level 3.1 gm/dl (3.4-5.0); BUN Creatinine Ratio 48.2 (10-20); Calcium 9.4 mg/dl (8.5-10.1); Creatinine Clr Calc Pharmacy 48.1 ml/min; Est GFR (African American) 66.3; Est GFR (Non-African American) 57.2; Potassium 3.6 mmol/L (3.5-5.1)
[2020-05-17 09:56] LABS: Albumin Globulin Ratio 0.6 (0.9-2); Bilirubin,Total 0.4 mg/dl (0.2-1); Globulin 5.5 gm/dl (2.5-4.0); Total Protein 8.6 gm/dl (6.4-8.2)
--- NOTE | 2020-05-17 14:49 | Hospitalist Progress Note ---
Date of Service May 17, 2020 Assessment & Plan (1) Pneumonia due to 2019 novel coronavirus: Acute on chronic respiratory failure with hypoxia COVID 19 Pneumonia Chronic oxygen dependency--on 2 L of supplemental oxygen at bedtime at baseline CXR:Interval progression of the diffuse interstitial thickening and hazy bilateral airspace opacities. This could represent a viral pneumonia or pulmonary edema. Sputum culture: staph Blood cultures negative to date CRP:13.7>2.81 Lactate 1.5 Normal procalcitonin Completed 5 day course of IV remdesivir Continue dexamethasone as per protocol Continue empiric ceftriaxone and doxycycline On Eliquis for anticoagulation Continue Pulmonary Hygiene Saturating low 90s on room air Continue supplemental oxygen at bedtime and as needed (2) Fluid overload: Acute on Chronic diastolic CHF-POA Received IV Lasix Continue home diuretics Monitor I's and O's, daily weight Monitor volume status, renal function, electrolytes (3) Interstitial lung disease: H/O ILD On 2 L of supplemental oxygen at bedtime Continue supplemental oxygen On chronic Prednisone-5 mg daily (4) Atrial fibrillation: -Continue Eliquis, metoprolol succinate (5) Anemia: chronic Baseline Hgb: 9-10 Continue iron supplements monitor (6) Ulcerative colitis: continue Mesalamine (7) CKD (chronic kidney disease), stage III: Baseline Cr: 1-1.2 Avoid nephrotoxic agents Monitor renal function (8) Diabetes mellitus, type II: HbA1c 7.1 Hold p.o. Metformin Continue insulin therapy while hospitalized (9) Hypothyroid: Continue Synthroid (10) Chronic steroid use: DVT Px: Eliquis Code Status Conditional: Does not wish for intubation/mechanical ventilation Disposition [facility] as able Admission and Anticipated Discharge Date Admission Date: May 12, 2020 Subjective Patient is seen and examined at bedside Sitting in chair comfortably during my encounter Minimal cough intermittently Denies dyspnea, chest pain, dizziness, nausea, abdominal pain Currently saturating low 90s on room air Eager to get discharged Review of Systems Review of Systems: All systems reviewed & are unremarkable except as noted in HPI & below Physical Exam Physical Exam: Physical Exam: Vitals signs as noted above General Appearance:Moderately built and nourished, no apparent distress Head: normocephalic, Atraumatic Eyes: normal inspection, EOMI Neck: supple, Trachea midline Respiratory/Chest: Decreased breath sounds, B/L basal crackles Cardiovascular: Irregularly Irregular, No murmur Abdomen/GI:Soft, Non tender, Bowel sounds present Extremities/Musculoskelatal:normal inspection, no edema Neurologic/Psych:AAOX3, grossly no focal neurological deficits Skin: normal color, warm Results & Data Results & Data ([facility]) Vital Signs (Past 12 Hours) Vital Signs Temp Pulse Pulse Resp BP Pulse Ox 05/17/20 12:04 36.9 C 75 18 99/65 L 92 05/17/20 11:51 36.5 C 18 99/70 L 91 05/17/20 08:00 53 L 05/17/20 07:26 36.7 C 67 18 109/61 97 05/17/20 03:37 36.4 C L 68 16 103/67 96 Laboratory Results [facility] 05/17/20 08:02 Sodium 135 L Potassium 3.6 Chloride 99 Carbon Dioxide 29 BUN 45 H Creatinine 0.92 Glucose 137 H Calcium 9.4 Liver Function 05/17/20 Range/Units 08:02 Total Bilirubin 0.4 (0.2-1) mg/dl AST 16 (15-37) U/L ALT 36 (12-78) U/L Alkaline Phosphatase 131 H (45-117) U/L Albumin 3.1 L (3.4-5.0) gm/dl (1) Anemia Anemia type: unspecified type Qualified Code(s): D64.9 - Anemia, unspecified
[2020-05-17] MEDS: cefTRIAXone SODIUM 2,000 MG in DEXTROSE 5% 50 ML IV SCH (17:44)
[2020-05-17] MEDS: INSULIN GLARGINE SOLOSTAR 100 UNITS/ML 3 ML PEN SC SCH (18:26)
[2020-05-17] MEDS: TOLTERODINE TARTRATE LA 4 MG CAPCR PO SCH (19:37)
[2020-05-18] MEDS: LEVOTHYROXINE SODIUM 25 MCG TABLET PO SCH (06:38)
[2020-05-18 07:33] LABS: Hemoglobin 11.9 g/dL (12.0-16.0); Mean Corpuscular Hgb Conc 32.2 g/dL (32-36); Mean Corpuscular Volume 77.7 fL (80-100); Mean Platelet Volume 8.9 fL (7.4-10.4); Platelet Count 426 K/uL (130-400); RDW Coefficient of Variation 18.4 % (11.5-14.5); RDW Standard Deviation 52.7 fL (36.4-46.3); Red Blood Count 4.76 M/uL (4.2-5.4); White Blood Count 14.55 K/uL (4.8-10.8)
[2020-05-18 07:57] LABS: Albumin Level 3.2 gm/dl (3.4-5.0); BUN Creatinine Ratio 50.6 (10-20); Calcium 9.6 mg/dl (8.5-10.1); Creatinine Clr Calc Pharmacy 38.6 ml/min; Est GFR (African American) 51.1; Est GFR (Non-African American) 44.1; Potassium 3.6 mmol/L (3.5-5.1)
[2020-05-18 08:00] LABS: Albumin Globulin Ratio 0.6 (0.9-2); Bilirubin,Total 0.4 mg/dl (0.2-1); Globulin 5.1 gm/dl (2.5-4.0); Total Protein 8.4 gm/dl (6.4-8.2)
[2020-05-18] MEDS: dexAMETHasone 6 MG in SYRINGE 0 ML IV SCH (08:53)
[2020-05-18] MEDS: FERROUS SULFATE 325 MG TAB PO SCH (08:53)
[2020-05-18] MEDS: CETIRIZINE HCL 10 MG TABLET PO SCH (08:53)
[2020-05-18] MEDS: PANTOprazole 40 MG TAB PO SCH (08:53)
[2020-05-18] MEDS: ROSUVASTATIN CALCIUM 5 MG TAB PO SCH (08:53)
[2020-05-18] MEDS: BENZONATATE 100 MG CAPSULE PO SCH ×2 (08:53→16:01)
[2020-05-18] MEDS: CITALOPRAM 20 MG TAB PO SCH (08:53)
[2020-05-18] MEDS: CHOLECALCIFEROL 1,000 UNITS 25 MCG TAB PO SCH (08:54)
[2020-05-18] MEDS: TORSEMIDE 20 MG TAB PO SCH (08:54)
[2020-05-18] MEDS: guaiFENesin 600 MG TABCR PO SCH (08:54)
[2020-05-18] MEDS: METOPROLOL SUCC 25MG EXT REL TAB PO SCH (08:54)
[2020-05-18] MEDS: NYSTATIN POWDER 15GM BTL EXT SCH ×2 (08:55→16:01)
[2020-05-18] MEDS: SPIRONOLACTONE 25 MG TAB PO SCH (08:55)
[2020-05-18] MEDS: DOXYCYCLINE HYCLATE 100 MG CAP PO SCH (08:56)
[2020-05-18] MEDS: MESALAMINE 800 MG TABCR PO SCH ×2 (08:56→16:01)
[2020-05-18] MEDS: FLUTICASONE PROPIONATE NA SPR 16 GM BTL NAE SCH (08:56)
[2020-05-18] MEDS: MAGNESIUM OXIDE 400 MG TAB PO SCH (08:57)
[2020-05-18] MEDS: APIXABAN 5 MG TABLET PO SCH (08:57)
[2020-05-18] MEDS: INSULIN ASPART 100 UNITS/ML 3 ML PEN SC SCH ×2 (09:23→12:43)
[2020-05-18] MEDS: INSULIN GLARGINE SOLOSTAR 100 UNITS/ML 3 ML PEN SC SCH (09:24)
[2020-05-18] MEDS: POTASSIUM CHLORIDE CRTAB 20 MEQ TABCR PO SCH (10:55)
--- NOTE | 2020-05-18 14:37 | Hospitalist Progress Note ---
Date of Service May 18, 2020 Assessment & Plan (1) Pneumonia due to 2019 novel coronavirus: Acute on chronic respiratory failure with hypoxia COVID 19 Pneumonia Chronic oxygen dependency--on 2 L of supplemental oxygen at bedtime at baseline CXR:Interval progression of the diffuse interstitial thickening and hazy bilateral airspace opacities. This could represent a viral pneumonia or pulmonary edema. Sputum culture: staph Blood cultures negative to date CRP:13.7>2.81 Lactate 1.5 Normal procalcitonin Completed 5 day course of IV remdesivir Completed 7 day course of dexamethasone Received empiric abx ceftriaxone and doxycycline On Eliquis for anticoagulation Continue Pulmonary Hygiene Respiratory status seem to be back to baseline (2) Fluid overload: Acute on Chronic diastolic CHF-POA Received IV Lasix Continue home diuretics Monitor I's and O's, daily weight Monitor volume status, renal function, electrolytes Improved (3) Interstitial lung disease: H/O ILD On 2 L of supplemental oxygen at bedtime Continue supplemental oxygen On chronic Prednisone-5 mg daily (4) Atrial fibrillation: -Continue Eliquis, metoprolol succinate (5) Anemia: chronic Baseline Hgb: 9-10 Continue iron supplements monitor (6) Ulcerative colitis: continue Mesalamine (7) CKD (chronic kidney disease), stage III: Baseline Cr: 1-1.2 Avoid nephrotoxic agents Monitor renal function (8) Diabetes mellitus, type II: HbA1c 7.1 Hold p.o. Metformin Continue insulin therapy while hospitalized (9) Hypothyroid: Continue Synthroid (10) Chronic steroid use: DVT Px: Eliquis Code Status Conditional: Does not wish for intubation/mechanical ventilation Disposition [facility] today Admission and Anticipated Discharge Date Admission Date: May 12, 2020 Subjective Patient is seen and examined at bedside No new complaints Less cough Denies dyspnea, chest pain, dizziness, nausea, abdominal pain Saturating well on room air Plan to discharge to [facility] today Review of Systems Review of Systems: All systems reviewed & are unremarkable except as noted in HPI & below Physical Exam Physical Exam: Physical Exam: Vitals signs as noted above General Appearance:Moderately built and nourished, no apparent distress Head: normocephalic, Atraumatic Eyes: normal inspection, EOMI Neck: supple, Trachea midline Respiratory/Chest: Decreased breath sounds, Decreased crackles Cardiovascular: Irregularly Irregular, No murmur Abdomen/GI:Soft, Non tender, Bowel sounds present Extremities/Musculoskelatal:normal inspection, no edema Neurologic/Psych:AAOX3, grossly no focal neurological deficits Skin: normal color, warm Results & Data Results & Data ([facility]) Vital Signs (Past 12 Hours) Vital Signs Temp Pulse Resp BP Pulse Ox Pulse Ox 05/18/20 12:00 36.6 C 66 18 107/74 94 05/18/20 08:00 98 05/18/20 07:39 36.8 C 79 19 136/98 97 05/18/20 04:31 36.5 C 84 19 119/90 95 Laboratory Results Short CBC 05/18/20 Range/Units 07:08 WBC 14.55 H (4.8-10.8) K/uL Hgb 11.9 L (12.0-16.0) g/dL Hct 37.0 (37-47) % Plt Count 426 H (130-400) K/uL BMP 05/18/20 07:08 Sodium 135 L Potassium 3.6 Chloride 98 Carbon Dioxide 31 BUN 58 H Creatinine 1.14 Glucose 161 H Calcium 9.6 Liver Function 05/18/20 Range/Units 07:08 Total Bilirubin 0.4 (0.2-1) mg/dl AST 11 L (15-37) U/L ALT 30 (12-78) U/L Alkaline Phosphatase 121 H (45-117) U/L Albumin 3.2 L (3.4-5.0) gm/dl (1) Anemia Anemia type: unspecified type Qualified Code(s): D64.9 - Anemia, unspecified
--- NOTE | 2020-05-18 16:42 | Discharge Summary ---
Date of Service May 18, 2020 Admission HPI Per Admitting Provider Patient is 84-year-old female with PMH atrial fibrillation on Eliquis, diastolic CHF, tricuspid regurgitation, ulcerative colitis, hypothyroidism, interstitial lung disease on 2 L oxygen at bedtime, DM II, CKD III (baseline Cr: 1-1.2), chronic anemia (baseline Hgb: 9-10), GERD, cecal mass s/p resection presented to ER for shortness of breath. History obtained from patient, patient's niece and outpatient records. Today patient was at PCP for increased shortness of breath and had noted oxygen sats of 84% on room air and was noted to be tachypneic and was transferred to ER via EMS. Patient's niece reports patient with chronic cough of clear sputum. She reports patient has been stating has had green productive cough however she has been looking at sputum production and it has been clear. Past 2 days she has noticed patient been more lethargic than baseline. She reports patient wears 2 L oxygen at bedtime and was previously encouraged to wear during daytime however patient refused. Patient's niece has not noticed other symptoms. Patient reports dry throat and shortness of breath. She also reports cough. Denies known fever or chills, nausea, vomiting, diarrhea, chest pain, lower extremity pain or edema. Patient has caregiver several hours of the day who tested positive for Covid. Patient's niece reports that caregiver has not been in house for approximately 12 days. No other known Covid exposures. Patient lives with niece however yesterday was transferred to [facility]. Patient received first COVID-19 vaccine on 04/21/2020. Pt on prednisone 5mg daily. Pt was initially on higher dose prednisone for suspected RA, however now following with rheumatology and has been tapered to 5mg daily and was to follow up for further discussion of possible discontinuation, however missed follow up appointment. Denies N/V/D/C, SANTO, dizziness, syncope, CP, palpitations, choking, otalgia, rhinorrhea, abdominal pain, extremity weakness, extremity edema or erythema, urinary symptoms. HPI, home med rec (confirmed with pt's niece) and chart review completed by Jadyn Herman PA-C. PE and Assessment and Plan per Dr Blum. Admission Exam Per Admitting Provider Physical Exam Constitutional: WD/WN, vitals as above Eyes: PERRL, conjunctivae normal, anicteric sclerae ENMT: external ear and nose normal, oropharynx normal Neck: trachea midline, no thyromegaly Respiratory: no labored breathing Auscultation: + crackles and + rhonchi; no wheezes Cardiovascular: Rate/Rhythm: + irregularly irregular Chest (Breasts): Chest: normal inspection of chest Gastrointestinal (Abdomen): normal bowel sounds, soft, nontender, no hepatosplenomegaly Percussion/Palpation: abdomen soft; abdomen nontender, no guarding and abdomen not rigid Musculoskeletal: no cyanosis or clubbing, extremities motor strength 5/5 Head/Neck/Chest: normocephalic and head atraumatic Skin: no rashes, warm and dry Neurologic: PERRL, EOMI, accommodation nl, no face palsy, no dysarthria Psychiatric: A+Ox3, euthymic affect Genitourinary: no CVA tenderness Lymphatic: no lymphedema Principal Diagnosis Acute on chronic respiratory failure with hypoxia COVID 19 Pneumonia Acute on Chronic diastolic CHF Discharge Data Allergies Allergy/AdvReac Type Severity Reaction Status Date / Time No Known Allergies Allergy Unverified 05/12/20 15:06 Consultations 05/12/20 14:59 ED Decision to Admit Stat Procedures Performed CXR:Interval progression of the diffuse interstitial thickening and hazy bilateral airspace opacities. This could represent a viral pneumonia or pulmonary edema. Hospital Course (1) Pneumonia due to 2019 novel coronavirus: Acute on chronic respiratory failure with hypoxia COVID 19 Pneumonia Chronic oxygen dependency--on 2 L of supplemental oxygen at bedtime at baseline CXR:Interval progression of the diffuse interstitial thickening and hazy bilateral airspace opacities. This could represent a viral pneumonia or pulmonary edema. Sputum culture: staph Blood cultures negative to date CRP:13.7>2.81 Lactate 1.5 Normal procalcitonin Completed 5 day course of IV remdesivir Completed 7 day course of dexamethasone Received empiric abx ceftriaxone and doxycycline On Eliquis for anticoagulation Continue Pulmonary Hygiene Respiratory status seem to be back to baseline (2) Fluid overload: Acute on Chronic diastolic CHF-POA Received IV Lasix Continue home diuretics Monitor I's and O's, daily weight Monitor volume status, renal function, electrolytes Improved (3) Interstitial lung disease: H/O ILD On 2 L of supplemental oxygen at bedtime Continue supplemental oxygen On chronic Prednisone-5 mg daily (4) Atrial fibrillation: -Continue Eliquis, metoprolol succinate (5) Anemia: chronic Baseline Hgb: 9-10 Continue iron supplements monitor (6) Ulcerative colitis: continue Mesalamine (7) CKD (chronic kidney disease), stage III: Baseline Cr: 1-1.2 Avoid nephrotoxic agents Monitor renal function (8) Diabetes mellitus, type II: HbA1c 7.1 Hold p.o. Metformin Continue insulin therapy while hospitalized (9) Hypothyroid: Continue Synthroid (10) Chronic steroid use: DVT Px: Eliquis Code Status Conditional: Does not wish for intubation/mechanical ventilation Disposition [facility] today Total Time Total Time Spent Total Time Spent (In Minutes): 45 minutes Total Time Includes: Examination of the Patient, Discharge Planning, Medication Reconciliation, Communication With Other Providers and Other Discharge Plan Discharge Items Patient Disposition: Personal Skilled Nursing Reason For Visit: COVID PNA Discharge Diagnosis: Acute on chronic respiratory failure with hypoxia COVID 19 Pneumonia Acute on Chronic diastolic CHF Condition on Discharge: Good Activity: Per Instructions section Exercise/Sports: Gradually increase as tolerated Non-emergency contact: Primary Care Provider Call non-emergency contact if: you have any medication questions, your symptoms worsen, your pain is not controlled, your pain is worsening, your pain is concerning for you and you have a fever Follow-up/Referrals: Rayne Driscoll DO [Primary Care Provider] - (Date & Time 05/24/2020 11:00 AM Provider Rayne Driscoll DO [facility] PLEASE NOTE THAT THIS IS A TELEPHONE APPOINTMENT. YOUR PHYSICIAN WILL CALL YOU AT THE APPOINTMENT TIME. IF YOU HAVE ANY QUESTIONS REGARDING THIS APPOINTMENT, PLEASE CALL ) Diet: Carb Consistent or DM2 and Low Sodium (2gm) Addtl Attending Provider Instructions: Follow-up with your primary care physician in 1 week upon discharge Follow up with your Neuroscience Specialist in 4 weeks as advised Complete the prednisone course as prescribed. Start taking Prednisone 20mg daily for 3 days and stop. Can resume your home prednisone 5mg daily after completing the current course. Seek immediate medical attention if your symptoms reoccur or worsen Home Isolation COVID-19 Instructions The following information about Home Isolation is from the CDC Website: https://www.cdc.gov/coronavirus/2019-ncov/hcp/zbvuvxam-rikmurw-dotuff.html Stay home except to get medical care People who are mildly ill with COVID-19 are able to isolate at home during their illness. You should restrict activities outside your home, except for getting medical care. Do not go to work, school, or public areas. Avoid using public transportation, ride-sharing, or taxis. Separate yourself from other people and animals in your home People: As much as possible, you should stay in a specific room and away from other people in your home. Also, you should use a separate bathroom, if available. Animals: You should restrict contact with pets and other animals while you are sick with COVID-19, just like you would around other people. Although there have not been reports of pets or other animals becoming sick with COVID-19, it is still recommended that people sick with COVID-19 limit contact with animals until more information is known about the virus. When possible, have another member of your household care for your animals while you are sick. If you are sick with COVID-19, avoid contact with your pet, including petting, snuggling, being kissed or licked, and sharing food. If you must care for your pet or be around animals while you are sick, wash your hands before and after you interact with pets and wear a face mask. Call ahead before visiting your doctor If you have a medical appointment, call the healthcare provider and tell them that you have or may have COVID-19. This will help the healthcare providers office take steps to keep other people from getting infected or exposed. Wear a face mask You should wear a face mask when you are around other people (e.g., sharing a room or vehicle) or pets and before you enter a healthcare providers office. If you are not able to wear a face mask (for example, because it causes trouble breathing), then people who live with you should not stay in the same room with you, or they should wear a face mask if they enter your room. Cover your coughs and sneezes Cover your mouth and nose with a tissue when you cough or sneeze. Throw used tissues in a lined trash can. Immediately wash your hands with soap and water for at least 20 seconds or, if soap and water are not available, clean your hands with an alcohol-based hand security dispatcher that contains at least 60% alcohol. Clean your hands often Wash your hands often with soap and water for at least 20 seconds, especially after blowing your nose, coughing, or sneezing; going to the bathroom; and before eating or preparing food. If soap and water are not readily available, use an alcohol-based hand security dispatcher with at least 60% alcohol, covering all surfaces of your hands and rubbing them together until they feel dry. Soap and water are the best option if hands are visibly dirty. Avoid touching your eyes, nose, and mouth with unwashed hands. Avoid sharing personal household items You should not share dishes, drinking glasses, cups, eating utensils, towels, or bedding with other people or pets in your home. After using these items, they should be washed thoroughly with soap and water. Clean all high-touch surfaces everyday High touch surfaces include counters, tabletops, doorknobs, bathroom fixtures, toilets, phones, keyboards, tablets, and bedside tables. Also, clean any surfaces that may have blood, stool, or body fluids on them. Use a household cleaning spray or wipe, according to the label instructions. Labels contain instructions for safe and effective use of the cleaning product including precautions you should take when applying the product, such as wearing gloves and making sure you have good ventilation during use of the product. Monitor your symptoms Seek prompt medical attention if your illness is worsening (e.g., difficulty breathing).Beforeseeking care, call your healthcare provider and tell them that you have, or are being evaluated for, COVID-19. Put on a face mask before you enter the facility. These steps will help the healthcare providers office to keep other people in the office or waiting room from getting infected or exposed. Ask your healthcare provider to call the local or state health department. Persons who are placed under active monitoring or facilitated self- monitoring should follow instructions provided by their local health department or occupational health professionals, as appropriate. When working with your local health department check their available hours. If you have a medical emergency and need to call 911, notify the dispatch personnel that you have, or are being evaluated for COVID-19. If possible, put on a face mask before emergency medical services arrive. Discontinuing home isolation Patients with confirmed COVID-19 should remain under home isolation precautions until the risk of secondary transmission to others is thought to be low. The d ecision to discontinue home isolation precautions should be made on a [id number]-[id number]-[id number] basis, in consultation with healthcare providers and state and local health departments. Coronavirus disease 2019 (COVID-19) is a virus that causes a respiratory illness. It is caused by a coronavirus called 2019 novel coronavirus (2019- nCoV). There are many types of coronavirus. Coronaviruses are a very common cause of bronchitis. They may sometimes cause lung infection(pneumonia). Symptoms can range from mild to severe respiratory illness. These viruses are also foundin some animals. COVID-19 was first found in people in [facility], in late 2019. In 2020, several cases of COVID-19 have been confirmed in the [place] Public health officials are working to find the source. How the virus spreads is not yet fully known. It may be spread through droplets of fluid that a person coughs or sneezes into the air. It may be spread if you touch a surface with virus on it, such as a handle or object, and then touch your mouth. What are the symptoms of COVID-19? Some people have no symptoms or mild symptoms. Symptoms may appear 2 to 14 days after contact with the virus. Symptoms can include: Fever Coughing Trouble breathing What are possible complications from COVID-19? In many cases, this virus can cause infection (pneumonia) in both lungs. In some cases, this can cause . How is COVID-19 diagnosed? Your healthcare provider will ask about your symptoms. He or she will also ask about your recent travel and contact with sick people. Testing for the virus is only done through the CDC. If yourhealthcare provider thinks you may have COVID- 19, he or she will work with your local health department and the CDC on testing. Follow all instructions from your healthcare provider. COVID-19 is diagnosed by: Nasal and throat swab. A cotton-tipped swab is wiped inside your nose or throat. This is done to check for viruses in your nasal mucus. Sputum culture. A small sample of mucus coughed from your lungs (sputum) is collected if you have a cough. It is checked for the virus. How is COVID-19 treated? There is currently no medicine to treat the virus. Treatment is done to help your body while it fights the virus. This is known as supportive care. Supportive care may include: Pain medicine. These include acetaminophen and ibuprofen. They are used to help ease pain and reduce fever. Bed rest. This helps your body fight the illness. For severe illness, you may need to stay in the hospital. Care during severe illness may include: IV (intravenous) fluids.These are given through a vein to help keep your body hydrated. Oxygen. Supplemental oxygen or ventilation with a breathing machine (ventilator) may be given. This is done to keep enough oxygen in your body. Are you at risk for COVID-19? If youve been to a place where people have been sick with this virus, you are at risk for infection. You are at risk if you: Recently traveled to an affected area Had contact with a sick person who recently traveled to this area Had contact with a person who was diagnosed with COVID-19 How can COVID-19 be prevented? There is no vaccine yet. The best prevention is to not have contact with the virus. The CDC advises that people should not travel to areas where there are COVID-19 outbreaks right now for any reason that is not urgent. To help prevent spreading the infection, wash your hands often, or use an alcohol-basedhand security dispatcher. If you are in an area with COVID-19: Wash your hands often. Or use an alcohol-based hand security dispatcher often. Only touch your eyes, nose, or mouth with clean hands. Dont have contact with people who are sick. Follow local instructions about being in public. For example, you may be told to not use public transport for a period of time. Stay away from markets that have live or animals. Wash your hands after touching any animals. Don't touch animals that may be sick. Dont share eating or drinking tools with sick people. Dont kiss someone who is sick. Clean surfaces often with disinfectant. If you were in an area with COVID-19 in the last 14 days: Call your healthcare provider. He or she can talk with local health staff to see what action may be needed. Follow all instructions from your provider. Take your temperature every morning and evening for at least 14 days. This is to check for fever. Keep a record of the readings. Keep watch for symptoms of the virus. Tell your provider right away if you have symptoms. If you were in an area with COVID-19 and have a fever or other symptoms: Dont panic. Keep in mind that other illnesses can cause similar symptoms. Stay away from work, school, and public places. Limit physical contact with family members. Don't kiss anyone or share eating or drinking utensils. Clean surfaces you touch with disinfectant. This is to help prevent the virus from spreading. Call your healthcare provider. Explain that you have been exposed to COVID-19 and have symptoms. Do this before going to any hospital. Wait for instructions. Keep in mind that healthcare staff may wear protective equipment such as masks, gowns, gloves, and eye protection. You may be put in a separate room. This is to prevent the possible virus from spreading. Tell the healthcare staff about recent travel. This includes local travel on public transport. Staff may need to find other people you have been in contact with. Follow all instructions the healthcare staff give you. If you have been diagnosed with COVID-19 Follow all instructions from your healthcare provider. Dont leave your home, except to get medical care. Call your healthcare providers office before going. They can prepare and give you instructions. This will help prevent the virus from spreading. Dont go to work, school, or public areas. Dont use public transport or taxis. Stay away from other people in your home. Have them wear face masks around you. Dont share household items or food. Wear a face mask if you can. This includes at home or in a medical facility. Cover your face with a tissue when you cough or sneeze. Throw the tissue away. Wash your hands. Wash your hands often. Caregivers should: Follow all instructions from healthcare staff. Wear a face mask and protective clothing as advised. Wash hands often. Keep track of the sick persons symptoms. Clean surfaces, fabrics, and laundry thoroughly. Keep other people away from the sick person. When to call your healthcare provider Call your healthcare provider: If youve recently traveled and have symptoms If you have been diagnosed with COVID-19 and your symptoms are worse To learn more To find out more about COVID-19, visit the CDC website at www.cdc.gov/coronavirus/2019-ncov/index.html. [employer] [address] [place] [address], [place] [address]. All rights reserved. This information is not intended as a substitute for professional medical care. Always follow your healthcare professional's instructions. This information has been adapted from [employer] CHF INSTRUCTIONS: Call your Primary Care doctor if any of the following symptoms or problems start or get worse: * Shortness of breath or difficulty breathing * Wake up at night short of breath * Chest pain * Cough * Swelling of your hands, feet, or legs * More fatigued or tired with your normal activity * Palpitations - sudden fast heart beats WEIGHT * Weigh yourself every morning after using the bathroom. * Use the same scale. * Wear the same amount of clothing. * Write your weight down on a chart. * Call your Primary Care doctor if you gain more than 2-3 pounds in 1-2 days. MEDICATIONS * Use this discharge instruction sheet for medication instructions. * Take your medications at the time your doctor ordered. * Do not skip a dose of your medicines. * If you miss a dose of medicine, take it as soon as possible, but DO NOT DOUBLE A DOSE. * Read your medicine information when you get home. * Know all of the side effects of your medicine. If in doubt, ask your pharmacist * Call your Primary Care doctor's office if you have any side effects. * Be sure all of your doctors know what medicine and herbs you take (including cold, flu, and herbal medicine). Take the following with you to your follow-up doctor appointments: * Weight Chart * Medication List * List of questions Do not drink excessive alcohol, beer or wine. Pending Studies at Discharge: No Stand-Alone Forms: My [employer], Smoking Cessation Skilled Items Patient informed of condition?: Yes DNR: No Discharge Level of Care: Other Communicable Disease: Yes Discharge Prognosis: Stable Lines: None Urinary Catheter: No Medications and DC Order Prescriptions: New doxycycline hyclate 100 mg Capsule 100 mg PO BID Qty: 4 RF: 0 benzonatate [Tessalon Perles] 100 mg Capsule 100 mg PO TID PRN (Reason: Cough) Qty: 10 RF: 0 prednisone 20 mg tablet 20 mg PO DAILY Qty: 3 RF: 0 Continued tolterodine [Detrol LA] 4 mg Capsule,Extended Release 24hr 4 mg PO PM RF: 0 levothyroxine 25 mcg Tablet 25 mcg PO DAILY RF: 0 citalopram 20 mg Tablet 20 mg PO DAILY RF: 0 potassium chloride [Klor-Con M20] 20 mEq Tablet,Er Particles/Crystals 20 meq PO BID RF: 0 omeprazole 20 mg Capsule,Delayed Release(Dr/Ec) 20 mg PO DAILY RF: 0 metoprolol succinate 25 mg Tablet Extended Release 24 Hr 12.5 mg PO DAILY RF: 0 nystatin [Nystop] 100,000 unit/gram Powder 1 applic TOPICAL TID RF: 0 albuterol sulfate 90 mcg/actuation Hfa Aerosol Inhaler 2 puff INHALATION Q4 PRN (Reason: Cough) RF: 0 fluticasone propionate 50 mcg/actuation [place],Suspension 1 spray INTRANASAL DAILY RF: 0 rosuvastatin [Crestor] 5 mg Tablet 5 mg PO DAILY RF: 0 mesalamine 800 mg Tablet,Delayed Release (Dr/Ec) 800 mg PO TID RF: 0 magnesium oxide 400 mg magnesium Tablet 400 mg PO DAILY RF: 0 acetaminophen 325 mg Tablet 325 mg PO QID PRN (Reason: Pain) RF: 0 Pro-Stat Sugar Free 15 gram- 100 kcal/30 mL Liquid In Packet 1 ea PO DAILY RF: 0 spironolactone 25 mg tablet 25 mg PO DAILY Qty: 30 RF: 0 metformin 500 mg tablet extended release 24 hr 500 mg PO DAILY RF: 0 torsemide 20 mg Tablet 20 mg PO BID RF: 0 Eliquis 5 mg Tablet 5 mg PO BID RF: 0 cetirizine [Zyrtec] 10 mg Tablet 10 mg PO DAILY RF: 0 betamethasone dipropionate 0.05 % Lotion 1 applic TOPICAL BID RF: 0 cranberry 1,000 mg Capsule 12,600 mg PO BID RF: 0 coenzyme Q10 [CoQ-10] 100 mg Capsule 100 mg PO DAILY RF: 0 cholecalciferol (vitamin D3) [Vitamin D3] 25 mcg (1,000 unit) Tablet,Chewable 25 mcg PO DAILY RF: 0 turmeric root extract 500 mg Capsule 500 mg PO DAILY RF: 0 prednisone 5 mg tablet 5 mg PO DAILY RF: 0 ferrous sulfate 325 mg (65 mg iron) Tablet 325 mg PO DAILY RF: 0 Discharge Orders: Discharge Order (Routine); Ordered 05/18/20 Ordered By: Missael Shen/Other Patient Handouts: High Blood Sugar (Hyperglycemia), Hypoglycemia (Low Blood Sugar), Managing Type 2 Diabetes Admission Data Admit Date/Time: 05/12/20 15:26 Attending Provider: Missael Jacobo Admit Provider: Alexys Blum Primary Care Provider: Rayne Driscoll Other Providers: Alexys Blum Other Interventions: Discharge Summary Assessment (RN) Last Done: 05/18/20 15:52
== END 2020-05-18 17:19 | disposition home or self-care (01) | DRG 177 ==
LOC: ED 13:00 → SUATTDRO 15:26 → 2W 15:26 → 2E 05-17 00:07

== ENCOUNTER 2022-04-21 12:24 | Observation (INO) ==
--- NOTE | 2022-04-21 13:05 | Emergency Department Note ---
Impression & Plan AMS (altered mental status), [facility] ED Provider Note NAME: JESSI BONILLA AGE: 86 SEX: F : 1935 ARRIVES VIA: Ambulance INFORMANT: Patient ED PROVIDER(S): Damien Montanez DO CHIEF COMPLAINT: AMS HPI: Patient is an 86-year-old female DNR/DNI that presents to the ER with a past medical history of diabetes, CKD, interstitial lung disease, ulcerative colitis, pneumonia and CHF for altered mental status. Patient was brought in by EMS. Report was obtained by them. They note that she has been unresponsive and confused since this morning. History is limited secondary to the patient's mentation. Did discuss with him RN at her facility notes that per notes gwen rded in their system patient was confused last night and has become more unresponsive throughout the day. There was some report of family bring in medications that she has not prescribed but they are unsure of exactly what it is per EMS. PAST MEDICAL HISTORY:See Below PAST SURGICAL HISTORY:See Below FAMILY HISTORY:See Below SOCIAL HISTORY:See Below HOME MEDICATIONS:See Below ALLERGIES:See Below VITALS:See Below PHYSICAL EXAMINATION: GENERAL: Sitting up in bed, alert eyes closed intermittently rolling her head EYE EXAM: Eyes are closed with normal conjunctiva resist opening eyes OROPHARYNX: Dry mucous membranes NECK: supple, no nuchal rigidity, no adenopathy, non-tender LUNGS: Clear to auscultation. Normal chest wall mechanics HEART: no murmurs, S1 normal and S2 normal ABDOMEN: abdomen soft, non-tender, normo-active bowel sounds, no masses, no rebound or guarding. UPPER EXTREMITIES: upper extremities are grossly normal. LOWER EXTREMITIES: No pitting edema. NEURO EXAM: Resist opening eyes moving upper and lower extremities spontaneously but not following commands. Nonverbal. MEDICAL DECISION MAKING: Patient is an 86-year-old female brought in by EMS for altered mental status. Per team at rehab facility patient is normally awake alert oriented to person place or time. Patient has been confused and deteriorating since last night. IV was established blood work was obtained. Chronically on 3 L. External records were reviewed. Labs show no significant leukocytosis or anemia. INR unremarkable. VBG with a pH of 7.4 and a CO2 of 53. BMP with slightly elevated CO2. Glucose at 110. LFTs bilirubin was unremarkable. Lipase TSH was unremarkable. UA was clean. COVID flu and RSV was unremarkable. CT head was negative. Chest x-ray was clean. Patient was updated at bedside. Did discuss with the hospitalist for further evaluation management and treatment after d iscussion with retirement/rehab facility. Triage Nursing notes reviewed. Limited review of prior medical records performed Vital Signs: reviewed and remarkable for HTN Differential diagnosis: Differential diagnoses includes but is not limited to toxic, metabolic, infectious, traumatic, cardiac, neurologic, hematologic, psychiatric and inflammatory etiologies. ER treatment provided: See below Diagnostics interpreted by me include EKG and cardiac monitoring as listed below: -Cardiac Monitoring: An order was placed for continuous cardiac monitoring. The monitor shows a rate of 80 with sinus rhythm. -ECG: Sinus rhythm rate 81 Normal axis No PVCs QTc 471 Incomplete right bundle -Laboratory studies:Interpreted by me as stated above in MDM and shown below. Imaging studies: Xrays: As interpreted by me: Portable AP upright 1 view of the chest shows no focal infiltrate per my read CTs show: CT head was negative Consultation(s): Discussed with Dr. Jasbir Jerry for further evaluation treatment and management Procedures:none Critical Care: None Past Med/Surg History Medical History Anemia Atrial fibrillation CHF (congestive heart failure) CKD (chronic kidney disease), stage III Depression Diabetes mellitus, type II GERD (gastroesophageal reflux disease) Hyperlipidemia Hypothyroid Interstitial lung disease Mass of cecum Tricuspid regurgitation Ulcerative colitis Surgical History H/O colectomy 03/14/2020: Laparoscopic partial colectomy with anastomosis by Dr. Samia Sarah at [facility] History of cataract surgery History of colonoscopy Family History Other Cancer Diabetes Heart disease Social History Smoking Status: Unknown if ever smoked Second Hand Exposure: No; Hx Alcohol Use: No Hx Substance Use: No Preferred Language: Chinese Communication Ability: Effective Compliance Nurse Required: No Beliefs That Will Affect Care: None marital status: Single Current Living Situation: Family Current Living Situation Comment: lives with sebastian, her neice Feels Safe at Home: Yes Assistive Devices: Oxygen - at Night Allergies Allergies Allergy/AdvReac Type Severity Reaction Status Date / Time No Known Allergies Allergy Unverified 05/12/20 15:06 Home Meds Home Medications Medication Instructions Recorded Confirmed albuterol sulfate 90 mcg/actuation 2 puff inhalation Q12 10/17/19 04/21/22 aerosol inhaler levothyroxine 25 mcg tablet 25 mcg PO DAILY 10/17/19 04/21/22 magnesium oxide 400 mg PO DAILY 10/17/19 04/21/22 mesalamine 800 mg tablet,delayed 800 mg PO TID 10/17/19 04/21/22 release metoprolol succinate 25 mg 12.5 mg PO DAILY 10/17/19 04/21/22 tablet,extended release 24 hr omeprazole 20 mg capsule,delayed 20 mg PO BID 10/17/19 04/21/22 release acetaminophen 325 mg tablet 650 mg PO Q6 PRN temp>100 12/10/19 04/21/22 apixaban 5 mg tablet (Eliquis) 5 mg PO BID 05/12/20 04/21/22 cholecalciferol (vitamin D3) 25 25 mcg PO DAILY 05/12/20 04/21/22 mcg (1,000 unit) chewable tablet (Vitamin D3) coenzyme Q10 100 mg capsule 100 mg PO DAILY 05/12/20 04/21/22 (CoQ-10) ferrous sulfate 325 mg (65 mg 325 mg PO DAILY 05/12/20 04/21/22 iron) tablet prednisone 5 mg tablet 5 mg PO DAILY 05/12/20 04/21/22 L.acidoph-L.rhamn-B.bifidum-B.long 1 tab PO TID 04/21/22 04/21/22 12.9 mg (2 billion cell) tabletDR (Probiotic Acidophilus Biobeads) acetaminophen 325 mg tablet 650 mg PO Q6 PRN pain 1-10 04/21/22 04/21/22 (Tylenol) albuterol sulfate 90 mcg/actuation 1 puff inhalation Q4 PRN Shortness 04/21/22 04/21/22 aerosol inhaler (Ventolin HFA) Of Breath cetirizine 5 mg tablet 5 mg PO DAILY 04/21/22 04/21/22 citalopram 10 mg tablet 10 mg PO QPM 04/21/22 04/21/22 cranberry 400 mg capsule 12,600 mg PO BID 04/21/22 04/21/22 diclofenac sodium 1 % topical gel 2 g topical QID 04/21/22 04/21/22 ginkgo biloba 120 mg tablet 120 mg PO DAILY 04/21/22 04/21/22 ipratropium 0.5 mg-albuterol 3 mg 3 ml inhalation .EVERY 2 HOURS PRN 04/21/22 04/21/22 (2.5 mg base)/3 mL nebulization Shortness Of Breath Or Wheezing soln ipratropium 0.5 mg-albuterol 3 mg 3 ml inhalation QID 04/21/22 04/21/22 (2.5 mg base)/3 mL nebulization soln loperamide 2 mg tablet (Imodium 2 mg PO QID PRN Diarrhea 04/21/22 04/21/22 A-D) lutein 20 mg capsule 20 mg PO DAILY 04/21/22 04/21/22 metformin 500 mg tablet,extended 500 mg PO DAILY 04/21/22 04/21/22 release 24 hr oxybutynin chloride 10 mg 10 mg PO DAILY 04/21/22 04/21/22 tablet,extended release 24 hr dbkldfrhzwhwi-PJ-ieaszrewicsrq-guaif 20 ml PO Q6 PRN Cough 04/21/22 04/21/22 10 mg-20 mg-650 mg/20 mL oral liq (Mucinex Fast-Max Cold-Flu) prednisone 10 mg tablet 30 mg PO UD 04/21/22 04/21/22 prednisone 20 mg tablet See Rx Instructions .Route .COMPLEX 04/21/22 04/21/22 propylene glycol (PF) 0.6 % eye 1 drp ophthalmic (eye) Q12 04/21/22 04/21/22 drops torsemide 5 mg tablet 5 mg PO BID 04/21/22 04/21/22 turmeric root extract 500 mg 500 mg PO DAILY 04/21/22 04/21/22 capsule Results & Data (ED) Vital Signs Vital Signs - 24 hr 04/21/22 12:37 04/21/22 12:37 04/21/22 12:37 Temperature 37.1 C Temperature Source Oral Pulse Rate 79 Pulse Rate [Apical] 79 Pulse Rhythm Irregular Pulse Rhythm [Apical] Irregular Pulse Strength Normal Pulse Strength [Apical] Normal Respiratory Rate 24 24 Respiratory Effort / Characteristics Non-Labored Non-Labored Respiratory Depth Normal Normal Respiratory Pattern Regular Regular Blood Pressure 151/54 H Blood Pressure [Left Arm] 151/54 H Blood Pressure Mean 86 Blood Pressure Mean [Left Arm] 86 Pulse Oximetry 99 99 Oxygen Delivery Method Nasal Cannula Nasal Cannula Nasal Cannula Oxygen Flow Rate 3 3 3 Sepsis Recent Fever Within 48 Hours No Sepsis New/Unexplained Change in Mental Status N/A Sepsis Action Taken by Nursing No Action Required 04/21/22 12:44 04/21/22 12:52 Temperature Temperature Source Pulse Rate 77 Pulse Rate [Apical] Pulse Rhythm Pulse Rhythm [Apical] Pulse Strength Pulse Strength [Apical] Respiratory Rate Respiratory Effort / Characteristics Respiratory Depth Respiratory Pattern Blood Pressure Blood Pressure [Left Arm] Blood Pressure Mean Blood Pressure Mean [Left Arm] Pulse Oximetry 99 Oxygen Delivery Method Nasal Cannula Oxygen Flow Rate 3 Sepsis Recent Fever Within 48 Hours Sepsis New/Unexplained Change in Mental Status Sepsis Action Taken by Nursing Laboratory Data 04/21/22 12:39 04/21/22 12:39 Lab Results 04/21/22 04/21/22 04/21/22 Range/Units 12:36 12:39 12:39 WBC 8.10 (4.8-10.8) K/ul RBC 4.44 (4.20-5.40) M/uL Hgb 14.2 (12.0-16.0) g/dl Hct 42.7 (37.0-47.0) % MCV 96.2 (80.0-100.0) fL MCH 32.0 (25.0-34.0) pg MCHC 33.3 (32.0-36.0) g/dL RDW Std Deviation 48.7 H (36.4-46.3) fL RDW Coeff of Jesse 13.7 (11.5-14.5) % Plt Count 242 (130-400) K/uL MPV 9.7 (9.4-12.4) fL Immature Gran % (Auto) 0.5 % Neut % (Auto) 54.6 % Lymph % (Auto) 33.5 % Kershaw % (Auto) 10.6 % Eos % (Auto) 0.7 % Baso % (Auto) 0.1 % Neut # (Auto) 4.42 (1.40-6.50) K/uL Lymph # (Auto) 2.71 (1.2-3.4) K/uL Kershaw # (Auto) 0.86 H (0.11-0.59) K/uL Eos # (Auto) 0.06 (0-0.50) K/uL Baso # (Auto) 0.01 (0-0.2) K/uL Immature Gran # (Auto) 0.04 (0.01-0.20) K/uL PT 11.8 (9.0-12.0) Seconds INR 1.1 (0.9-1.1) VBG pH (7.36-7.41) VBG pCO2 (38-50) mmHg VBG pO2 mmHg VBG HCO3 mmol/L VBG O2 Saturation % VBG Base Excess mEq/L Sodium (136-145) mmol/L Potassium (3.5-5.1) mmol/L Chloride (98-107) mmol/L Carbon Dioxide (21-32) mmol/L Anion Gap (3-11) BUN (6-23) mg/dl Creatinine (0.6-1.2) mg/dl Est Cr Clr Drug Dosing ml/min Est GFR ( Amer) ml/min Est GFR (Non-Af Amer) ml/min BUN/Creatinine Ratio (10-20) Glucose (70-99(Fasting)) mg/dl POC Glucose 110 H (70-99) mg/dl Calcium (8.5-10.1) mg/dl Total Bilirubin (0.2-1.0) mg/dl AST (13-39) U/L ALT (7-52) U/L Alkaline Phosphatase (34-104) U/L Ammonia Total Protein (6.0-8.3) gm/dl Albumin (3.4-5.0) gm/dl Globulin (2.5-4.0) gm/dl Albumin/Globulin Ratio (0.9-2) Lipase (11-82) U/L Urine Color Urine Appearance (Clear) Urine pH (4.5-7.5) Ur Specific Berino (1.000-1.030) Urine Protein (Negative) Urine Glucose (UA) (Negative) Urine Ketones (Negative) Urine Blood (Negative) Urine Nitrite (Negative) Urine Bilirubin (Negative) Urine Urobilinogen (Negative) Ur Leukocyte Esterase (Negative) SARS-CoV-2 (PCR) (Negative) Influenza Type A (PCR) (Neg) Influenza Type B (PCR) (Neg) RSV (RT-PCR) (Neg) 04/21/22 04/21/22 04/21/22 Range/Units 12:39 12:39 13:11 WBC (4.8-10.8) K/ul RBC (4.20-5.40) M/uL Hgb (12.0-16.0) g/dl Hct (37.0-47.0) % MCV (80.0-100.0) fL MCH (25.0-34.0) pg MCHC (32.0-36.0) g/dL RDW Std Deviation (36.4-46.3) fL RDW Coeff of Jesse (11.5-14.5) % Plt Count (130-400) K/uL MPV (9.4-12.4) fL Immature Gran % (Auto) % Neut % (Auto) % Lymph % (Auto) % Kershaw % (Auto) % Eos % (Auto) % Baso % (Auto) % Neut # (Auto) (1.40-6.50) K/uL Lymph # (Auto) (1.2-3.4) K/uL Kershaw # (Auto) (0.11-0.59) K/uL Eos # (Auto) (0-0.50) K/uL Baso # (Auto) (0-0.2) K/uL Immature Gran # (Auto) (0.01-0.20) K/uL PT (9.0-12.0) Seconds INR (0.9-1.1) VBG pH (7.36-7.41) VBG pCO2 (38-50) mmHg VBG pO2 mmHg VBG HCO3 mmol/L VBG O2 Saturation % VBG Base Excess mEq/L Sodium 138 (136-145) mmol/L Potassium 3.6 (3.5-5.1) mmol/L Chloride 99 (98-107) mmol/L Carbon Dioxide 34 H (21-32) mmol/L Anion Gap 5 (3-11) BUN 27 H (6-23) mg/dl Creatinine 1.05 (0.6-1.2) mg/dl Est Cr Clr Drug Dosing 44.6 ml/min Est GFR ( Amer) 55.7 ml/min Est GFR (Non-Af Amer) 48.1 ml/min BUN/Creatinine Ratio 25.7 H (10-20) Glucose 110 H (70-99(Fasting)) mg/dl POC Glucose (70-99) mg/dl Calcium 9.5 (8.5-10.1) mg/dl Total Bilirubin 0.8 (0.2-1.0) mg/dl AST 17 (13-39) U/L ALT 17 (7-52) U/L Alkaline Phosphatase 76 (34-104) U/L Ammonia Total Protein 7.1 (6.0-8.3) gm/dl Albumin 3.5 (3.4-5.0) gm/dl Globulin 3.6 (2.5-4.0) gm/dl Albumin/Globulin Ratio 1.0 (0.9-2) Lipase 10 L (11-82) U/L Urine Color Yellow Urine Appearance Clear (Clear) Urine pH 6.0 (4.5-7.5) Ur Specific Berino 1.009 (1.000-1.030) Urine Protein Negative (Negative) Urine Glucose (UA) Negative (Negative) Urine Ketones Negative (Negative) Urine Blood Negative (Negative) Urine Nitrite Negative (Negative) Urine Bilirubin Negative (Negative) Urine Urobilinogen Negative (Negative) Ur Leukocyte Esterase Negative (Negative) SARS-CoV-2 (PCR) NEGATIVE (Negative) Influenza Type A (PCR) Negative (Neg) Influenza Type B (PCR) Negative (Neg) RSV (RT-PCR) Negative (Neg) 04/21/22 04/21/22 Range/Units 14:45 14:45 WBC (4.8-10.8) K/ul RBC (4.20-5.40) M/uL Hgb (12.0-16.0) g/dl Hct (37.0-47.0) % MCV (80.0-100.0) fL MCH (25.0-34.0) pg MCHC (32.0-36.0) g/dL RDW Std Deviation (36.4-46.3) fL RDW Coeff of Jesse (11.5-14.5) % Plt Count (130-400) K/uL MPV (9.4-12.4) fL Immature Gran % (Auto) % Neut % (Auto) % Lymph % (Auto) % Kershaw % (Auto) % Eos % (Auto) % Baso % (Auto) % Neut # (Auto) (1.40-6.50) K/uL Lymph # (Auto) (1.2-3.4) K/uL Kershaw # (Auto) (0.11-0.59) K/uL Eos # (Auto) (0-0.50) K/uL Baso # (Auto) (0-0.2) K/uL Immature Gran # (Auto) (0.01-0.20) K/uL PT (9.0-12.0) Seconds INR (0.9-1.1) VBG pH 7.42 H (7.36-7.41) VBG pCO2 53 H (38-50) mmHg VBG pO2 25 mmHg VBG HCO3 34 mmol/L VBG O2 Saturation < 60.0 % VBG Base Excess 8.2 mEq/L Sodium (136-145) mmol/L Potassium (3.5-5.1) mmol/L Chloride (98-107) mmol/L Carbon Dioxide (21-32) mmol/L Anion Gap (3-11) BUN (6-23) mg/dl Creatinine (0.6-1.2) mg/dl Est Cr Clr Drug Dosing ml/min Est GFR ( Amer) ml/min Est GFR (Non-Af Amer) ml/min BUN/Creatinine Ratio (10-20) Glucose (70-99(Fasting)) mg/dl POC Glucose (70-99) mg/dl Calcium (8.5-10.1) mg/dl Total Bilirubin (0.2-1.0) mg/dl AST (13-39) U/L ALT (7-52) U/L Alkaline Phosphatase (34-104) U/L Ammonia TNP Total Protein (6.0-8.3) gm/dl Albumin (3.4-5.0) gm/dl Globulin (2.5-4.0) gm/dl Albumin/Globulin Ratio (0.9-2) Lipase (11-82) U/L Urine Color Urine Appearance (Clear) Urine pH (4.5-7.5) Ur Specific Berino (1.000-1.030) Urine Protein (Negative) Urine Glucose (UA) (Negative) Urine Ketones (Negative) Urine Blood (Negative) Urine Nitrite (Negative) Urine Bilirubin (Negative) Urine Urobilinogen (Negative) Ur Leukocyte Esterase (Negative) SARS-CoV-2 (PCR) (Negative) Influenza Type A (PCR) (Neg) Influenza Type B (PCR) (Neg) RSV (RT-PCR) (Neg) Imaging Data Radiologist's Impression: Chest X-Ray 04/21/22 12:44 XR chest 1V portable CLINICAL HISTORY: Altered mental status. COMPARISON STUDY: Chest radiograph May 15, 2020. FINDINGS: Elevation of the humeral heads is incidentally noted. No pneumothorax or pleural effusion is present. Enlargement of the cardiac silhouette is unchanged. Diffuse interstitial thickening is noted. This is similar to prior exam. IMPRESSION: Diffuse interstitial thickening, likely chronic. This favors interstitial lung disease. No superimposed pneumonia identified. ACT 112: Negative or not required by law. Electronically signed by: Fredy Vera M.D. 04/21/2022 1:[address] 04/21/22 12:44 CT head/brain wo con CLINICAL HISTORY: ams Technique: Contiguous axial CT images of the head were acquired from the base of the skull to the vertex without intravenous contrast administration. Images were viewed in brain, subdural and bone windows. Automated dose lowering techniques and/or adjustment according to patient size were utilized for this exam. Comparison: Comparison is made to CT head 12/10/2019 Findings: Areas of decreased attenuation are present in the periventricular and subcortical white matter bilaterally consistent with small vessel ischemic disease. Generalized cerebral atrophy with commensurate enlargement of the ventricles, sulci, and cisterns is also present. There is no acute intracranial hemorrhage or evidence of acute territorial infarction. No shift of the midline structures, mass effect, or extra-axial abnormalities are shown. Atherosclerotic calcifications are present in the intracranial segments of the internal carotid arteries. Imaged portions of the paranasal sinuses and mastoid air cells are clear. The orbits appear normal. There are no acute fractures of the calvaria or scalp swelling. Impression: No acute intracranial hemorrhage, no evidence of acute territorial infarction or other acute intracranial disease process. ACT 112: Negative or not required by law. Electronically signed by: Braxton Salmeron M.D. 04/21/2022 2:11 PM Discharge Plan Visit Data Chief Complaint: Unresponsive Stated Complaint: UNRESPONSIVE ED Provider: Damien Montanez Discharge Problem: AMS (altered mental status), [facility] Forms Stand Alone Forms: My [facility] Prescriptions Prescriptions: No Action levothyroxine 25 mcg Tablet 25 mcg PO DAILY omeprazole 20 mg Capsule,Delayed Release(Dr/Ec) 20 mg PO BID metoprolol succinate 25 mg Tablet Extended Release 24 Hr 12.5 mg PO DAILY albuterol sulfate 90 mcg/actuation Hfa Aerosol Inhaler 2 puff INHALATION Q12 Rx Instructions: rinse mouth thoroughly and spit after each use mesalamine 800 mg Tablet,Delayed Release (Dr/Ec) 800 mg PO TID magnesium oxide 400 mg magnesium Tablet 400 mg PO DAILY acetaminophen 325 mg Tablet 650 mg PO Q6 MDD 3g PRN (Reason: temp>100) Eliquis 5 mg Tablet 5 mg PO BID coenzyme Q10 [CoQ-10] 100 mg Capsule 100 mg PO DAILY cholecalciferol (vitamin D3) [Vitamin D3] 25 mcg (1,000 unit) Tablet,Chewable 25 mcg PO DAILY prednisone 5 mg tablet 5 mg PO DAILY ferrous sulfate 325 mg (65 mg iron) Tablet 325 mg PO DAILY metformin [Glucophage XR] 500 mg Tablet Extended Release 24 Hr 500 mg PO DAILY ginkgo biloba 120 mg Tablet 120 mg PO DAILY Rx Instructions: give with meal/snack lutein 20 mg Capsule 20 mg PO DAILY Rx Instructions: give with meal/snack ipratropium-albuterol 0.5 mg-3 mg(2.5 mg base)/3 mL solution for nebulization 3 ml INHALATION QID Rx Instructions: start 04/14/22 for 2 weeks..continue prn order ipratropium-albuterol 0.5 mg-3 mg(2.5 mg base)/3 mL solution for nebulization 3 ml INHALATION .EVERY 2 HOURS PRN (Reason: Shortness Of Breath Or Wheezing) loperamide [Imodium A-D] 2 mg Tablet 2 mg PO QID PRN (Reason: Diarrhea) oxybutynin chloride 10 mg tablet extended release 24hr 10 mg PO DAILY prednisone 20 mg tablet See Rx Instructions .ROUTE .COMPLEX Rx Instructions: 20 mg orally daily for cough for 2 days continue 10mg routine daily dose. START 04/22/22 1300 Probiotic Acidophilus Biobeads 12.9 mg (2 billion cell) Tablet,Delayed Release (Dr/Ec) 1 tab PO TID torsemide 5 mg tablet 5 mg PO BID turmeric root extract 500 mg Capsule 500 mg PO DAILY Mucinex Fast-Max Cold-Flu 10-20-650 mg/20 mL Liquid 20 ml PO Q6 PRN (Reason: Cough) propylene glycol (PF) 0.6 % Drops 1 drp ophthalmic (eye) Q12 cetirizine 5 mg Tablet 5 mg PO DAILY citalopram 10 mg tablet 10 mg PO QPM cranberry 400 mg Capsule 12,600 mg PO BID Rx Instructions: administer with meals diclofenac sodium 1 % Gel 2 g TOPICAL QID Rx Instructions: apply to right shoulder acetaminophen [Tylenol] 325 mg Tablet 650 mg PO Q6 MDD 3g PRN (Reason: pain 1-10) albuterol sulfate [Ventolin HFA] 90 mcg/actuation Hfa Aerosol Inhaler 1 puff INHALATION Q4 PRN (Reason: Shortness Of Breath) Rx Instructions: rinse mouth thouroughly and spit after use prednisone 10 mg Tablet 30 mg PO UD Rx Instructions: take daily forj 2 days 04/20/22 & 04/21/22 and continue routine daily dose Referrals Referrals: [facility] [Primary Care Provider] -
[2022-04-21 13:07] LABS: Basophils # (auto) 0.01 K/uL (0-0.2); Basophils % (auto) 0.1 %; Eosinophils # (auto) 0.06 K/uL (0-0.50); Eosinophils % (auto) 0.7 %; Hematocrit (blood only) 42.7 % (37.0-47.0); Hemoglobin 14.2 g/dl (12.0-16.0); Immature Granulocytes # (auto) 0.04 K/uL (0.01-0.20); Immature Granulocytes % (auto) 0.5 %; Lymphocytes # (auto) 2.71 K/uL (1.2-3.4); Lymphocytes % (auto) 33.5 %; Mean Corpuscular Hgb Conc 33.3 g/dL (32.0-36.0); Mean Corpuscular Volume 96.2 fL (80.0-100.0); Mean Platelet Volume 9.7 fL (9.4-12.4); Monocytes # (auto) 0.86 K/uL (0.11-0.59); Monocytes % (auto) 10.6 %; Neutrophils # (auto) 4.42 K/uL (1.40-6.50); Neutrophils % (auto) 54.6 %; Platelet Count 242 K/uL (130-400); RDW Coefficient of Variation 13.7 % (11.5-14.5); RDW Standard Deviation 48.7 fL (36.4-46.3); Red Blood Count 4.44 M/uL (4.20-5.40)
[2022-04-21 13:25] LABS: Albumin Level 3.5 gm/dl (3.4-5.0); BUN Creatinine Ratio 25.7 (10-20); Bilirubin,Total 0.8 mg/dl (0.2-1.0); Calcium 9.5 mg/dl (8.5-10.1); Creatinine Clr Calc Pharmacy 44.6 ml/min; Est GFR (African American) 55.7 ml/min; Est GFR (Non-African American) 48.1 ml/min; Globulin 3.6 gm/dl (2.5-4.0); Potassium 3.6 mmol/L (3.5-5.1); Total Protein 7.1 gm/dl (6.0-8.3)
--- NOTE | 2022-04-21 13:29 | XRay Report ---
XR chest 1V portable CLINICAL HISTORY: Altered mental status. COMPARISON STUDY: Chest radiograph May 15, 2020. FINDINGS: Elevation of the humeral heads is incidentally noted. No pneumothorax or pleural effusion i s present. Enlargement of the cardiac silhouette is unchanged. Diffuse interstitial thickening is not ed. This is similar to prior exam. IMPRESSION: Diffuse interstitial thickening, likely chronic. This favors interstitial lung disease. No superimposed pneumonia identified. ACT 112: Negative or not required by law. Electronically signed by: Fredy Vrea M.D. 04/21/2022 1:27 PM
[2022-04-21 13:42] LABS: INR 1.1 (0.9-1.1); Prothrombin Time 11.8 Seconds (9.0-12.0)
[2022-04-21 13:51] LABS: Appearance Urine Clear (Clear); Bilirubin Urine Negative (Negative); Blood Urine Negative (Negative); Color Urine Yellow; Glucose Urine UA Negative (Negative); Ketones Urine Negative (Negative); Leukocyte Esterase Urine Negative (Negative); Nitrite Urine Negative (Negative); Protein Urine Negative (Negative); Specific Gravity Urine 1.009 (1.000-1.030); Urobilinogen Urine Negative (Negative)
--- NOTE | 2022-04-21 14:12 | CT Scan Report ---
CT head/brain wo con CLINICAL HISTORY: ams Technique: Contiguous axial CT images of the head were acquired from the base of the skull to the marisela isaias without intravenous contrast administration. Images were viewed in brain, subdural and bone [facility]. Automated dose lowering techniques and/or adjustment according to patient size were utilized for this exam. Comparison: Comparison is made to CT head 12/10/2019 Findings: Areas of decreased attenuation are present in the periventricular and subcortical white matter bilate rally consistent with small vessel ischemic disease. Generalized cerebral atrophy with commensurate e nlargement of the ventricles, sulci, and cisterns is also present. There is no acute intracranial hem orrhage or evidence of acute territorial infarction. No shift of the midline structures, mass effect, or extra-axial abnormalities are shown. Atherosclerotic calcifications are present in the intracran ial segments of the internal carotid arteries. Imaged portions of the paranasal sinuses and mastoid air cells are clear. The orbits appear normal. There are no acute fractures of the calvaria or scalp swelling. Impression: No acute intracranial hemorrhage, no evidence of acute territorial infarction or other acute intracra nial disease process. ACT 112: Negative or not required by law. Electronically signed by: Braxton Salmeron M.D. 04/21/2022 2:11 PM
[2022-04-21 14:56] LABS: Base Excess VBG 8.2 mEq/L; HCO3 VBG 34 mmol/L; Oxygen Saturation VBG < 60.0 %; PCO2 VBG 53 mmHg (38-50); PO2 VBG 25 mmHg; pH VBG 7.42 (7.36-7.41)
[2022-04-21 15:27] LABS: Influenza A virus by PCR Negative (Neg); Influenza B virus by PCR Negative (Neg); RSV by PCR Negative (Neg); SARS CoV2 RNA(COVID-19) Ceph NEGATIVE (Negative)
--- NOTE | 2022-04-21 15:55 | History & Physical Report ---
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 Spoke with patient's POA (Sebastian Padmaja via the phone) Patient is DNR/DNI SCDs NPO until alert and responsive History of Present Illness Chief Complaint: AMS Primary Care Provider: [facility] Andry Dior is a 86 year old with a past medical history A Fib on Eliquis, UC on mesalamine, Diabetes on Metformin, GERD, Hypothyroidism, interstitial lung disease, CHF, RA, known mass in cecum (Bx 11/2019 - inflammatory mass of ischemic colitis per bx results) who resides at [facility] and was brought into the ER today via EMS for AMS/ unresponsive since 5AM. Patient had been alert and responsive yesterday. I am unable to obtain any history from the patient, but I spoke with patient's POA who is her niece Hilda Giang. She tells me that patient has never had an unresponsive episode in the past. EMS gave report to the ER that family sometimes dispenses some "pills" to the patient. Per the POA, the only "pills" family has given the patient were cough drops and occasionally some Mucinex. But she states they have not given her any recently. Allergies Allergy/AdvReac Type Severity Reaction Status Date / Time No Known Allergies Allergy Unverified 05/12/20 15:06 Home Medications Medication Instructions Recorded Confirmed Type albuterol sulfate 90 mcg/actuation 2 puff inhalation Q12 10/17/19 04/21/22 History aerosol inhaler levothyroxine 25 mcg tablet 25 mcg PO DAILY 10/17/19 04/21/22 History magnesium oxide 400 mg PO DAILY 10/17/19 04/21/22 History mesalamine 800 mg tablet,delayed 800 mg PO TID 10/17/19 04/21/22 History release metoprolol succinate 25 mg 12.5 mg PO DAILY 10/17/19 04/21/22 History tablet,extended release 24 hr omeprazole 20 mg capsule,delayed 20 mg PO BID 10/17/19 04/21/22 History release acetaminophen 325 mg tablet 650 mg PO Q6 PRN temp>100 12/10/19 04/21/22 History apixaban 5 mg tablet (Eliquis) 5 mg PO BID 05/12/20 04/21/22 History cholecalciferol (vitamin D3) 25 25 mcg PO DAILY 05/12/20 04/21/22 History mcg (1,000 unit) chewable tablet (Vitamin D3) coenzyme Q10 100 mg capsule 100 mg PO DAILY 05/12/20 04/21/22 History (CoQ-10) ferrous sulfate 325 mg (65 mg 325 mg PO DAILY 05/12/20 04/21/22 History iron) tablet prednisone 5 mg tablet 5 mg PO DAILY 05/12/20 04/21/22 History L.acidoph-L.rhamn-B.bifidum-B.long 1 tab PO TID 04/21/22 04/21/22 History 12.9 mg (2 billion cell) tabletDR (Probiotic Acidophilus Biobefrem) acetaminophen 325 mg tablet 650 mg PO Q6 PRN pain 1-10 04/21/22 04/21/22 History (Tylenol) albuterol sulfate 90 mcg/actuation 1 puff inhalation Q4 PRN Shortness 04/21/22 04/21/22 History aerosol inhaler (Ventolin HFA) Of Breath cetirizine 5 mg tablet 5 mg PO DAILY 04/21/22 04/21/22 History citalopram 10 mg tablet 10 mg PO QPM 04/21/22 04/21/22 History cranberry 400 mg capsule 12,600 mg PO BID 04/21/22 04/21/22 History diclofenac sodium 1 % topical gel 2 g topical QID 04/21/22 04/21/22 History ginkgo biloba 120 mg tablet 120 mg PO DAILY 04/21/22 04/21/22 History ipratropium 0.5 mg-albuterol 3 mg 3 ml inhalation .EVERY 2 HOURS PRN 04/21/22 04/21/22 History (2.5 mg base)/3 mL nebulization Shortness Of Breath Or Wheezing soln ipratropium 0.5 mg-albuterol 3 mg 3 ml inhalation QID 04/21/22 04/21/22 History (2.5 mg base)/3 mL nebulization soln loperamide 2 mg tablet (Imodium 2 mg PO QID PRN Diarrhea 04/21/22 04/21/22 History A-D) lutein 20 mg capsule 20 mg PO DAILY 04/21/22 04/21/22 History metformin 500 mg tablet,extended 500 mg PO DAILY 04/21/22 04/21/22 History release 24 hr oxybutynin chloride 10 mg 10 mg PO DAILY 04/21/22 04/21/22 History tablet,extended release 24 hr kistlxquqyxnk-QM-jpsrtdlwmjufo-guaif 20 ml PO Q6 PRN Cough 04/21/22 04/21/22 History 10 mg-20 mg-650 mg/20 mL oral liq (Mucinex Fast-Max Cold-Flu) prednisone 10 mg tablet 30 mg PO UD 04/21/22 04/21/22 History prednisone 20 mg tablet See Rx Instructions .Route .COMPLEX 04/21/22 04/21/22 History propylene glycol (PF) 0.6 % eye 1 drp ophthalmic (eye) Q12 04/21/22 04/21/22 History drops torsemide 5 mg tablet 5 mg PO BID 04/21/22 04/21/22 History turmeric root extract 500 mg 500 mg PO DAILY 04/21/22 04/21/22 History capsule Past Med/Surg History Medical History Anemia Atrial fibrillation CHF (congestive heart failure) CKD (chronic kidney disease), stage III Depression Diabetes mellitus, type II GERD (gastroesophageal reflux disease) Hyperlipidemia Hypothyroid Interstitial lung disease Mass of cecum Tricuspid regurgitation Ulcerative colitis Surgical History H/O colectomy 03/14/2020: Laparoscopic partial colectomy with anastomosis by Dr. Samia Sarah at [facility] History of cataract surgery History of colonoscopy Family History Other Cancer Diabetes Heart disease Social History Smoking Status: Unknown if ever smoked Second Hand Exposure: No; Preferred Language: Martiniquais Communication Ability: Impaired Geriatric Personal Care Aide Required: No Beliefs That Will Affect Care: None marital status: Single Current Living Situation: Alf Current Living Situation Comment: lives with sebastian, her neice Feels Safe at Home: Yes Assistive Devices: Glasses and Walker Review of Systems Review of Systems: unable to obtain any ROS due to patient unresponsiveness Physical Exam Constitutional: Patient unresponsive, vital signs normal Eyes: closed, does seem to press closed tight against passive opening Neck: trachea midline, no thyromegaly Respiratory: normal respiratory effort, lungs clear to auscultation Cardiovascular: Rate/Rhythm: + irregularly irregular Extremities: normal capillary refill; no edema Gastrointestinal (Abdomen): normal bowel sounds, soft, nontender, no hepatosplenomegaly Skin: no rashes, warm and dry Neurologic: Comatose Patient: + hand drop from over head-strikes face unresponsive Results & Data Results & Data ([facility]) Vital Signs (Past 12 Hours) Vital Signs Temp Pulse Pulse Resp BP BP Pulse Ox 04/21/22 12:52 77 04/21/22 12:44 99 04/21/22 12:37 79 24 151/54 H 99 04/21/22 12:37 04/21/22 12:37 37.1 C 79 24 151/54 H 99 O2 Del Method O2 Flow Rate 04/21/22 12:52 04/21/22 12:44 Nasal Cannula 3 04/21/22 12:37 Nasal Cannula 3 04/21/22 12:37 Nasal Cannula 3 04/21/22 12:37 Nasal Cannula 3 Laboratory Results Abnormal lab results 04/21/22 04/21/22 04/21/22 Range/Units 12:36 12:39 12:39 RDW Std Deviation 48.7 H (36.4-46.3) fL [place] # (Auto) 0.86 H (0.11-0.59) K/uL VBG pH (7.36-7.41) VBG pCO2 (38-50) mmHg Carbon Dioxide 34 H (21-32) mmol/L BUN 27 H (6-23) mg/dl BUN/Creatinine Ratio 25.7 H (10-20) Glucose 110 H (70-99(Fasting)) mg/dl POC Glucose 110 H (70-99) mg/dl Lipase 10 L (11-82) U/L 04/21/22 Range/Units 14:45 RDW Std Deviation (36.4-46.3) fL [place] # (Auto) (0.11-0.59) K/uL VBG pH 7.42 H (7.36-7.41) VBG pCO2 53 H (38-50) mmHg Carbon Dioxide (21-32) mmol/L BUN (6-23) mg/dl BUN/Creatinine Ratio (10-20) Glucose (70-99(Fasting)) mg/dl POC Glucose (70-99) mg/dl Lipase (11-82) U/L Diagnostic Findings Chest X-Ray 04/21/22 12:44 XR chest 1V portable CLINICAL HISTORY: Altered mental status. COMPARISON STUDY: Chest radiograph May 15, 2020. FINDINGS: Elevation of the humeral heads is incidentally noted. No pneumothorax or pleural effusion is present. Enlargement of the cardiac silhouette is unchanged. Diffuse interstitial thickening is noted. This is similar to prior exam. IMPRESSION: Diffuse interstitial thickening, likely chronic. This favors interstitial lung disease. No superimposed pneumonia identified. ACT 112: Negative or not required by law. Electronically signed by: Fredy Vera M.D. 04/21/2022 1:[address] 04/21/22 12:44 CT head/brain wo con CLINICAL HISTORY: ams Technique: Contiguous axial CT images of the head were acquired from the base of the skull to the vertex without intravenous contrast administration. Images were viewed in brain, subdural and bone windows. Automated dose lowering techniques and/or adjustment according to patient size were utilized for this exam. Comparison: Comparison is made to CT head 12/10/2019 Findings: Areas of decreased attenuation are present in the periventricular and subcortical white matter bilaterally consistent with small vessel ischemic disease. Generalized cerebral atrophy with commensurate enlargement of the ventricles, sulci, and cisterns is also present. There is no acute intracranial hemorrhage or evidence of acute territorial infarction. No shift of the midline structures, mass effect, or extra-axial abnormalities are shown. Atherosclerotic calcifications are present in the intracranial segments of the internal carotid arteries. Imaged portions of the paranasal sinuses and mastoid air cells are clear. The orbits appear normal. There are no acute fractures of the calvaria or scalp swelling. Impression: No acute intracranial hemorrhage, no evidence of acute territorial infarction or other acute intracranial disease process. ACT 112: Negative or not required by law. Electronically signed by: Braxton Salmeron M.D. 04/21/2022 2:11 PM Code Status & VTE Plan Code Status DNR/DNI Discussed this with patient's POA and she advised this is already in place Supervising Physician Co-Signing Physician Notes I personally saw and examined the patient. I verified all peña points and agree with Mar Sanchez PA-C with the following exceptions and/or additions: 86 year old female from [facility]. Apparently usually conversational. Currently groaning to noxious stimuli only. No previous similar episodes. O/E Groins to sternal rub, patient actively resisting me opening her eyes, withdrawal from pain, GCS 7 ([id number]), gag reflex intact, no decorticate or decerebrate posturing, no rigidity, bilateral reflexes intact in knees and elbows, HS RRR, no murmurs, Chest CTAB, abdomen soft nontender A/P Altered mental status -appears to be protecting her airway at this time and resisting me examining her eyes. She currently does not appear alert enough to take any medications. Ammonia level normal. Urine drug screen normal. We will observe on gentle IV fluids overnight on telemetry but suspect she will slowly wake up with time. PG Care Time/CCT Total # of Minutes Spent Total Time Spent with Patient: Total time spent is greater than 50% in coordination of care (as documented) at patient's floor/unit and/or counseling patient: Coding Level of Care Code 57171 INT INP/OBS CARE MIN Diagnoses AMS (altered mental status) R41.82 Diabetes mellitus, type II E11.9 Ulcerative colitis K51.90 Hypothyroid E03.9 GERD (gastroesophageal reflux disease) K21.9 Atrial fibrillation I48.20 Atrial fibrillation type: unspecified chronic Chronic steroid use (6) Atrial fibrillation Atrial fibrillation type: unspecified chronic Qualified Code(s): I48.20 - Chronic atrial fibrillation, unspecified
[2022-04-21 16:34] LABS: Amphetamines+Metham, Urine Neg (Neg); Barbiturates, Urine Neg (Neg); Benzodiazepine, Urine Neg (Neg); Cocaine, Urine Neg (Neg); MDMA (Ecstacy), Urine Neg (Neg); Methadone, Urine Neg (Neg); Opiate, Urine Neg (Neg); Phencyclidine, Urine Neg (Neg)
[2022-04-21] MEDS: LACTATED RINGER'S 1,000 ML IV SCH (22:50)
[2022-04-21] MEDS ORDERED: Nursing to Pharmacy Communication SCH (23:00)
--- NOTE | 2022-04-22 06:00 | Electrocardiogram Report ---
Test Reason : Blood Pressure : / mmHG Vent. Rate : 081 BPM Atrial Rate : 081 BPM P-R Int : 000 ms QRS Dur : 104 ms QT Int : 406 ms P-R-T Axes : 000 000 -20 degrees QTc Int : 471 ms Poor data quality, interpretation may be adversely affected Atrial fibrillation Incomplete right bundle branch block Nonspecific ST and T wave abnormality Abnormal ECG When compared with ECG of 12-MAY-2020 13:18, Incomplete right bundle branch block is now Present Nonspecific T wave abnormality now evident in Lateral leads Confirmed by Tom Redmond ([id number]) on 04/21/2022 4:19:53 PM Referred By: [facility] Confirmed By:Tom Redmond
[2022-04-22 07:31] LABS: Hemoglobin 13.2 g/dl (12.0-16.0); Mean Corpuscular Hemoglobin 32.4 pg (25.0-34.0); Mean Corpuscular Volume 98.3 fL (80.0-100.0); Mean Platelet Volume 9.7 fL (9.4-12.4); Platelet Count 245 K/uL (130-400); RDW Coefficient of Variation 13.6 % (11.5-14.5); Red Blood Count 4.07 M/uL (4.20-5.40); White Blood Count 8.61 K/ul (4.8-10.8)
[2022-04-22 07:46] LABS: Albumin Level 3.1 gm/dl (3.4-5.0); BUN Creatinine Ratio 26.4 (10-20); Creatinine Clr Calc Pharmacy 45.5 ml/min; Est GFR (African American) 66.2 ml/min; Est GFR (Non-African American) 57.1 ml/min; Globulin 3.2 gm/dl (2.5-4.0); Potassium 3.6 mmol/L (3.5-5.1); Total Protein 6.3 gm/dl (6.0-8.3)
--- NOTE | 2022-04-22 09:02 | Hospitalist Progress Note ---
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) (4) Hypothyroid: Plan: - Will resume Levothyroxine 25mcg when able to take po medications -TSH 1.76 (5) GERD (gastroesophageal reflux disease): Plan: - Will resume Protonix when able to take po medications (6) Atrial fibrillation: Plan: Admitted to tele Will resume Eliquis when able to take po medications SCDs applied (7) Chronic steroid use: Plan: - will resume when able to take po medications Plan Reviewed the labs, CXR, CT head and EKG Reviewed and discussed patient with Dr Jerry 04/21/[address] oLwery Spoke with patient's POA (Jagruti Giang via the phone) Also spoke with patient's friend and previous caregiver who was at bedside Patient is DNR/DNI SCDs NPO until alert and responsive Admission and Anticipated Discharge Date Admission Date: April 21, 2022 Subjective Patient still remains unresponsive today. Overnight nurse was able to wake patient and she stated her name and and thought she was at [facility]. She is not awakening for me this AM. There is a friend and previous caregiver at bedside. She stated that at times patient thinks she can adjust her medications and "plays doctor" She states that [facility] gives them the meds and leaves the room, they do not make sure patient takes the medications and the friend at bedside states she may have kept them and took more than she should have. She also confirms that nothing like this has ever happened though in the past. Per nursing patient at times will open her eyes and if she sees someone she closes her eyes. She smiled and laughed when her niece talked about her dog"skippy" Review of Systems Review of Systems: unable to obtain any ROS due to patient unresponsiveness Physical Exam Neck: trachea midline, no thyromegaly Respiratory: + cough; no respiratory distress and no labored breathing Auscultation: + diminished lung sounds and + crackles; no wheezes Cardiovascular: Rate/Rhythm: + irregularly irregular Extremities: normal capillary refill; no edema Gastrointestinal (Abdomen): normal bowel sounds, soft, nontender, no hepatosplenomegaly Skin: no rashes, warm and dry Neurologic: patient was not able to awaken for me this AM but does move all 4 of her extremities Results & Data Results & Data ([facility]) Vital Signs (Past 12 Hours) Vital Signs Temp Pulse Pulse Pulse Resp BP Pulse Ox 04/22/22 07:25 72 20 155/79 H 98 04/22/22 04:00 36.5 C 75 18 132/70 98 04/21/22 22:03 71 04/21/22 23:20 36.7 C 67 18 148/69 H 98 O2 Del Method O2 Flow Rate 04/22/22 07:25 Nasal Cannula 04/22/22 04:00 Nasal Cannula 3 04/21/22 22:03 04/21/22 23:20 Nasal Cannula 3 Laboratory Results Abnormal lab results 04/21/22 04/21/22 04/21/22 Range/Units 12:36 12:39 12:39 RBC (4.20-5.40) M/uL RDW Std Deviation 48.7 H (36.4-46.3) fL [place] # (Auto) 0.86 H (0.11-0.59) K/uL VBG pH (7.36-7.41) VBG pCO2 (38-50) mmHg Carbon Dioxide 34 H (21-32) mmol/L BUN 27 H (6-23) mg/dl BUN/Creatinine Ratio 25.7 H (10-20) Glucose 110 H (70-99(Fasting)) mg/dl POC Glucose 110 H (70-99) mg/dl Albumin (3.4-5.0) gm/dl Lipase 10 L (11-82) U/L 04/21/22 04/21/22 04/22/22 Range/Units 14:45 20:39 06:53 RBC 4.07 L (4.20-5.40) M/uL RDW Std Deviation 49.0 H (36.4-46.3) fL [place] # (Auto) (0.11-0.59) K/uL VBG pH 7.42 H (7.36-7.41) VBG pCO2 53 H (38-50) mmHg Carbon Dioxide (21-32) mmol/L BUN (6-23) mg/dl BUN/Creatinine Ratio (10-20) Glucose (70-99(Fasting)) mg/dl POC Glucose 110 H (70-99) mg/dl Albumin (3.4-5.0) gm/dl Lipase (11-82) U/L 04/22/22 Range/Units 06:53 RBC (4.20-5.40) M/uL RDW Std Deviation (36.4-46.3) fL [place] # (Auto) (0.11-0.59) K/uL VBG pH (7.36-7.41) VBG pCO2 (38-50) mmHg Carbon Dioxide 34 H (21-32) mmol/L BUN 24 H (6-23) mg/dl BUN/Creatinine Ratio 26.4 H (10-20) Glucose (70-99(Fasting)) mg/dl POC Glucose (70-99) mg/dl Albumin 3.1 L (3.4-5.0) gm/dl Lipase (11-82) U/L PG Care Time/CCT Total # of Minutes Spent Total Time Spent with Patient: Total time spent is greater than 50% in coordination of care (as documented) at patient's floor/unit and/or counseling patient: Coding Level of Care Code 72496 SUB INP/OBS CARE 2/35MIN Diagnoses AMS (altered mental status) R41.82 Diabetes mellitus, type II E11.9 Ulcerative colitis K51.90 Hypothyroid E03.9 GERD (gastroesophageal reflux disease) K21.9 Atrial fibrillation I48.20 Atrial fibrillation type: unspecified chronic Chronic steroid use (6) Atrial fibrillation Atrial fibrillation type: unspecified chronic Qualified Code(s): I48.20 - Chronic atrial fibrillation, unspecified
[2022-04-22] MEDS: LACTATED RINGER'S 1,000 ML IV SCH (10:47)
[2022-04-22] MEDS ORDERED: ACETAMINOPHEN 325 MG TAB PO PRN (16:56)
[2022-04-22] MEDS: TORSEMIDE 10 MG TAB PO SCH (17:50)
[2022-04-22] MEDS: MAGNESIUM OXIDE 400 MG TAB PO SCH (17:50)
[2022-04-22] MEDS ORDERED: CITALOPRAM 20 MG TAB PO SCH (21:00)
[2022-04-22] MEDS: APIXABAN 5 MG TABLET PO SCH (21:19)
[2022-04-22] MEDS: MESALAMINE 800 MG TABCR PO SCH (21:19)
[2022-04-23] MEDS ORDERED: LEVOTHYROXINE SODIUM 25 MCG TABLET PO SCH (06:30)
[2022-04-23] MEDS: APIXABAN 5 MG TABLET PO SCH (07:29)
[2022-04-23] MEDS: MAGNESIUM OXIDE 400 MG TAB PO SCH (07:30)
[2022-04-23] MEDS: TORSEMIDE 10 MG TAB PO SCH (07:31)
[2022-04-23] MEDS: MESALAMINE 800 MG TABCR PO SCH ×2 (07:32→13:24)
--- NOTE | 2022-04-23 08:36 | Discharge Summary ---
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 Patient had been alert and responsive yesterday. I am unable to obtain any history from the patient, but I spoke with patient's POA who is her niece Hilda Giang. She tells me that patient has never had an unresponsive episode in the past. EMS gave report to the ER that family sometimes dispenses some "pills" to the patient. Per the POA, the only "pills" family has given the patient were cough drops and occasionally some Mucinex. But she states they have not given her any recently. Admission Exam Per Admitting Provider Constitutional: Patient unresponsive, vital signs normal Eyes: closed, does seem to press closed tight against passive opening Neck: trachea midline, no thyromegaly Respiratory: normal respiratory effort, lungs clear to auscultation Cardiovascular: Rate/Rhythm: + irregularly irregular Extremities: normal capillary refill; no edema Gastrointestinal (Abdomen): normal bowel sounds, soft, nontender, no hepatosplenomegaly Skin: no rashes, warm and dry Neurologic: Comatose Patient: + hand drop from over head-strikes face unresponsive Principal Diagnosis AMS Discharge Exam Neck trachea midline, no thyromegaly Respiratory normal respiratory effort, lungs clear to auscultation + cough; no respiratory distress and no labored breathing Auscultation: + diminished lung sounds and + crackles; no wheezes Cardiovascular Rate/Rhythm: + irregularly irregular Extremities: normal capillary refill; no edema Gastrointestinal (Abdomen) normal bowel sounds, soft, nontender, no hepatosplenomegaly Skin no rashes, warm and dry Neurologic patellar DTR's 2+ bilat, sensation intact and PERRL, EOMI, accommodation nl, no face palsy, no dysarthria Psychiatric Orientation: alert, oriented to person, oriented to place and cooperative Eye Contact: good eye contact Discharge Data Allergies Allergy/AdvReac Type Severity Reaction Status Date / Time No Known Allergies Allergy Unverified 05/12/20 15:06 Consultations 04/21/22 14:19 ED Decision to Admit Stat Ordered Studies 04/21/22 12:44 CT head/brain wo con Stat Impression: No acute intracranial hemorrhage, no evidence of acute territorial infarction or other acute intracranial disease process. Hospital Course (1) AMS (altered mental status): CT head negative CXR - no acute changes VSS CBC, BMP, VBG, Ca, LFT, NH3, Lipase, TSH, U/A, UDS, Covid, influenza and RSV all unremarkable B12 - 444 Yesterday Am patient was still unresponsive and sent for MRI head, while she was on the table to have the MRI she awoke and was yelling and uncooperative. The MRI was cancelled and she was sent back to the floor. She was alert to person but thought she was in [facility] and asked for her recliner. Diet was restarted and po medications were ordered. 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) (4) Hypothyroid: - Resume Levothyroxine 25mcg -TSH 1.76 (5) GERD (gastroesophageal reflux disease): - Resume Protonix (6) Atrial fibrillation: Admitted to tele Resumed Eliquis SCDs applied (7) Chronic steroid use: - will resume when able to take po medications (8) Bradycardia with 31-40 beats per minute: Had episode of bradycardia in 30-40s last night while sleeping awoke patient and she ws asymmtomatic with no complaints and heart rate increased to 60-70s Will hold Metoprolol with episode of bradycardia continue to monitor BP/heart rate Plan Reviewed the labs, CXR, CT head and EKG Reviewed and discussed patient with Dr Jerry 04/21/[address] Lowery Spoke with patient's POA (Jagruti Giang via the phone) Also spoke with patient's friend and previous caregiver who was at bedside yesterday Patient is DNR/DNI SCDs Restarted diet and po medications last night Total Time Total Time Spent Total Time Spent (In Minutes): 40 Discharge Plan Discharge Items Patient Disposition: Transfer Assisted Fac Reason For Visit: AMS Discharge Diagnosis: AMS bradycardia Condition on Discharge: Fair Activity: Resume your previous activity Non-emergency contact: Primary Care Provider Call non-emergency contact if: you have any medication questions Follow-up/Referrals: [facility] [Primary Care Provider] - Diet: Carb Consistent or DM2 and Heart Healthy Addtl Attending Provider Instructions: You were admitted with unresponsiveness, AMS You had labs, CT head and CXR with no acute changes and were admitted You were to have a MRI head yesterday and while on the table for the MRI you awoken andwere uncooperative for the test. The MRI was cancelled You have remained alert and oriented and wish to go back to [facility] You did have an episode of bradycardia last nght while sleeping and when you were aroused your were asymptomatic and your heart rte improved. We will hold/stop the metoprolol Continue to have your blood pressure and vitals monitored off the beta allan Pending Studies at Discharge: No Stand-Alone Forms: My [facility] Skilled Items Patient informed of condition?: Yes DNR: Yes Discharge Level of Care: Skilled Communicable Disease: No Discharge Prognosis: Stable Lines: None Urinary Catheter: No Medications and DC Order Prescriptions: Continued levothyroxine 25 mcg Tablet 25 mcg PO DAILY omeprazole 20 mg Capsule,Delayed Release(Dr/Ec) 20 mg PO BID albuterol sulfate 90 mcg/actuation Hfa Aerosol Inhaler 2 puff INHALATION Q12 Rx Instructions: rinse mouth thoroughly and spit after each use mesalamine 800 mg Tablet,Delayed Release (Dr/Ec) 800 mg PO TID magnesium oxide 400 mg magnesium Tablet 400 mg PO DAILY acetaminophen 325 mg Tablet 650 mg PO Q6 MDD 3g PRN (Reason: temp>100) Eliquis 5 mg Tablet 5 mg PO BID coenzyme Q10 [CoQ-10] 100 mg Capsule 100 mg PO DAILY cholecalciferol (vitamin D3) [Vitamin D3] 25 mcg (1,000 unit) Tablet,Chewable 25 mcg PO DAILY prednisone 5 mg tablet 5 mg PO DAILY ferrous sulfate 325 mg (65 mg iron) Tablet 325 mg PO DAILY metformin 500 mg Tablet Extended Release 24 Hr 500 mg PO DAILY ginkgo biloba 120 mg Tablet 120 mg PO DAILY Rx Instructions: give with meal/snack lutein 20 mg Capsule 20 mg PO DAILY Rx Instructions: give with meal/snack ipratropium-albuterol 0.5 mg-3 mg(2.5 mg base)/3 mL solution for nebulization 3 ml INHALATION QID Rx Instructions: start 04/14/22 for 2 weeks..continue prn order ipratropium-albuterol 0.5 mg-3 mg(2.5 mg base)/3 mL solution for nebulization 3 ml INHALATION .EVERY 2 HOURS PRN (Reason: Shortness Of Breath Or Wheezing) loperamide [Imodium A-D] 2 mg Tablet 2 mg PO QID PRN (Reason: Diarrhea) oxybutynin chloride 10 mg tablet extended release 24hr 10 mg PO DAILY Probiotic Acidophilus Biobeads 12.9 mg (2 billion cell) Tablet,Delayed Release (Dr/Ec) 1 tab PO TID torsemide 5 mg tablet 5 mg PO BID turmeric root extract 500 mg Capsule 500 mg PO DAILY Mucinex Fast-Max Cold-Flu 10-20-650 mg/20 mL Liquid 20 ml PO Q6 PRN (Reason: Cough) propylene glycol (PF) 0.6 % Drops 1 drp ophthalmic (eye) Q12 citalopram 10 mg tablet 10 mg PO QPM cranberry 400 mg Capsule 12,600 mg PO BID Rx Instructions: administer with meals diclofenac sodium 1 % Gel 2 g TOPICAL QID Rx Instructions: apply to right shoulder acetaminophen [Tylenol] 325 mg Tablet 650 mg PO Q6 MDD 3g PRN (Reason: pain 1-10) albuterol sulfate [Ventolin HFA] 90 mcg/actuation Hfa Aerosol Inhaler 1 puff INHALATION Q4 PRN (Reason: Shortness Of Breath) Rx Instructions: rinse mouth thouroughly and spit after use prednisone 10 mg Tablet 30 mg PO UD Rx Instructions: take daily forj 2 days 04/20/22 & 04/21/22 and continue routine daily dose Changed cetirizine 5 mg Tablet 5 mg PO Q2D Qty: 15 0RF Discontinued metoprolol succinate 25 mg Tablet Extended Release 24 Hr 12.5 mg PO DAILY prednisone 20 mg tablet See Rx Instructions .ROUTE .COMPLEX Rx Instructions: 20 mg orally daily for cough for 2 days continue 10mg routine daily dose. START 04/22/22 1300 Discharge Orders: Discharge Order (Routine); Ordered 04/23/22 Ordered By: Dianne Sanchez Admission Data Admit Date/Time: 04/21/22 16:17 Attending Provider: Angelo Lowery Admit Provider: Jasbir Jerry Primary Care Provider: [facility] Other Interventions: Discharge Summary Assessment (RN) Last Done: 04/23/22 13:40 Supervising Physician Co-Signing Physician Notes Patient seen and examined at bedside During face to face encounter, I obtained a physical exam and history of hospital stay. I discussed discharge plan with BRANDON Sanchez and patient. I reviewed above note and agree with it. Patient was seen for delirum. Possible polypharmacy, will hold back betablocker, and decrease cetirizine. Coding Level of Care Code 51486 INP/OBS DISCH >30 MIN Diagnoses AMS (altered mental status) R41.82 Diabetes mellitus, type II E11.9 Ulcerative colitis K51.90 Hypothyroid E03.9 GERD (gastroesophageal reflux disease) K21.9 Atrial fibrillation I48.20 Atrial fibrillation type: unspecified chronic Chronic steroid use Bradycardia with 31-40 beats per minute R00.1
[2022-04-23] MEDS ORDERED: OXYBUTYNIN CHLORIDE XL 5 MG TABCR PO SCH (09:00)
[2022-04-23] MEDS ORDERED: METOPROLOL SUCC 25MG EXT REL TAB PO SCH (09:00)
[2022-04-23] MEDS ORDERED: PANTOprazole 40 MG TAB PO SCH (09:00)
[2022-04-23] MEDS ORDERED: CETIRIZINE HCL 10 MG TABLET PO SCH (09:00)
== END 2022-04-23 14:43 ==
LOC: 2N 12:24 → ED 12:24 → SUATTDRO 16:17 → 2N 18:26
DX: Z79.82 Long term (current) use of aspirin; K21.9 Gastro-esophageal reflux disease without esophagitis; Z79.899 Other long term (current) drug therapy; E11.22 Type 2 diabetes mellitus with diabetic chronic kidney disease; Z79.52 Long term (current) use of systemic steroids; N18.9 Chronic kidney disease, unspecified; K51.90 Ulcerative colitis, unspecified, without complications; I48.91 Unspecified atrial fibrillation; R41.82 Altered mental status, unspecified; E03.9 Hypothyroidism, unspecified; J84.9 Interstitial pulmonary disease, unspecified; Z79.01 Long term (current) use of anticoagulants